=== PATIENT | female | born 1940 | race Caucasian/White ===

== ENCOUNTER 2019-08-12 10:24 | Inpatient (IN) ==
[2019-08-12] MEDS ORDERED: SODIUM CHLORIDE 0.9% 500 ML IV SCH (10:45)
[2019-08-12] MEDS ORDERED: NALOXONE HCL 0.4 MG/1 ML VIAL/CARP IV STA (10:45)
--- NOTE | 2019-08-12 11:00 | XRay Report ---
XR chest 1V portable HISTORY: weakness COMPARISON: Chest 05/27/2019. FINDINGS: The heart remains mildly enlarged. No new focal lung consolidations to suggest pneumonia. N o evidence for pulmonary edema. No pleural effusions. No pneumothorax. IMPRESSION: Stable mild cardiomegaly. ACT 112: Negative or not required by law. Electronically signed by: Mark Edwards M.D. 08/12/2019 10:59 AM
[2019-08-12 11:03] LABS: Basophils # (auto) 0.02 K/uL (0-0.2); Basophils % (auto) 0.2 %; Eosinophils # (auto) 0.19 K/uL (0-0.5); Eosinophils % (auto) 1.5 %; Hematocrit (blood only) 39.8 % (37-47); Hemoglobin 12.5 g/dL (12.0-16.0); Immature Granulocytes # (auto) 0.02 K/uL (0.00-0.02); Immature Granulocytes % (auto) 0.2 %; Lymphocytes # (auto) 2.08 K/uL (1.2-3.4); Lymphocytes % (auto) 16.5 %; Mean Corpuscular Hemoglobin 26.6 pg (25-34); Mean Corpuscular Hgb Conc 31.4 g/dL (32-36); Mean Corpuscular Volume 84.7 fL (80-100); Mean Platelet Volume 11.6 fL (7.4-10.4); Monocytes # (auto) 0.86 K/uL (0.11-0.59); Monocytes % (auto) 6.8 %; Neutrophils # (auto) 9.46 K/uL (1.4-6.5); Neutrophils % (auto) 74.8 %; Platelet Count 201 K/uL (130-400); RDW Coefficient of Variation 18.4 % (11.5-14.5); RDW Standard Deviation 57.1 fL (36.4-46.3); White Blood Count 12.63 K/uL (4.8-10.8)
[2019-08-12 11:23] LABS: Alanine Aminotransferase 29 U/L (12-78); Albumin Level 2.9 gm/dl (3.4-5.0); BUN Creatinine Ratio 33.2 (10-20); Blood Urea Nitrogen 56 mg/dl (7-18); Calcium 9.4 mg/dl (8.5-10.1); Carbon Dioxide 27 mmol/L (21-32); Chloride 111 mmol/L (98-107); Creatinine Clr Calc Pharmacy 31.9 ml/min; Est GFR (African American) 33.6; Glucose 102 mg/dl (70-99); Sodium 143 mmol/L (136-145)
[2019-08-12] MEDS ORDERED: SODIUM CHLORIDE 0.9% 1000ML 500 ML IV ONE ×2 (11:25→13:28)
[2019-08-12] MEDS ORDERED: ONDANSETRON INJ 2 MG/ML 2 ML VIAL IV STA (11:31)
[2019-08-12 11:32] LABS: Albumin Globulin Ratio 0.6 (0.9-2); Alkaline Phosphatase 72 U/L (45-117); Bilirubin,Total 0.5 mg/dl (0.2-1); Globulin 4.6 gm/dl (2.5-4.0); Total Protein 7.5 gm/dl (6.4-8.2); Troponin I < 0.015 ng/ml (0-0.045)
[2019-08-12] MEDS ORDERED: ONDANSETRON INJ 2 MG/ML 2 ML VIAL ONE (11:32)
[2019-08-12 12:11] LABS: INR 1.1 (0.9-1.1)
[2019-08-12 12:13] LABS: Potassium 3.8 mmol/L (3.5-5.1)
[2019-08-12 12:18] LABS: Magnesium 2.4 mg/dl (1.8-2.4)
[2019-08-12 13:01] LABS: Appearance Urine Clear (Clear); Bacteria Urine Automated 4+ (Negative); Bilirubin Urine Negative (Negative); Blood Urine Negative (Negative); Cast Urine Automated 0 /lpf (0-5); Color Urine Yellow; Epithelial Cell Urine Auto 20-30 /lpf (0-5); Glucose Urine UA Negative (Negative); Ketones Urine Negative (Negative); Leukocyte Esterase Urine Trace (Negative); Nitrite Urine Positive (Negative); Protein Urine 1+ (Negative); RBC Urine Automated 0-4 /hpf (0-4); Specific Gravity Urine 1.014 (1.000-1.030); Sulfosalicylic Acid Urine Positive (Negative); Urobilinogen Urine Negative (Negative); pH Urine 7.5 (4.5-7.5)
--- NOTE | 2019-08-12 13:12 | CT Scan Report ---
CT SCAN OF THE BRAIN WITHOUT IV CONTRAST CLINICAL HISTORY: Tremor. Change in mental status. COMPARISON STUDY: No priors. TECHNIQUE: Unenhanced axial CT scan of the brain is performed from the vertex to the skull base. A do se lowering technique was utilized adhering to the principles of ALARA. CT DOSE: 537.48 mGy.cm FINDINGS: Brain parenchyma: There are age-related involutional changes noting kwyk-ev-uwplwjct patchy subcorti kurt and periventricular microangiopathic change. There is no hemorrhage, mass effect, or evidence of acute territorial ischemia by CT criteria. Fonseca-white matter differentiation is preserved. No extra-a xial fluid collection is seen. Ventricles, sulci, cisterns: Prominent secondary to involutional change. Intracranial vasculature: There is atherosclerotic calcification of the cavernous carotid and vertebr al arteries. Calvarium: Unremarkable. Sinuses and mastoids: The visualized paranasal sinuses are clear. The mastoid air cells are well pneu matized. Orbits: The bony orbits are grossly intact. There are bilateral ocular lens implants. IMPRESSION: There is no hemorrhage, mass effect, or evidence of acute territorial ischemia by CT isaias dixon. ACT 112: Negative or not required by law. Electronically signed by: Kenneth Davis M.D. 08/12/2019 1:11 PM
[2019-08-12] MEDS ORDERED: cefTRIAXone SODIUM 2,000 MG/70 ML BAG IV STA (14:18)
[2019-08-12 15:02] LABS: Influenza A virus by PCR Neg for Influ A (Neg); Influenza B virus by PCR Neg for Influ B (Neg)
--- NOTE | 2019-08-12 17:08 | Emergency Department Note ---
Entered by Denisha Ceron acting as a scribe for History of Present Illness General Chief complaint: Lethargic Time Seen by Provider: 08/12/19 10:29 Source: patient and family History of Present Illness Provider complaint: weakness Onset (ago): day(s) 3 Location: head Pain Consistency: + other (worsening) Relieved By: + none Exacerbated By: + none Associated symptoms: + other (+fatigue, +vision blurriness); no loss of appetite, no nausea/vomiting and no shortness of breath The patient is a 79 year old female w/ PMHx cholecystectomy and appendicitis who presents to the ED w/ CC of weakness beginning Monday. Per the patient's , the patient was here last week for back pain where she was prescribed Hydrocodone and Baclofen. He reports that the patient has been lethargic and fatigued since then. He reports that the patient has had a normal appetite. The patient denies any nausea, vomiting, or shortness of breath. She reports that she is diabetic and took insulin this morning. She mentions that she has blurred vision. She mentions that she has chronic leg leg swelling. The patient's notes that she did not take her medication this morning. Home Medications Home Medications Medication Instructions Recorded Confirmed Type allopurinol 200 mg PO DAILY 05/27/19 08/12/19 History amlodipine 5 mg PO HS 05/27/19 08/12/19 History aspirin 81 mg PO DAILY 05/27/19 08/12/19 History atorvastatin 80 mg PO DAILY 05/27/19 08/12/19 History bumetanide 1 mg PO DAILY 05/27/19 08/12/19 History cetirizine [Zyrtec] 10 mg PO DAILY 05/27/19 08/12/19 History clopidogrel 75 mg PO BID 05/27/19 08/12/19 History insulin aspart U-100 [Novolog 1 unit SUBCUT UD 05/27/19 08/12/19 History Flexpen U-100 Insulin] insulin glargine [Lantus Solostar 36 unit SUBCUT HS 05/27/19 08/12/19 History U-100 Insulin] isosorbide mononitrate 60 mg PO DAILY 05/27/19 08/12/19 History losartan 100 mg PO DAILY 05/27/19 08/12/19 History metoprolol tartrate 100 mg PO BID 05/27/19 08/12/19 History multivitamin 1 tab PO DAILY 05/27/19 08/12/19 History lidocaine [Lidoderm] 1 patch TOP DAILY #10 ea 07/31/19 08/12/19 Rx baclofen 10 mg PO BID PRN 08/12/19 08/12/19 History hydrocodone-acetaminophen 1 tab PO HS PRN 08/12/19 08/12/19 History tramadol 50 mg PO Q6H PRN 08/12/19 08/12/19 History Allergies Allergy/AdvReac Type Severity Reaction Status Date / Time ibuprofen Allergy Unknown RUNNY NOSE Verified 08/12/19 11:07 niacin AdvReac Unknown RED RASH Verified 08/12/19 11:07 Past Med/Surg History Medical History Appendicitis, acute (Acute) CAD (coronary artery disease) 07/2010: Cardiac cath revealed a 20% left main lesion in both the proximal and distal segments, 50% mid LAD lesion which was not hemodynamically significant by FFR, and an 80% lesion in the second diagonal branch which was significant by FFR. Medical management. Surgical History H/O carotid endarterectomy (Resolved) H/O total knee replacement (Resolved) History of cholecystectomy (Resolved) History of heart artery stent (Resolved) History of hysterectomy (Resolved) Family History Other Family history non-contributory Social History Preferred Language: Czech Feels Safe at Home: Yes Smoking Status: Never smoker Review of Systems See HPI for pertinent positives & negatives. and A total of 10 systems reviewed and were otherwise negative Physical Exam Vital Signs Vital Signs - 24 hr 08/12/19 10:39 08/12/19 10:45 08/12/19 11:00 Temperature 36.5 C Temperature Source Oral Pulse Rate 69 65 Pulse Rate from SpO2 Sensor 65 Pulse Rhythm Regular Respiratory Rate 23 16 Respiratory Effort / Characteristics Non-Labored Spontaneous Respiratory Depth Normal Blood Pressure 176/59 H 162/65 H Blood Pressure Mean 98 74 Blood Pressure Position Lying Pulse Oximetry 94 93 94 Oxygen Delivery Method Room Air Room Air Sepsis Recent Fever Within 48 Hours No Sepsis New/Unexplained Change in Mental Status No Sepsis Action Taken by Nursing No Action Required 08/12/19 11:31 08/12/19 12:00 08/12/19 12:32 Temperature Temperature Source Pulse Rate 75 71 70 Pulse Rate from SpO2 Sensor 77 71 70 Pulse Rhythm Respiratory Rate 20 20 22 Respiratory Effort / Characteristics Respiratory Depth Blood Pressure 193/75 H 167/69 H 191/77 H Blood Pressure Mean 99 112 134 Blood Pressure Position Pulse Oximetry 96 96 91 Oxygen Delivery Method Sepsis Recent Fever Within 48 Hours Sepsis New/Unexplained Change in Mental Status Sepsis Action Taken by Nursing 08/12/19 15:10 Temperature Temperature Source Pulse Rate 71 Pulse Rate from SpO2 Sensor 73 Pulse Rhythm Respiratory Rate 15 Respiratory Effort / Characteristics Respiratory Depth Blood Pressure 186/65 H Blood Pressure Mean 114 Blood Pressure Position Pulse Oximetry 94 Oxygen Delivery Method Sepsis Recent Fever Within 48 Hours Sepsis New/Unexplained Change in Mental Status Sepsis Action Taken by Nursing GENERAL: Well nourished, opens eyes to voice, non-toxic. EYE EXAM: Normal conjunctiva. PERRL, no anisocoria and EOM's grossly intact w/o pain. OROPHARYNX: Moist mucous membranes. Grossly normal dentition. NECK: Supple, no nuchal rigidity, no adenopathy, non-tender. No signs of meningismus. LUNGS: Clear to auscultation. Normal chest wall mechanics. HEART: NSR, no MRG. ABDOMEN: Abdomen soft, non-tender, normo-active bowel sounds, no masses, no rebound or guarding. BACK: No CVA TTP. SKIN: No rashes and no bruising. UPPER EXTREMITIES: Upper extremities are grossly normal. LOWER EXTREMITIES: No pitting edema. No calf pain. NEURO EXAM: A&O x3, opens eyes to voice, follows commands, no focal weakness, no sensory deficits, good finger to nose. Course Course 1035: The patient was evaluated in room C12B, and a complete history and p hysical examination were performed. 1040: The patient was placed on a school bus monitor which showed sinus rhythm and rate of 69. 1210: I reevaluated the patient and she is more awake and alert. 1517: I reviewed the patient's case with Heydi Rodriguez. Dr. Alanna Rodriguez Hospitalist will evaluate the patient for further management. I updated family and patient about the plan. Administered Medications Discontinued Medications Sodium Chloride (Nss) 500 mls @ 999 mls/hr IV .Q31M DENISSE Stop: 08/12/19 11:15 Last Infusion: 08/12/19 12:34 Dose: 0 mls/hr Documented by: [id number] Admin: 08/12/19 11:35 Dose: 999 mls/hr Documented by: [id number] Sodium Chloride (Nss 1000ml) 500 mls @ 999 mls/hr IV .Q31M ONE Stop: 08/12/19 11:55 Last Infusion: 08/12/19 12:34 Dose: 0 mls/hr Documented by: [id number] Admin: 08/12/19 11:34 Dose: 999 mls/hr Documented by: [id number] Sodium Chloride (Nss 1000ml) 500 mls @ 999 mls/hr IV .Q31M ONE Stop: 08/12/19 13:58 Last Infusion: 08/12/19 13:05 Dose: 0 mls/hr Documented by: [id number] Admin: 08/12/19 12:34 Dose: 999 mls/hr Documented by: [id number] Ceftriaxone Sodium (Rocephin) 2,000 mg in 70 mls @ 140 mls/hr IV NOW STA Stop: 08/12/19 14:47 Last Infusion: 08/12/19 15:38 Dose: 0 mls/hr Documented by: [id number] Admin: 08/12/19 15:04 Dose: 140 mls/hr Documented by: [id number] Naloxone HCl (Narcan) 0.4 mg IV NOW STA Stop: 08/12/19 10:46 Last Admin: 08/12/19 11:35 Dose: 0.4 mg Documented by: [id number] Ondansetron HCl (Zofran) Confirm Administered Dose 4 mg .ROUTE .STK-MED ONE Stop: 08/12/19 11:33 Last Admin: 08/12/19 11:35 Dose: 4 mg Documented by: [id number] Ondansetron HCl (Zofran) 4 mg IV NOW STA Stop: 08/12/19 11:32 Last Admin: 08/12/19 11:35 Dose: Not Given Documented by: [id number] Medical Decision Making Medical Records Attestation: I reviewed the patient's medical records. Home Medications Current Medication List: was personally reviewed by me Laboratory Data Attestation: I reviewed the patient's lab results. Result diagrams: 08/12/19 10:52 08/12/19 11:47 Lab Results 08/12/19 08/12/19 08/12/19 Range/Units 10:47 10:52 10:52 WBC 12.63 H (4.8-10.8) K/uL RBC 4.70 (4.2-5.4) M/uL Hgb 12.5 (12.0-16.0) g/dL Hct 39.8 (37-47) % MCV 84.7 (80-100) fL MCH 26.6 (25-34) pg MCHC 31.4 L (32-36) g/dL RDW Std Deviation 57.1 H (36.4-46.3) fL RDW Coeff of Yoel 18.4 H (11.5-14.5) % Plt Count 201 (130-400) K/uL MPV 11.6 H (7.4-10.4) fL Immature Gran % (Auto) 0.2 % Neut % (Auto) 74.8 % Lymph % (Auto) 16.5 % [place] % (Auto) 6.8 % Eos % (Auto) 1.5 % Baso % (Auto) 0.2 % Immature Gran # (Auto) 0.02 (0.00-0.02) K/uL Neut # (Auto) 9.46 H (1.4-6.5) K/uL Lymph # (Auto) 2.08 (1.2-3.4) K/uL [place] # (Auto) 0.86 H (0.11-0.59) K/uL Eos # (Auto) 0.19 (0-0.5) K/uL Baso # (Auto) 0.02 (0-0.2) K/uL PT 11.0 (9.0-12.0) Seconds INR 1.1 (0.9-1.1) Sodium (136-145) mmol/L Potassium (3.5-5.1) mmol/L Chloride (98-107) mmol/L Carbon Dioxide (21-32) mmol/L Anion Gap (3-11) BUN (7-18) mg/dl Creatinine (0.6-1.2) mg/dl Est Cr Clr Drug Dosing ml/min Est GFR ( Amer) Est GFR (Non-Af Amer) BUN/Creatinine Ratio (10-20) Glucose (70-99) mg/dl POC Glucose 101 H (70-99) mg/dl Calcium (8.5-10.1) mg/dl Magnesium (1.8-2.4) mg/dl Total Bilirubin (0.2-1) mg/dl AST (15-37) U/L ALT (12-78) U/L Alkaline Phosphatase (45-117) U/L Troponin I (0-0.045) ng/ml Total Protein (6.4-8.2) gm/dl Albumin (3.4-5.0) gm/dl Globulin (2.5-4.0) gm/dl Albumin/Globulin Ratio (0.9-2) TSH (0.300-4.500) uIu/ml Urine Color Urine Appearance (Clear) Urine pH (4.5-7.5) Ur Specific [place] (1.000-1.030) Urine Protein (Negative) Urine Glucose (UA) (Negative) Urine Ketones (Negative) Urine Blood (Negative) Urine Nitrite (Negative) Urine Bilirubin (Negative) Urine Urobilinogen (Negative) Ur Leukocyte Esterase (Negative) Urine WBC (Auto) (0-5) /hpf Urine RBC (Auto) (0-4) /hpf U Hyaline Cast (Auto) (0-5) /lpf U Epithel Cells (Auto) (0-5) /lpf Urine Bacteria (Auto) (Negative) Influenza Type A (PCR) (Neg) Influenza Type B (PCR) (Neg) 08/12/19 08/12/19 08/12/19 Range/Units 10:52 11:47 12:30 WBC (4.8-10.8) K/uL RBC (4.2-5.4) M/uL Hgb (12.0-16.0) g/dL Hct (37-47) % MCV (80-100) fL MCH (25-34) pg MCHC (32-36) g/dL RDW Std Deviation (36.4-46.3) fL RDW Coeff of Yoel (11.5-14.5) % Plt Count (130-400) K/uL MPV (7.4-10.4) fL Immature Gran % (Auto) % Neut % (Auto) % Lymph % (Auto) % [place] % (Auto) % Eos % (Auto) % Baso % (Auto) % Immature Gran # (Auto) (0.00-0.02) K/uL Neut # (Auto) (1.4-6.5) K/uL Lymph # (Auto) (1.2-3.4) K/uL [place] # (Auto) (0.11-0.59) K/uL Eos # (Auto) (0-0.5) K/uL Baso # (Auto) (0-0.2) K/uL PT (9.0-12.0) Seconds INR (0.9-1.1) Sodium 143 (136-145) mmol/L Potassium 3.8 (3.5-5.1) mmol/L Chloride 111 H (98-107) mmol/L Carbon Dioxide 27 (21-32) mmol/L Anion Gap 5.0 (3-11) BUN 56 H (7-18) mg/dl Creatinine 1.68 H (0.6-1.2) mg/dl Est Cr Clr Drug Dosing 31.9 ml/min Est GFR ( Amer) 33.6 Est GFR (Non-Af Amer) 29.0 BUN/Creatinine Ratio 33.2 H (10-20) Glucose 102 H (70-99) mg/dl POC Glucose (70-99) mg/dl Calcium 9.4 (8.5-10.1) mg/dl Magnesium 2.4 (1.8-2.4) mg/dl Total Bilirubin 0.5 (0.2-1) mg/dl AST 19 (15-37) U/L ALT 29 (12-78) U/L Alkaline Phosphatase 72 (45-117) U/L Troponin I < 0.015 (0-0.045) ng/ml Total Protein 7.5 (6.4-8.2) gm/dl Albumin 2.9 L (3.4-5.0) gm/dl Globulin 4.6 H (2.5-4.0) gm/dl Albumin/Globulin Ratio 0.6 L (0.9-2) TSH 1.140 (0.300-4.500) uIu/ml Urine Color Yellow Urine Appearance Clear (Clear) Urine pH 7.5 (4.5-7.5) Ur Specific [place] 1.014 (1.000-1.030) Urine Protein 1+ H (Negative) Urine Glucose (UA) Negative (Negative) Urine Ketones Negative (Negative) Urine Blood Negative (Negative) Urine Nitrite Positive A (Negative) Urine Bilirubin Negative (Negative) Urine Urobilinogen Negative (Negative) Ur Leukocyte Esterase Trace H (Negative) Urine WBC (Auto) 10-30 H (0-5) /hpf Urine RBC (Auto) 0-4 (0-4) /hpf U Hyaline Cast (Auto) 0 (0-5) /lpf U Epithel Cells (Auto) 20-30 H (0-5) /lpf Urine Bacteria (Auto) 4+ H (Negative) Influenza Type A (PCR) (Neg) Influenza Type B (PCR) (Neg) 08/12/19 Range/Units 14:00 WBC (4.8-10.8) K/uL RBC (4.2-5.4) M/uL Hgb (12.0-16.0) g/dL Hct (37-47) % MCV (80-100) fL MCH (25-34) pg MCHC (32-36) g/dL RDW Std Deviation (36.4-46.3) fL RDW Coeff of Yoel (11.5-14.5) % Plt Count (130-400) K/uL MPV (7.4-10.4) fL Immature Gran % (Auto) % Neut % (Auto) % Lymph % (Auto) % [place] % (Auto) % Eos % (Auto) % Baso % (Auto) % Immature Gran # (Auto) (0.00-0.02) K/uL Neut # (Auto) (1.4-6.5) K/uL Lymph # (Auto) (1.2-3.4) K/uL [place] # (Auto) (0.11-0.59) K/uL Eos # (Auto) (0-0.5) K/uL Baso # (Auto) (0-0.2) K/uL PT (9.0-12.0) Seconds INR (0.9-1.1) Sodium (136-145) mmol/L Potassium (3.5-5.1) mmol/L Chloride (98-107) mmol/L Carbon Dioxide (21-32) mmol/L Anion Gap (3-11) BUN (7-18) mg/dl Creatinine (0.6-1.2) mg/dl Est Cr Clr Drug Dosing ml/min Est GFR ( Amer) Est GFR (Non-Af Amer) BUN/Creatinine Ratio (10-20) Glucose (70-99) mg/dl POC Glucose (70-99) mg/dl Calcium (8.5-10.1) mg/dl Magnesium (1.8-2.4) mg/dl Total Bilirubin (0.2-1) mg/dl AST (15-37) U/L ALT (12-78) U/L Alkaline Phosphatase (45-117) U/L Troponin I (0-0.045) ng/ml Total Protein (6.4-8.2) gm/dl Albumin (3.4-5.0) gm/dl Globulin (2.5-4.0) gm/dl Albumin/Globulin Ratio (0.9-2) TSH (0.300-4.500) uIu/ml Urine Color Urine Appearance (Clear) Urine pH (4.5-7.5) Ur Specific [place] (1.000-1.030) Urine Protein (Negative) Urine Glucose (UA) (Negative) Urine Ketones (Negative) Urine Blood (Negative) Urine Nitrite (Negative) Urine Bilirubin (Negative) Urine Urobilinogen (Negative) Ur Leukocyte Esterase (Negative) Urine WBC (Auto) (0-5) /hpf Urine RBC (Auto) (0-4) /hpf U Hyaline Cast (Auto) (0-5) /lpf U Epithel Cells (Auto) (0-5) /lpf Urine Bacteria (Auto) (Negative) Influenza Type A (PCR) Neg for Influ A (Neg) Influenza Type B (PCR) Neg for Influ B (Neg) Imaging Data Radiologist's Impression: Radiology results as stated below per my review and the radiologist's interpretation: XR chest 1V portable HISTORY: weakness COMPARISON: Chest 05/27/2019. FINDINGS: The heart remains mildly enlarged. No new focal lung consolidations to suggest pneumonia. No evidence for pulmonary edema. No pleural effusions. No pneumothorax. IMPRESSION: Stable mild cardiomegaly. ACT 112: Negative or not required by law. Electronically signed by: Mark Edwards M.D. 08/12/2019 10:[address] SCAN OF THE BRAIN WITHOUT IV CONTRAST CLINICAL HISTORY: Tremor. Change in mental status. COMPARISON STUDY: No priors. TECHNIQUE: Unenhanced axial CT scan of the brain is performed from the vertex to the skull base. A dose lowering technique was utilized adhering to the principles of ALARA. CT DOSE: 537.48 mGy.cm FINDINGS: Brain parenchyma: There are age-related involutional changes noting [id number] patchy subcortical and periventricular microangiopathic change. There is no hemorrhage, mass effect, or evidence of acute territorial ischemia by CT criteria. Fonseca-white matter differentiation is preserved. No extra-axial fluid collection is seen. Ventricles, sulci, cisterns: Prominent secondary to involutional change. Intracranial vasculature: There is atherosclerotic calcification of the cavernous carotid and vertebral arteries. Calvarium: Unremarkable. Sinuses and mastoids: The visualized paranasal sinuses are clear. The mastoid air cells are well pneumatized. Orbits: The bony orbits are grossly intact. There are bilateral ocular lens implants. IMPRESSION: There is no hemorrhage, mass effect, or evidence of acute territorial ischemia by CT criteria. ACT 112: Negative or not required by law. Electronically signed by: Kenneth Davis M.D. 08/12/2019 1:11 PM ECG Data Attestation: I personally reviewed and interpreted this ECG as follows: Indication: + weakness Rate (beats per minute): 69 Rhythm: + sinus rhythm ECG Intervals/blocks: + First degree AV block and + Normal QRS ECG [place]: + Normal ECG Findings: + Other (motion artifact in v4 and v5) Comparison ECG Date: from (09/03/14) Change: no significant change Blood Pressure Blood Pressure Findings: Elevated blood pressure Blood Pressure Disposition: further management by hospitalist FERNANDA Narrative Differential diagnosis: Etiologies such as metabolic, infection, hypo/hyperglycemia, electrolyte abnormalities, cardiac sources, intracerebral event, toxicologic, neurologic, as well as others were entertained. The patient is a 79 year old female w/ PMHx cholecystectomy and appendicitis who presents to the ED w/ CC of weakness beginning Monday. Patient was seen and evaluated the bedside. The patient was presenting with some decreased mentation as well as some occasional shaking. The patient does have some extremity shaking which does appear to be more tremulous. Patient does not use alcohol. Patient was recently started on baclofen as well as narcotic pain medication. This is due to concern of sciatica. Patient did a blood work completed. Blood work showed a mild white count of 12. The patient has chronic and stable kidney disease which is fairly unchanged from before. The patient was given additional IV fluids. The patient's urinalysis does show questionable for infection. CT of the head no acute change. Flu negative. Given the patient's diffuse weakness and inability to obtain PT and OT consult and possible rehab but the patient would be better suited for observation and tr eatment. The patient was given Rocephin for the UTI and I did speak the on-call medicine service who agreed to further evaluate treat the patient. Patient was admitted to the medicine service. Impression & Plan Dehydration, UTI (urinary tract infection), Weakness, Decreased alertness Discharge Plan Visit Data Chief Complaint: Lethargic ED Provider: Marlon Chen Discharge Problem: Dehydration, UTI (urinary tract infection), Weakness, Decreased alertness Patient Disposition: Being Evaluated by Hospitalist Forms Stand Alone Forms: My [facility] Prescriptions Prescriptions: No Action multivitamin Tablet 1 tab PO DAILY RF: 0 atorvastatin 80 mg Tablet 80 mg PO DAILY RF: 0 cetirizine [Zyrtec] 10 mg Tablet 10 mg PO DAILY RF: 0 metoprolol tartrate 100 mg Tablet 100 mg PO BID RF: 0 clopidogrel 75 mg Tablet 75 mg PO BID RF: 0 amlodipine 5 mg Tablet 5 mg PO HS RF: 0 allopurinol 100 mg Tablet 200 mg PO DAILY RF: 0 aspirin 81 mg Tablet,Delayed Release (Dr/Ec) 81 mg PO DAILY RF: 0 isosorbide mononitrate 60 mg Tablet Extended Release 24 Hr 60 mg PO DAILY RF: 0 bumetanide 1 mg Tablet 1 mg PO DAILY RF: 0 losartan 100 mg Tablet 100 mg PO DAILY RF: 0 insulin aspart U-100 [Novolog Flexpen U-100 Insulin] 100 unit/mL (3 mL) Insulin Pen 1 unit SUBCUT UD RF: 0 Lantus Solostar U-100 Insulin 100 unit/mL (3 mL) Insulin Pen 36 unit SUBCUT HS RF: 0 lidocaine [Lidoderm] 5 % adhesive patch,medicated 1 patch TOP DAILY Qty: 10 RF: 0 hydrocodone-acetaminophen 5-325 mg tablet 1 tab PO HS PRN (Reason: Pain) RF: 0 baclofen 10 mg tablet 10 mg PO BID PRN (Reason: Muscle Pain) RF: 0 tramadol 50 mg tablet 50 mg PO Q6H PRN (Reason: Pain) RF: 0 Referrals Referrals: Anamaria Michel MD [Primary Care Provider] - Discharge Problem: UTI (urinary tract infection) Qualifiers: Urinary tract infection type: site unspecified Hematuria presence: without he maturia Qualified Code(s): N39.0 - Urinary tract infection, site not specified The scribe's documentation has been prepared under my direction and personally reviewed by me in its entirety. I confirm that the note above accurately reflects all work, treatment, procedures, and medical decision making performed by me.
[2019-08-12] MEDS ORDERED: DEXTROSE 50% 50 ML SYRINGE IV PRN (18:13)
[2019-08-12] MEDS ORDERED: INSULIN ASPART 100 UNITS/ML 3 ML PEN SC SCH (18:13)
[2019-08-12] MEDS ORDERED: ACETAMINOPHEN 325 MG TAB PO PRN (18:13)
[2019-08-12] MEDS ORDERED: cefTRIAXone SODIUM 1,000 MG/50 ML BAG IV SCH (18:13)
[2019-08-12] MEDS ORDERED: GLUCAGON FOR INJ 1 MG VIAL SQ PRN (18:13)
[2019-08-12] MEDS ORDERED: GLUCOSE 10 TABS/TUBE PO PRN (18:13)
[2019-08-12] MEDS ORDERED: GLUCOSE 40% GEL 15 GM TUBE PO PRN (18:13)
[2019-08-12] MEDS ORDERED: CARBOHYDRATES FOR HYPOGLYCEMIA PO PRN (18:13)
[2019-08-12] MEDS: SODIUM CHLORIDE 0.9% 1000ML 1,000 ML IV SCH (18:54)
[2019-08-12] MEDS: LOSARTAN POTASSIUM 50 MG TAB PO SCH (19:28)
[2019-08-12] MEDS: AMLODIPINE BESYLATE 5 MG TAB PO SCH (19:29)
[2019-08-12] MEDS: INSULIN ASPART 100 UNITS/ML 3 ML PEN SC SCH ×2 (19:30→21:19)
--- NOTE | 2019-08-12 20:04 | History & Physical Report ---
Date of Service August 12, 2019 Assessment & Plan (1) Metabolic encephalopathy: -Admit to [facility] -Patient presenting from home with increased confusion and generalized weakness -Possibly multifactorial secondary to polypharmacy (baclofen and Vicodin) and/or UTI -Hold baclofen and Vicodin -In the ED, patient received Narcan, IV ceftriaxone, IVF and has returned to her baseline per the -Management of other issues as below (2) UTI (urinary tract infection): -UA suggest UTI -WBC 12.6K; afebrile, hemodynamically stable, does not appear septic -Had positive urine culture on 05/27/2019 for Enterobacter cloacae (intermediate resistance to Macrobid); was not treated secondary to patient's lack of symptoms -S/p ceftriaxone in ED, will continue with -Follow urine culture (3) Ambulatory dysfunction: -Patient seen in ED on 07/31 for left hip and leg pain, diagnosed with sciatica; treated with IM Decadron and lidocaine patch -Left femur x-ray and hip/pelvis x-ray on 07/31 negative for acute findings -Patient has some left SI joint tenderness on exam however appears to be overall comfortable -will hold on any repeat imaging at this time, await PT/OT evaluations (4) Hypertension: -BP elevated, patient missed morning doses of medications -Continue home doses of isosorbide, losartan, metoprolol, amlodipine; make adjustments as needed (5) DM type 2 (diabetes mellitus, type 2): -Hgb A1c 7.2 05/2019 -Lantus and NovoLog per protocol while hospitalized (6) CAD (coronary artery disease): -Appears stable, no reports of chest pain -Continue aspirin, Plavix, statin, beta-bakari, nitrate, ARB (7) CKD (chronic kidney disease), stage IV: - baseline creat runs in the mid to high ones - creat noted to be 1.6 today - continue to monitor, avoid nephrotoxic agents when able (8) Gouty arthritis: -Continue allopurinol (9) DVT prophylaxis: -SQ heparin History of Present Illness Chief Complaint: Generalized weakness, confusion Primary Care Provider: Anamaria Michel MD 79-year-old female who presents the ED for evaluation of generalized weakness and confusion. Patient was seen in the ED on 07/31 for left hip and leg pain. Patient was treated with IM Decadron and lidocaine patch with improvement in her symptoms. Patient then presented to PCP on 08/09 with increased complaints. She was given prescriptions for baclofen and Vicodin. Patient's reports that the following day, patient was having generalized jerking movements and she was also confused. This morning, patient was very weak and unable to get out of bed. It took her over an hour to ambulate to the bathroom. Patient had nausea and one episode of vomiting. No hematemesis or coffee-ground emesis. Patient denies abdominal pain. Reports no bowel movement for the past few days. Denies fevers and chills. No chest pain or shortness of breath. Denies lightheadedness, dizziness, diaphoresis, syncopal event. No urinary symptoms. In the ED, WBC 12.6K, UA suggest UTI. Patient's reports last dose of Vicodin was 2 days ago, last dose of baclofen was last evening. In the ED, she received IV ceftriaxone, Narcan, IV Zofran, IVF. Allergies Allergy/AdvReac Type Severity Reaction Status Date / Time ibuprofen Allergy Unknown RUNNY NOSE Verified 08/12/19 11:07 niacin AdvReac Unknown RED RASH Verified 08/12/19 11:07 Home Medications Home Medications Medication Instructions Recorded Confirmed Type allopurinol 200 mg PO DAILY 05/27/19 08/12/19 History amlodipine 5 mg PO HS 05/27/19 08/12/19 History aspirin 81 mg PO DAILY 05/27/19 08/12/19 History atorvastatin 80 mg PO DAILY 05/27/19 08/12/19 History bumetanide 1 mg PO DAILY 05/27/19 08/12/19 History cetirizine [Zyrtec] 10 mg PO DAILY 05/27/19 08/12/19 History clopidogrel 75 mg PO BID 05/27/19 08/12/19 History insulin aspart U-100 [Novolog 1 unit SUBCUT UD 05/27/19 08/12/19 History Flexpen U-100 Insulin] insulin glargine [Lantus Solostar 36 unit SUBCUT HS 05/27/19 08/12/19 History U-100 Insulin] isosorbide mononitrate 60 mg PO DAILY 05/27/19 08/12/19 History losartan 100 mg PO DAILY 05/27/19 08/12/19 History metoprolol tartrate 100 mg PO BID 05/27/19 08/12/19 History multivitamin 1 tab PO DAILY 05/27/19 08/12/19 History lidocaine [Lidoderm] 1 patch TOP DAILY #10 ea 07/31/19 08/12/19 Rx baclofen 10 mg PO BID PRN 08/12/19 08/12/19 History hydrocodone-acetaminophen 1 tab PO HS PRN 08/12/19 08/12/19 History tramadol 50 mg PO Q6H PRN 08/12/19 08/12/19 History Past Med/Surg History Medical History CAD (coronary artery disease) 11/2006: CELSO to left circumflex 07/2010: Cardiac cath revealed a 20% left main lesion in both the proximal and distal segments, 50% mid LAD lesion which was not hemodynamically significant by FFR, and an 80% lesion in the second diagonal branch which was significant by FFR. Medical management. CKD (chronic kidney disease), stage IV DM type 2 (diabetes mellitus, type 2) Dyslipidemia Gouty arthritis History of right common carotid artery stent placement Hypertension Surgical History (Updated 08/12/19 @ 19:54 by RAPHAEL Wilson) H/O carotid endarterectomy (Resolved) H/O total knee replacement (Resolved) History of cholecystectomy (Resolved) History of hysterectomy (Resolved) Family History Brother Lung cancer Bone cancer Social History Preferred Language: Grenadian Communication Ability: Effective Electrophysiology Scientist Required: No Beliefs That Will Affect Care: None Current Living Situation: Spouse Other Information That Helps Us Care for You: No Feels Safe at Home: Yes Safety Concerns: Feels Safe At This Time Smoking Status: Never smoker Do You Dip or Chew Tobacco: No ; Second Hand Exposure: No ; Tobacco Cessation Education Requested by Patient: No Hx Alcohol Use: No Review of Systems Review of Systems: ROS per HPI, all other systems reviewed and negative Physical Exam Constitutional: WD/WN, vitals as above + obese Eyes: PERRL, conjunctivae normal, anicteric sclerae ENMT: external ear and nose normal, oropharynx normal Respiratory: normal respiratory effort, lungs clear to auscultation Cardiovascular: Rate/Rhythm: regular rate and regular rhythm Vessels: normal peripheral pulses Extremities: + edema (Trace edema BLE) Gastrointestinal (Abdomen): normal bowel sounds, soft, nontender, no hepatosplenomegaly Musculoskeletal: no cyanosis or clubbing, extremities motor strength 5/5 Some tenderness over left SI joint Skin: no rashes, warm and dry Neurologic: PERRL, EOMI, accommodation nl, no face palsy, no dysarthria Psychiatric: A+Ox3, euthymic affect Results & Data Vital Signs (Past 12 Hours) Vital Signs Temp Pulse Pulse Resp BP BP Pulse Ox 08/12/19 18:13 36.7 C 69 18 172/69 H 93 08/12/19 17:30 66 16 172/59 H 91 08/12/19 17:00 64 14 177/64 H 93 08/12/19 16:30 72 14 171/70 H 94 08/12/19 16:00 74 17 185/62 H 95 08/12/19 15:30 75 23 188/78 H 96 08/12/19 15:10 71 15 186/65 H 94 08/12/19 12:32 70 22 191/77 H 91 08/12/19 12:00 71 20 167/69 H 96 08/12/19 11:31 75 20 193/75 H 96 08/12/19 11:00 65 16 162/65 H 94 08/12/19 10:45 93 08/12/19 10:39 36.5 C 69 23 176/59 H 94 Laboratory Results Short CBC 08/12/19 Range/Units 10:52 WBC 12.63 H (4.8-10.8) K/uL Hgb 12.5 (12.0-16.0) g/dL Hct 39.8 (37-47) % Plt Count 201 (130-400) K/uL BMP 08/12/19 08/12/19 10:52 11:47 Sodium 143 Potassium 3.8 Chloride 111 H Carbon Dioxide 27 BUN 56 H Creatinine 1.68 H Glucose 102 H Calcium 9.4 Cardiac Enzymes 08/12/19 Range/Units 10:52 Troponin I < 0.015 (0-0.045) ng/ml Liver Function 08/12/19 08/12/19 Range/Units 10:52 11:47 Total Bilirubin 0.5 (0.2-1) mg/dl AST 19 (15-37) U/L ALT 29 (12-78) U/L Alkaline Phosphatase 72 (45-117) U/L Albumin 2.9 L (3.4-5.0) gm/dl Urine 08/12/19 Range/Units 12:30 Urine Color Yellow Urine Appearance Clear (Clear) Urine pH 7.5 (4.5-7.5) Ur Specific Newcomb 1.014 (1.000-1.030) Urine Protein 1+ H (Negative) Urine Glucose (UA) Negative (Negative) Diagnostic Findings HEAD CT IMPRESSION: There is no hemorrhage, mass effect, or evidence of acute territorial ischemia by CT criteria. CXR IMPRESSION: Stable mild cardiomegaly. Code Status & VTE Plan Code Status Patient is a DNR as per my discussion with her. VTE Prophylaxis Plan VTE Prophylaxis will be ordered: Yes Supervising Physician Co-Signing Physician Notes Attending addendum; The patient was seen and examined in medical floor She was admitted with increased confusion and generalized weakness likely secondary to polypharmacy and is complicated by UTI Has been feeling a lot better since admission Denies any significant symptoms On examination Lying in bed without any symptoms She is obese Hemodynamically stable with systolic blood pressure on the higher side Chest-clear to auscultate bilaterally Heart-S1-S2, regular Abdomen-benign, distended, bowel sounds present Extremities-trace to 1+ edema bilaterally, more on the left INDUSTRIAL HYGIENIST-alert, awake and oriented x3 Admission labs and imaging studies reviewed Metabolic encephalopathy-likely to polypharmacy and is complicated by UTI Hold baclofen and narcotics. IV ceftriaxone for UTI Agree with assessment plan as outlined above by Heydi Martínez
[2019-08-12] MEDS: CLOPIDOGREL BISULFATE 75 MG TAB PO SCH (21:15)
[2019-08-12] MEDS: METOPROLOL TARTRATE 100 MG TAB PO SCH (21:15)
[2019-08-12] MEDS: INSULIN GLARGINE SOLOSTAR 100 UNITS/ML 3 ML PEN SC SCH (21:20)
[2019-08-12] MEDS: HEPARIN SOD 5,000 UNIT/0.5 ML VIAL SQ SCH (21:21)
[2019-08-13] MEDS ORDERED: ACETAMINOPHEN 325 MG TAB PO PRN (06:06)
--- NOTE | 2019-08-13 06:07 | Electrocardiogram Report ---
Test Reason : Blood Pressure : / mmHG Vent. Rate : 069 BPM Atrial Rate : 069 BPM P-R Int : 272 ms QRS Dur : 102 ms QT Int : 406 ms P-R-T Axes : 051 021 098 degrees QTc Int : 435 ms Poor data quality, interpretation may be adversely affected Sinus rhythm with 1st degree A-V block Nonspecific ST and T wave abnormality Abnormal ECG When compared with ECG of 03-SEP-2014 22:58, QT has shortened Confirmed by Kevin Mora ([id number]) on 08/13/2019 6:07:06 AM Referred By: REFERRED SELF Confirmed By:Kevin Mora
[2019-08-13] MEDS ORDERED: TRAMADOL HCL 50 MG TABLET PO PRN (06:08)
[2019-08-13 06:18] LABS: Hematocrit (blood only) 35.6 % (37-47); Hemoglobin 10.9 g/dL (12.0-16.0); Mean Corpuscular Hgb Conc 30.6 g/dL (32-36); Mean Corpuscular Volume 84.8 fL (80-100); Platelet Count 182 K/uL (130-400); RDW Coefficient of Variation 18.3 % (11.5-14.5); RDW Standard Deviation 56.4 fL (36.4-46.3); White Blood Count 9.95 K/uL (4.8-10.8)
[2019-08-13] MEDS: HEPARIN SOD 5,000 UNIT/0.5 ML VIAL SQ SCH ×2 (06:20→13:20)
[2019-08-13] MEDS: SODIUM CHLORIDE 0.9% 1000ML 1,000 ML IV SCH ×2 (06:21→20:28)
[2019-08-13] MEDS ORDERED: POTASSIUM CHLORIDE 20 MEQ TABCR PO STA (06:33)
[2019-08-13 06:59] LABS: Calcium 8.5 mg/dl (8.5-10.1); Creatinine Clr Calc Pharmacy 37.2 ml/min; Est GFR (African American) 40.5; Est GFR (Non-African American) 34.9
--- NOTE | 2019-08-13 07:57 | CT Scan Report ---
ABDOMEN AND PELVIS CT WITHOUT CONTRAST CT DOSE: 1452.04 mGy.cm HISTORY: back pain TECHNIQUE: Multiaxial CT images of the abdomen and pelvis were performed without contrast. A dose lo wering technique was utilized adhering to the principles of ALARA. COMPARISON STUDY: Abdomen and pelvis CT 09/03/2014. FINDINGS: Stable 4 mm nodule within the right middle lobe on image 1 and a stable 8 mm nodule within the right middle lobe on image 19. Stable 4 mm nodule within the base of the left lower lobe on image 48. These are likely benign given the long-term stability. No pneumoperitoneum. No pneumatosis. No f ractures within the visualized osseous structures. Moderate facet degenerative changes within the low er lumbar spine. Stable lumbar subcutaneous edema. Cholecystectomy. The unenhanced liver, spleen, adr enal glands, and pancreas are unremarkable. No renal or ureteral stones. No hydronephrosis. Mild pelv ic floor collapse. The bladder is unremarkable. The uterus and bilateral adnexa are within normal whitt its. Prior appendectomy. Mild bilateral perinephric edema. This likely chronic. There is mild bilater al cortical renal scarring. There are few small hypo and hyperdense renal lesions with the largest on the right measuring 12 mm. These are incompletely characterized on this noncontrast study but favor simple and hyperdense cysts. Suboptimal evaluation for bowel pathology due to the lack of intravenous and oral contrast. No evidence for bowel obstruction. Extensive colonic diverticulosis. Focal area o f fat stranding adjacent to a diverticulum on image 382 within the mid to colon. There is also questi onable minimal pericolonic fat stranding within the proximal sigmoid colon on image 358. IMPRESSION: 1. There are 2 separate areas of mild fat stranding adjacent to a few diverticula within the proximal and mid sigmoid colon. This favors developing acute diverticulitis. No perforation or abscess. 2. No evidence for bowel obstruction. 3. Additional findings as described above. ACT 112: Negative or not required by law. Electronically signed by: Mark Edwards M.D. 08/13/2019 7:55 AM
--- NOTE | 2019-08-13 10:59 | Ultrasound Report ---
ULTRASOUND BILATERAL LOWER EXTREMITY VENOUS CLINICAL HISTORY: Leg pain. COMPARISON STUDY: Left lower extremity venous ultrasound dated 04/12/2019. TECHNIQUE: Real-time, grayscale, and color Doppler sonography of the deep veins of the right and left lower extremity was performed from the inguinal crease to the calf. Compression and augmentation wer e utilized. FINDINGS: Right lower extremity: There is occlusive deep venous thrombosis identified in the right calf within one of the posterior tibial veins. The remaining calf vessels appear clear. No above knee deep venous thrombosis is identified. The common femoral, superficial femoral, and popliteal veins are patent an d normally compressible. The greater saphenous vein and the profunda femoris vein at the junction wit h the common femoral vein are clear. Left lower extremity: There is no sonographic evidence of deep venous thrombosis in the left lower ex tremity. The common femoral, superficial femoral, and popliteal veins are patent and normally deandre sible. The greater saphenous vein and the profunda femoris vein at the junction with the common femor al vein are clear. The visualized calf veins are patent. IMPRESSION: 1. There is occlusive deep venous thrombosis identified in the right calf as above. 2. There is no sonographic evidence of deep venous thrombosis in the left lower extremity. ACT 112: Negative or not required by law. Electronically signed by: Kenneth Davis M.D. 08/13/2019 10:57 AM
[2019-08-13] MEDS: INSULIN ASPART 100 UNITS/ML 3 ML PEN SC SCH ×4 (11:04→22:26)
[2019-08-13] MEDS: ASPIRIN 81 MG ECTAB PO SCH (11:05)
[2019-08-13] MEDS: LOSARTAN POTASSIUM 50 MG TAB PO SCH (11:05)
[2019-08-13] MEDS: ATORVASTATIN 40 MG TAB PO SCH (11:05)
[2019-08-13] MEDS: ISOSORBIDE MONO EXTENDED REL 60 MG TABCR PO SCH (11:06)
[2019-08-13] MEDS: CETIRIZINE HCL 10 MG TABLET PO SCH (11:06)
[2019-08-13] MEDS: CLOPIDOGREL BISULFATE 75 MG TAB PO SCH ×2 (11:06→20:30)
[2019-08-13] MEDS: MULTIVITAMIN TAB PO SCH (11:06)
[2019-08-13] MEDS: allopurinoL 100 MG TAB PO SCH (11:06)
[2019-08-13] MEDS: METOPROLOL TARTRATE 100 MG TAB PO SCH ×2 (11:06→20:29)
[2019-08-13] MEDS: LIDOCAINE 5% 1 PATCH TD SCH (11:11)
[2019-08-13] MEDS ORDERED: cefTRIAXone SODIUM 2,000 MG in DEXTROSE 5% 50 ML IV SCH (16:00)
[2019-08-13] MEDS: AMLODIPINE BESYLATE 5 MG TAB PO SCH (20:29)
--- NOTE | 2019-08-13 20:52 | Hospitalist Progress Note ---
Date of Service August 13, 2019 Assessment & Plan (1) Metabolic encephalopathy: Presented with confusion. Head CT showed age-related involutional changes, small vessel ischemic changes, no acute findings. Probable metabolic encephalopathy secondary to medications and/or urinary tract infection. Improved. (2) UTI (urinary tract infection): UA demonstrated nitrites, leukocyte Estrace, WBCs, bacteria. Urine culture growing gram-negative bacilli. Afebrile. Continue ceftriaxone. (3) Back pain: Recently experiencing low back pain rating to left lower extremity. Ongoing symptoms. Check MRI of lumbar spine. (4) DVT (deep venous thrombosis): Patient complained of right lower extremity pain. Venous duplex demonstrated occlusive DVT in right posterior tibial vein. Acute DVT, present on admission. No clinical suspicion for pulmonary embolism. Patient is not a good candidate for DOAC because of her weight/BMI. Start anticoagulation with enoxaparin overlapping with warfarin per guidelines with at least 5 days of enoxaparin and 2 days of overlapping warfarin with therapeutic INR. Relatively short duration of therapy should be adequate given limited extent of thrombus, perhaps 3 months. (5) CAD (coronary artery disease): No anginal symptoms. Continue aspirin, clopidogrel, metoprolol, amlodipine, nitrates, statin. (6) Hypertension: Continue metoprolol, amlodipine, nitrates. (7) CKD (chronic kidney disease), stage IV: Serum creatinine 1.44. Avoid NSAIDs if possible. Follow-up. (8) DM type 2 (diabetes mellitus, type 2): Diabetes mellitus type 2 managed with insulin at home. Hgb A1c 7.2 06/18/19. Fasting blood sugar today 117. Continue Lantus/NovoLog per protocol. (9) Ambulatory dysfunction: PT / OT. (10) DVT prophylaxis: Initially received SQ heparin. Now receiving therapeutic SQ enoxaparin for acute DVT as discussed above. (11) Discharge planning issues: To be determined. May need skilled care or rehab. Family Medicine follow-up with Dr. Michel. Admission and Anticipated Discharge Date Admission Date: August 12, 2019 Subjective Recheck for multiple problems. Patient seen in their room around 1540. Son visiting. Admitted yesterday with confusion, back pain, and other problems. Confusion has improved and mental status is now back to baseline. Ongoing low back pain rating to left lower extremity. She had some pain in her right leg yesterday, but that has improved. Review of Systems: Constitutional- no fever. Cardiac- no chest pain. Pulmonary- no cough or SOB. GI- no nausea, vomiting, diarrhea, melena, hematochezia. - no urinary symptoms. Otherwise, as noted above. Physical Exam Constitutional: no acute distress Respiratory: no respiratory distress Auscultation: lungs clear to auscultation bilaterally Cardiovascular: Rate/Rhythm: regular rate and regular rhythm Vessels: no JVD Extremities: no calf tenderness and no edema Gastrointestinal (Abdomen): normal bowel sounds, soft, nontender, no hepatosplenomegaly Skin: no rashes, warm and dry Psychiatric: Orientation: alert and oriented x 3 Results & Data ([facility]) Vital Signs (Past 12 Hours) Vital Signs Temp Pulse Resp BP BP Pulse Ox 08/13/19 15:17 36.5 C 60 18 124/72 95 08/13/19 11:12 36.4 C L 54 L 14 156/74 H 96 Laboratory Results 08/13/19 05:59 08/13/19 05:59 Microbiology 08/12/19 12:30 Urine,Clean Catch Urine Culture - Preliminary Gram negative bacilli Diagnostic Findings VENOUS DUPLEX LOWER EXTREMITIES FINDINGS: Right lower extremity: There is occlusive deep venous thrombosis identified in the right calf within one of the posterior tibial veins. The remaining calf vessels appear clear. No above knee deep venous thrombosis is identified. The common femoral, superficial femoral, and popliteal veins are patent and normally compressible. The greater saphenous vein and the profunda femoris vein at the junction with the common femoral vein are clear. Left lower extremity: There is no sonographic evidence of deep venous thrombosis in the left lower extremity. The common femoral, superficial femoral, and popliteal veins are patent and normally compressible. The greater saphenous vein and the profunda femoris vein at the junction with the common femoral vein are clear. The visualized calf veins are patent. IMPRESSION: 1. There is occlusive deep venous thrombosis identified in the right calf as above. 2. There is no sonographic evidence of deep venous thrombosis in the left lower extremity. ACT 112: Negative or not required by law. Electronically signed by: Kenneth Davis M.D. 08/13/2019 10:57 AM
[2019-08-13] MEDS: INSULIN GLARGINE SOLOSTAR 100 UNITS/ML 3 ML PEN SC SCH (22:25)
[2019-08-13] MEDS: ENOXAPARIN INJ 120 MG/0.8 ML SYR SC SCH (22:25)
--- NOTE | 2019-08-14 07:06 | Magnetic Resonance Report ---
MR lumbar spine wo con CLINICAL HISTORY: 79 years-old Female presenting with low back pain with left sciatica, pain began on the left side one week ago worsening to the point of inability to walk, radiating to the left leg an d foot, left toe numbness, known IVC filter. TECHNIQUE: Multisequence, multiplanar MR imaging of the lumbar spine was performed without the use of intravenous contrast. IV contrast: None. COMPARISON: Correlation made to CT of abdomen and pelvis from 08/13/2019. FINDINGS: Localizer images: Unremarkable. Normal lumbar lordosis. Several benign hemangiomas noted in the lumbar vertebral bodies. Vertebral romero dies otherwise maintain normal height, alignment, and bone marrow signal intensity. Intervertebral di scs largely preserved with only minimal desiccation from L2-3 through L4-5. A level by level analysis is given below: L1-2: No significant spinal canal or neural foraminal narrowing. L2-3: Trace eccentric disc bulge effacing the left neural foramen resulting in minimal left neural fo raminal narrowing. No significant spinal canal narrowing. L3-4: Trace disc bulge with minimal effacement of the left lateral recess and mild left neural forami nal narrowing. L4-5: Eccentric disc bulge worse on the left with resultant mild left lateral recess effacement and m ild left neural foraminal narrowing. There may be abutment of the exiting left L4 nerve root. Facet a rthropathy with fluid noted in the facet joints. Mild ligamentum flavum thickening. L5-S1: No significant spinal canal or neural foraminal narrowing. Mild left facet arthropathy. Spinal cord terminates in good position at the inferior endplate of T12. Cauda equina normal in morph ology. No gross epidural collection or mass. No paraspinal muscle edema. Extensive nonspecific subcut aneous edema in the lumbar region. Visualized portion of the sacrum intact with a redemonstrated this noted at S1 to. Flow voids within the vasculature preserved. Remainder of the visualized soft tissue s within normal limits. IMPRESSION: Mild degenerative changes with mild multilevel neural foraminal narrowing on the left. Findings are d etailed above. ACT 112: Negative or not required by law. Electronically signed by: Mamadou Kidd M.D. 08/14/2019 7:04 AM
[2019-08-14 07:21] LABS: Hematocrit (blood only) 35.7 % (37-47); Hemoglobin 10.9 g/dL (12.0-16.0); Mean Corpuscular Hemoglobin 26.1 pg (25-34); Mean Corpuscular Hgb Conc 30.5 g/dL (32-36); Mean Corpuscular Volume 85.4 fL (80-100); Mean Platelet Volume 10.7 fL (7.4-10.4); Platelet Count 165 K/uL (130-400); RDW Coefficient of Variation 18.2 % (11.5-14.5); RDW Standard Deviation 56.5 fL (36.4-46.3); Red Blood Count 4.18 M/uL (4.2-5.4); White Blood Count 9.27 K/uL (4.8-10.8)
[2019-08-14 07:30] LABS: INR 1.1 (0.9-1.1); Prothrombin Time 11.4 Seconds (9.0-12.0)
[2019-08-14 07:49] LABS: BUN Creatinine Ratio 25.7 (10-20); Calcium 8.5 mg/dl (8.5-10.1); Est GFR (African American) 37.6; Est GFR (Non-African American) 32.5; Potassium 4.3 mmol/L (3.5-5.1)
[2019-08-14] MEDS: METOPROLOL TARTRATE 100 MG TAB PO SCH ×2 (08:49→20:46)
[2019-08-14] MEDS: CETIRIZINE HCL 10 MG TABLET PO SCH (08:49)
[2019-08-14] MEDS: ISOSORBIDE MONO EXTENDED REL 60 MG TABCR PO SCH (08:50)
[2019-08-14] MEDS: MULTIVITAMIN TAB PO SCH (08:50)
[2019-08-14] MEDS: ENOXAPARIN INJ 120 MG/0.8 ML SYR SC SCH ×2 (08:50→20:47)
[2019-08-14] MEDS: CLOPIDOGREL BISULFATE 75 MG TAB PO SCH ×2 (08:50→20:47)
[2019-08-14] MEDS: allopurinoL 100 MG TAB PO SCH (08:50)
[2019-08-14] MEDS: LOSARTAN POTASSIUM 50 MG TAB PO SCH (08:50)
[2019-08-14] MEDS: ASPIRIN 81 MG ECTAB PO SCH (08:50)
[2019-08-14] MEDS: LIDOCAINE 5% 1 PATCH TD SCH (08:51)
[2019-08-14] MEDS: ATORVASTATIN 40 MG TAB PO SCH (08:51)
[2019-08-14] MEDS: INSULIN ASPART 100 UNITS/ML 3 ML PEN SC SCH ×4 (08:54→20:50)
[2019-08-14] MEDS: CIPROFLOXACIN 250 MG TAB PO SCH ×2 (11:01→20:46)
[2019-08-14] MEDS: SODIUM CHLORIDE 0.9% 1000ML 1,000 ML IV SCH (11:02)
--- NOTE | 2019-08-14 11:21 | Hospitalist Progress Note ---
Date of Service August 14, 2019 Assessment & Plan (1) Metabolic encephalopathy: Symptom has resolved completely, awake and alert, conversing appropriately Presented with confusion. Head CT showed age-related involutional changes, small vessel ischemic changes, no acute findings. Probable metabolic encephalopathy secondary to medications (baclofen/hydrocodone ) -symptom worsen with urinary tract infection. Possible adverse reaction to muscle relaxants/pain meds Patient was prescribed baclofen, and hydrocodone by her family physician for intractable left hip pain, reports after she took her first dose of baclofen followed by hydrocodone,, patient became very disoriented, having jerking movement of both arms left more than right In the ER patient was given Narcan, with minimal improvement of the symptoms, Patient recovered spontaneously in 24 hours after supportive care, and discontinuation of meds: Baclofen/hydrocodone Baclofen added to allergy list/adverse reaction Counseling provided, narcotics and muscle relaxant combination can produce u ntoward side effect of confusion, increased sedation (2) UTI (urinary tract infection): UA demonstrated nitrites, leukocyte Estrace, WBCs, bacteria. Urine culture growing gram-negative bacilli/E. coli, pansensitive Afebrile. Was treated with IV Rocephin, will change to p.o. ciprofloxacin (3) Back pain: Recently experiencing low back pain rating to left lower extremity. Ongoing symptoms./Point tenderness on the left lateral hip area, possible trochanteric bursitis?, Pain management consulted pt tried Lidoderm patch in past with no relief of symptom Lumbar radiculopathy MRI of lumbar spine: Mild degenerative changes with mild multilevel neural foraminal narrowing on the left. L4/L5: Eccentric disc bulge worse on the left with resultant mild left lateral recess effacement and mid left neural foraminal narrowing. At there may be abutment of the exiting left L4 nerve root Spinal orthopedics Dr. Apple consulted Continue PT OT, (4) DVT (deep venous thrombosis): Patient complained of right lower extremity pain. Venous duplex demonstrated occlusive DVT in right posterior tibial vein./Possible provoked event, this patient has been minimally mobile for last 2 weeks secondary to left. Acute DVT, present on admission. No clinical suspicion for pulmonary embolism. Patient is not a good candidate for DOAC because of her weight/BMI. on anticoagulation with enoxaparin overlapping with warfarin per guidelines with at least 5 days of enoxaparin and 2 days of overlapping warfarin with therapeutic INR. Relatively short duration of therapy should be adequate given limited extent of thrombus, perhaps 3 months. (5) CAD (coronary artery disease): No anginal symptoms. Continue aspirin, clopidogrel, metoprolol, amlodipine, nitrates, statin. (6) Hypertension: Continue metoprolol, amlodipine, nitrates. (7) CKD (chronic kidney disease), stage IV: Serum creatinine 1.44. Avoid NSAIDs if possible. Follow-up. (8) DM type 2 (diabetes mellitus, type 2): Diabetes mellitus type 2 managed with insulin at home. Hgb A1c 7.2 06/18/19. Fasting blood sugar today 117. Continue Lantus/NovoLog per protocol. (9) Ambulatory dysfunction: PT / OT eval appreciated recommends skilled rehab (10) DVT prophylaxis: . Now receiving therapeutic SQ enoxaparin/coumadin for acute DVT as discussed above. (11) Discharge planning issues: referral made to [facility] possible D/c to SNF tomorrow after pain management and spinal ortho eval Family Medicine follow-up with Dr. Michel. Admission and Anticipated Discharge Date Admission Date: August 12, 2019 Anticipated date of discharge: 08/15/19 Subjective Patient is sitting up in chair, alert, oriented, no evidence of confusion, answering questions appropriately very pleasant, present at bedside, reports patient's mental status is back to her baseline No fever or chills, normal appetite, Has persistent left hip pain, limiting her activity, unable to bear weight on left lower extremity Review of Systems Review of Systems: All systems reviewed & are unremarkable except as noted in HPI & below Constitutional: no fever, no chills and no fatigue Respiratory: no cough and no dyspnea Cardiovascular: no chest pain Gastrointestinal: no nausea Genitourinary: no difficulty urinating, no urinary hesitancy and no urinary urgency Musculoskeletal: + joint pain (Left hip pain, point tenderness on left lateral hip area); no muscle weakness Physical Exam Constitutional: WD/WN, vitals as above + obese; no acute distress Eyes: PERRL, conjunctivae normal, anicteric sclerae ENMT: external ear and nose normal, oropharynx normal Neck: trachea midline, no thyromegaly Respiratory: normal respiratory effort, lungs clear to auscultation Cardiovascular: Rate/Rhythm: regular rate and regular rhythm Extremities: + pedal edema Gastrointestinal (Abdomen): normal bowel sounds, soft, nontender, no hepatosplenomegaly Musculoskeletal: Extremities: + limited ROM of extremities (On left lower extremity secondary to left hip pain) Point tenderness on left lateral hip area, no overlying skin changes, ecchymosis Neurologic: PERRL, EOMI, accommodation nl, no face palsy, no dysarthria Psychiatric: A+Ox3, euthymic affect Results & Data ([facility]) Vital Signs (Past 12 Hours) Vital Signs Temp Pulse Resp BP Pulse Ox 08/14/19 07:32 37.3 C 60 16 128/71 94
[2019-08-14] MEDS ORDERED: WARFARIN SOD 5 MG TAB PO SCH (16:00)
[2019-08-14] MEDS: AMLODIPINE BESYLATE 5 MG TAB PO SCH (20:47)
[2019-08-14] MEDS: INSULIN GLARGINE SOLOSTAR 100 UNITS/ML 3 ML PEN SC SCH (20:49)
[2019-08-15 06:15] LABS: INR 1.2 (0.9-1.1); Prothrombin Time 11.7 Seconds (9.0-12.0)
[2019-08-15] MEDS: allopurinoL 100 MG TAB PO SCH (09:40)
[2019-08-15] MEDS: ISOSORBIDE MONO EXTENDED REL 60 MG TABCR PO SCH (09:40)
[2019-08-15] MEDS: MULTIVITAMIN TAB PO SCH (09:40)
[2019-08-15] MEDS: CLOPIDOGREL BISULFATE 75 MG TAB PO SCH (09:40)
--- NOTE | 2019-08-15 09:40 | XRay Report ---
XR lumbar spine 2-3V CLINICAL HISTORY: standing films, back pain pain COMPARISON STUDY: No previous studies for comparison. FINDINGS: Minimal scoliosis. No significant subluxation. Minimal grade 1 anterolisthesis of L4 on L5. Degenerative changes posterior otherwise. No evidence fo r compression deformity. IMPRESSION: 1. Moderate degenerative disc changes throughout the entire lumbar region. 2. Minimal scoliosis. 3. Minimal grade 1 anterolisthesis of L4 on L5 secondary to degenerative change of the posterior afognak ents. ACT 112: Negative or not required by law. The above report was generated using voice recognition software. It may contain grammatical, syntax or spelling errors. Electronically signed by: Faustino Chi M.D. 08/15/2019 9:39 AM
[2019-08-15] MEDS: LOSARTAN POTASSIUM 50 MG TAB PO SCH (09:41)
[2019-08-15] MEDS: CIPROFLOXACIN 250 MG TAB PO SCH (09:41)
[2019-08-15] MEDS: METOPROLOL TARTRATE 100 MG TAB PO SCH (09:41)
[2019-08-15] MEDS: ATORVASTATIN 40 MG TAB PO SCH (09:42)
[2019-08-15] MEDS: ENOXAPARIN INJ 120 MG/0.8 ML SYR SC SCH (09:42)
[2019-08-15] MEDS: LIDOCAINE 5% 1 PATCH TD SCH (09:42)
[2019-08-15] MEDS: INSULIN ASPART 100 UNITS/ML 3 ML PEN SC SCH (09:43)
--- NOTE | 2019-08-15 09:45 | Pain Management Consultation ---
Date of Consultation August 15, 2019 Assessment & Plan (1) Trochanteric bursitis of left hip: Could consider a left greater trochanteric bursa injection once she is finished being treated for urinary tract infection. (2) Left lumbar radiculopathy: 1. We have discussed the initiation of Gabapentin 100mg should her pain be bothersome. She states that with the couple days rest, her pain is better and does not wish to start any new medications. 2. She is not a candidate for a lumbar epidural injection at this time given that is being treated for a new DVT. 3. Patient feels well and does not want any further treatment. If pain returns, consider starting out on a low dose Gabapentin rather than opioid to decrease chance of confusion. (3) Confusion: Resolved History of Present Illness Attending Physician: Camille Mcintosh MD History of Present Illness Mrs. Chen is a 79 year old white female that has been brought into the [facility] for confusion. She was given Narcan in the Emergency Department with little improvement. After 24 hours her confusion resolved spontaneously and she is back to baseline. She has been prescribed Hydrocodone and Baclofen recently for low back/hip pain radiating down the lateral leg. Pain is aggravated with standing and walking. She has been using a cane for the past 2 weeks which has been worsening the hip pain. Patient has been receiving Tylenol 650mg for pain relief which is minimally efficacious. Patient states that since admission her pain has improved and she does not want to start any more medications in fear of the confusion returning. Patient rates her pain 2/10 currently. No bowel/bladder incontinence, saddle anesthesia, foot drop, falls. Case discussed with Dr. Taylor Hamilton Allergies Allergy/AdvReac Type Severity Reaction Status Date / Time ibuprofen Allergy Unknown RUNNY NOSE Verified 08/12/19 11:07 hydrocodone AdvReac Severe confusion Verified 08/14/19 14:09 niacin AdvReac Unknown RED RASH Verified 08/12/19 11:07 baclofen AdvReac confusion Verified 08/14/19 14:08 Home Medications Home Medications Medication Instructions Recorded Confirmed Type allopurinol 200 mg PO DAILY 05/27/19 08/12/19 History amlodipine 5 mg PO HS 05/27/19 08/12/19 History aspirin 81 mg PO DAILY 05/27/19 08/12/19 History atorvastatin 80 mg PO DAILY 05/27/19 08/12/19 History bumetanide 1 mg PO DAILY 05/27/19 08/12/19 History cetirizine [Zyrtec] 10 mg PO DAILY 05/27/19 08/12/19 History clopidogrel 75 mg PO BID 05/27/19 08/12/19 History insulin aspart U-100 [Novolog 1 unit SUBCUT UD 05/27/19 08/12/19 History Flexpen U-100 Insulin] insulin glargine [Lantus Solostar 36 unit SUBCUT HS 05/27/19 08/12/19 History U-100 Insulin] isosorbide mononitrate 60 mg PO DAILY 05/27/19 08/12/19 History losartan 100 mg PO DAILY 05/27/19 08/12/19 History metoprolol tartrate 100 mg PO BID 05/27/19 08/12/19 History multivitamin 1 tab PO DAILY 05/27/19 08/12/19 History lidocaine [Lidoderm] 1 patch TOP DAILY #10 ea 07/31/19 08/12/19 Rx baclofen 10 mg PO BID PRN 08/12/19 08/12/19 History hydrocodone-acetaminophen 1 tab PO HS PRN 08/12/19 08/12/19 History ciprofloxacin HCl 250 mg PO Q12 2 Days #4 tab 08/15/19 Rx enoxaparin [Lovenox] 111 mg SC Q12H 5 Days #10 ea 08/15/19 Rx tramadol 50 mg PO Q6H PRN #10 tab 08/15/19 Rx warfarin [Coumadin] 5 mg PO DAILY 30 Days #30 tab 08/15/19 Rx Patient History Medical History CAD (coronary artery disease) 11/2006: CELSO to left circumflex 07/2010: Cardiac cath revealed a 20% left main lesion in both the proximal and distal segments, 50% mid LAD lesion which was not hemodynamically significant by FFR, and an 80% lesion in the second diagonal branch which was significant by FFR. Medical management. 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 Speech and cognition is intact. Does not appear in any acute distress. Head/face: Normocephalic and atraumatic. Eyes: No drainage or conjunctival injection. ENT: Nose without bleeding or discharge. Oral mucosa moist. Neck: Full ROM without apparent pain. No swelling or masses noted. Respiratory: Patient with unlabored breathing. No signs of respiratory distress. Chest/Axilla: Chest movement symmetrical. No deformities noted. Back: Moves without difficulty. Mild loss of lumbar lordosis. There is mild left L4-5 tenderness. No muscle spasm or trigger points noted. Skin: [place], warm and dry. No rash noted. MS/Extremity: Moving extremities appropriately. 5/5 strength of the bilateral lower extremities. Equivocal straight leg raise on the left, negative on the right. There is moderate tenderness of the left greater trochanteric bursa. Neuro: Alert and appears oriented. Speech is fluent. Cranial Nerves are grossly intact. Psych: Alert, pleasant, affect is calm Results Diagnostic Review MRI Findings: MR lumbar spine wo con CLINICAL HISTORY: 79 years-old Female presenting with low back pain with left sciatica, pain began on the left side one week ago worsening to the point of inability to walk, radiating to the left leg and foot, left toe numbness, known IVC filter. TECHNIQUE: Multisequence, multiplanar MR imaging of the lumbar spine was performed without the use of intravenous contrast. IV contrast: None. COMPARISON: Correlation made to CT of abdomen and pelvis from 08/13/2019. FINDINGS: Localizer images: Unremarkable. Normal lumbar lordosis. Several benign hemangiomas noted in the lumbar vertebral bodies. Vertebral bodies otherwise maintain normal height, alignment, and bone marrow signal intensity. Intervertebral discs largely preserved with only minimal desiccation from L2-3 through L4-5. A level by level analysis is given below: L1-2: No significant spinal canal or neural foraminal narrowing. L2-3: Trace eccentric disc bulge effacing the left neural foramen resulting in minimal left neural foraminal narrowing. No significant spinal canal narrowing. L3-4: Trace disc bulge with minimal effacement of the left lateral recess and mild left neural foraminal narrowing. L4-5: Eccentric disc bulge worse on the left with resultant mild left lateral recess effacement and mild left neural foraminal narrowing. There may be abutment of the exiting left L4 nerve root. Facet arthropathy with fluid noted in the facet joints. Mild ligamentum flavum thickening. L5-S1: No significant spinal canal or neural foraminal narrowing. Mild left facet arthropathy. Spinal cord terminates in good position at the inferior endplate of T12. Cauda equina normal in morphology. No gross epidural collection or mass. No paraspinal muscle edema. Extensive nonspecific subcutaneous edema in the lumbar region. Visualized portion of the sacrum intact with a redemonstrated this noted at S1 to. Flow voids within the vasculature preserved. Remainder of the visualized soft tissues within normal limits. IMPRESSION: Mild degenerative changes with mild multilevel neural foraminal narrowing on the left. Findings are detailed above. ACT 112: Negative or not required by law. Electronically signed by: Mamadou Kidd M.D. 08/14/2019 7:[address] Findings: CT SCAN OF THE BRAIN WITHOUT IV CONTRAST CLINICAL HISTORY: Tremor. Change in mental status. COMPARISON STUDY: No priors. TECHNIQUE: Unenhanced axial CT scan of the brain is performed from the vertex to the skull base. A dose lowering technique was utilized adhering to the principles of ALARA. CT DOSE: 537.48 mGy.cm FINDINGS: Brain parenchyma: There are age-related involutional changes noting gaiz-mo-yasheywx patchy subcortical and periventricular microangiopathic change. There is no hemorrhage, mass effect, or evidence of acute territorial ischemia by CT criteria. Fonseca-white matter differentiation is preserved. No extra-axial fluid collection is seen. Ventricles, sulci, cisterns: Prominent secondary to involutional change. Intracranial vasculature: There is atherosclerotic calcification of the cavernous carotid and vertebral arteries. Calvarium: Unremarkable. Sinuses and mastoids: The visualized paranasal sinuses are clear. The mastoid air cells are well pneumatized. Orbits: The bony orbits are grossly intact. There are bilateral ocular lens implants. IMPRESSION: There is no hemorrhage, mass effect, or evidence of acute territorial ischemia by CT criteria. ACT 112: Negative or not required by law. Electronically signed by: Kenneth Davis M.D. 08/12/2019 1:11 PM Radiology Findings: XR lumbar spine 2-3V CLINICAL HISTORY: standing films, back pain pain COMPARISON STUDY: No previous studies for comparison. FINDINGS: Minimal scoliosis. No significant subluxation. Minimal grade 1 anterolisthesis of L4 on L5. Degenerative changes posterior otherwise. No evidence for compression deformity. IMPRESSION: 1. Moderate degenerative disc changes throughout the entire lumbar region. 2. Minimal scoliosis. 3. Minimal grade 1 anterolisthesis of L4 on L5 secondary to degenerative change of the posterior elements. ACT 112: Negative or not required by law. The above report was generated using voice recognition software. It may contain grammatical, syntax or spelling errors. Electronically signed by: Faustino Chi M.D. 08/15/2019 9:39 AM XR femur LT 2V routine, XR hip LT 2V w pelvis HISTORY: 79 years-old Female pain acute left femur and left hip pain COMPARISON: Acute abdominal series radiographs 05/27/2019 TECHNIQUE: 2 views of the left femur with AP view of the pelvis and 2 views of the left hip FINDINGS: PELVIS/LEFT HIP: Demineralized appearance of the bones. 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 No acute fracture, dislocation or avascular necrosis. Soft tissues are within normal limits. Arterial calcifications are noted. FEMUR: No acute fracture, dislocation or opaque foreign body. Varices of the left lower extremity. Osteoarthritis of the knee. IMPRESSION: No acute fracture or dislocation. ACT 112: Negative or not required by law. The above report was generated using voice recognition software. It may contain grammatical, syntax or spelling errors. Electronically signed by: Arash Briggs M.D. 07/31/2019 9:17 AM XR femur LT 2V routine, XR hip LT 2V w pelvis HISTORY: 79 years-old Female pain acute left femur and left hip pain COMPARISON: Acute abdominal series radiographs 05/27/2019 TECHNIQUE: 2 views of the left femur with AP view of the pelvis and 2 views of the left hip FINDINGS: PELVIS/LEFT HIP: Demineralized appearance of the bones. 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 No acute fracture, dislocation or avascular necrosis. Soft tissues are within normal limits. Arterial calcifications are noted. FEMUR: No acute fracture, dislocation or opaque foreign body. Varices of the left lower extremity. Osteoarthritis of the knee.
[2019-08-15] MEDS: CETIRIZINE HCL 10 MG TABLET PO SCH (09:48)
--- NOTE | 2019-08-15 12:05 | Discharge Summary ---
Date of Service August 15, 2019 Admission HPI Per Admitting Provider 79-year-old female who presents the ED for evaluation of generalized weakness and confusion. Patient was seen in the ED on 07/31 for left hip and leg pain. Patient was treated with IM Decadron and lidocaine patch with improvement in her symptoms. Patient then presented to PCP on 08/09 with increased complaints. She was given prescriptions for baclofen and Vicodin. Patient's reports that the following day, patient was having generalized jerking movements and she was also confused. This morning, patient was very weak and unable to get out of bed. It took her over an hour to ambulate to the bathroom. Patient had nausea and one episode of vomiting. No hematemesis or coffee-ground emesis. Patient denies abdominal pain. Reports no bowel movement for the past few days. Denies fevers and chills. No chest pain or shortness of breath. Denies lightheadedness, dizziness, diaphoresis, syncopal event. No urinary symptoms. In the ED, WBC 12.6K, UA suggest UTI. Patient's reports last dose of Vicodin was 2 days ago, last dose of baclofen was last evening. In the ED, she received IV ceftriaxone, Narcan, IV Zofran, IVF. Principal Diagnosis UTI/left hip pain/ambulatory dysfunction/right lower extremity deep vein thrombosis Discharge Exam Constitutional WD/WN, vitals as above + obese; no acute distress Eyes PERRL, conjunctivae normal, anicteric sclerae ENMT external ear and nose normal, oropharynx normal Neck trachea midline, no thyromegaly Respiratory normal respiratory effort, lungs clear to auscultation Cardiovascular Rate/Rhythm: regular rate and regular rhythm Extremities: + pedal edema Gastrointestinal (Abdomen) normal bowel sounds, soft, nontender, no hepatosplenomegaly Musculoskeletal Extremities: + limited ROM of extremities (On left lower extremity secondary to left hip pain) Neurologic PERRL, EOMI, accommodation nl, no face palsy, no dysarthria Psychiatric A+Ox3, euthymic affect Discharge Data Allergies Allergy/AdvReac Type Severity Reaction Status Date / Time ibuprofen Allergy Unknown RUNNY NOSE Verified 08/12/19 11:07 hydrocodone AdvReac Severe confusion Verified 08/14/19 14:09 niacin AdvReac Unknown RED RASH Verified 08/12/19 11:07 baclofen AdvReac confusion Verified 08/14/19 14:08 Consultations 08/12/19 15:08 ED Decision to Admit Stat 08/12/19 18:13 Consult Case Management - Discharge Planning Routine 08/14/19 12:19 Consult Pain Management Routine Ordered Studies 08/12/19 12:31 CT head/brain wo con Stat 08/13/19 06:08 CT abd pelvis wo con Urgent 08/13/19 06:31 US venous doppler LE BI Urgent 08/14/19 07:00 MR lumbar spine wo con Routine Hospital Course (1) Metabolic encephalopathy: Left hip pain: Possible secondary to left trochanteric bursitis, appreciate input from pain management, recommends left hip steroid injection for persistent symptoms which can be considered after patient is adequately treated for urine tract infection Neurontin is offered for possible radiculopathy, Patient declines any new addition of medication as her symptoms has improved markedly, Outpatient follow-up with pain management as needed Confusion/ metabolic encephalopathy Symptom has resolved completely, awake and alert, conversing appropriately Presented with confusion. Head CT showed age-related involutional changes, small vessel ischemic changes, no acute findings. Probable metabolic encephalopathy secondary to medications (baclofen/hydrocodone ) -symptom worsen with urinary tract infection. Possible adverse reaction to muscle relaxants/pain meds Patient was prescribed baclofen, and hydrocodone by her family physician for intractable left hip pain, reports after she took her first dose of baclofen followed by hydrocodone,, patient became very disoriented, having jerking movement of both arms left more than right In the ER patient was given Narcan, with minimal improvement of the symptoms, Patient recovered spontaneously in 24 hours after supportive care, and discontinuation of meds: Baclofen/hydrocodone Baclofen added to allergy list/adverse reaction Counseling provided, narcotics and muscle relaxant combination can produce untoward side effect of confusion, increased sedation (2) UTI (urinary tract infection): UA demonstrated nitrites, leukocyte Estrace, WBCs, bacteria. Urine culture growing gram-negative bacilli/Enterobacteriaceae Afebrile. Was treated with IV Rocephin, will change to p.o. ciprofloxacin-Total 3 days of treatment (3) Back pain: Recently experiencing low back pain rating to left lower extremity. Ongoing symptoms./Point tenderness on the left lateral hip area, possible trochanteric bursitis?, Pain management consulted Appreciate input, outpatient follow-up for Steroid injection once a UTI is treated adequately Lumbar radiculopathy MRI of lumbar spine: Mild degenerative changes with mild multilevel neural foraminal narrowing on the left. L4/L5: Eccentric disc bulge worse on the left with resultant mild left lateral recess effacement and mid left neural foraminal narrowing. At there may be abutment of the exiting left L4 nerve root appreciate input from pain management, Recommends Neurontin, for radicular pain, Patient reports improvement of low back pain left hip pain after physical therapy, does not want To try on Neurontin Outpatient follow-up with pain management as needed Patient is stable to be transferred to skilled rehab for continued PT OT (4) DVT (deep venous thrombosis): Patient complained of right lower extremity pain. Venous duplex demonstrated occlusive DVT in right posterior tibial vein./Possible provoked event, this patient has been minimally mobile for last 2 weeks secondary to left. Acute DVT, present on admission. No clinical suspicion for pulmonary embolism. Patient is not a good candidate for DOAC because of her weight/BMI. on anticoagulation with enoxaparin overlapping with warfarin per guidelines with at least 5 days of enoxaparin and 2 days of overlapping warfarin with therapeutic INR. Relatively short duration of therapy should be adequate given limited extent of thrombus, perhaps 3 months. Patient is discharged to [facility] with Lovenox bridge, Coumadin, repeat PT/INR in 2 days On dual antiplatelet therapy secondary to his history of coronary artery disease, Patient is asked to not to take aspirin while on Coumadin (5) CAD (coronary artery disease): No anginal symptoms. Continue , clopidogrel, metoprolol, amlodipine, nitrates, statin. Hold aspirin while taking Coumadin (6) Hypertension: Continue metoprolol, amlodipine, nitrates. (7) CKD (chronic kidney disease), stage IV: Serum creatinine 1.44. Avoid NSAIDs if possible. Follow-up. (8) DM type 2 (diabetes mellitus, type 2): Diabetes mellitus type 2 managed with insulin at home. Hgb A1c 7.2 06/18/19. Fasting blood sugar today 117. Continue Lantus/NovoLog per protocol. (9) Ambulatory dysfunction: PT / OT iliana stephens recommends skilled rehab /Will to go to [facility] for continued rehab today (10) DVT prophylaxis: . Now receiving therapeutic SQ enoxaparin/coumadin for acute DVT as discussed above. (11) Discharge planning issues: Transfer to [facility] today Family Medicine follow-up with Dr. Michel. Total Time Total Time Spent Total Time Spent (In Minutes): approximate 40 minutes Total Time Includes: Examination of the Patient, Discharge Planning and Medicat ion Reconciliation Discharge Plan Discharge Items Patient Disposition: Transfer [facility] Fac Reason For Visit: UTI,WEAKNESS Discharge Diagnosis: UTI/left hip pain/ambulatory dysfunction/right lower extremity deep vein thrombosis Activity: As commented below Activity Comment: Continue physical therapy/occupational therapy at rehab Non-emergency contact: Primary Care Provider Call non-emergency contact if: you have any medication questions Follow-up/Referrals: Matias De Luna MD, FIPP [Anesthesiologist] - (For persistent left hip pain, please follow-up at the pain management clinic for left hip steroid injection) Anamaria Michel MD [Primary Care Provider] - Diet: Heart Healthy Addtl Attending Provider Instructions: Patient discharged with Lovenox therapeutic dose ( for 5 days) and Coumadin bridge therapy for right lower extremity deep vein thrombosis Goal INR 23 Needs 3 months of anticoagulation- do not take aspirin for 3 months while taking Coumadin ( cont on plavix only ) Can resume both aspirin and Plavix after being off from Coumadin Pending Studies at Discharge: Yes Studies:: Need lab check: PT/INR in 2 days Then continue to monitor PT/INR as per protocol while on Coumadin Goal INR 23 Stand-Alone Forms: My [facility] Skilled Items Patient informed of condition?: Yes DNR: Yes Discharge Level of Care: Skilled Communicable Disease: No Discharge Prognosis: Stable Lines: None Urinary Catheter: No Medications and DC Order Prescriptions: New ciprofloxacin HCl 250 mg Tablet 250 mg PO Q12 2 Days Qty: 4 RF: 0 warfarin [Coumadin] 5 mg Tablet 5 mg PO DAILY 30 Days Qty: 30 RF: 0 enoxaparin [Lovenox] 120 mg/0.8 mL Syringe 111 mg SC Q12H 5 Days Qty: 10 RF: 0 tramadol 50 mg tablet 50 mg PO Q6H PRN (Reason: Pain) Qty: 10 RF: 0 Continued multivitamin Tablet 1 tab PO DAILY RF: 0 atorvastatin 80 mg Tablet 80 mg PO DAILY RF: 0 cetirizine [Zyrtec] 10 mg Tablet 10 mg PO DAILY RF: 0 metoprolol tartrate 100 mg Tablet 100 mg PO BID RF: 0 clopidogrel 75 mg Tablet 75 mg PO BID RF: 0 amlodipine 5 mg Tablet 5 mg PO HS RF: 0 allopurinol 100 mg Tablet 200 mg PO DAILY RF: 0 isosorbide mononitrate 60 mg Tablet Extended Release 24 Hr 60 mg PO DAILY RF: 0 bumetanide 1 mg Tablet 1 mg PO DAILY RF: 0 losartan 100 mg Tablet 100 mg PO DAILY RF: 0 insulin aspart U-100 [Novolog Flexpen U-100 Insulin] 100 unit/mL (3 mL) Insulin Pen 1 unit SUBCUT UD RF: 0 Lantus Solostar U-100 Insulin 100 unit/mL (3 mL) Insulin Pen 36 unit SUBCUT HS RF: 0 lidocaine [Lidoderm] 5 % adhesive patch,medicated 1 patch TOP DAILY Qty: 10 RF: 0 baclofen 10 mg tablet 10 mg PO BID PRN (Reason: Muscle Pain) RF: 0 Discontinued aspirin 81 mg Tablet,Delayed Release (Dr/Ec) 81 mg PO DAILY RF: 0 hydrocodone-acetaminophen 5-325 mg tablet 1 tab PO HS PRN (Reason: Pain) RF: 0 Discharge Orders: Discharge Order (Routine); Ordered 08/15/19 Ordered By: Camille Guzman/Other Patient Handouts: What to Know When TakingWarfarin, Enoxaparin injection Admission Data Admit Date/Time: 08/14/19 09:26 Attending Provider: Camille Mcintosh Admit Provider: Noy Martínez Primary Care Provider: Anamaria Michel Other Providers[facility]oy Martínez ; [facility] ; Matias De Luna Other Interventions: Discharge Summary Assessment (RN) Last Done: 08/15/19 11:05 DC Date/Time DO NOT enter until pt leaves facility: 08/15/19 12:02
== END 2019-08-15 12:02 | DRG 689 ==
LOC: ED 10:24 → 3N 10:24 → SUATTDRO 16:18 → 3N 17:37

== ENCOUNTER 2021-05-31 07:23 | Inpatient (IN) ==
[2021-05-31] MEDS ORDERED: SODIUM CHLORIDE 0.9% 1000ML 1,000 ML IV SCH (08:45)
[2021-05-31 09:08] LABS: Basophils # (auto) 0.02 K/uL (0-0.2); Basophils % (auto) 0.2 %; Eosinophils # (auto) 0.01 K/uL (0-0.5); Eosinophils % (auto) 0.1 %; Hematocrit (blood only) 40.8 % (37-47); Hemoglobin 12.9 g/dL (12.0-16.0); Immature Granulocytes # (auto) 0.04 K/uL (0.00-0.02); Immature Granulocytes % (auto) 0.4 %; Lymphocytes # (auto) 0.76 K/uL (1.2-3.4); Mean Corpuscular Hemoglobin 27.6 pg (25-34); Mean Corpuscular Hgb Conc 31.6 g/dL (32-36); Mean Corpuscular Volume 87.4 fL (80-100); Monocytes # (auto) 0.94 K/uL (0.11-0.59); Monocytes % (auto) 9.9 %; Neutrophils # (auto) 7.69 K/uL (1.4-6.5); Neutrophils % (auto) 81.4 %; Platelet Count 177 K/uL (130-400); RDW Coefficient of Variation 17.5 % (11.5-14.5); RDW Standard Deviation 55.7 fL (36.4-46.3); Red Blood Count 4.67 M/uL (4.2-5.4); White Blood Count 9.46 K/uL (4.8-10.8)
--- NOTE | 2021-05-31 09:18 | CT Scan Report ---
CT head/brain wo con CLINICAL HISTORY: Weakness Technique: Contiguous axial CT images of the head were acquired from the base of the skull to the kofi alexa without intravenous contrast administration. Images were viewed in brain, subdural and [facility] . Automated dose lowering techniques and/or adjustment according to patient size were utilized for this exam. Comparison: Comparison is made to CT head 08/12/2019 Findings: The ventricles, basal cisterns, and cerebral sulci are normal. There is no acute intracranial hemorrh age or evidence of acute territorial infarction. Neither mass effect, shift of the midline structures , nor abnormal extra-axial fluid collections are shown. Minimal thickening of the paranasal sinuses is noted. The orbits appear normal. There are no acute f ractures of the calvaria or scalp swelling. Impression: No acute intracranial hemorrhage, no evidence of acute territorial infarction or other acute intracra nial disease process. ACT 112: Negative or not required by law. Electronically signed by: Paco Arvizu M.D. 05/31/2021 9:17 AM
--- NOTE | 2021-05-31 09:18 | XRay Report ---
XR chest 1V portable CLINICAL HISTORY: weakness. Evaluate cardiopulmonary status COMPARISON STUDY: 08/12/2019 TECHNIQUE: 1 view of the chest FINDINGS: Single frontal view of the chest demonstrates the heart to again be enlarged. The aorta is atheroscle rotic and ectatic. There is a decreased inspiratory effort with elevation of the hemidiaphragms and c rowding of the bronchovascular markings at the lung bases and centrally. The lungs are clear of alveo lar opacities. There is no evidence for pleural effusion. There is no evidence for vascular congestio n. There is no acute osseous pathology. IMPRESSION: There is a decreased inspiratory effort with otherwise no acute chest disease. ACT 112: Negative or not required by law. Electronically signed by: Guille Voss M.D. 05/31/2021 9:16 AM
[2021-05-31 09:48] LABS: Alanine Aminotransferase 137 (12-78); Albumin Globulin Ratio 0.7 (0.9-2); Albumin Level 3.3 gm/dl (3.4-5.0); Alkaline Phosphatase 70 U/L (45-117); BUN Creatinine Ratio 25.6 (10-20); Bilirubin,Total 0.6 mg/dl (0.2-1); Blood Urea Nitrogen 45 mg/dl (7-18); Calcium 9.3 mg/dl (8.5-10.1); Carbon Dioxide 24 mmol/L (21-32); Chloride 104 mmol/L (98-107); Est GFR (Non-African American) 27.6 ml/min; Globulin 4.7 gm/dl (2.5-4.0); Glucose 175 mg/dl (70-99); Sodium 138 mmol/L (136-145); Troponin I < 0.015 ng/ml (0-0.045)
[2021-05-31 10:26] LABS: Influenza A virus by PCR Negative (Neg); Influenza B virus by PCR Negative (Neg); RSV by PCR Negative (Neg)
--- NOTE | 2021-05-31 10:59 | History & Physical Report ---
Date of Service May 31, 2021 Assessment & Plan (1) COVID-19: (2) Acute respiratory failure with hypoxia: Plan: - Admit to med surg with tele - COVID-19 positive - Procalcitonin and CRP pending - CXR reviewed: essentially negative, consider CT chest pending if symptoms were to worsen. - O2 sats 95% on 2 L via [place] - WBC 9.46, - Lymphocytes 0.76, neutrophils 7.69 - Day 2 of symptoms, give Decadron 6 mg IV daily. Meets criteria for remdesivir so will administer today. Monitor BUN/Cr as she is borderline able to get it with a GFR of 32 today. -Cough suppressants, nebulized bronchodilator as needed, use of flutter valve and spirometer -Proning if tolerated Frequent falls Secondary to ambulate dysfunction CT of the head has been negative We will get PT and OT evaluation on improvement of her condition (3) Hypertension: Plan: - Continue antihypertensives as scheduled (4) CAD (coronary artery disease): Plan: -History of one cardiac stent placed 8 to 9 years ago, continue baby aspirin daily, metoprolol, losartan, Bumex, Imdur -Stop IV fluids that were being given in the ER now -Monitor I's and O's, daily weights (5) DM type 2 (diabetes mellitus, type 2): Plan: - Cont ISS with accucheck achs - Lantus 36 U HS to continue as pt reports good oral intake and diet, will monitor glucose -Allow heart healthy diabetic diet -Check A1c with a.m. labs (6) Morbid obesity: Plan: -Encourage diet and exercise throughout hospital stay (7) CKD (chronic kidney disease), stage IV: Plan: -Creatinine 1.74, baseline appears to be 1.5-1.8, follow with a.m. labs -Remdesivir as above -Patient received 1L NSS in the ER DVT PPx: - teds, scds CODE: Conditional code, patient is agreeable to intubation however does not want chest compressions Dispo: From home, likely to remain in the hospital x 1-2 days History of Present Illness Chief Complaint: Fall Primary Care Provider: Anamaria Michel MD This is a 80 yo F with PMhx of morbid obesity, HTN, HLd DM II, CAD, CKD stage IV, who presents to the hospital after sustaining a fall this morning in her bathroom when she was attempting to get up. Pt reports falling this morning, but noticed felt weaker starting yesterday afternoon. Pt admits to falling Monday morning and then again this morning when she was getting off the toilet. Cough started Monday. Denies fever, chills or sweats. Admits to sputum with cough, clear, no hemoptysis. Admits to decreased po intake. Admits to Monday morning having diarrhea but none since then. CT of the head is negative, patient denies any other specific complaints of pain in any extremity. She has a grand-daughter who lives with her at home who has had cold-like symptoms, and been tested recently for Covid and is negative per her report, however here on admission the patient is found to be COVID-19 positive. She is hypoxic on room air and has improved sats to 93% on 2L via [place]. Pt is vaccinated x 2 dose series earlier this year. Allergies Allergy/AdvReac Type Severity Reaction Status Date / Time ibuprofen Allergy Unknown RUNNY NOSE Verified 05/31/21 08:19 hydrocodone AdvReac Severe confusion Verified 05/31/21 08:19 niacin AdvReac Unknown RED RASH Verified 05/31/21 08:19 baclofen AdvReac confusion Verified 05/31/21 08:19 Home Medications Medication Instructions Recorded Confirmed Type allopurinol 100 mg tablet 200 mg PO DAILY 05/27/19 05/31/21 History amlodipine 5 mg tablet 5 mg PO HS 05/27/19 05/31/21 History atorvastatin 80 mg tablet 80 mg PO DAILY 05/27/19 05/31/21 History bumetanide 1 mg tablet 1 mg PO DAILY 05/27/19 05/31/21 History cetirizine 10 mg tablet (Zyrtec) 10 mg PO DAILY 05/27/19 05/31/21 History insulin aspart U-100 100 unit/mL 1 unit SUBCUT UD 05/27/19 05/31/21 History (3 mL) subcutaneous pen (Novolog Flexpen U-100 Insulin aspart) insulin glargine 100 unit/mL (3 36 unit SUBCUT HS 05/27/19 05/31/21 History mL) subcutaneous pen (Lantus Solostar U-100 Insulin) isosorbide mononitrate 60 mg 60 mg PO DAILY 05/27/19 05/31/21 History tablet,extended release 24 hr losartan 100 mg tablet 100 mg PO DAILY 05/27/19 05/31/21 History metoprolol tartrate 100 mg tablet 100 mg PO BID 05/27/19 05/31/21 History multivitamin 1 tab PO DAILY 05/27/19 05/31/21 History aspirin 81 mg capsule 81 mg PO DAILY 05/31/21 05/31/21 History Past Med/Surg History Medical History (Updated 05/31/21 @ 10:54 by Shira Caballero PA-C) CAD (coronary artery disease) 11/2006: CELSO to left circumflex 07/2010: Cardiac cath revealed a 20% left main lesion in both the proximal and distal segments, 50% mid LAD lesion which was not hemodynamically significant by FFR, and an 80% lesion in the second diagonal branch which was significant by FFR. Medical management. Chronic anticoagulation CKD (chronic kidney disease), stage IV DM type 2 (diabetes mellitus, type 2) Dyslipidemia Gouty arthritis History of right common carotid artery stent placement Hypertension Morbid obesity Surgical History H/O carotid endarterectomy H/O total knee replacement History of cholecystectomy History of hysterectomy Family History Brother Lung cancer Bone cancer Social History Smoking Status: Never smoker Second Hand Exposure: No; Hx Alcohol Use: No Preferred Language: Kazakh Communication Ability: Effective Envelope Fold Operator Required: No Beliefs That Will Affect Care: None marital status: Current Living Situation: Spouse Feels Safe at Home: Yes Assistive Devices: Glasses and Walker Review of Systems Constitutional: Constitutional: No fever, sweats or chills Eyes: No diplopia, no worsening or blurred vision ENT: normal hearing, no trouble swallowing Respiratory: As per HPI, + cough, + sputum, +dyspnea at rest or on exertion Cardiovascular: No chest pain, tightness or palpitations Abdomen: As per HPI, No pain, nausea, vomiting, + diarrhea x 1, poor po intake x 2 days, no constipation Musculoskeletal: No joint pain, calf pain, swelling Neurologic: + generalized weakness, no numbness/tingling, + balance problems Psychiatric: No anxiety or depression Skin: No rash or itch Physical Exam Physical Exam: Please refer to attending addendum as I did not see the patient in person due to being COVID-[address]. [address] by [address] Martínez Lying in bed with minimal shortness of breath at rest Constitutional: well developed, well nourished, + acute distress (Minimal shortness of breath at rest), + ill appearing and + obese Eyes: PERRL, conjunctivae normal, anicteric sclerae ENMT: external ear and nose normal, oropharynx normal Neck: trachea midline, no thyromegaly Respiratory: + respiratory distress (Minimum at rest) Auscultation: + diminished lung sounds and + crackles (At the bases) Cardiovascular: Rate/Rhythm: regular rate and regular rhythm; not tachycardic Heart Sounds: normal S1 and normal S2; no murmur Extremities: + edema (Has bilateral lymphedema left more than the right) Gastrointestinal (Abdomen): Inspection/Auscultation: normal bowel sounds; abdomen not distended Percussion/Palpation: abdomen soft; abdomen nontender Musculoskeletal: No acute arthritis in any joint Skin: Chronic skin changes involving the legs mostly on the left side Neurologic: Alert, awake and oriented x3. Generally weak but no focal sensory and motor neuro deficit Psychiatric: A+Ox3, euthymic affect Lymphatic: no cervical or axillary lymphadenopathy Results & Data Results & Data ([facility]) Vital Signs (Past 12 Hours) Vital Signs Temp Pulse Resp BP Pulse Ox 05/31/21 08:58 93 05/31/21 07:34 36.7 C 88 18 133/73 97 Laboratory Results 05/31/21 05/31/21 05/31/21 Unknown Unknown 10:48 WBC 9.46 RBC 4.67 Hgb 12.9 Hct 40.8 MCV 87.4 MCH 27.6 MCHC 31.6 L RDW Std Deviation 55.7 H RDW Coeff of Yoel 17.5 H Plt Count 177 MPV 11.0 H Immature Gran % (Auto) 0.4 Neut % (Auto) 81.4 Lymph % (Auto) 8.0 [place] % (Auto) 9.9 Eos % (Auto) 0.1 Baso % (Auto) 0.2 Neut # (Auto) 7.69 H Lymph # (Auto) 0.76 L [place] # (Auto) 0.94 H Eos # (Auto) 0.01 Baso # (Auto) 0.02 Immature Gran # (Auto) 0.04 H Sodium 138 Potassium 3.9 Chloride 104 Carbon Dioxide 24 Anion Gap 10.0 BUN 45 H Creatinine 1.74 H Est Cr Clr Drug Dosing Not Reportable Est GFR ( Amer) 32.0 Est GFR (Non-Af Amer) 27.6 BUN/Creatinine Ratio 25.6 H Glucose 175 H Lactate Calcium 9.3 Magnesium 2.0 Total Bilirubin 0.6 AST 151 H ALT 137 H Alkaline Phosphatase 70 Troponin I < 0.015 Total Protein 8.0 Albumin 3.3 L Globulin 4.7 H Albumin/Globulin Ratio 0.7 L TSH 1.970 SARS-CoV-2 (PCR) Influenza Type A (PCR) Influenza Type B (PCR) RSV (RT-PCR) 05/31/21 05/31/21 09:42 09:26 WBC RBC Hgb Hct MCV MCH MCHC RDW Std Deviation RDW Coeff of Yoel Plt Count MPV Immature Gran % (Auto) Neut % (Auto) Lymph % (Auto) [place] % (Auto) Eos % (Auto) Baso % (Auto) Neut # (Auto) Lymph # (Auto) [place] # (Auto) Eos # (Auto) Baso # (Auto) Immature Gran # (Auto) Sodium Potassium Chloride Carbon Dioxide Anion Gap BUN Creatinine Est Cr Clr Drug Dosing Est GFR ( Amer) Est GFR (Non-Af Amer) BUN/Creatinine Ratio Glucose Lactate 1.4 Calcium Magnesium Total Bilirubin AST ALT Alkaline Phosphatase Troponin I Total Protein Albumin Globulin Albumin/Globulin Ratio TSH SARS-CoV-2 (PCR) POSITIVE A* Influenza Type A (PCR) Negative Influenza Type B (PCR) Negative RSV (RT-PCR) Negative Diagnostic Findings Chest X-Ray 05/31/21 08:35 XR chest 1V portable CLINICAL HISTORY: weakness. Evaluate cardiopulmonary status COMPARISON STUDY: 08/12/2019 TECHNIQUE: 1 view of the chest FINDINGS: Single frontal view of the chest demonstrates the heart to again be enlarged. The aorta is atherosclerotic and ectatic. There is a decreased inspiratory effort with elevation of the hemidiaphragms and crowding of the bronchovascular markings at the lung bases and centrally. The lungs are clear of alveolar opacities. There is no evidence for pleural effusion. There is no evidence for vascular congestion. There is no acute osseous pathology. IMPRESSION: There is a decreased inspiratory effort with otherwise no acute chest disease. ACT 112: Negative or not required by law. Electronically signed by: Guille Voss M.D. 05/31/2021 9:[address] 05/31/21 08:45 CT head/brain wo con CLINICAL HISTORY: Weakness Technique: Contiguous axial CT images of the head were acquired from the base of the skull to the vertex without intravenous contrast administration. Images were viewed in brain, subdural and bone windows. Automated dose lowering techniques and/or adjustment according to patient size were utilized for this exam. Comparison: Comparison is made to CT head 08/12/2019 Findings: The ventricles, basal cisterns, and cerebral sulci are normal. There is no acute intracranial hemorrhage or evidence of acute territorial infarction. Neither mass effect, shift of the midline structures, nor abnormal extra-axial fluid collections are shown. Minimal thickening of the paranasal sinuses is noted. The orbits appear normal. There are no acute fractures of the calvaria or scalp swelling. Impression: No acute intracranial hemorrhage, no evidence of acute territorial infarction or other acute intracranial disease process. ACT 112: Negative or not required by law. Electronically signed by: Paco Arvizu M.D. 05/31/2021 9:17 AM ECG Additional Comments: 31-MAY-2021 08:50:59 [facility]-EDSTAT ROUTINE RETRIEVAL Poor data quality, interpretation may be adversely affected Sinus rhythm with 1st degree A-V block Nonspecific ST and T wave abnormality Abnormal ECG When compared with ECG of 12-AUG-2019 10:36, No significant change was found 25mm/s 10mm/mV 150Hz 9.0.9 12SL 241 GIOVANNI: 13 Referred by: REFERRED SELF Unconfirmed Vent. rate 85 BPM CO interval 280 ms QRS duration 108 ms QT/QTc 400/476 ms Code Status & VTE Plan Code Status Conditional - agreeable to intubation but does not want cardiac compression Supervising Physician Co-Signing Physician Notes Attending addendum The patient was seen and examined in emergency room She is fully vaccinated for COVID-19 virus and has been having symptoms of shortness of breath and cough with one episode of diarrhea since Monday No known exposure Complaining of shortness of breath and cough and has been requiring 2 L of oxygen to maintain saturation On examination Minimal distress at rest with blood pressure on the higher side at 174/101 Physical examination documented as above Her admission labs, EKG and imaging studies reviewed Has COVID-19 virus infection with symptoms without chest x-ray evidence of pneumonia Has been falling frequently secondary to ambulatory dysfunction Significant other comorbid conditions remained stable We will start appropriate treatment for COVID-19 virus infection with remdesivir and dexamethasone Agree with assessment and plan as outlined above by JONATHON Medellin Dr
[2021-05-31 11:10] LABS: Potassium 3.9 mmol/L (3.5-5.1)
[2021-05-31] MEDS ORDERED: ACETAMINOPHEN 325 MG TAB PO PRN (11:11)
[2021-05-31] MEDS ORDERED: NON-FORMULARY MEDICATION (Multivitamin Tablet) PO SCH (11:15)
[2021-05-31 11:19] LABS: Appearance Urine Clear (Clear); Bilirubin Urine Negative (Negative); Blood Urine 2+ (Negative); Color Urine Yellow; Epithelial Cell Urine Auto >30 /lpf (0-5); Glucose Urine UA Negative (Negative); Ketones Urine Negative (Negative); Leukocyte Esterase Urine Negative (Negative); Nitrite Urine Negative (Negative); Protein Urine 2+ (Negative); RBC Urine Automated 0-4 /hpf (0-4); Specific Gravity Urine 1.019 (1.000-1.030); Urobilinogen Urine Negative (Negative)
[2021-05-31 11:28] LABS: Bacteria Urine Automated 1+ (Negative)
[2021-05-31] MEDS ORDERED: REMDESIVIR 200 MG in SODIUM CHLORIDE 0.9% 210 ML IV STA (11:46)
[2021-05-31] MEDS: LOSARTAN POTASSIUM 50 MG TAB PO SCH (14:44)
[2021-05-31] MEDS: allopurinoL 100 MG TAB PO SCH (14:44)
[2021-05-31] MEDS: ISOSORBIDE MONO EXTENDED REL 60 MG TABCR PO SCH (14:44)
[2021-05-31] MEDS: METOPROLOL TARTRATE 100 MG TAB PO SCH ×2 (14:45→20:25)
[2021-05-31] MEDS: ATORVASTATIN 40 MG TAB PO SCH (14:45)
[2021-05-31] MEDS ORDERED: GLUCOSE 40% GEL 15 GM TUBE PO PRN (15:46)
[2021-05-31] MEDS ORDERED: PHARMACY GLYCEMIC MGMT CONSULT PRN (15:46)
[2021-05-31] MEDS ORDERED: DEXTROSE 50% 50 ML SYRINGE IV PRN (15:46)
[2021-05-31] MEDS ORDERED: CARBOHYDRATES FOR HYPOGLYCEMIA PO PRN (15:46)
[2021-05-31] MEDS ORDERED: GLUCAGON FOR INJ 1 MG VIAL SQ PRN (15:46)
[2021-05-31] MEDS ORDERED: GLUCOSE 10 TABS/TUBE PO PRN (15:46)
[2021-05-31] MEDS ORDERED: ONDANSETRON INJ 2 MG/ML 2 ML VIAL IV PRN (15:46)
--- NOTE | 2021-05-31 15:59 | Electrocardiogram Report ---
Test Reason : Blood Pressure : / mmHG Vent. Rate : 085 BPM Atrial Rate : 085 BPM P-R Int : 280 ms QRS Dur : 108 ms QT Int : 400 ms P-R-T Axes : 072 023 091 degrees QTc Int : 476 ms Poor data quality, interpretation may be adversely affected Sinus rhythm with 1st degree A-V block Nonspecific ST and T wave abnormality Abnormal ECG When compared with ECG of 12-AUG-2019 10:36, No significant change was found Confirmed by Pankaj Gonzalez ([id number]) on 05/31/2021 3:58:50 PM Referred By: REFERRED SELF Confirmed By:Pankaj Gonzalez
[2021-05-31] MEDS ORDERED: PATIENT'S HEIGHT AND/OR WEIGHT NEEDED SCH (16:00)
[2021-05-31] MEDS ORDERED: INSULIN ASPART 100 UNITS/ML 3 ML PEN SC SCH (17:15)
[2021-05-31] MEDS: SODIUM CHLORIDE 0.9% 10ML FLUSH IV SCH (17:41)
[2021-05-31] MEDS: CETIRIZINE HCL 10 MG TABLET PO SCH (17:41)
[2021-05-31] MEDS: BUMETANIDE 1 MG TAB PO SCH (18:11)
[2021-05-31] MEDS: INSULIN ASPART 100 UNITS/ML VIAL SC SCH ×2 (18:17→20:26)
[2021-05-31] MEDS ORDERED: dexAMETHasone 6 MG in SYRINGE 0 ML IV ONE (18:30)
[2021-05-31 18:31] LABS: SARS CoV2 RNA(COVID-19) InHosp POSITIVE (Negative)
[2021-05-31] MEDS ORDERED: ALBUTEROL HFA 8 GM INHALER INH SCH (19:00)
[2021-05-31] MEDS: ASPIRIN 81 MG ECTAB PO SCH (19:15)
[2021-05-31] MEDS: MULTIVITAMIN TAB PO SCH (19:15)
[2021-05-31] MEDS: ALBUTEROL HFA 8 GM INHALER INH SCH (19:17)
[2021-05-31] MEDS: amLODIPine BESYLATE 5 MG TAB PO SCH (20:25)
[2021-05-31] MEDS: guaiFENesin 600 MG TABCR PO SCH (20:25)
[2021-05-31] MEDS ORDERED: INSULIN GLARGINE SOLOSTAR 100 UNITS/ML 3 ML PEN SQ SCH (21:00)
[2021-05-31] MEDS: HEPARIN SOD 5,000 UNIT/0.5 ML VIAL SQ SCH (21:49)
[2021-06-01] MEDS: INSULIN ASPART 100 UNITS/ML VIAL SC SCH ×6 (03:48→20:19)
[2021-06-01] MEDS: HEPARIN SOD 5,000 UNIT/0.5 ML VIAL SQ SCH ×3 (05:42→22:00)
[2021-06-01 06:13] LABS: Hematocrit (blood only) 37.9 % (37-47); Hemoglobin 11.8 g/dL (12.0-16.0); Mean Corpuscular Hemoglobin 27.1 pg (25-34); Mean Corpuscular Hgb Conc 31.1 g/dL (32-36); Mean Corpuscular Volume 87.1 fL (80-100); Mean Platelet Volume 11.1 fL (7.4-10.4); Platelet Count 144 K/uL (130-400); RDW Coefficient of Variation 17.4 % (11.5-14.5); RDW Standard Deviation 55.5 fL (36.4-46.3); Red Blood Count 4.35 M/uL (4.2-5.4); White Blood Count 5.43 K/uL (4.8-10.8)
[2021-06-01] MEDS: METOPROLOL TARTRATE 100 MG TAB PO SCH ×2 (07:37→20:26)
[2021-06-01] MEDS: BUMETANIDE 1 MG TAB PO SCH (07:37)
[2021-06-01] MEDS: dexAMETHasone 6 MG in SYRINGE 0 ML IV SCH (07:37)
[2021-06-01] MEDS: guaiFENesin 600 MG TABCR PO SCH ×2 (07:37→20:18)
[2021-06-01] MEDS: LOSARTAN POTASSIUM 50 MG TAB PO SCH (07:38)
[2021-06-01] MEDS: MULTIVITAMIN TAB PO SCH (07:38)
[2021-06-01] MEDS: ASPIRIN 81 MG ECTAB PO SCH (07:38)
[2021-06-01] MEDS: allopurinoL 100 MG TAB PO SCH (07:39)
[2021-06-01] MEDS: CETIRIZINE HCL 10 MG TABLET PO SCH (07:39)
[2021-06-01] MEDS: ISOSORBIDE MONO EXTENDED REL 60 MG TABCR PO SCH (07:39)
[2021-06-01] MEDS: ATORVASTATIN 40 MG TAB PO SCH (07:40)
[2021-06-01] MEDS: ALBUTEROL HFA 8 GM INHALER INH SCH (08:01)
[2021-06-01 08:06] LABS: Albumin Globulin Ratio 0.7 (0.9-2); Albumin Level 2.6 gm/dl (3.4-5.0); BUN Creatinine Ratio 30.2 (10-20); Bilirubin,Total 0.4 mg/dl (0.2-1); Calcium 8.8 mg/dl (8.5-10.1); Creatinine Clr Calc Pharmacy 35.4 ml/min; Est GFR (African American) 38.6 ml/min; Est GFR (Non-African American) 33.3 ml/min; Potassium 3.7 mmol/L (3.5-5.1); Total Protein 6.6 gm/dl (6.4-8.2)
[2021-06-01] MEDS ORDERED: INSULIN HUMAN NPH SC SCH (09:00)
[2021-06-01] MEDS ORDERED: INFLUENZA VACCINE HIGH DOSE PF 65+ 0.7 ML SYR IM ONE (09:00)
--- NOTE | 2021-06-01 09:04 | Emergency Department Note ---
History of Present Illness General Chief complaint: Fall Stated complaint: FALL, HYPOXIA Source: patient and RN notes reviewed Mode of arrival: ambulatory Limitations: no limitations History of Present Illness Provider complaint: Weakness, falls x2 Maximum Pain Intensity: 8 This patient is a 80-year-old female who presents emergency department after 2 falls over the course of 48 hours. The patient states she tried to ambulate to the bathroom today to urinate and fell on the floor. She lives at home with her and granddaughter who are able to call the ambulance after she was porsche ble to get herself up. Patient denies any blood thinners but states she does take baby aspirin. She did not lose consciousness. Home Medications Medication Instructions Recorded Confirmed Type allopurinol 100 mg tablet 200 mg PO DAILY 05/27/19 05/31/21 History amlodipine 5 mg tablet 5 mg PO HS 05/27/19 05/31/21 History atorvastatin 80 mg tablet 80 mg PO DAILY 05/27/19 05/31/21 History bumetanide 1 mg tablet 1 mg PO DAILY 05/27/19 05/31/21 History cetirizine 10 mg tablet (Zyrtec) 10 mg PO DAILY 05/27/19 05/31/21 History insulin aspart U-100 100 unit/mL 1 unit SUBCUT UD 05/27/19 05/31/21 History (3 mL) subcutaneous pen (Novolog Flexpen U-100 Insulin aspart) insulin glargine 100 unit/mL (3 36 unit SUBCUT HS 05/27/19 05/31/21 History mL) subcutaneous pen (Lantus Solostar U-100 Insulin) isosorbide mononitrate 60 mg 60 mg PO DAILY 05/27/19 05/31/21 History tablet,extended release 24 hr losartan 100 mg tablet 100 mg PO DAILY 05/27/19 05/31/21 History metoprolol tartrate 100 mg tablet 100 mg PO BID 05/27/19 05/31/21 History multivitamin 1 tab PO DAILY 05/27/19 05/31/21 History aspirin 81 mg capsule 81 mg PO DAILY 05/31/21 05/31/21 History Oxygen Home #1 ea 06/02/21 Rx guaifenesin 600 mg tablet, 1,200 mg PO Q12 #40 tab 06/02/21 Rx extended release 12 hr (Mucinex) Allergies Allergy/AdvReac Type Severity Reaction Status Date / Time ibuprofen Allergy Unknown RUNNY NOSE Verified 05/31/21 08:19 hydrocodone AdvReac Severe confusion Verified 05/31/21 08:19 niacin AdvReac Unknown RED RASH Verified 05/31/21 08:19 baclofen AdvReac confusion Verified 05/31/21 08:19 Past Med/Surg History Medical History CAD (coronary artery disease) 11/2006: CELSO to left circumflex 07/2010: Cardiac cath revealed a 20% left main lesion in both the proximal and distal segments, 50% mid LAD lesion which was not hemodynamically significant by FFR, and an 80% lesion in the second diagonal branch which was significant by FFR. Medical management. 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 and A total of 10 systems reviewed and were otherwise negative Physical Exam Vital Signs Vital Signs - 24 hr 05/31/21 11:00 Pulse Rate [Apical] 89 Respiratory Rate 22 Blood Pressure [Left Arm] 174/101 H Blood Pressure Mean [Left Arm] 125 Pulse Oximetry 95 Oxygen Delivery Method Nasal Cannula Oxygen Flow Rate 2 Vital signs reviewed. General: Chronically ill-appearing 80-year-old female, in no significant distress. HEENT: No scleral icterus, PERRLA, neck supple. Atraumatic. Cardiovascular: Regular rate and rhythm, no extra sounds. Pulmonary: Clear to auscultation bilaterally, normal work of breathing. Abdomen: Soft, obese, nontender, nondistended, positive bowel sounds. Musculoskeletal: Atraumatic, no peripheral edema. Neurologic: Patient awake alert and oriented x 3, full strength in all 4 extremities. Cranial nerves 2 through 12 grossly intact. Skin: Warm, dry, no rash Course Administered Medications Discontinued Medications Acetaminophen (Acetaminophen 325 Mg Tab) 650 mg PO Q4H PRN PRN Reason: Moderate Pain Stop: 06/30/21 11:10 Last Admin: 06/01/21 00:45 Dose: 650 mg Documented by: [id number] Albuterol (Albuterol Hfa 8 Gm Inhaler) 2 puffs INH QIDR DENISSE Stop: 06/30/21 16:29 Last Admin: 06/01/21 08:01 Dose: 2 puffs Documented by: [id number] Admin: 05/31/21 19:17 Dose: Not Given Documented by: [id number] Allopurinol (Allopurinol 100 Mg Tab) 200 mg PO DAILY DENISSE Stop: 06/30/21 11:14 Last Admin: 06/02/21 07:56 Dose: 200 mg Documented by: [id number] Admin: 06/01/21 07:39 Dose: 200 mg Documented by: [id number] Admin: 05/31/21 14:44 Dose: 200 mg Documented by: [id number] Amlodipine Besylate (Amlodipine Besylate 5 Mg Tab) 5 mg PO HS [facility] Stop: 06/30/21 20:59 Last Admin: 06/01/21 20:18 Dose: 5 mg Documented by: [id number] Admin: 05/31/21 20:25 Dose: 5 mg Documented by: [id number] Aspirin (Aspirin 81 Mg Ectab) 81 mg PO DAILY DENISSE Stop: 06/30/21 15:59 Last Admin: 06/02/21 07:59 Dose: 81 mg Documented by: [id number] Admin: 06/01/21 07:38 Dose: 81 mg Documented by: [id number] Admin: 05/31/21 19:15 Dose: 81 mg Documented by: [id number] Atorvastatin Calcium (Atorvastatin 40 Mg Tab) 80 mg PO DAILY DENISSE Stop: 06/30/21 11:14 Last Admin: 06/02/21 07:55 Dose: 80 mg Documented by: [id number] Admin: 06/01/21 07:40 Dose: 80 mg Documented by: [id number] Admin: 05/31/21 14:45 Dose: 80 mg Documented by: [id number] Bumetanide (Bumetanide 1 Mg Tab) 1 mg PO DAILY [facility] Stop: 06/30/21 15:45 Last Admin: 06/02/21 07:57 Dose: 1 mg Documented by: [id number] Admin: 06/01/21 07:37 Dose: 1 mg Documented by: [id number] Admin: 05/31/21 18:11 Dose: 1 mg Documented by: [id number] Cetirizine HCl (Cetirizine Hcl 10 Mg Tablet) 10 mg PO DAILY [facility] Stop: 06/30/21 11:14 Last Admin: 06/02/21 07:55 Dose: 10 mg Documented by: [id number] Admin: 06/01/21 07:39 Dose: 10 mg Documented by: [id number] Admin: 05/31/21 17:41 Dose: Not Given Documented by: [id number] Guaifenesin (Guaifenesin 600 Mg Tabcr) 1,200 mg PO Q12 DENISSE Stop: 06/30/21 20:59 Last Admin: 06/02/21 07:54 Dose: 1,200 mg Documented by: [id number] Admin: 06/01/21 20:18 Dose: 1,200 mg Documented by: [id number] Admin: 06/01/21 07:37 Dose: 1,200 mg Documented by: [id number] Admin: 05/31/21 20:25 Dose: 1,200 mg Documented by: [id number] Heparin Sodium (Porcine) (Heparin Sod 5,000 Unit/0.5 Ml Vial) 5,000 units SQ Q8 [facility]ISSE Stop: 06/30/21 21:59 Last Admin: 06/02/21 05:39 Dose: 5,000 units Documented by: [id number] Admin: 06/01/21 22:00 Dose: 5,000 units Documented by: [id number] Admin: 06/01/21 15:14 Dose: 5,000 units Documented by: [id number] Admin: 06/01/21 05:42 Dose: 5,000 units Documented by: [id number] Admin: 05/31/21 21:49 Dose: 5,000 units Documented by: [id number] Sodium Chloride (Nss 1000ml) 1,000 mls @ 100 mls/hr IV .Q10H DENISSE Stop: 05/31/21 18:44 Last Infusion: 05/31/21 18:16 Dose: 0 mls/hr Documented by: [id number] Admin: 05/31/21 09:03 Dose: 100 mls/hr Documented by: [id number] Dexamethasone 6 mg/ Syringe 1.5 mls @ 1 mls/min IV DAILY [facility]IS[facility] Stop: 06/11/21 08:59 Last Admin: 06/02/21 07:54 Dose: 1 mls/min Documented by: [id number] Admin: 06/01/21 07:37 Dose: 1 mls/min Documented by: [id number] Remdesivir 200 mg/ Sodium (Chloride) 250 mls @ 125 mls/hr IV ONE STA; Protocol Stop: 05/31/21 13:45 Last Infusion: 05/31/21 17:42 Dose: 0 mls/hr Documented by: [id number] Admin: 05/31/21 12:45 Dose: 125 mls/hr Documented by: [id number] Remdesivir 100 mg/ Sodium (Chloride) 250 mls @ 250 mls/hr IV DAILY@1200 DENISSE; Protocol Stop: 06/04/21 12:59 Last Infusion: 06/02/21 13:30 Dose: 0 mls/hr Documented by: [id number] Admin: 06/02/21 12:28 Dose: 250 mls/hr Documented by: [id number] Infusion: 06/01/21 13:44 Dose: 0 mls/hr Documented by: [id number] Admin: 06/01/21 11:52 Dose: 250 mls/hr Documented by: [id number] Dexamethasone 6 mg/ Syringe 1.5 mls @ 1 mls/min IV ONE ONE Stop: 05/31/21 18:31 Last Admin: 05/31/21 19:16 Dose: 1 mls/min Documented by: [id number] Insulin Aspart (Insulin Aspart 100 Units/Ml Vial) 0 units SC ACHS DENISES; Protocol Stop: 06/30/21 17:29 Last Admin: 06/02/21 13:13 Dose: 15 units Documented by: [id number] Cosigned by: [id number] Admin: 06/02/21 08:18 Dose: 4 units Documented by: [id number] Cosigned by: [id number] Admin: 06/01/21 20:19 Dose: 8 units Documented by: [id number] Cosigned by: [id number] Admin: 06/01/21 17:39 Dose: 3 units Documented by: [id number] Cosigned by: [id number] Admin: 06/01/21 12:47 Dose: 9 units Documented by: [id number] Cosigned by: [id number] Admin: 06/01/21 09:29 Dose: 4 units Documented by: [id number] Cosigned by: [id number] Admin: 05/31/21 20:26 Dose: 1 units Documented by: [id number] Cosigned by: [id number] Admin: 05/31/21 18:17 Dose: Not Given Documented by: [id number] Insulin Aspart (Insulin Aspart 100 Units/Ml Vial) 0 units SC 0000,0400 [facility] Stop: 06/01/21 04:01 Last Admin: 06/01/21 03:48 Dose: 1 units Documented by: [id number] Cosigned by: [id number] Admin: 06/01/21 00:00 Dose: 2 units Documented by: [id number] Cosigned by: [id number] Insulin Glargine (Insulin Glargine Solostar 100 Units/Ml 3 Ml Pen) 36 units SQ [facility] Stop: 06/30/21 20:59 Last Admin: 05/31/21 20:25 Dose: 36 units Documented by: [id number] Cosigned by: [id number] Insulin Glargine (Insulin Glargine Solostar 100 Units/Ml 3 Ml Pen) 24 units SQ [facility] Stop: 06/30/21 20:59 Last Admin: 06/01/21 20:19 Dose: 24 units Documented by: [id number] Cosigned by: [id number] Insulin Human NPH (Insulin Human Nph) 30 units SC DAILY [facility]; Protocol Stop: 07/01/21 08:59 Last Admin: 06/01/21 10:06 Dose: 30 units Documented by: [id number] Cosigned by: [id number] Insulin Human NPH (Insulin Human Nph) 45 units SC DAILY [facility]; Protocol Stop: 07/01/21 08:59 Last Admin: 06/02/21 08:18 Dose: 45 units Documented by: [id number] Cosigned by: [id number] Isosorbide Mononitrate (Isosorbide [place] Extended Rel 60 Mg Tabcr) 60 mg PO D AILY [facility] Stop: 06/30/21 11:14 Last Admin: 06/02/21 07:58 Dose: 60 mg Documented by: [id number] Admin: 06/01/21 07:39 Dose: 60 mg Documented by: [id number] Admin: 05/31/21 14:44 Dose: 60 mg Documented by: [id number] Losartan Potassium (Losartan Potassium 50 Mg Tab) 100 mg PO DAILY [facility] Stop: 06/30/21 11:14 Last Admin: 06/02/21 07:58 Dose: 100 mg Documented by: [id number] Admin: 06/01/21 07:38 Dose: 100 mg Documented by: [id number] Admin: 05/31/21 14:44 Dose: 100 mg Documented by: [id number] Metoprolol Tartrate (Metoprolol Tartrate 100 Mg Tab) 100 mg PO BID [facility] Stop: 06/30/21 11:14 Last Admin: 06/02/21 07:59 Dose: 100 mg Documented by: [id number] Admin: 06/01/21 20:26 Dose: 100 mg Documented by: [id number] Admin: 06/01/21 07:37 Dose: 100 mg Documented by: [id number] Admin: 05/31/21 20:25 Dose: 100 mg Documented by: [id number] Admin: 05/31/21 14:45 Dose: 100 mg Documented by: [id number] Multivitamins (Multivitamin Tab) 1 tab PO DAILY [facility] Stop: 06/30/21 15:59 Last Admin: 06/02/21 07:56 Dose: 1 tab Documented by: [id number] Admin: 06/01/21 07:38 Dose: 1 tab Documented by: [id number] Admin: 05/31/21 19:15 Dose: 1 tab Documented by: [id number] Non-Formulary Medication (Multivitamin) 1 tab PO DAILY [facility] Stop: 06/30/21 11:14 Last Admin: 05/31/21 17:41 Dose: Not Given Documented by: [id number] Sodium Chloride (Sodium Chloride 0.9% 10ml Flush) 30 ml IV DAILY@1200 [facility] Stop: 06/04/21 12:01 Last Admin: 06/02/21 15:18 Dose: 30 ml Documented by: [id number] Admin: 06/01/21 12:50 Dose: 30 ml Documented by: [id number] Admin: 05/31/21 17:41 Dose: Not Given Documented by: [id number] Medical Decision Making Differential Diagnosis Infection, dehydration, metabolic abnormality, hypo/hyperglycemia, electrolyte disturbance, anemia, hypoxia, cardiac sources, intracerebral event, toxicologic, neurologic, as well as other pathologies. Medical Records Attestation: I reviewed the patient's medical records. Home Medications Current Medication List: was personally reviewed by me Laboratory Data Attestation: I reviewed the patient's lab results. Result diagrams: 06/02/21 06:11 06/02/21 06:11 Lab Results 05/31/21 05/31/21 05/31/21 Range/Units 09:26 09:42 10:48 Potassium 3.9 (3.5-5.1) mmol/L Lactate 1.4 (0.4-2.0) mmol/L Magnesium 2.0 (1.8-2.4) mg/dl AST 151 H (15-37) U/L SARS-CoV-2 (PCR) POSITIVE A* (Negative) Influenza Type A (PCR) Negative (Neg) Influenza Type B (PCR) Negative (Neg) RSV (RT-PCR) Negative (Neg) Imaging Data Radiologist's Impression: Chest X-Ray 05/31/21 08:35 XR chest 1V portable CLINICAL HISTORY: weakness. Evaluate cardiopulmonary status COMPARISON STUDY: 08/12/2019 TECHNIQUE: 1 view of the chest FINDINGS: Single frontal view of the chest demonstrates the heart to again be enlarged. The aorta is atherosclerotic and ectatic. There is a decreased inspiratory effort with elevation of the hemidiaphragms and crowding of the bronchovascular markings at the lung bases and centrally. The lungs are clear of alveolar opacities. There is no evidence for pleural effusion. There is no evidence for vascular congestion. There is no acute osseous pathology. IMPRESSION: There is a decreased inspiratory effort with otherwise no acute chest disease. ACT 112: Negative or not required by law. Electronically signed by: Guille Voss M.D. 05/31/2021 9:[address] 05/31/21 08:45 CT head/brain wo con CLINICAL HISTORY: Weakness Technique: Contiguous axial CT images of the head were acquired from the base of the skull to the vertex without intravenous contrast administration. Images were viewed in brain, subdural and bone windows. Automated dose lowering techniques and/or adjustment according to patient size were utilized for this exam. Comparison: Comparison is made to CT head 08/12/2019 Findings: The ventricles, basal cisterns, and cerebral sulci are normal. There is no acute intracranial hemorrhage or evidence of acute territorial infarction. Neither mass effect, shift of the midline structures, nor abnormal extra-axial fluid collections are shown. Minimal thickening of the paranasal sinuses is noted. The orbits appear normal. There are no acute fractures of the calvaria or scalp swelling. Impression: No acute intracranial hemorrhage, no evidence of acute territorial infarction or other acute intracranial disease process. ACT 112: Negative or not required by law. Electronically signed by: Paco Arvizu M.D. 05/31/2021 9:17 AM ECG Data Additional Comments: Sinus rhythm with a first-degree AV block at [address] and T wave abnormalities. QTc is 476. No PVC, no PAC. Normal axis. No significant change from August 12, 2019. Blood Pressure Blood Pressure Findings: Elevated blood pressure Blood Pressure Disposition: further management by hospitalist MDM Narrative This patient was evaluated and appeared to be in no significant distress. IV access was obtained and laboratory work was drawn. Patient was placed on a panel monitor and noted to be in a sinus rhythm with a first-degree AV block. Patient was hydrated with normal saline solution. Head CT was performed and reveals no evidence of acute intracranial pathology. Laboratory work is fairly reassuring however patient has tested positive for Covid. As she is unable to safely ambulate without recurrent falls and does seem to become hypoxic with ambulation, she will be evaluated by the hospitalist service for further management. Impression & Plan COVID-19, Weakness, Fall, Exercise intolerance Discharge Plan Visit Data Chief Complaint: Fall Stated Complaint: FALL, HYPOXIA ED Provider: Skylar David Discharge Problem: COVID-19, Weakness, Fall, Exercise intolerance Patient Disposition: Admitted As Inpatient Condition: Good Discharge Instructions Interventions: ED Discharge Assessment Last Done: 05/31/21 15:03
[2021-06-01] MEDS ORDERED: ALBUTEROL HFA 8 GM INHALER INH PRN (10:07)
--- NOTE | 2021-06-01 11:16 | Pharmacy Report ---
Pharmacy Glycemic Short Note 2 - Date of Service June 01, 2021 - Glycemic Short BSG Results (Last 24 hours): 05/31/21 05/31/21 05/31/21 16:33 20:17 23:57 Glucose POC Glucose 133 H 168 H 183 H 06/01/21 06/01/21 06/01/21 03:44 05:49 07:38 Glucose 169 H POC Glucose 167 H 154 H OUTPATIENT ANTIDIABETIC REGIMEN: * Lantus 36 units SC HS * Novolog SSI * HbA1c = 8.5% (06/01/21) ASSESSMENT: * 80 yo F admitted secondary to COVID-19 pneumonia. Pharmacy has been consulted to assist with inpatient glycemic management. * Patient's BSG was 133 mg/dL upon presentation to ED. Received her home dose of Lantus 36 units last evening as well as 3 units of correctional insulin for BSGs of 168 and 183 mg/dL. Patient was started on 6 mg of IV dexamethasone last evening and continues this morning. Ordered a type 2 diet. * Fasting BSG was 154 mg/dL this AM. * Starting NPH to be given w/ dexamethasone * Continue Novolog based on weight/stress of 3 * Will reduce home Lantus dose by 1/3 this evening * Goal BSG while inpatient will be 110-140 mg/dL with BSGs less than 180 mg/dL being acceptable. PLAN FOR INPATIENT GLYCEMIC CONTROL: * Basal insulin * Lantus 24 units SC HS * NPH 30 units SC AM w/ Dexamethasone * Bolus insulin * NovoLog per scale ACHS or Q6hrs while NPO * Goal Range: Low 110 mg/dL - High 140 mg/dL * Correction Factor: 15 mg/dL/unit * Nutritional / Prandial insulin per carb ratio of 1 unit per 6 grams CHO consumed PLAN FOR DISCHARGE: * To be determined
[2021-06-01] MEDS: REMDESIVIR 100 MG in SODIUM CHLORIDE 0.9% 230 ML IV SCH (11:52)
[2021-06-01] MEDS ORDERED: SODIUM CHLORIDE 0.9% 10ML FLUSH IV SCH (12:00)
[2021-06-01 12:29] LABS: Estimated Average Glucose 197 mg/dl; Hemoglobin A1C 8.5 % (4.5-5.6)
[2021-06-01] MEDS: SODIUM CHLORIDE 0.9% 10ML FLUSH IV SCH (12:50)
--- NOTE | 2021-06-01 19:48 | Hospitalist Progress Note ---
Date of Service June 01, 2021 Assessment & Plan (1) COVID-19: Plan: No evidence of pneumonia, continues on steroids and remdesivir. Monitor LFTs closely which are likely elevated related to the covid infection. If cont to rise, stop remdesivir. Declines cough syrup. On room air at rest at this time. (2) Hypoxia: (3) Fall: Plan: frequent falls per notes. PT evaluated and recommended to return home with 24 hour care. (4) Weakness: Plan: same as above. (5) Elevated LFTs: Plan: Likely related to covid infection. OK to continue remdesivir at current levels. Repeat as outpatient to ensure normalization in a couple of weeks. (6) Hypertension: Plan: Slightly elevated which may be related to the steroid use. Continue antihypertensives as scheduled. (7) CAD (coronary artery disease): Plan: -History of one cardiac stent placed 8 to 9 years ago, continue baby aspirin daily, metoprolol, losartan, Bumex, Imdur -Stop IV fluids that were being given in the ER now -Monitor I's and O's, daily weights (8) DM type 2 (diabetes mellitus, type 2): Plan: - Cont ISS with accucheck achs - Lantus 36 U HS to continue as pt reports good oral intake and diet, will monitor glucose -Allow heart healthy diabetic diet -Check A1c with a.m. labs (9) Morbid obesity: Plan: -Encourage diet and exercise throughout hospital stay (10) CKD (chronic kidney disease), stage IV: Plan: -Creatinine 1.49, baseline appears to be 1.5-1.8, follow with a.m. labs -Remdesivir as above -Patient received 1L NSS in the ER (11) DVT prophylaxis: Plan: Heparin Conditional code Dispo-to home, patient is declining home health. Nanda Olvera DO [facility] Hospitalist Admission and Anticipated Discharge Date Admission Date: May 31, 2021 Subjective 80 yo vaccinated patient (2 doses) presents with weakness after a fall at home, no LOC, positive for covid with symptoms for the past week. feeling better cough improved with flutter valve use some intermittent diarrhea tolerating PO off oxygen at rest denies SOB/CP denies any skin changes to lower extremities that aren't chronic. Review of Systems Review of Systems: All systems were reviewed and negative except as indicated in subjective above. Physical Exam Physical Exam: CONSTITUTIONAL: obese, vitals as above, generally well- appearing, NAD EYES: normal conjunctivae, no scleral icterus ENT: external ear and nose normal, MMM NECK: trachea midline RESPIRATORY: clear to auscultation bilaterally, no crackles, rales or wheezes, normal respiratory effort CARDIOVASCULAR: regular rate and rhythm, S1 and 2 heard without murmurs, gallops or rubs, no JVD, no peripheral edema GASTROINTESTINAL: soft, nontender, ND, no guarding MUSCULOSKELETAL: strength 5/5 throughout, head is normocephalic and atraumatic, neck supple, normal palpation of chest wall without tenderness SKIN: warm and dry NEUROLOGIC: CN 2-12 grossly intact, no sensory deficit, normal cognition, normal speech, no tremor, no gross focal deficits. PSYCHIATRIC: alert cooperative and oriented to person, place and time. Euthymic mood, makes good eye contact, language grossly intact, recent and remote memory grossly intact. Results & Data Results & Data ([facility]) Vital Signs (Past 12 Hours) Vital Signs Temp Pulse Pulse Resp BP Pulse Ox 06/01/21 15:59 67 06/01/21 15:18 36.5 C 63 20 155/72 H 89 L 06/01/21 12:01 36.5 C 59 L 18 162/66 H 90 06/01/21 08:02 61 16 93 06/01/21 08:01 36.5 C 62 18 154/66 H 93 Laboratory Results Short CBC 06/01/21 Range/Units 05:49 WBC 5.43 (4.8-10.8) K/uL Hgb 11.8 L (12.0-16.0) g/dL Hct 37.9 (37-47) % Plt Count 144 (130-400) K/uL BMP 06/01/21 05:49 Sodium 139 Potassium 3.7 Chloride 107 Carbon Dioxide 24 BUN 45 H Creatinine 1.49 H Glucose 169 H Calcium 8.8 Liver Function 06/01/21 Range/Units 05:49 Total Bilirubin 0.4 (0.2-1) mg/dl AST 218 H (15-37) U/L ALT 220 H (12-78) Alkaline Phosphatase 59 (45-117) U/L Albumin 2.6 L (3.4-5.0) gm/dl Medications Administered Current Inpatient Medications Acetaminophen (Acetaminophen 325 Mg Tab) 650 mg PO Q4H PRN PRN Reason: Moderate Pain Stop: 06/30/21 11:10 Last Admin: 06/01/21 00:45 Dose: 650 mg Documented by: Albuterol (Albuterol Hfa 8 Gm Inhaler) 2 puffs INH Q4R PRN PRN Reason: Shortness Of Breath Or Wheezin Stop: 07/01/21 10:04 Allopurinol (Allopurinol 100 Mg Tab) 200 mg PO DAILY [facility] Stop: 06/30/21 11:14 Last Admin: 06/01/21 07:39 Dose: 200 mg Documented by: Amlodipine Besylate (Amlodipine Besylate 5 Mg Tab) 5 mg PO HS [facility] Stop: 06/30/21 20:59 Last Admin: 05/31/21 20:25 Dose: 5 mg Documented by: Aspirin (Aspirin 81 Mg Ectab) 81 mg PO DAILY [facility] Stop: 06/30/21 15:59 Last Admin: 06/01/21 07:38 Dose: 81 mg Documented by: Atorvastatin Calcium (Atorvastatin 40 Mg Tab) 80 mg PO DAILY [facility] Stop: 06/30/21 11:14 Last Admin: 06/01/21 07:40 Dose: 80 mg Documented by: Bumetanide (Bumetanide 1 Mg Tab) 1 mg PO DAILY [facility] Stop: 06/30/21 15:45 Last Admin: 06/01/21 07:37 Dose: 1 mg Documented by: Cetirizine HCl (Cetirizine Hcl 10 Mg Tablet) 10 mg PO DAILY [facility] Stop: 06/30/21 11:14 Last Admin: 06/01/21 07:39 Dose: 10 mg Documented by: Dextrose (Dextrose 50% 50 Ml Syringe) 25 - 50 ml IV UD PRN; Protocol PRN Reason: Hypoglycemia Protocol Stop: 06/30/21 15:45 Glucagon (Glucagon For Inj 1 Mg Vial) 1 mg SQ UD PRN; Protocol PRN Reason: Hypoglycemia Protocol Stop: 06/30/21 15:45 Glucose (Glucose 10 Tabs/Tube) 4 - 8 tabs PO UD PRN; Protocol PRN Reason: Hypoglycemia Protocol Stop: 06/30/21 15:45 Glucose (Glucose 40% Gel 15 Gm Tube) 15 - 30 gm PO UD PRN; Protocol PRN Reason: Hypoglycemia Protocol Stop: 06/30/21 15:45 Guaifenesin (Guaifenesin 600 Mg Tabcr) 1,200 mg PO Q12 [facility] Stop: 06/30/21 20:59 Last Admin: 06/01/21 07:37 Dose: 1,200 mg Documented by: Heparin Sodium (Porcine) (Heparin Sod 5,000 Unit/0.5 Ml Vial) 5,000 units SQ Q8 [facility] Stop: 06/30/21 21:59 Last Admin: 06/01/21 15:14 Dose: 5,000 units Documented by: Dexamethasone 6 mg/ Syringe 1.5 mls @ 1 mls/min IV DAILY [facility] Stop: 06/11/21 08:59 Last Admin: 06/01/21 07:37 Dose: 1 mls/min Documented by: Remdesivir 100 mg/ Sodium (Chloride) 250 mls @ 250 mls/hr IV DAILY@1200 [facility]; Protocol Stop: 06/04/21 12:59 Last Infusion: 06/01/21 13:44 Dose: Infused Documented by: Insulin Aspart (Insulin Aspart 100 Units/Ml Vial) 0 units SC ACHS [facility]; Protocol Stop: 06/30/21 17:29 Last Admin: 06/01/21 17:39 Dose: 3 units Documented by: Insulin Glargine (Insulin Glargine Solostar 100 Units/Ml 3 Ml Pen) 24 units SQ HS [facility] Stop: 06/30/21 20:59 Insulin Human NPH (Insulin Human Nph) 30 units SC DAILY [facility]; Protocol Stop: 07/01/21 08:59 Last Admin: 06/01/21 10:06 Dose: 30 units Documented by: Isosorbide Mononitrate (Isosorbide [place] Extended Rel 60 Mg Tabcr) 60 mg PO DAILY [facility] Stop: 06/30/21 11:14 Last Admin: 06/01/21 07:39 Dose: 60 mg Documented by: Losartan Potassium (Losartan Potassium 50 Mg Tab) 100 mg PO DAILY [facility] Stop: 06/30/21 11:14 Last Admin: 06/01/21 07:38 Dose: 100 mg Documented by: Metoprolol Tartrate (Metoprolol Tartrate 100 Mg Tab) 100 mg PO BID [facility] Stop: 06/30/21 11:14 Last Admin: 06/01/21 07:37 Dose: 100 mg Documented by: Miscellaneous (Carbohydrates For Hypoglycemia ) 15 - 30 gm PO UD PRN PRN Reason: Hypoglycemia Protocol Stop: 06/30/21 15:45 Miscellaneous Information (Pharmacy Glycemic Mgmt Consult) 1 ea N/A UD PRN; Protocol PRN Reason: Consult Stop: 06/30/21 15:45 Multivitamins (Multivitamin Tab) 1 tab PO DAILY [facility] Stop: 06/30/21 15:59 Last Admin: 06/01/21 07:38 Dose: 1 tab Documented by: Ondansetron HCl (Ondansetron Inj 2 Mg/Ml 2 Ml Vial) 4 mg IV Q4H PRN PRN Reason: Nausea And Vomiting Stop: 06/30/21 15:45 Sodium Chloride (Sodium Chloride 0.9% 10ml Flush) 30 ml IV DAILY@1200 [facility] Stop: 06/04/21 12:01 Last Admin: 06/01/21 12:50 Dose: 30 ml Documented by:
[2021-06-01] MEDS: amLODIPine BESYLATE 5 MG TAB PO SCH (20:18)
[2021-06-01] MEDS ORDERED: INSULIN GLARGINE SOLOSTAR 100 UNITS/ML 3 ML PEN SQ SCH (21:00)
[2021-06-02] MEDS: HEPARIN SOD 5,000 UNIT/0.5 ML VIAL SQ SCH (05:39)
[2021-06-02 06:57] LABS: Hematocrit (blood only) 38.5 % (37-47); Hemoglobin 12.2 g/dL (12.0-16.0); Mean Corpuscular Hemoglobin 27.7 pg (25-34); Mean Corpuscular Hgb Conc 31.7 g/dL (32-36); Mean Corpuscular Volume 87.3 fL (80-100); Mean Platelet Volume 11.3 fL (7.4-10.4); Platelet Count 181 K/uL (130-400); RDW Coefficient of Variation 17.2 % (11.5-14.5); RDW Standard Deviation 55.7 fL (36.4-46.3); Red Blood Count 4.41 M/uL (4.2-5.4); White Blood Count 15.37 K/uL (4.8-10.8)
[2021-06-02 07:36] LABS: Albumin Level 2.7 gm/dl (3.4-5.0); BUN Creatinine Ratio 32.3 (10-20); Calcium 8.8 mg/dl (8.5-10.1); Creatinine Clr Calc Pharmacy 28.3 ml/min; Est GFR (African American) 29.5 ml/min; Est GFR (Non-African American) 25.5 ml/min; Potassium 3.5 mmol/L (3.5-5.1)
[2021-06-02 07:39] LABS: Albumin Globulin Ratio 0.7 (0.9-2); Bilirubin,Total 0.4 mg/dl (0.2-1); C Reactive Protein 7.99 mg/dl (0-0.29); Globulin 4.1 gm/dl (2.5-4.0); Phosphorus 3.1 mg/dl (2.5-4.9); Total Protein 6.8 gm/dl (6.4-8.2)
[2021-06-02] MEDS: guaiFENesin 600 MG TABCR PO SCH (07:54)
[2021-06-02] MEDS: dexAMETHasone 6 MG in SYRINGE 0 ML IV SCH (07:54)
[2021-06-02] MEDS: CETIRIZINE HCL 10 MG TABLET PO SCH (07:55)
[2021-06-02] MEDS: ATORVASTATIN 40 MG TAB PO SCH (07:55)
[2021-06-02] MEDS: MULTIVITAMIN TAB PO SCH (07:56)
[2021-06-02] MEDS: allopurinoL 100 MG TAB PO SCH (07:56)
[2021-06-02] MEDS: BUMETANIDE 1 MG TAB PO SCH (07:57)
[2021-06-02] MEDS: ISOSORBIDE MONO EXTENDED REL 60 MG TABCR PO SCH (07:58)
[2021-06-02] MEDS: LOSARTAN POTASSIUM 50 MG TAB PO SCH (07:58)
[2021-06-02] MEDS: METOPROLOL TARTRATE 100 MG TAB PO SCH (07:59)
[2021-06-02] MEDS: ASPIRIN 81 MG ECTAB PO SCH (07:59)
[2021-06-02] MEDS: INSULIN ASPART 100 UNITS/ML VIAL SC SCH ×2 (08:18→13:13)
[2021-06-02] MEDS ORDERED: INSULIN HUMAN NPH SC SCH (09:00)
[2021-06-02] MEDS: REMDESIVIR 100 MG in SODIUM CHLORIDE 0.9% 230 ML IV SCH (12:28)
--- NOTE | 2021-06-02 13:40 | Pharmacy Report ---
Pharmacy Glycemic Short Note 2 - Date of Service June 02, 2021 - Glycemic Short BSG Results (Last 24 hours): 06/01/21 06/01/21 06/02/21 16:33 20:04 06:11 Glucose 135 H POC Glucose 232 H 256 H 06/02/21 06/02/21 08:04 11:47 Glucose POC Glucose 131 H 234 H OUTPATIENT ANTIDIABETIC REGIMEN: * Lantus 36 units SC HS * Novolog SSI * HbA1c = 8.5% (06/01/21) ASSESSMENT: 06/02: * Sadia received a total of 78 units of insulin yesterday (30 units NPH + 24 units Lantus + 24 units Novolog) * BSGs were uncontrolled yesterday: [phone] mg/dL * Fasting BSG was 131 mg/dL this AM - at goal * Continue with current Lantus dose * Postprandial BSGs continually elevated throughout the day yesterday, due to steroids * Tightened carb ratio and increased NPH dose today 06/01: * 80 yo F admitted secondary to COVID-19 pneumonia. Pharmacy has been consulted to assist with inpatient glycemic management. * Patient's BSG was 133 mg/dL upon presentation to ED. Received her home dose of Lantus 36 units last evening as well as 3 units of correctional insulin for BSGs of 168 and 183 mg/dL. Patient was started on 6 mg of IV dexamethasone last evening and continues this morning. Ordered a type 2 diet. * Fasting BSG was 154 mg/dL this AM. * Starting NPH to be given w/ dexamethasone * Continue Novolog based on weight/stress of 3 * Will reduce home Lantus dose by 1/3 this evening * Goal BSG while inpatient will be 110-140 mg/dL with BSGs less than 180 mg/dL being acceptable. PLAN FOR INPATIENT GLYCEMIC CONTROL: * Basal insulin - increased NPH * Lantus 24 units SC HS * NPH 45 units (0.4 units/kg) SC AM w/ Dexamethasone * Bolus insulin - tightened * NovoLog per scale ACHS or Q6hrs while NPO * Goal Range: Low 110 mg/dL - High 140 mg/dL * Correction Factor: 15 mg/dL/unit * Nutritional / Prandial insulin per carb ratio of 1 unit per 4 grams CHO consumed PLAN FOR DISCHARGE: * HbA1c was 8.5% from this admission which is above the goal of less than 8% for this patient based on her age and comorbidities. * HbA1c has increased from 7.7% in November 2020. * Recommend follow up with outpatient provider for insulin dose adjustments.
--- NOTE | 2021-06-02 14:55 | Discharge Summary ---
Date of Service June 02, 2021 Admission HPI Per Admitting Provider This is a 80 yo F with PMhx of morbid obesity, HTN, HLd DM II, CAD, CKD stage IV, who presents to the hospital after sustaining a fall this morning in her bathroom when she was attempting to get up. Pt reports falling this morning, but noticed felt weaker starting yesterday afternoon. Pt admits to falling Monday morning and then again this morning when she was getting off the toilet. Cough started Monday. Denies fever, chills or sweats. Admits to sputum with cough, clear, no hemoptysis. Admits to decreased po intake. Admits to Monday morning having diarrhea but none since then. CT of the head is negative, patient denies any other specific complaints of pain in any extremity. She has a grand-daughter who lives with her at home who has had cold-like symptoms, and been tested recently for Covid and is negative per her report, however here on admission the patient is found to be COVID-19 positive. She is hypoxic on room air and has improved sats to 93% on 2L via NC. Pt is vaccinated x 2 dose series earlier this year. Admission Exam Per Admitting Provider Physical Exam: Please refer to attending addendum as I did not see the patient in person due to being COVID-[address] Documentation by Dr[address] Martínez Lying in bed with minimal shortness of breath at rest Constitutional: well developed, well nourished, + acute distress (Minimal shortness of breath at rest), + ill appearing and + obese Eyes: PERRL, conjunctivae normal, anicteric sclerae ENMT: external ear and nose normal, oropharynx normal Neck: trachea midline, no thyromegaly Respiratory: + respiratory distress (Minimum at rest) Auscultation: + diminished lung sounds and + crackles (At the bases) Cardiovascular: Rate/Rhythm: regular rate and regular rhythm; not tachycardic Heart Sounds: normal S1 and normal S2; no murmur Extremities: + edema (Has bilateral lymphedema left more than the right) Gastrointestinal (Abdomen): Inspection/Auscultation: normal bowel sounds; abdomen not distended Percussion/Palpation: abdomen soft; abdomen nontender Musculoskeletal: No acute arthritis in any joint Skin: Chronic skin changes involving the legs mostly on the left side Neurologic: Alert, awake and oriented x3. Generally weak but no focal sensory and motor neuro deficit Psychiatric: A+Ox3, euthymic affect Lymphatic: no cervical or axillary lymphadenopathy Principal Diagnosis Covid-19 Hypoxia Hypertension DMII Elevated transaminases weakness s/p fall Discharge Exam CONSTITUTIONAL: obese, vitals as above, generally well-appearing, NAD EYES: normal conjunctivae, no scleral icterus ENT: external ear and nose normal, MMM NECK: trachea midline RESPIRATORY: clear to auscultation bilaterally, no crackles, rales or wheezes, normal respiratory effort CARDIOVASCULAR: regular rate and rhythm, S1 and 2 heard without murmurs, gallops or rubs, no JVD, no peripheral edema GASTROINTESTINAL: soft, nontender, ND, no guarding MUSCULOSKELETAL: strength 5/5 throughout, head is normocephalic and atraumatic, neck supple, normal palpation of chest wall without tenderness SKIN: warm and dry NEUROLOGIC: CN 2-12 grossly intact, no sensory deficit, normal cognition, normal speech, no tremor, no gross focal deficits. PSYCHIATRIC: alert cooperative and oriented to person, place and time. Euthymic mood, makes good eye contact, language grossly intact, recent and remote memory grossly intact. Discharge Data Allergies Allergy/AdvReac Type Severity Reaction Status Date / Time ibuprofen Allergy Unknown RUNNY NOSE Verified 05/31/21 08:19 hydrocodone AdvReac Severe confusion Verified 05/31/21 08:19 niacin AdvReac Unknown RED RASH Verified 05/31/21 08:19 baclofen AdvReac confusion Verified 05/31/21 08:19 Ordered Studies Laboratory Results WBC 15.37 K/uL (4.8-10.8) H 06/02/21 06:11 RBC 4.41 M/uL (4.2-5.4) 06/02/21 06:11 Hgb 12.2 g/dL (12.0-16.0) 06/02/21 06:11 Hct 38.5 % (37-47) 06/02/21 06:11 MCV 87.3 fL (80-100) 06/02/21 06:11 MCH 27.7 pg (25-34) 06/02/21 06:11 MCHC 31.7 g/dL (32-36) L 06/02/21 06:11 RDW Std Deviation 55.7 fL (36.4-46.3) H 06/02/21 06:11 RDW Coeff of Yoel 17.2 % (11.5-14.5) H 06/02/21 06:11 Plt Count 181 K/uL (130-400) 06/02/21 06:11 MPV 11.3 fL (7.4-10.4) H 06/02/21 06:11 Immature Gran % (Auto) 0.4 % 05/31/21 Unknown Neut % (Auto) 81.4 % 05/31/21 Unknown Lymph % (Auto) 8.0 % 05/31/21 Unknown [place] % (Auto) 9.9 % 05/31/21 Unknown Eos % (Auto) 0.1 % 05/31/21 Unknown Baso % (Auto) 0.2 % 05/31/21 Unknown Neut # (Auto) 7.69 K/uL (1.4-6.5) H 05/31/21 Unknown Lymph # (Auto) 0.76 K/uL (1.2-3.4) L 05/31/21 Unknown Polk # (Auto) 0.94 K/uL (0.11-0.59) H 05/31/21 Unknown Eos # (Auto) 0.01 K/uL (0-0.5) 05/31/21 Unknown Baso # (Auto) 0.02 K/uL (0-0.2) 05/31/21 Unknown Immature Gran # (Auto) 0.04 K/uL (0.00-0.02) H 05/31/21 Unknown Sodium 138 mmol/L (136-145) 06/02/21 06:11 Potassium 3.5 mmol/L (3.5-5.1) 06/02/21 06:11 Chloride 107 mmol/L (98-107) 06/02/21 06:11 Carbon Dioxide 25 mmol/L (21-32) 06/02/21 06:11 Anion Gap 6.0 (3-11) 06/02/21 06:11 BUN 60 mg/dl (7-18) H 06/02/21 06:11 Creatinine 1.86 mg/dl (0.6-1.2) H D 06/02/21 06:11 Est Cr Clr Drug Dosing 28.3 ml/min 06/02/21 06:11 Est GFR ( Amer) 29.5 ml/min 06/02/21 06:11 Est GFR (Non-Af Amer) 25.5 ml/min 06/02/21 06:11 BUN/Creatinine Ratio 32.3 (10-20) H 06/02/21 06:11 Glucose 135 mg/dl (70-99) H 06/02/21 06:11 POC Glucose 234 mg/dl (70-99) H 06/02/21 11:47 Estimat Average Glucose 197 mg/dl 06/01/21 05:49 Hemoglobin A1c 8.5 % (4.5-5.6) H 06/01/21 05:49 Lactate 1.4 mmol/L (0.4-2.0) 05/31/21 09:26 Calcium 8.8 mg/dl (8.5-10.1) 06/02/21 06:11 Phosphorus 3.1 mg/dl (2.5-4.9) 06/02/21 06:11 Magnesium 2.0 mg/dl (1.8-2.4) 06/02/21 06:11 Total Bilirubin 0.4 mg/dl (0.2-1) 06/02/21 06:11 AST 125 U/L (15-37) H 06/02/21 06:11 ALT 188 (12-78) H 06/02/21 06:11 Alkaline Phosphatase 65 U/L (45-117) 06/02/21 06:11 Total Creatine Kinase 274 U/L (26-192) H 06/02/21 06:11 Troponin I < 0.015 ng/ml (0-0.045) 05/31/21 Unknown C-Reactive Protein 7.99 mg/dl (0-0.29) H 06/02/21 06:11 Total Protein 6.8 gm/dl (6.4-8.2) 06/02/21 06:11 Albumin 2.7 gm/dl (3.4-5.0) L 06/02/21 06:11 Globulin 4.1 gm/dl (2.5-4.0) H 06/02/21 06:11 Albumin/Globulin Ratio 0.7 (0.9-2) L 06/02/21 06:11 Procalcitonin 0.38 ng/ml (0-0.5) 06/02/21 06:11 TSH 1.970 uIu/ml (0.300-4.500) 05/31/21 Unknown Urine Color Yellow 05/31/21 Unknown Urine Appearance Clear (Clear) 05/31/21 Unknown Urine pH 5.0 (4.5-7.5) 05/31/21 Unknown Ur Specific [place] 1.019 (1.000-1.030) 05/31/21 Unknown Urine Protein 2+ (Negative) H 05/31/21 Unknown Urine Glucose (UA) Negative (Negative) 05/31/21 Unknown Urine Ketones Negative (Negative) 05/31/21 Unknown Urine Blood 2+ (Negative) H 05/31/21 Unknown Urine Nitrite Negative (Negative) 05/31/21 Unknown Urine Bilirubin Negative (Negative) 05/31/21 Unknown Urine Urobilinogen Negative (Negative) 05/31/21 Unknown Ur Leukocyte Esterase Negative (Negative) 05/31/21 Unknown Urine WBC (Auto) 1-5 /hpf (0-5) 05/31/21 Unknown Urine RBC (Auto) 0-4 /hpf (0-4) 05/31/21 Unknown U Hyaline Cast (Auto) 1-5 /lpf (0-5) 05/31/21 Unknown U Epithel Cells (Auto) >30 /lpf (0-5) H 05/31/21 Unknown Urine Bacteria (Auto) 1+ (Negative) H 05/31/21 Unknown Granular Casts 1-5 /lpf (0) H 05/31/21 Unknown Urine Yeast Not Reportable 05/31/21 Unknown SARS-CoV-2 (PCR) POSITIVE (Negative) A* 05/31/21 09:42 Influenza Type A (PCR) Negative (Neg) 05/31/21 09:42 Influenza Type B (PCR) Negative (Neg) 05/31/21 09:42 RSV (RT-PCR) Negative (Neg) 05/31/21 09:42 Impressions Chest X-Ray 05/31/21 08:35 XR chest 1V portable CLINICAL HISTORY: weakness. Evaluate cardiopulmonary status COMPARISON STUDY: 08/12/2019 TECHNIQUE: 1 view of the chest FINDINGS: Single frontal view of the chest demonstrates the heart to again be enlarged. The aorta is atherosclerotic and ectatic. There is a decreased inspiratory effort with elevation of the hemidiaphragms and crowding of the bronchovascular markings at the lung bases and centrally. The lungs are clear of alveolar opacities. There is no evidence for pleural effusion. There is no evidence for vascular congestion. There is no acute osseous pathology. IMPRESSION: There is a decreased inspiratory effort with otherwise no acute chest disease. ACT 112: Negative or not required by law. Electronically signed by: Guille Voss M.D. 05/31/2021 9:[address] 05/31/21 08:45 CT head/brain wo con CLINICAL HISTORY: Weakness Technique: Contiguous axial CT images of the head were acquired from the base of the skull to the vertex without intravenous contrast administration. Images were viewed in brain, subdural and bone windows. Automated dose lowering techniques and/or adjustment according to patient size were utilized for this exam. Comparison: Comparison is made to CT head 08/12/2019 Findings: The ventricles, basal cisterns, and cerebral sulci are normal. There is no acute intracranial hemorrhage or evidence of acute territorial infarction. Neither mass effect, shift of the midline structures, nor abnormal extra-axial fluid col lections are shown. Minimal thickening of the paranasal sinuses is noted. The orbits appear normal. There are no acute fractures of the calvaria or scalp swelling. Impression: No acute intracranial hemorrhage, no evidence of acute territorial infarction or other acute intracranial disease process. ACT 112: Negative or not required by law. Electronically signed by: Paco Arvizu M.D. 05/31/2021 9:17 AM Hospital Course (1) COVID-19: No evidence of pneumonia, continues on steroids and remdesivir. Monitor LFTs closely which are likely elevated related to the covid infection. If cont to rise, stop remdesivir. Declines cough syrup. On room air at rest at this time. (2) Hypoxia: improved, needs 2LPM with ambulation. SEt up for portable oxygen at discharge. (3) Fall: frequent falls per notes. PT evaluated and recommended to return home with 24 hour care. She declines home health for PT/OT. (4) Weakness: same as above. (5) Elevated LFTs: Likely related to covid infection. OK to continue remdesivir at current levels. Repeat as outpatient to ensure normalization in a couple of weeks. (6) Hypertension: Slightly elevated which may be related to the steroid use. Continue antihypertensives as scheduled. (7) CAD (coronary artery disease): -History of one cardiac stent placed 8 to 9 years ago, continue baby aspirin daily, metoprolol, losartan, Bumex, Imdur -Stop IV fluids that were being given in the ER now -Monitor I's and O's, daily weights (8) DM type 2 (diabetes mellitus, type 2): - Cont ISS with accucheck achs - Lantus 36 U HS to continue as pt reports good oral intake and diet, will monitor glucose -Allow heart healthy diabetic diet -Check A1c with a.m. labs (9) Morbid obesity: -Encourage diet and exercise throughout hospital stay (10) CKD (chronic kidney disease), stage IV: -Creatinine 1.49, baseline appears to be 1.5-1.8, follow with a.m. labs -Remdesivir as above -Patient received 1L NSS in the ER (11) DVT prophylaxis: Heparin Conditional code Dispo-to home, patient is declining home health. Followup with PCP in 1-2 weeks. Sent home in stable condition. Feeling much better than at admission. Nanda Olvera DO [facility] Hospitalist Total Time Total Time Spent Total Time Spent (In Minutes): 60 Discharge Plan Discharge Items Patient Disposition: Home - Self-Care Reason For Visit: COVID 19 HYPOXIA, FALL Discharge Diagnosis: Covid-19 Hypoxia Hypertension DMII Elevated transaminases weakness s/p fall Condition on Discharge: Good Activity: Resume your previous activity Non-emergency contact: Primary Care Provider Call non-emergency contact if: you have any medication questions and your symptoms worsen Follow-up/Referrals: Anamaria Michel MD [Primary Care Provider] - 06/14/21 5:40 pm (Date & Time 06/14/2021 5:40 PM Provider Anamaria Michel MD Department Family Medicine [facility] ) Diet: Carb Consistent or DM2 Addtl Attending Provider Instructions: Please take all medications as instructed on discharge list below. You are being discharged on supplemental oxygen. Please use 2 LPM with any activity. This need should improve as you improve clinically. Your oxygen sa turation should be >88% at all times. It is recommended that you follow-up with your primary care physician within 1-2 weeks of hospital discharge to ensure you are still doing well after returning home. Your liver function tests were elevated in the hospital and should be repeated in a couple of weeks to ensure they have normalized. Please remain on home isolation for 10 days since the first day of symptoms per public health guidance. After that time please observe all masking guidance and social distancing as appropriate. It was a pleasure taking care of you! Please call if you have any questions or problems. You can reach a [facility] hospitalist on duty at [facility] 24 hours a day by calling [phone]. Take care of yourself. Nanda [facility] P[facility] Studies at Discharge: No Stand-Alone Forms: My [facility] Medications and DC Order Prescriptions: New guaifenesin [Mucinex] 600 mg Tablet Extended Release 12hr 1,200 mg PO Q12 Qty: 40 RF: 0 (DME) Oxygen Home Liters Per Minute See Rx Instructions .Route Qty: 1 RF: 0 Continued multivitamin Tablet 1 tab PO DAILY RF: 0 atorvastatin 80 mg Tablet 80 mg PO DAILY RF: 0 cetirizine [Zyrtec] 10 mg Tablet 10 mg PO DAILY RF: 0 metoprolol tartrate 100 mg Tablet 100 mg PO BID RF: 0 amlodipine 5 mg Tablet 5 mg PO HS RF: 0 allopurinol 100 mg Tablet 200 mg PO DAILY RF: 0 isosorbide mononitrate 60 mg Tablet Extended Release 24 Hr 60 mg PO DAILY RF: 0 bumetanide 1 mg Tablet 1 mg PO DAILY RF: 0 losartan 100 mg Tablet 100 mg PO DAILY RF: 0 insulin aspart U-100 [Novolog Flexpen U-100 Insulin] 100 unit/mL (3 mL) Insulin Pen 1 unit SUBCUT UD RF: 0 Lantus Solostar U-100 Insulin 100 unit/mL (3 mL) Insulin Pen 36 unit SUBCUT HS RF: 0 aspirin 81 mg Capsule 81 mg PO DAILY RF: 0 Discharge Orders: Discharge Order (Routine); Ordered 06/02/21 Ordered By: Nanda Guzman/Other Patient Handouts: Managing Type 2 Diabetes, Diabetes: Sick-Day Plan Admission Data Admit Date/Time: 05/31/21 11:02 Attending Provider: Nanda Olvera Admit Provider: Noy Martínez Primary Care Provider: Anamaria Michel
[2021-06-02] MEDS: SODIUM CHLORIDE 0.9% 10ML FLUSH IV SCH (15:18)
--- NOTE | 2021-06-11 14:06 | Coding Query ---
To promote full compliance with coding requirements relating to patient care, provider participation is requested in all cases of drying supervisor uncertainty. Please assist us with the question(s) below: Coding Question(s): The diagnosis below was documented in the H&P, then subsequently fell off all further documentation. Please indicate if it is still a possible diagnosis or ruled out. Physician's Response(s): ACUTE RESPIRATORY FAILURE ( ) Diagnosed and POA ( ) Diagnosed and not POA ( x ) Ruled out ( ) Other (please specify) MTDD
== END 2021-06-02 16:21 | disposition home health service (06) | DRG 178 ==
LOC: ED 07:23 → SUATTDRO 11:02 → 2W 11:02

== ENCOUNTER 2025-01-18 18:07 | Inpatient (IN) ==
[2025-01-18 18:38] LABS: Hematocrit (blood only) 32.7 % (37.0-47.0); Hemoglobin 10.7 g/dl (12.0-16.0); Mean Corpuscular Hemoglobin 29.6 pg (25.0-34.0); Mean Corpuscular Volume 90.6 fL (80.0-100.0); Platelet Count 174 K/uL (130-400); RDW Standard Deviation 56.5 fL (36.4-46.3); Red Blood Count 3.61 M/uL (4.20-5.40); White Blood Count 26.81 K/ul (4.8-10.8)
[2025-01-18 18:46] LABS: Alanine Aminotransferase 50.0 U/L (7-52); Alkaline Phosphatase 316.0 U/L (34-104); Anion Gap 9.0 (3-11); Bilirubin,Total 0.9 mg/dl (0.2-1.0); Blood Urea Nitrogen 83.0 mg/dl (6-23); Calcium 9.0 mg/dl (8.6-10.3); Carbon Dioxide 24.0 mmol/L (21-32); Chloride 107.0 mmol/L (98-107); Creatinine Clr Calc Pharmacy 21.0 ml/min; Glucose 212.0 mg/dl (70-99(Fasting)); Lipase 50.0 U/L (11-82); Magnesium 2.0 mg/dl (1.7-2.4); Potassium 4.6 mmol/L (3.5-5.1); Sodium 140.0 mmol/L (136-145); Total Protein 6.4 gm/dl (6.0-8.3)
[2025-01-18 19:01] LABS: Immature Granulocytes # (auto) 0.18 K/uL (0.01-0.20); Immature Granulocytes % (auto) 0.7 %; Ovalocytes 1+; Thyroid Stimulating Hormone 1.227 uIu/ml (0.300-4.500)
--- NOTE | 2025-01-18 19:27 | Emergency Department Note ---
Impression & Plan Acute febrile illness, Generalized weakness, Renal insufficiency, Intractable nausea and vomiting, Leukocytosis ED Provider Note NAME: CINTHIA LAZO AGE: 84 SEX: F : 1940 ARRIVES VIA: Ambulance INFORMANT: Patient ED PROVIDER(S): Evgeny Elkins MD CHIEF COMPLAINT: Fever, nausea, vomiting, generalized weakness PLAN: Disposition: Admit MEDICAL DECISION MAKING: the patient is a pleasant 84-year-old woman with a past medical history of CKD, diabetes, CAD, history of DVT, hypertension, hyperlipidemia who presents to the emergency department via EMS and then accompanied by family for evaluation of nausea and vomiting and generalized weakness that began at noon today. Patient reports minimal cough. She denies chest pain or shortness of breath. They report patient was unable to walk due to her generalized weakness. On evaluation the patient is fatigued appearing but no acute distress, febrile to 38.9, heart rate in the 90s and blood pressure 130/50s and vital signs otherwise stable. She appears clinically dry. EKG without overt acute ischemia. CXR with blunting of bilateral costophrenic angles without focal consolidation per my personal preliminary review/interpretation. WBC 26.8K with neutrophilia but no left shift in the setting of the patient's nausea and vomiting prior to arrival H/H 10.7/32.7 decreased from prior. Platelets within normal limits. Chemistry metabolic acidosis. Creatinine 2.2, without recent values for comparison in the setting of the patient's CKD. LFTs without significant abnormalities. Initial high sensitivity troponin 38 with repeat 42, nonspecific. Procalcitonin is mildly elevated. TSH within normal limits. UA without evidence of infection. Respiratory BioFire was negative. CT of the head and abdomen pelvis were performed and were negative for acute abnormalities. Patient was treated with empiric ceftriaxone on arrival due to fever, leukocytosis. Case was discussed with Dr. Zepeda, [facility] hospitalist, who will evaluate the patient for admission. Further management per admitting team. Triage Nursing notes reviewed and agree them. Prior/external medical records reviewed Vital Signs: reviewed Differential diagnosis: Viral syndrome, otitis, pharyngitis, pneumonia, influenza, meningitis, urinary tract infection, sepsis, bacteremia, as well as other pathologies. ER treatment provided: See below. Diagnostics interpreted by me: ECG: Sinus rhythm with first-degree AV block, 97 bpm, no ectopy, no overt ST elevation or depression, ST and T wave abnormality laterally, QTc 457, QRS 94. Cardiac Monitoring: An order for continuous cardiac monitoring was placed and demonstrated sinus rhythm, 97 bpm, no ectopy. Laboratory studies: See below Imaging studies: See below Consultation(s): Case was discussed with Dr. Zepeda, [facility] hospitalist, who will evaluate the patient for admission. HPI: Per MDM. ROS: See above HPI for pertinent positives & negatives. A total of 10 systems reviewed and were otherwise negative. VITALS:See Below PHYSICAL EXAMINATION: GENERAL: Awake, alert, fatigued-appearing, in no distress, BMI 43.4. HENT: Normocephalic, atraumatic. Oropharynx with dry mucous membranes and otherwise unremarkable. EYES: Normal conjunctiva. Sclera non-icteric. EOMI. No nystamgus. PEARRL. NECK: Supple. No nuchal rigidity. FROM. No JVD. RESPIRATORY: Clear to auscultation. CARDIAC: Regular rate, normal rhythm. Extremities warm and well perfused. Pulses equal. ABDOMEN: Soft, non-distended. No tenderness to palpation. No rebound or guarding. No masses. MUSCULOSKELETAL: Chest examination reveals no tenderness. The back is symmetrical on inspection without obvious abnormality. There is no CVA tenderness to palpation. No joint edema. LOWER EXTREMITIES: Calves are equal size bilaterally and non-tender. No edema. No discoloration. NEURO: Cranial nerves II-XII grossly intact. 5/5 strength and SILT x 4 extremities. Intact finger-nose. SKIN: No rash or jaundice noted. Evgeny Elkins MD Past Med/Surg History Problem List (Updated 01/19/25 @ 06:16 by Evgeny Elkins MD) Leukocytosis (Acute) Intractable nausea and vomiting (Acute) Renal insufficiency (Acute) Generalized weakness (Acute) Acute febrile illness (Acute) Venous stasis ulcer (Acute) Acquired lymphedema (Acute) Abnormal ankle brachial index (Acute) Exercise intolerance (Acute) Hypoxia DVT prophylaxis Fall (Acute) Weakness (Acute) Elevated LFTs Acute respiratory failure with hypoxia COVID-19 (Acute) Chronic anticoagulation Morbid obesity Left lumbar radiculopathy Trochanteric bursitis of left hip Back pain Discharge planning issues DVT (deep venous thrombosis) DVT prophylaxis Ambulatory dysfunction UTI (urinary tract infection) Metabolic encephalopathy Hypertension CKD (chronic kidney disease), stage IV Gouty arthritis DM type 2 (diabetes mellitus, type 2) (Chronic) CAD (coronary artery disease) 11/2006: CELSO to left circumflex 07/2010: Cardiac cath revealed a 20% left main lesion in both the proximal and distal segments, 50% mid LAD lesion which was not hemodynamically significant by FFR, and an 80% lesion in the second diagonal branch which was significant by FFR. Medical management. Medical History CAD (coronary artery disease) 11/2006: CELSO to left circumflex 07/2010: Cardiac cath revealed a 20% left main lesion in both the proximal and distal segments, 50% mid LAD lesion which was not hemodynamically significant by FFR, and an 80% lesion in the second diagonal branch which was significant by FFR. Medical management. Chronic anticoagulation CKD (chronic kidney disease), stage IV DM type 2 (diabetes mellitus, type 2) Dyslipidemia Gouty arthritis History of right common carotid artery stent placement Hypertension Morbid obesity Surgical History H/O carotid endarterectomy H/O total knee replacement History of cholecystectomy History of hysterectomy Family History Brother Lung cancer Bone cancer Social History (Updated 05/09/22 @ 13:17 by Courtney Murray RN) Smoking Status: Never smoker Second Hand Exposure: No; Do You Dip or Chew Tobacco: No; Hx Alcohol Use: No Hx Substance Use: No Preferred Language: Kyrgyz Communication Ability: Effective Visual Impairment: Limited Hearing Ability: Hard of Hearing Recycling Specialist Required: No Beliefs That Will Affect Care: None marital status: Current Living Situation: Family Current Living Situation Comment: home with and granddaughter Other Information That Helps Us Care for You: No Feels Safe at Home: Yes Safety Concerns: Feels Safe At This Time Diet: regular caffeine: Yes during the past year weight has: decreased > 10 lbs Assistive Devices: CPAP, Glasses and Walker Allergies Allergies Allergy/AdvReac Type Severity Reaction Status Date / Time ibuprofen Allergy Unknown RUNNY NOSE Verified 06/21/22 09:01 hydrocodone AdvReac Severe confusion Verified 06/21/22 09:01 niacin AdvReac Unknown RED RASH Verified 06/21/22 09:01 baclofen AdvReac confusion Verified 06/21/22 09:01 Home Meds Home Medications Medication Instructions Recorded Confirmed allopurinol 100 mg tablet 200 mg PO DAILY 05/27/19 01/18/25 atorvastatin 80 mg tablet 80 mg PO DAILY 05/27/19 01/18/25 cetirizine 10 mg tablet (Zyrtec) 10 mg PO DAILY 05/27/19 01/18/25 insulin aspart U-100 100 unit/mL 1 unit subcut UD 05/27/19 01/18/25 (3 mL) subcutaneous pen (Novolog FlexPen U-100 Insulin aspart) losartan 100 mg tablet 100 mg PO DAILY 05/27/19 01/18/25 metoprolol tartrate 100 mg tablet 100 mg PO BID 05/27/19 01/18/25 multivitamin 1 tab PO DAILY 05/27/19 01/18/25 aspirin 81 mg capsule 81 mg PO DAILY 05/31/21 01/18/25 acetaminophen 500 mg capsule 500 mg PO Q6H PRN Pain 05/09/22 01/18/25 amlodipine 5 mg tablet See Rx Instructions PO HS 05/09/22 01/18/25 clopidogrel 75 mg tablet (Plavix) 75 mg PO BID 05/09/22 01/18/25 ezetimibe 10 mg tablet (Zetia) 10 mg PO DAILY 05/09/22 01/18/25 nitroglycerin 0.4 mg sublingual 0.4 mg sublingual Q5M PRN Chest 05/09/22 01/18/25 tablet Pain nystatin 100,000 unit/gram topical 1 applic topical DAILY 05/09/22 01/18/25 powder torsemide 20 mg tablet 30 mg PO DAILY 05/09/22 01/18/25 insulin glargine 100 unit/mL (3 44 unit subcut HS 06/21/22 01/18/25 mL) subcutaneous pen (Lantus Solostar U-100 Insulin) isosorbide mononitrate 60 mg 90 mg PO DAILY 06/21/22 01/18/25 tablet,extended release 24 hr gabapentin 100 mg capsule 100 mg PO HS 01/18/25 01/18/25 potassium chloride 10 mEq 10 meq PO DAILY 01/18/25 01/18/25 tablet,extended release(part/cryst) Previous Rx's Medication Instructions Recorded Oxygen Home #1 ea 06/02/21 Results & Data (ED) Vital Signs Vital Signs - 24 hr 01/18/25 18:14 01/18/25 18:25 01/18/25 18:27 Temperature 38.9 C H Temperature Source Oral Pulse Rate 96 H 95 H 98 H Pulse Rate [Finger] Pulse Rate from SpO2 Sensor Pulse Rhythm Regular Respiratory Rate 25 H 17 Respiratory Effort / Characteristics Non-Labored Spontaneous Respiratory Depth Normal Respiratory Pattern Regular Blood Pressure 139/50 L Blood Pressure [Right Arm] Blood Pressure Mean 79 Blood Pressure Mean [Right Arm] Pulse Oximetry 91 91 Oxygen Delivery Method Room Air Room Air Sepsis Recent Fever Within 48 Hours Yes Sepsis New/Unexplained Change in Mental Status N/A Sepsis Action Taken by Nursing Physician Notified 01/18/25 18:30 01/18/25 18:45 01/18/25 19:00 Temperature Temperature Source Pulse Rate 93 H 93 H 95 H Pulse Rate [Finger] Pulse Rate from SpO2 Sensor 93 H 93 H Pulse Rhythm Respiratory Rate 16 20 16 Respiratory Effort / Characteristics Respiratory Depth Respiratory Pattern Blood Pressure 109/54 L 106/54 L 100/42 L Blood Pressure [Right Arm] Blood Pressure Mean 75 71 57 Blood Pressure Mean [Right Arm] Pulse Oximetry 92 90 91 Oxygen Delivery Method Room Air Room Air Room Air Sepsis Recent Fever Within 48 Hours Sepsis New/Unexplained Change in Mental Status Sepsis Action Taken by Nursing 01/18/25 19:40 01/18/25 20:00 01/18/25 22:00 Temperature 36.9 C Temperature Source Oral Pulse Rate Pulse Rate [Finger] 83 78 Pulse Rate from SpO2 Sensor Pulse Rhythm Respiratory Rate 20 18 Respiratory Effort / Characteristics Respiratory Depth Respiratory Pattern Blood Pressure Blood Pressure [Right Arm] 133/53 L 110/66 Blood Pressure Mean Blood Pressure Mean [Right Arm] 79 80 Pulse Oximetry 94 93 Oxygen Delivery Method Room Air Room Air Sepsis Recent Fever Within 48 Hours Sepsis New/Unexplained Change in Mental Status Sepsis Action Taken by Nursing 01/18/25 22:06 01/18/25 23:00 01/19/25 00:00 Temperature Temperature Source Pulse Rate 80 76 77 Pulse Rate [Finger] Pulse Rate from SpO2 Sensor Pulse Rhythm Respiratory Rate 16 17 Respiratory Effort / Characteristics Respiratory Depth Respiratory Pattern Blood Pressure 132/57 L 127/63 Blood Pressure [Right Arm] Blood Pressure Mean 86 81 Blood Pressure Mean [Right Arm] Pulse Oximetry 93 92 Oxygen Delivery Method Sepsis Recent Fever Within 48 Hours Sepsis New/Unexplained Change in Mental Status Sepsis Action Taken by Nursing 01/19/25 00:30 01/19/25 01:15 01/19/25 01:39 Temperature Temperature Source Pulse Rate 76 77 72 Pulse Rate [Finger] Pulse Rate from SpO2 Sensor Pulse Rhythm Respiratory Rate 12 14 18 Respiratory Effort / Characteristics Respiratory Depth Respiratory Pattern Blood Pressure 133/65 130/59 L 132/59 L Blood Pressure [Right Arm] Blood Pressure Mean 93 82 83 Blood Pressure Mean [Right Arm] Pulse Oximetry 92 91 90 Oxygen Delivery Method Sepsis Recent Fever Within 48 Hours Sepsis New/Unexplained Change in Mental Status Sepsis Action Taken by Nursing 01/19/25 02:06 01/19/25 02:30 01/19/25 03:00 Temperature Temperature Source Pulse Rate 69 67 71 Pulse Rate [Finger] Pulse Rate from SpO2 Sensor 67 Pulse Rhythm Respiratory Rate 16 16 14 Respiratory Effort / Characteristics Respiratory Depth Respiratory Pattern Blood Pressure 128/59 L 124/52 L 128/57 L Blood Pressure [Right Arm] Blood Pressure Mean 82 76 80 Blood Pressure Mean [Right Arm] Pulse Oximetry 90 90 92 Oxygen Delivery Method Sepsis Recent Fever Within 48 Hours Sepsis New/Unexplained Change in Mental Status Sepsis Action Taken by Nursing Laboratory Data Attestation: I reviewed the patient's lab results. 01/18/25 18:17 01/18/25 18:17 Lab Results 01/18/25 01/18/25 01/18/25 Range/Units 18:17 18:40 19:40 WBC 26.81 H (4.8-10.8) K/ul RBC 3.61 L (4.20-5.40) M/uL Hgb 10.7 L (12.0-16.0) g/dl Hct 32.7 L (37.0-47.0) % MCV 90.6 (80.0-100.0) fL MCH 29.6 (25.0-34.0) pg MCHC 32.7 (32.0-36.0) g/dL RDW Std Deviation 56.5 H (36.4-46.3) fL RDW Coeff of Yoel 17.2 H (11.5-14.5) % Plt Count 174 (130-400) K/uL MPV 13.0 H (9.4-12.4) fL Immature Gran % (Auto) 0.7 % Neut % (Auto) 88.1 % Lymph % (Auto) 6.3 % [place] % (Auto) 4.6 % Eos % (Auto) 0.1 % Baso % (Auto) 0.2 % Neut # (Auto) 23.64 H (1.40-6.50) K/uL Lymph # (Auto) 1.68 (1.20-3.40) K/uL [place] # (Auto) 1.22 H (0.11-0.59) K/uL Eos # (Auto) 0.04 (0.00-0.50) K/uL Baso # (Auto) 0.05 (0.00-0.20) K/uL Immature Gran # (Auto) 0.18 (0.01-0.20) K/uL Ovalocytes 1+ Sodium 140 (136-145) mmol/L Potassium 4.6 (3.5-5.1) mmol/L Chloride 107 (98-107) mmol/L Carbon Dioxide 24 (21-32) mmol/L Anion Gap 9 (3-11) BUN 83 H (6-23) mg/dl Creatinine 2.26 H (0.6-1.2) mg/dl Est Cr Clr Drug Dosing 21.0 ml/min eGFR 21.14 BUN/Creatinine Ratio 36.7 H (10-20) Glucose 212 H (70-99(Fasting)) mg/dl Lactate 1.5 (0.4-2.0) mmol/L Calcium 9.0 (8.6-10.3) mg/dl Phosphorus 3.2 (2.5-4.9) mg/dl Magnesium 2.0 (1.7-2.4) mg/dl Total Bilirubin 0.9 (0.2-1.0) mg/dl Direct Bilirubin 0.4 H (0-0.2) mg/dl AST 49 H (13-39) U/L ALT 50 (7-52) U/L Alkaline Phosphatase 316 H (34-104) U/L Troponin I High Sens 38.8 H (0-14) pg/ml Total Protein 6.4 (6.0-8.3) gm/dl Albumin 3.1 L (3.4-5.0) gm/dl Lipase 50 (11-82) U/L Procalcitonin 0.59 H (0-0.5) ng/ml TSH 1.227 (0.300-4.500) uIu/ml Urine Color Yellow Urine Appearance Clear (Clear) Urine pH 6.5 (4.5-7.5) Ur Specific [place] 1.013 (1.000-1.030) Urine Protein Trace H (Negative) Urine Glucose (UA) Negative (Negative) Urine Ketones Negative (Negative) Urine Blood Negative (Negative) Urine Nitrite Negative (Negative) Urine Bilirubin Negative (Negative) Urine Urobilinogen Negative (Negative) Ur Leukocyte Esterase Negative (Negative) Urine WBC (Auto) 0-5 (0-5) /hpf Urine RBC (Auto) 0-2 (0-2) /hpf U Hyaline Cast (Auto) 0-2 (0-2) /lpf U Epithel Cells (Auto) 0-2 (0-2) /hpf Urine Bacteria (Auto) None Seen (None Seen) Urine Comment Adenovirus (PCR) Not Detected (NotDetected) B. pertussis DNA (PCR) Not Detected (NotDetected) B.parapertussis DNA PCR Not Detected (NotDetected) C. pneumoniae DNA (PCR) Not Detected (NotDetected) Coronavirus OC43 (PCR) Not Detected (NotDetected) Coronavirus HKU1 (PCR) Not Detected (NotDetected) Coronavirus 229E (PCR) Not Detected (NotDetected) SARS-CoV-2 (PCR) Not Detected (NotDetected) Coronavirus NL63 (PCR) Not Detected (NotDetected) Human Metapneumovir PCR Not Detected (NotDetected) Influenza Type A (PCR) Not Detected (NotDetected) Influenza Type B (PCR) Not Detected (NotDetected) M. pneumoniae (PCR) Not Detected (NotDetected) Parainfluenza 1 (PCR) Not Detected (NotDetected) Parainfluenza 2 (PCR) Not Detected (NotDetected) Parainfluenza 3 (PCR) Not Detected (NotDetected) Parainfluenza 4 (PCR) Not Detected (NotDetected) RSV (PCR) Not Detected (NotDetected) Entero/Rhino (PCR) Not Detected (NotDetected) 01/18/25 Range/Units 21:15 WBC (4.8-10.8) K/ul RBC (4.20-5.40) M/uL Hgb (12.0-16.0) g/dl Hct (37.0-47.0) % MCV (80.0-100.0) fL MCH (25.0-34.0) pg MCHC (32.0-36.0) g/dL RDW Std Deviation (36.4-46.3) fL RDW Coeff of Yoel (11.5-14.5) % Plt Count (130-400) K/uL MPV (9.4-12.4) fL Immature Gran % (Auto) % Neut % (Auto) % Lymph % (Auto) % [place] % (Auto) % Eos % (Auto) % Baso % (Auto) % Neut # (Auto) (1.40-6.50) K/uL Lymph # (Auto) (1.20-3.40) K/uL [place] # (Auto) (0.11-0.59) K/uL Eos # (Auto) (0.00-0.50) K/uL Baso # (Auto) (0.00-0.20) K/uL Immature Gran # (Auto) (0.01-0.20) K/uL Ovalocytes Sodium (136-145) mmol/L Potassium (3.5-5.1) mmol/L Chloride (98-107) mmol/L Carbon Dioxide (21-32) mmol/L Anion Gap (3-11) BUN (6-23) mg/dl Creatinine (0.6-1.2) mg/dl Est Cr Clr Drug Dosing ml/min eGFR BUN/Creatinine Ratio (10-20) Glucose (70-99(Fasting)) mg/dl Lactate (0.4-2.0) mmol/L Calcium (8.6-10.3) mg/dl Phosphorus (2.5-4.9) mg/dl Magnesium (1.7-2.4) mg/dl Total Bilirubin (0.2-1.0) mg/dl Direct Bilirubin (0-0.2) mg/dl AST (13-39) U/L ALT (7-52) U/L Alkaline Phosphatase (34-104) U/L Troponin I High Sens 42.1 H (0-14) pg/ml Total Protein (6.0-8.3) gm/dl Albumin (3.4-5.0) gm/dl Lipase (11-82) U/L Procalcitonin (0-0.5) ng/ml TSH (0.300-4.500) uIu/ml Urine Color Urine Appearance (Clear) Urine pH (4.5-7.5) Ur Specific [place] (1.000-1.030) Urine Protein (Negative) Urine Glucose (UA) (Negative) Urine Ketones (Negative) Urine Blood (Negative) Urine Nitrite (Negative) Urine Bilirubin (Negative) Urine Urobilinogen (Negative) Ur Leukocyte Esterase (Negative) Urine WBC (Auto) (0-5) /hpf Urine RBC (Auto) (0-2) /hpf U Hyaline Cast (Auto) (0-2) /lpf U Epithel Cells (Auto) (0-2) /hpf Urine Bacteria (Auto) (None Seen) Urine Comment Adenovirus (PCR) (NotDetected) B. pertussis DNA (PCR) (NotDetected) B.parapertussis DNA PCR (NotDetected) C. pneumoniae DNA (PCR) (NotDetected) Coronavirus OC43 (PCR) (NotDetected) Coronavirus HKU1 (PCR) (NotDetected) Coronavirus 229E (PCR) (NotDetected) SARS-CoV-2 (PCR) (NotDetected) Coronavirus NL63 (PCR) (NotDetected) Human Metapneumovir PCR (NotDetected) Influenza Type A (PCR) (NotDetected) Influenza Type B (PCR) (NotDetected) M. pneumoniae (PCR) (NotDetected) Parainfluenza 1 (PCR) (NotDetected) Parainfluenza 2 (PCR) (NotDetected) Parainfluenza 3 (PCR) (NotDetected) Parainfluenza 4 (PCR) (NotDetected) RSV (PCR) (NotDetected) Entero/Rhino (PCR) (NotDetected) Administered Medications Sodium Chloride (Nss) 1,000 mls @ 75 mls/hr IV .[id number] DENISSE Stop: 01/19/25 18:49 Last Admin: 01/19/25 05:39 Dose: 75 mls/hr Documented By: GARY Insulin Aspart (Insulin Aspart Per Unit Charge) 0 units SC Q6 DENISSE Stop: 02/18/25 05:59 Last Admin: 01/19/25 05:50 Dose: 1 units Documented By: GARY Co-signed By: SHELLY Discontinued Medications Acetaminophen (Ofirmev) 1,000 mg in 100 mls @ 400 mls/hr IV NOW STA Stop: 01/18/25 19:33 Last Admin: 01/18/25 19:39 Dose: Not Given Documented By: TOSHIA Sodium Chloride (Nss) 500 mls @ 999 mls/hr IV .Q31M ONE Stop: 01/18/25 19:49 Last Infusion: 01/18/25 20:19 Dose: Infused Documented By: Admin: 01/18/25 19:47 Dose: 999 mls/hr Documented By: TOSHIA Famotidine (Pepcid 20mg Iv Push) 20 mg in 5 mls @ 2.5 mls/min IV NOW STA Stop: 01/18/25 19:20 Last Admin: 01/18/25 19:46 Dose: 2.5 mls/min Documented By: TOSHIA Ceftriaxone Sodium (Rocephin) 2,000 mg in 50 mls @ 100 mls/hr IV NOW STA Stop: 01/18/25 19:49 Last Infusion: 01/18/25 20:19 Dose: Infused Documented By: Admin: 01/18/25 19:46 Dose: 100 mls/hr Documented By: TOSHIA Ondansetron HCl (Ondansetron Inj 2 Mg/Ml 2 Ml Vial) 4 mg IV NOW STA Stop: 01/18/25 19:20 Last Admin: 01/18/25 19:46 Dose: 4 mg Documented By: TOSHIA Imaging Data Radiologist's Impression: Chest X-Ray 01/18/25 18:21 EXAM: XR chest 1V portable CLINICAL HISTORY: Sepsis. TECHNIQUE: Chest X-ray was obtained in AP view. COMPARISON: 05/31/2021. FINDINGS: Pulmonary Parenchyma: Lungs are clear bilaterally. No evidence of consolidation, collapse, or focal opacities. No pulmonary nodules identified. Obliterated both costophrenic angles. Possible pleural effusion or pleural thickening. Mildly elevated left diaphragmatic copula (new) Heart and Mediastinum: Unchanged cardiomegaly. No mediastinal widening or masses. No hilar or mediastinal lymphadenopathy. Aortic arch calcified atheromatous plaque is noted (unchanged) Bony Thorax: Bony thorax appears intact without fractures or deformities. Soft Tissues: Soft tissues overlying the chest wall are unremarkable. IMPRESSION: 1. Obliterated both costophrenic angles. Possible pleural effusion or pleural thickening. New finding. 2. Newly seen mildly elevated left diaphragmatic copula. Electronically signed by Andry Stone 01-18-2025 7:44 PM Abdomen/Pelvis CT 01/18/25 19:16 Exam(s): CT ABDOMEN + PELVIS Without Contrast EXAM: CT Abdomen and Pelvis Without Intravenous Contrast CLINICAL HISTORY: Reason for exam: n/v, fever. TECHNIQUE: Axial computed tomography images of the abdomen and pelvis without intravenous contrast. CTDI is 63 mGy and DLP is 1098 mGy-cm. Automated exposure control was utilized for the study. A dose lowering technique was utilized adhering to the principles of ALARA. COMPARISON: 08/13/2019 FINDINGS: Lung bases: Unremarkable. No mass. No consolidation. Heart: Mild cardiomegaly with moderate coronary calcification and mild valvular calcification. Lung bases are clear. ABDOMEN: Liver: Unremarkable. Gallbladder and bile ducts: Previous cholecystectomy. No biliary duct dilation or choledocholithiasis is seen. Pancreas: Unremarkable. No ductal dilation. Spleen: Unremarkable. No splenomegaly. Adrenals: Unremarkable. No mass. Kidneys and ureters: Moderate bilateral renal atrophy. There are small hyperdense renal cysts bilaterally, unchanged. No follow-up is required. No obstructing stones. No hydronephrosis. Stomach and bowel: See below. PELVIS: Appendix: Bowel loops are nondilated. The appendix is absent. There is mild diverticulosis of the lower left and sigmoid colon without evidence of acute diverticulitis. Bladder: Unremarkable. No stones. Reproductive: Unremarkable as visualized. ABDOMEN and PELVIS: Intraperitoneal space: Unremarkable. No free air. No significant fluid collection. Bones/joints: Mild multilevel degenerative changes throughout the spine. No acute fracture or subluxation is seen. Soft tissues: 1.5 x 6.6 cm area of subcutaneous edema in the anterior abdominal wall. Mild edema of the anterior pelvic pannus. Large amount of visceral fat with lax anterior abdominal musculature. No discrete hernia. Vasculature: The abdominal aorta is severely calcified but nondilated. This is a noncontrast study. Lymph nodes: Unremarkable. No enlarged lymph nodes. IMPRESSION: 1. Bowel loops are nondilated. The appendix is absent. There is mild diverticulosis of the lower left and sigmoid colon without evidence of acute diverticulitis. 2. 1.5 x 6.6 cm area of subcutaneous edema in the anterior abdominal wall. Possible contusion versus chronic medication injection site. Electronically signed by: Sarthak Cruz MD 01/18/25 23:[address] 01/18/25 19:16 Exam(s): CT HEAD Without Contrast EXAM: CT Head Without Intravenous Contrast CLINICAL HISTORY: Reason for exam: weakness. TECHNIQUE: Axial computed tomography images of the head/brain without intravenous contrast. CTDI is 63 mGy and DLP is 1098 mGy-cm. Automated exposure control was utilized for the study. A dose lowering technique was utilized adhering to the principles of ALARA. COMPARISON: Prior head CT from May 31, 2021. FINDINGS: Brain: Remote ischemic injury of the right capsule. No hemorrhage. Mild nonspecific white matter changes. No edema. Ventricles: Unremarkable. No ventriculomegaly. Bones/joints: Unremarkable. No acute fracture. Soft tissues: Unremarkable. Sinuses: Unremarkable as visualized. No acute sinusitis. Mastoid air cells: Unremarkable as visualized. No mastoid effusion. IMPRESSION: No evidence of acute intracranial pathology. Electronically signed by: Kassie Salguero MD 01/18/25 22:54 PM Discharge Plan Visit Data Chief Complaint: Weakness ED Provider: Evgeny Elkins Discharge Problem: Acute febrile illness, Generalized weakness, Renal insufficiency, Intractable nausea and vomiting, Leukocytosis Patient Disposition: Admitted As Inpatient Condition: Fair Discharge Instructions Interventions: ED Discharge Assessment Last Done: 01/19/25 04:56 Discharge Problem: Leukocytosis Qualifiers: Leukocytosis type: unspecified Qualified Code(s): D72.829 - Elevated white blood cell count, unspecified
[2025-01-18] MEDS: ACETAMINOPHEN 1,000 MG/100 ML VIAL IV STA (19:39)
--- NOTE | 2025-01-18 19:44 | XRay Report ---
EXAM: XR chest 1V portable CLINICAL HISTORY: Sepsis. TECHNIQUE: Chest X-ray was obtained in AP view. COMPARISON: 05/31/2021. FINDINGS: Pulmonary Parenchyma: Lungs are clear bilaterally. No evidence of consolidation, collapse, or focal opacities. No pulmonary nodules identified. Obliterated both costophrenic angles. Possible pleural effusion or pleural thickening. Mildly elevated left diaphragmatic copula (new) Heart and Mediastinum: Unchanged cardiomegaly. No mediastinal widening or masses. No hilar or mediastinal lymphadenopathy. Aortic arch calcified atheromatous plaque is noted (unchanged) Bony Thorax: Bony thorax appears intact without fractures or deformities. Soft Tissues: Soft tissues overlying the chest wall are unremarkable. IMPRESSION: 1. Obliterated both costophrenic angles. Possible pleural effusion or pleural thickening. New finding. 2. Newly seen mildly elevated left diaphragmatic copula. Electronically signed by Andry Stone 01-18-2025 7:44 PM
[2025-01-18] MEDS: FAMOTIDINE 20MG IV PUSH 20 MG/5 ML SYR IV STA (19:46)
[2025-01-18] MEDS: cefTRIAXone SODIUM 2,000 MG/50 ML BAG IV STA (19:46)
[2025-01-18] MEDS: ONDANSETRON INJ 2 MG/ML 2 ML VIAL IV STA (19:46)
[2025-01-18] MEDS: SODIUM CHLORIDE 0.9% 500 ML IV ONE (19:47)
[2025-01-18 20:04] LABS: Appearance Urine Clear (Clear); Bacteria Urine Automated None Seen (None Seen); Cast Urine Automated 0-2 /lpf (0-2); Epithelial Cell Urine Auto 0-2 /hpf (0-2); Glucose Urine UA Negative (Negative); RBC Urine Automated 0-2 /hpf (0-2); WBC Urine Automated 0-5 /hpf (0-5)
[2025-01-18 20:51] LABS: Chlamydia pneumoniae PCR Not Detected (NotDetected); Coronavirus 229E PCR Not Detected (NotDetected); Coronavirus CoV-2 (COVID19)PCR Not Detected (NotDetected); Coronavirus HKU1 PCR Not Detected (NotDetected); Coronavirus NL63 PCR Not Detected (NotDetected); Coronavirus OC43PCR Not Detected (NotDetected); Human Metapneumovirus PCR Not Detected (NotDetected); Parainfluenza Virus 1 PCR Not Detected (NotDetected); Parainfluenza Virus 2 PCR Not Detected (NotDetected); Parainfluenza Virus 3 PCR Not Detected (NotDetected); Parainfluenza Virus 4 PCR Not Detected (NotDetected); Respiratory Syncytial VirusPCR Not Detected (NotDetected); Rhinovirus/Enterovirus PCR Not Detected (NotDetected)
--- NOTE | 2025-01-18 22:55 | CT Scan Report ---
Exam(s): CT HEAD Without Contrast EXAM: CT Head Without Intravenous Contrast CLINICAL HISTORY: Reason for exam: weakness. TECHNIQUE: Axial computed tomography images of the head/brain without intravenous contrast. CTDI is 63 mGy and DLP is 1098 mGy-cm. Automated exposure control was utilized for the study. A dose lowering technique was utilized adhering to the principles of ALARA. COMPARISON: Prior head CT from May 31, 2021. FINDINGS: Brain: Remote ischemic injury of the right capsule. No hemorrhage. Mild nonspecific white matter changes. No edema. Ventricles: Unremarkable. No ventriculomegaly. Bones/joints: Unremarkable. No acute fracture. Soft tissues: Unremarkable. Sinuses: Unremarkable as visualized. No acute sinusitis. Mastoid air cells: Unremarkable as visualized. No mastoid effusion. IMPRESSION: No evidence of acute intracranial pathology. Electronically signed by: Kassie Salguero MD 01/18/25 22:54 PM
--- NOTE | 2025-01-18 23:03 | CT Scan Report ---
Exam(s): CT ABDOMEN + PELVIS Without Contrast EXAM: CT Abdomen and Pelvis Without Intravenous Contrast CLINICAL HISTORY: Reason for exam: n/v, fever. TECHNIQUE: Axial computed tomography images of the abdomen and pelvis without intravenous contrast. CTDI is 63 mGy and DLP is 1098 mGy-cm. Automated exposure control was utilized for the study. A dose lowering technique was utilized adhering to the principles of ALARA. COMPARISON: 08/13/2019 FINDINGS: Lung bases: Unremarkable. No mass. No consolidation. Heart: Mild cardiomegaly with moderate coronary calcification and mild valvular calcification. Lung bases are clear. ABDOMEN: Liver: Unremarkable. Gallbladder and bile ducts: Previous cholecystectomy. No biliary duct dilation or choledocholithiasis is seen. Pancreas: Unremarkable. No ductal dilation. Spleen: Unremarkable. No splenomegaly. Adrenals: Unremarkable. No mass. Kidneys and ureters: Moderate bilateral renal atrophy. There are small hyperdense renal cysts bilaterally, unchanged. No follow-up is required. No obstructing stones. No hydronephrosis. Stomach and bowel: See below. PELVIS: Appendix: Bowel loops are nondilated. The appendix is absent. There is mild diverticulosis of the lower left and sigmoid colon without evidence of acute diverticulitis. Bladder: Unremarkable. No stones. Reproductive: Unremarkable as visualized. ABDOMEN and PELVIS: Intraperitoneal space: Unremarkable. No free air. No significant fluid collection. Bones/joints: Mild multilevel degenerative changes throughout the spine. No acute fracture or subluxation is seen. Soft tissues: 1.5 x 6.6 cm area of subcutaneous edema in the anterior abdominal wall. Mild edema of the anterior pelvic pannus. Large amount of visceral fat with lax anterior abdominal musculature. No discrete hernia. Vasculature: The abdominal aorta is severely calcified but nondilated. This is a noncontrast study. Lymph nodes: Unremarkable. No enlarged lymph nodes. IMPRESSION: 1. Bowel loops are nondilated. The appendix is absent. There is mild diverticulosis of the lower left and sigmoid colon without evidence of acute diverticulitis. 2. 1.5 x 6.6 cm area of subcutaneous edema in the anterior abdominal wall. Possible contusion versus chronic medication injection site. Electronically signed by: Sarthak Cruz MD 01/18/25 23:02 PM
--- NOTE | 2025-01-19 03:59 | History & Physical Report ---
Date of Service January 19, 2025 Assessment & Plan (1) Acute febrile illness: Plan: 84-year-old female with past medical history significant for type 2 diabetes, CKD stage IV, hyperlipidemia, gouty arthritis, hyperphosphatemia, diabetic peripheral angiopathy, sleep apnea, chronic diastolic CHF, venous insufficiency, CAD, hypertension, bilateral carotid artery stenosis, s/p carotid artery stent placement, status post carotid endarterectomy, peripheral vascular disease, morbid obesity, cirrhosis of liver, diverticulosis of colon, anemia of chronic renal failure, history of DVT, who lives at home with her comes because of nausea vomiting and weakness. Patient states today she was very weak and could not ambulate. Complains of having nausea and vomiting. In the ER she was spiking temperatures. Received Zofran and Tylenol in the ER and also Rocephin. Currently resting comfortably. Currently nausea is improved. She has chronic bilateral leg swelling left greater than right. She has some erythematous changes in the legs and mild warmth which patient states no change. Denies any chest pain. Denies shortness of breath. Denies cough. Denies headache. No runny nose or sore throat. No abdominal pain. Normal bowel and bladder movements. Currently hemodynamics are okay. Acute febrile illness Presented with nausea vomiting and weakness Temp spike in the ER WBC 26 Lactate 1.5 Procalcitonin 0.5 Urinalysis and respiratory [employer] unremarkable CT head unremarkable CT abdomen pelvis no acute findings. 1.5X 6.6 cm area of subcutaneous edema anterior abdominal wall possibly contusion versus chronic medication injection use Chest x-ray possible pleural effusion. Mild elevated left diaphragm Possible bilateral leg cellulitis On empiric Rocephin Gentle fluids Will follow the cultures Follow repeat labs Close monitor ART on CKD stage IV Baseline creatinine 2 Presented with creatinine 2.2 Holding losartan and torsemide Will follow repeat labs Type 2 diabetes Continue back on Lantus to 22 units as patient currently n.p.o. for n/v Sliding scale Close monitor History of gout On allopurinol Hypertension Amlodipine, Imdur, metoprolol tartrate Holding losartan and torsemide Will monitor Hyperlipidemia On statin and Zetia Anemia of chronic kidney disease Hemoglobin 10.7 We will follow labs Obstructive sleep apnea CPAP nightly Chronic diastolic CHF Holding diuretics Getting gentle fluids Monitor for volume overload Bilateral lower extremity edema We will check for Dopplers History of CAD status post stents On aspirin, Plavix statin and beta-bakari History of carotid artery disease Status post right carotid endarterectomy Status post right carotid stenting for restenosis On aspirin Plavix and statin History of DVT provoked in 2019 was on Coumadin for 3 months History of peripheral artery vascular disease Venous insufficiency On aspirin, Plavix and statin DVT prophylaxis Heparin subcu Disposition Telemetry Full code. History of Present Illness Chief Complaint: Nausea and vomiting and weakness Primary Care Provider: Anamaria Michel MD 84-year-old female with past medical history significant for type 2 diabetes, CKD stage IV, hyperlipidemia, gouty arthritis, hyperphosphatemia, diabetic peripheral angiopathy, sleep apnea, chronic diastolic CHF, venous insufficiency, CAD, hypertension, bilateral carotid artery stenosis, s/p carotid artery stent placement, status post carotid endarterectomy, peripheral vascular disease, morbid obesity, cirrhosis of liver, diverticulosis of colon, anemia of chronic renal failure, history of DVT, who lives at home with her comes because of nausea vomiting and weakness. Patient states today she was very weak and could not ambulate. Complains of having nausea and vomiting. In the ER she was spiking temperatures. Received Zofran and Tylenol in the ER and also Rocephin. Currently resting comfortably. Currently nausea is improved. She has chronic bilateral leg swelling left greater than right. She has some erythematous changes in the legs and mild warmth which patient states no change. Denies any chest pain. Denies shortness of breath. Denies cough. Denies headache. No runny nose or sore throat. No abdominal pain. Normal bowel and bladder movements. Currently hemodynamics are okay. Past medical history. As mentioned above Past surgical history. Left total knee arthroplasty. Colonoscopy. Combined right and left heart catheterization. Appendectomy. Cholecystectomy. Sacroiliac joint injection. Carotid artery endarterectomy. Right carotid stent placement. Total abdominal hysterectomy with removal of tubes. Vaginal hysterectomy. Social history. . No smoking. No alcohol use. No drug use. Family history. Maternal aunt had breast cancer. Son of massive [place] at age of 30. Allergies Allergy/AdvReac Type Severity Reaction Status Date / Time ibuprofen Allergy Unknown RUNNY NOSE Verified 06/21/22 09:01 hydrocodone AdvReac Severe confusion Verified 06/21/22 09:01 niacin AdvReac Unknown RED RASH Verified 06/21/22 09:01 baclofen AdvReac confusion Verified 06/21/22 09:01 Home Medications Medication Instructions Recorded Confirmed Type allopurinol 100 mg tablet 200 mg PO DAILY 05/27/19 01/18/25 History atorvastatin 80 mg tablet 80 mg PO DAILY 05/27/19 01/18/25 History cetirizine 10 mg tablet (Zyrtec) 10 mg PO DAILY 05/27/19 01/18/25 History insulin aspart U-100 100 unit/mL 1 unit subcut UD 05/27/19 01/18/25 History (3 mL) subcutaneous pen (Novolog FlexPen U-100 Insulin aspart) losartan 100 mg tablet 100 mg PO DAILY 05/27/19 01/18/25 History metoprolol tartrate 100 mg tablet 100 mg PO BID 05/27/19 01/18/25 History multivitamin 1 tab PO DAILY 05/27/19 01/18/25 History aspirin 81 mg capsule 81 mg PO DAILY 05/31/21 01/18/25 History Oxygen Home #1 ea 06/02/21 06/21/22 Rx acetaminophen 500 mg capsule 500 mg PO Q6H PRN Pain 05/09/22 01/18/25 History amlodipine 5 mg tablet See Rx Instructions PO HS 05/09/22 01/18/25 History clopidogrel 75 mg tablet (Plavix) 75 mg PO BID 05/09/22 01/18/25 History ezetimibe 10 mg tablet (Zetia) 10 mg PO DAILY 05/09/22 01/18/25 History nitroglycerin 0.4 mg sublingual 0.4 mg sublingual Q5M PRN Chest 05/09/22 01/18/25 History tablet Pain nystatin 100,000 unit/gram topical 1 applic topical DAILY 05/09/22 01/18/25 History powder torsemide 20 mg tablet 30 mg PO DAILY 05/09/22 01/18/25 History insulin glargine 100 unit/mL (3 44 unit subcut HS 06/21/22 01/18/25 History mL) subcutaneous pen (Lantus Solostar U-100 Insulin) isosorbide mononitrate 60 mg 90 mg PO DAILY 06/21/22 01/18/25 History tablet,extended release 24 hr gabapentin 100 mg capsule 100 mg PO HS 01/18/25 01/18/25 History potassium chloride 10 mEq 10 meq PO DAILY 01/18/25 01/18/25 History tablet,extended release(part/cryst) Past Med/Surg History Problem List (Updated 01/19/25 @ 06:16 by Egveny Elkins MD) Leukocytosis (Acute) Intractable nausea and vomiting (Acute) Renal insufficiency (Acute) Generalized weakness (Acute) Acute febrile illness (Acute) Venous stasis ulcer (Acute) Acquired lymphedema (Acute) Abnormal ankle brachial index (Acute) Exercise intolerance (Acute) Hypoxia DVT prophylaxis Fall (Acute) Weakness (Acute) Elevated LFTs Acute respiratory failure with hypoxia COVID-19 (Acute) Chronic anticoagulation Morbid obesity Left lumbar radiculopathy Trochanteric bursitis of left hip Back pain Discharge planning issues DVT (deep venous thrombosis) DVT prophylaxis Ambulatory dysfunction UTI (urinary tract infection) Metabolic encephalopathy Hypertension CKD (chronic kidney disease), stage IV Gouty arthritis DM type 2 (diabetes mellitus, type 2) (Chronic) CAD (coronary artery disease) 11/2006: CELSO to left circumflex 07/2010: Cardiac cath revealed a 20% left main lesion in both the proximal and distal segments, 50% mid LAD lesion which was not hemodynamically significant by FFR, and an 80% lesion in the second diagonal branch which was significant by FFR. Medical management. Medical History CAD (coronary artery disease) 11/2006: CELSO to left circumflex 07/2010: Cardiac cath revealed a 20% left main lesion in both the proximal and distal segments, 50% mid LAD lesion which was not hemodynamically significant by FFR, and an 80% lesion in the second diagonal branch which was significant by FFR. Medical management. Chronic anticoagulation CKD (chronic kidney disease), stage IV DM type 2 (diabetes mellitus, type 2) Dyslipidemia Gouty arthritis History of right common carotid artery stent placement Hypertension Morbid obesity Surgical History H/O carotid endarterectomy H/O total knee replacement History of cholecystectomy History of hysterectomy Family History Brother Lung cancer Bone cancer Social History (Updated 05/09/22 @ 13:17 by Courtney Murray RN) Smoking Status: Never smoker Second Hand Exposure: No; Do You Dip or Chew Tobacco: No; Hx Alcohol Use: No Hx Substance Use: No Preferred Language: Czech Communication Ability: Effective Visual Impairment: Limited Hearing Ability: Hard of Hearing 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 ENT- oropharynx clear Neck- supple, no JVD. Lungs- clear to auscultation no wheezing or crackles Heart- regular rhythm; no murmur, no gallop. Abdomen- normal bowel sounds, soft, nontender, no distension Extremities- b/l lower extremity edema L>>Rt. Distal part of legs erythematous and warm to palpation Neuro- alert, oriented PERRL, no facial palsy; no dysarthria; moves extremities Results & Data Results & Data Vital Signs (Past 12 Hours) Vital Signs Temp Pulse Pulse Resp BP BP Pulse Ox 01/19/25 03:00 71 14 128/57 L 92 01/19/25 02:30 67 16 124/52 L 90 01/19/25 02:06 69 16 128/59 L 90 01/19/25 01:39 72 18 132/59 L 90 01/19/25 01:15 77 14 130/59 L 91 01/19/25 00:30 76 12 133/65 92 01/19/25 00:00 77 17 127/63 92 01/18/25 23:00 76 16 132/57 L 93 01/18/25 22:06 80 01/18/25 22:00 78 18 110/66 93 01/18/25 20:00 83 20 133/53 L 94 01/18/25 19:40 36.9 C 01/18/25 19:00 95 H 16 100/42 L 91 01/18/25 18:45 93 H 20 106/54 L 90 01/18/25 18:30 93 H 16 109/54 L 92 01/18/25 18:27 98 H 01/18/25 18:25 95 H 17 91 01/18/25 18:14 38.9 C H 96 H 25 H 139/50 L 91 O2 Del Method 01/19/25 03:00 01/19/25 02:30 01/19/25 02:06 01/19/25 01:39 01/19/25 01:15 01/19/25 00:30 01/19/25 00:00 01/18/25 23:00 01/18/25 22:06 01/18/25 22:00 Room Air 01/18/25 20:00 Room Air 01/18/25 19:40 01/18/25 19:00 Room Air 01/18/25 18:45 Room Air 01/18/25 18:30 Room Air 01/18/25 18:27 01/18/25 18:25 Room Air 01/18/25 18:14 Room Air Diagnostic Findings Laboratory Results WBC 26.81 K/ul (4.8-10.8) H 01/18/25 18:17 RBC 3.61 M/uL (4.20-5.40) L 01/18/25 18:17 Hgb 10.7 g/dl (12.0-16.0) L 01/18/25 18:17 Hct 32.7 % (37.0-47.0) L 01/18/25 18:17 MCV 90.6 fL (80.0-100.0) 01/18/25 18:17 MCH 29.6 pg (25.0-34.0) 01/18/25 18:17 MCHC 32.7 g/dL (32.0-36.0) 01/18/25 18:17 RDW Std Deviation 56.5 fL (36.4-46.3) H 01/18/25 18:17 RDW Coeff of Yoel 17.2 % (11.5-14.5) H 01/18/25 18:17 Plt Count 174 K/uL (130-400) 01/18/25 18:17 MPV 13.0 fL (9.4-12.4) H 01/18/25 18:17 Immature Gran % (Auto) 0.7 % 01/18/25 18:17 Neut % (Auto) 88.1 % 01/18/25 18:17 Lymph % (Auto) 6.3 % 01/18/25 18:17 [place] % (Auto) 4.6 % 01/18/25 18:17 Eos % (Auto) 0.1 % 01/18/25 18:17 Baso % (Auto) 0.2 % 01/18/25 18:17 Neut # (Auto) 23.64 K/uL (1.40-6.50) H 01/18/25 18:17 Lymph # (Auto) 1.68 K/uL (1.20-3.40) 01/18/25 18:17 [place] # (Auto) 1.22 K/uL (0.11-0.59) H 01/18/25 18:17 Eos # (Auto) 0.04 K/uL (0.00-0.50) 01/18/25 18:17 Baso # (Auto) 0.05 K/uL (0.00-0.20) 01/18/25 18:17 Immature Gran # (Auto) 0.18 K/uL (0.01-0.20) 01/18/25 18:17 Ovalocytes 1+ 01/18/25 18:17 Sodium 140 mmol/L (136-145) 01/18/25 18:17 Potassium 4.6 mmol/L (3.5-5.1) 01/18/25 18:17 Chloride 107 mmol/L (98-107) 01/18/25 18:17 Carbon Dioxide 24 mmol/L (21-32) 01/18/25 18:17 Anion Gap 9 (3-11) 01/18/25 18:17 BUN 83 mg/dl (6-23) H 01/18/25 18:17 Creatinine 2.26 mg/dl (0.6-1.2) H 01/18/25 18:17 Est Cr Clr Drug Dosing 21.0 ml/min 01/18/25 18:17 eGFR 21.14 01/18/25 18:17 BUN/Creatinine Ratio 36.7 (10-20) H 01/18/25 18:17 Glucose 212 mg/dl (70-99(Fasting)) H 01/18/25 18:17 Lactate 1.5 mmol/L (0.4-2.0) 01/18/25 18:40 Calcium 9.0 mg/dl (8.6-10.3) 01/18/25 18:17 Phosphorus 3.2 mg/dl (2.5-4.9) 01/18/25 18:17 Magnesium 2.0 mg/dl (1.7-2.4) 01/18/25 18:17 Total Bilirubin 0.9 mg/dl (0.2-1.0) 01/18/25 18:17 Direct Bilirubin 0.4 mg/dl (0-0.2) H 01/18/25 18:17 AST 49 U/L (13-39) H 01/18/25 18:17 ALT 50 U/L (7-52) 01/18/25 18:17 Alkaline Phosphatase 316 U/L (34-104) H 01/18/25 18:17 Troponin I High Sens 42.1 pg/ml (0-14) H 01/18/25 21:15 Total Protein 6.4 gm/dl (6.0-8.3) 01/18/25 18:17 Albumin 3.1 gm/dl (3.4-5.0) L 01/18/25 18:17 Lipase 50 U/L (11-82) 01/18/25 18:17 Procalcitonin 0.59 ng/ml (0-0.5) H 01/18/25 18:17 TSH 1.227 uIu/ml (0.300-4.500) 01/18/25 18:17 Urine Color Yellow 01/18/25 19:40 Urine Appearance Clear (Clear) 01/18/25 19:40 Urine pH 6.5 (4.5-7.5) 01/18/25 19:40 Ur Specific [place] 1.013 (1.000-1.030) 01/18/25 19:40 Urine Protein Trace (Negative) H 01/18/25 19:40 Urine Glucose (UA) Negative (Negative) 01/18/25 19:40 Urine Ketones Negative (Negative) 01/18/25 19:40 Urine Blood Negative (Negative) 01/18/25 19:40 Urine Nitrite Negative (Negative) 01/18/25 19:40 Urine Bilirubin Negative (Negative) 01/18/25 19:40 Urine Urobilinogen Negative (Negative) 01/18/25 19:40 Ur Leukocyte Esterase Negative (Negative) 01/18/25 19:40 Urine WBC (Auto) 0-5 /hpf (0-5) 01/18/25 19:40 Urine RBC (Auto) 0-2 /hpf (0-2) 01/18/25 19:40 U Hyaline Cast (Auto) 0-2 /lpf (0-2) 01/18/25 19:40 U Epithel Cells (Auto) 0-2 /hpf (0-2) 01/18/25 19:40 Urine Bacteria (Auto) None Seen (None Seen) 01/18/25 19:40 Urine Comment 01/18/25 19:40 Adenovirus (PCR) Not Detected (NotDetected) 01/18/25 19:40 B. pertussis DNA (PCR) Not Detected (NotDetected) 01/18/25 19:40 B.parapertussis DNA PCR Not Detected (NotDetected) 01/18/25 19:40 C. pneumoniae DNA (PCR) Not Detected (NotDetected) 01/18/25 19:40 Coronavirus OC43 (PCR) Not Detected (NotDetected) 01/18/25 19:40 Coronavirus HKU1 (PCR) Not Detected (NotDetected) 01/18/25 19:40 Coronavirus 229E (PCR) Not Detected (NotDetected) 01/18/25 19:40 SARS-CoV-2 (PCR) Not Detected (NotDetected) 01/18/25 19:40 Coronavirus NL63 (PCR) Not Detected (NotDetected) 01/18/25 19:40 Human Metapneumovir PCR Not Detected (NotDetected) 01/18/25 19:40 Influenza Type A (PCR) Not Detected (NotDetected) 01/18/25 19:40 Influenza Type B (PCR) Not Detected (NotDetected) 01/18/25 19:40 M. pneumoniae (PCR) Not Detected (NotDetected) 01/18/25 19:40 Parainfluenza 1 (PCR) Not Detected (NotDetected) 01/18/25 19:40 Parainfluenza 2 (PCR) Not Detected (NotDetected) 01/18/25 19:40 Parainfluenza 3 (PCR) Not Detected (NotDetected) 01/18/25 19:40 Parainfluenza 4 (PCR) Not Detected (NotDetected) 01/18/25 19:40 RSV (PCR) Not Detected (NotDetected) 01/18/25 19:40 Entero/Rhino (PCR) Not Detected (NotDetected) 01/18/25 19:40 Impressions Chest X-Ray 01/18/25 18:21 EXAM: XR chest 1V portable CLINICAL HISTORY: Sepsis. TECHNIQUE: Chest X-ray was obtained in AP view. COMPARISON: 05/31/2021. FINDINGS: Pulmonary Parenchyma: Lungs are clear bilaterally. No evidence of consolidation, collapse, or focal opacities. No pulmonary nodules identified. Obliterated both costophrenic angles. Possible pleural effusion or pleural thickening. Mildly elevated left diaphragmatic copula (new) Heart and Mediastinum: Unchanged cardiomegaly. No mediastinal widening or masses. No hilar or mediastinal lymphadenopathy. Aortic arch calcified atheromatous plaque is noted (unchanged) Bony Thorax: Bony thorax appears intact without fractures or deformities. Soft Tissues: Soft tissues overlying the chest wall are unremarkable. IMPRESSION: 1. Obliterated both costophrenic angles. Possible pleural effusion or pleural thickening. New finding. 2. Newly seen mildly elevated left diaphragmatic copula. Electronically signed by Andry Stone 01-18-2025 7:44 PM Abdomen/Pelvis CT 01/18/25 19:16 Exam(s): CT ABDOMEN + PELVIS Without Contrast EXAM: CT Abdomen and Pelvis Without Intravenous Contrast CLINICAL HISTORY: Reason for exam: n/v, fever. TECHNIQUE: Axial computed tomography images of the abdomen and pelvis without intravenous contrast. CTDI is 63 mGy and DLP is 1098 mGy-cm. Automated exposure control was utilized for the study. A dose lowering technique was utilized adhering to the principles of ALARA. COMPARISON: 08/13/2019 FINDINGS: Lung bases: Unremarkable. No mass. No consolidation. Heart: Mild cardiomegaly with moderate coronary calcification and mild valvular calcification. Lung bases are clear. ABDOMEN: Liver: Unremarkable. Gallbladder and bile ducts: Previous cholecystectomy. No biliary duct dilation or choledocholithiasis is seen. Pancreas: Unremarkable. No ductal dilation. Spleen: Unremarkable. No splenomegaly. Adrenals: Unremarkable. No mass. Kidneys and ureters: Moderate bilateral renal atrophy. There are small hyperdense renal cysts bilaterally, unchanged. No follow-up is required. No obstructing stones. No hydronephrosis. Stomach and bowel: See below. PELVIS: Appendix: Bowel loops are nondilated. The appendix is absent. There is mild diverticulosis of the lower left and sigmoid colon without evidence of acute diverticulitis. Bladder: Unremarkable. No stones. Reproductive: Unremarkable as visualized. ABDOMEN and PELVIS: Intraperitoneal space: Unremarkable. No free air. No significant fluid collection. Bones/joints: Mild multilevel degenerative changes throughout the spine. No acute fracture or subluxation is seen. Soft tissues: 1.5 x 6.6 cm area of subcutaneous edema in the anterior abdominal wall. Mild edema of the anterior pelvic pannus. Large amount of visceral fat with lax anterior abdominal musculature. No discrete hernia. Vasculature: The abdominal aorta is severely calcified but nondilated. This is a noncontrast study. Lymph nodes: Unremarkable. No enlarged lymph nodes. IMPRESSION: 1. Bowel loops are nondilated. The appendix is absent. There is mild diverticulosis of the lower left and sigmoid colon without evidence of acute diverticulitis. 2. 1.5 x 6.6 cm area of subcutaneous edema in the anterior abdominal wall. Possible contusion versus chronic medication injection site. Electronically signed by: Sarthak Cruz MD 01/18/25 23:[address] 01/18/25 19:16 Exam(s): CT HEAD Without Contrast EXAM: CT Head Without Intravenous Contrast CLINICAL HISTORY: Reason for exam: weakness. TECHNIQUE: Axial computed tomography images of the head/brain without intravenous contrast. CTDI is 63 mGy and DLP is 1098 mGy-cm. Automated exposure control was utilized for the study. A dose lowering technique was utilized adhering to the principles of ALARA. COMPARISON: Prior head CT from May 31, 2021. FINDINGS: Brain: Remote ischemic injury of the right capsule. No hemorrhage. Mild nonspecific white matter changes. No edema. Ventricles: Unremarkable. No ventriculomegaly. Bones/joints: Unremarkable. No acute fracture. Soft tissues: Unremarkable. Sinuses: Unremarkable as visualized. No acute sinusitis. Mastoid air cells: Unremarkable as visualized. No mastoid effusion. IMPRESSION: No evidence of acute intracranial pathology. Electronically signed by: Kassie Salguero MD 01/18/25 22:54 PM ECG Additional Comments: ECG sinus rhythm first-degree AV block rate of 97. ST and T abnormality lateral leads. QTc 457. No significant changes found. Code Status & VTE Plan VTE Prophylaxis Plan VTE Prophylaxis will be ordered: Yes
[2025-01-19] MEDS ORDERED: GLUCOSE 10 TAB/TUBE PO PRN (05:24)
[2025-01-19] MEDS ORDERED: CARBOHYDRATES FOR HYPOGLYCEMIA PO PRN (05:24)
[2025-01-19] MEDS ORDERED: ONDANSETRON INJ 2 MG/ML 2 ML VIAL IV PRN (05:24)
[2025-01-19] MEDS ORDERED: GLUCOSE 40% GEL 15 GM TUBE PO PRN (05:24)
[2025-01-19] MEDS ORDERED: GLUCAGON FOR INJ 1 MG VIAL SQ PRN (05:24)
[2025-01-19] MEDS ORDERED: ACETAMINOPHEN 325 MG TAB PO PRN (05:24)
[2025-01-19] MEDS ORDERED: DEXTROSE 50% 50 ML SYRINGE IV PRN (05:24)
[2025-01-19] MEDS ORDERED: NITROGLYCERIN SL 0.4 MG/TAB TAB SL PRN (05:24)
[2025-01-19] MEDS: SODIUM CHLORIDE 0.9% 1,000 ML IV SCH (05:39)
[2025-01-19] MEDS: INSULIN ASPART PER UNIT CHARGE SC SCH ×2 (05:47→12:23)
[2025-01-19 07:23] LABS: Hematocrit (blood only) 31.6 % (37.0-47.0); Hemoglobin 10.3 g/dl (12.0-16.0); Immature Granulocytes # (auto) 0.13 K/uL (0.01-0.20); Immature Granulocytes % (auto) 0.7 %; Mean Corpuscular Hemoglobin 29.4 pg (25.0-34.0); Mean Corpuscular Volume 90.3 fL (80.0-100.0); Platelet Count 160 K/uL (130-400); RDW Standard Deviation 56.6 fL (36.4-46.3); Red Blood Count 3.50 M/uL (4.20-5.40); White Blood Count 19.08 K/ul (4.8-10.8)
[2025-01-19 07:45] LABS: Anion Gap 7.0 (3-11); Blood Urea Nitrogen 79.0 mg/dl (6-23); Calcium 8.9 mg/dl (8.6-10.3); Carbon Dioxide 27.0 mmol/L (21-32); Chloride 109.0 mmol/L (98-107); Creatinine Clr Calc Pharmacy 22.0 ml/min; Glucose 165.0 mg/dl (70-99(Fasting)); Magnesium 2.1 mg/dl (1.7-2.4); Potassium 4.1 mmol/L (3.5-5.1); Sodium 143.0 mmol/L (136-145)
[2025-01-19 08:10] LABS: Hemoglobin A1C 7.7 % (4.5-5.6)
[2025-01-19] MEDS: CETIRIZINE HCL 10 MG TABLET PO SCH (08:33)
[2025-01-19] MEDS: ATORVASTATIN 40 MG TAB PO SCH (08:34)
[2025-01-19] MEDS: ISOSORBIDE MONO EXTENDED REL 30 MG TABCR PO SCH (08:34)
[2025-01-19] MEDS: MULTIVITAMIN TAB PO SCH (08:34)
[2025-01-19] MEDS: HEPARIN SOD 5,000 UNIT/0.5 ML VIAL SQ SCH (08:35)
[2025-01-19] MEDS: POTASSIUM CHLORIDE 10 MEQ TABCR PO SCH (08:35)
[2025-01-19] MEDS: EZETIMIBE 10 MG TAB PO SCH (08:35)
[2025-01-19] MEDS: METOPROLOL TARTRATE 100 MG TAB PO SCH (08:35)
[2025-01-19] MEDS: CLOPIDOGREL BISULFATE 75 MG TAB PO SCH (08:35)
[2025-01-19] MEDS: ASPIRIN 81 MG ECTAB PO SCH (08:35)
[2025-01-19] MEDS: NYSTATIN POWDER 15GM BTL EXT SCH (08:36)
[2025-01-19] MEDS: FAMOTIDINE 20MG IV PUSH 20 MG/5 ML SYR IV SCH (08:38)
--- NOTE | 2025-01-19 09:25 | Ultrasound Report ---
BILATERAL LOWER EXTREMITY VENOUS DOPPLER HISTORY: b/l lower ext edema and erythema. dvt? COMPARISON STUDY: 08/13/2019 FINDINGS: No evidence of DVT seen in bilateral lower extremities. IMPRESSION: No DVT seen. ACT 112: Negative or not required by law. Electronically signed by: Jude Dsouza M.D. 01/19/2025 9:23 AM
[2025-01-19] MEDS: ADVANCED PROBIOTIC 625 MG CAPSULE PO SCH (09:27)
[2025-01-19] MEDS: DOXYCYCLINE HYCLATE 100 MG CAP PO SCH (09:27)
--- NOTE | 2025-01-19 14:04 | Hospitalist Progress Note ---
Date of Service January 19, 2025 Assessment & Plan (1) Acute febrile illness: Plan: 84-year-old female with past medical history significant for type 2 diabetes, CKD stage IV, hyperlipidemia, gouty arthritis, hyperphosphatemia, diabetic peripheral angiopathy, sleep apnea, chronic diastolic CHF, venous insufficiency, CAD, hypertension, bilateral carotid artery stenosis, s/p carotid artery stent placement, status post carotid endarterectomy, peripheral vascular disease, morbid obesity, cirrhosis of liver, diverticulosis of colon, anemia of chronic renal failure, history of DVT, who lives at home with her comes because of nausea vomiting and weakness. Patient states today she was very weak and could not ambulate. Complains of having nausea and vomiting. In the ER she was spiking temperatures. Received Zofran and Tylenol in the ER and also Rocephin. Currently resting comfortably. Currently nausea is improved. She has chronic bilateral leg swelling left greater than right. She has some erythematous changes in the legs and mild warmth which patient states no change. Denies any chest pain. Denies shortness of breath. Denies cough. Denies headache. No runny nose or sore throat. No abdominal pain. Normal bowel and bladder movements. Currently hemodynamics are okay. Left leg cellulitis--POA Sepsis--POA H/O lymphedema --Venous Doppler:No evidence of DVT seen in bilateral lower extremities. -- Blood cultures pending --Lactic acid 1.5, procalcitonin 0.5 --UA within normal limits, bio fire negative --Continue IV Rocephin, doxycycline PT OT evaluation as able Nausea, vomiting Generalized weakness --CT ABD:Bowel loops are nondilated. The appendix is absent. There is mild diverticulosis of the lower left and sigmoid colon without evidence of acute diverticulitis. 1.5 x 6.6 cm area of subcutaneous edema in the anterior abdominal wall. Possible contusion versus chronic medication injection site. -- Tolerating regular diet --Resolved ART on CKD stage IV Baseline creatinine ~ 2 Hold losartan and torsemide for now Avoid nephrotoxic agents as able Monitor renal function Mild troponin elevation Likely demand ischemia in setting of renal insufficiency Patient denies any chest pain, dyspnea ECHO showed no wall motion abnormality Troponin trending down DM II HbA1c 7.7 Continue insulin per protocol Monitor blood glucose levels Gout Continue allopurinol Hypertension Amlodipine, Imdur, metoprolol tartrate Holding losartan and torsemide Monitor BP and adjust medications as needed Hyperlipidemia Continue statin and Zetia Anemia of chronic kidney disease Monitor CBC Obstructive sleep apnea CPAP nightly Chronic diastolic CHF Monitor for volume overload Resume home diuretics as able CAD S/P stents Continue aspirin, Plavix, statin and beta-bakari Peripheral artery disease H/O Carotid artery disease Chronic venous insufficiency S/P Right carotid endarterectomy S/P Right carotid stenting for restenosis Continue aspirin, Plavix and statin History of DVT provoked in 2019 was on Coumadin for 3 months Morbid obesity BMI 43 Lifestyle changes recommended Chronic ambulatory dysfunction Uses walker at baseline Fall precautions DVT Px Heparin SQ CODE STATUS Full code Disposition PT OT prior to discharge Admission and Anticipated Discharge Date Admission Date: January 19, 2025 Subjective Patient is seen and examined at bedside Reports left leg swelling, erythema No nausea, vomiting, chest pain, dyspnea, leg pain today No other complaints today Leukocytosis trending down Review of Systems Review of Systems: All systems reviewed & are unremarkable except as noted in Subjective Physical Exam Physical Exam: Physical Exam: Vitals signs as noted above General Appearance:Morbidly Obese, no apparent distress Head: normocephalic, Atraumatic Eyes: normal inspection, EOMI Neck: supple, Trachea midline Respiratory/Chest: Normal breath sounds, CTA, No accessory muscle use Cardiovascular: S1, S2, No murmur Abdomen/GI:Soft, Non tender, Bowel sounds present Extremities/Musculoskeletal:normal inspection, LE edema, L LE lymphedema, erythema, +blisters Neurologic/Psych:AAOX3, grossly no focal neurological deficits Skin: normal color, warm Results & Data Results & Data Vital Signs (Past 12 Hours) Vital Signs Temp Pulse Pulse Resp BP BP Pulse Ox 01/19/25 11:25 36.3 C L 54 L 18 135/73 96 01/19/25 07:01 67 01/19/25 05:25 01/19/25 05:25 36.4 C L 66 18 147/66 H 98 01/19/25 05:21 70 01/19/25 04:56 68 18 150/60 H 93 01/19/25 03:00 71 14 128/57 L 92 01/19/25 02:30 67 16 124/52 L 90 01/19/25 02:06 69 16 128/59 L 90 O2 Del Method 01/19/25 11:25 Room Air 01/19/25 07:01 01/19/25 05:25 Room Air 01/19/25 05:25 Room Air 01/19/25 05:21 01/19/25 04:56 Room Air 01/19/25 03:00 01/19/25 02:30 01/19/25 02:06 Laboratory Results Short CBC 01/18/25 01/19/25 Range/Units 18:17 07:04 WBC 26.81 H 19.08 H (4.8-10.8) K/ul Hgb 10.7 L 10.3 L (12.0-16.0) g/dl Hct 32.7 L 31.6 L (37.0-47.0) % Plt Count 174 160 (130-400) K/uL BMP 01/18/25 01/19/25 18:17 07:04 Sodium 140 143 Potassium 4.6 4.1 Chloride 107 109 H Carbon Dioxide 24 27 BUN 83 H 79 H Creatinine 2.26 H 2.10 H Glucose 212 H 165 H Calcium 9.0 8.9 Liver Function 01/18/25 Range/Units 18:17 Total Bilirubin 0.9 (0.2-1.0) mg/dl Direct Bilirubin 0.4 H (0-0.2) mg/dl AST 49 H (13-39) U/L ALT 50 (7-52) U/L Alkaline Phosphatase 316 H (34-104) U/L Albumin 3.1 L (3.4-5.0) gm/dl Urine 01/18/25 Range/Units 19:40 Urine Color Yellow Urine Appearance Clear (Clear) Urine pH 6.5 (4.5-7.5) Ur Specific Bern 1.013 (1.000-1.030) Urine Protein Trace H (Negative) Urine Glucose (UA) Negative (Negative)
[2025-01-19 17:34] LABS: A calco-baum cmplx NotReported Not Detected (NotDetected); Bact fragilis Not Reported Not Detected (NotDetected); Blood Culture Id Panel See PCR Comment (NotDetected); C auris Not Reported Not Detected (NotDetected); Calbicans Not Reported Not Detected (NotDetected); Candida glabrata Not Reported Not Detected (NotDetected); Candida krusei Not Reported Not Detected (NotDetected); Cneoformans/gatti Not Reported Not Detected (NotDetected); Cparapsilosis Not Reported Not Detected (NotDetected); Ctropicalis Not Reported Not Detected (NotDetected); E cloacae compx Not Reported Not Detected (NotDetected); Efaecalis Not Reported Not Detected (NotDetected); Efaecium Not Reported Not Detected (NotDetected); Enterobacterales Not Reported Not Detected (NotDetected); Escherichia coli Not Reported Not Detected (NotDetected); H influenzae Not Reported Not Detected (NotDetected); K aerogenes Not Reported Not Detected (NotDetected); Koxytoca Not Reported Not Detected (NotDetected); Kpneumoniae grp Not Reported Not Detected (NotDetected); Lmonocyt Not Reported Not Detected (NotDetected); N meningitidis Not Reported Not Detected (NotDetected); P aeruginosa Not Reported Not Detected (NotDetected); Proteus spp Not Reported Not Detected (NotDetected); Salmonella spp Not Reported Not Detected (NotDetected); Staph lugdunensis Not Reported DETECTED (NotDetected); Staph spp. Not Reported DETECTED (NotDetected); Staphaureus Not Reported Not Detected (NotDetected); Staphepi Not Reported Not Detected (NotDetected); Stenmaltophilia Not Reported Not Detected (NotDetected); Strep agal(GrpB) Not Reported Not Detected (NotDetected); Strep pneum Not Reported Not Detected (NotDetected); Strep pyog (GrpA) Not Reported Not Detected (NotDetected); Strep spp Not Reported Not Detected (NotDetected); mecAC Resistant Gene Not Detected (NotDetected)
[2025-01-19 17:51] LABS: Staphylococcus lugdunensis DETECTED (NotDetected); Staphylococcus spp. DETECTED (NotDetected)
[2025-01-19] MEDS: cefTRIAXone SODIUM 2,000 MG/50 ML BAG IV SCH (20:59)
[2025-01-19] MEDS ORDERED: LANTUS PER UNIT CHARGE SQ SCH (21:00)
[2025-01-19] MEDS: GABAPENTIN 100 MG CAP PO SCH (21:11)
[2025-01-19] MEDS: LANTUS PER UNIT CHARGE SQ SCH (21:15)
[2025-01-20 04:11] LABS: Hematocrit (blood only) 28.9 % (37.0-47.0); Hemoglobin 9.3 g/dl (12.0-16.0); Mean Corpuscular Hemoglobin 29.5 pg (25.0-34.0); Mean Corpuscular Volume 91.7 fL (80.0-100.0); Platelet Count 150 K/uL (130-400); RDW Standard Deviation 58.7 fL (36.4-46.3); Red Blood Count 3.15 M/uL (4.20-5.40); White Blood Count 12.72 K/ul (4.8-10.8)
[2025-01-20 04:27] LABS: Anion Gap 6.0 (3-11); Blood Urea Nitrogen 71.0 mg/dl (6-23); Calcium 8.5 mg/dl (8.6-10.3); Carbon Dioxide 26.0 mmol/L (21-32); Chloride 110.0 mmol/L (98-107); Creatinine Clr Calc Pharmacy 19.5 ml/min; Glucose 131.0 mg/dl (70-99(Fasting)); Potassium 4.3 mmol/L (3.5-5.1); Sodium 142.0 mmol/L (136-145)
[2025-01-20] MEDS ORDERED: SODIUM CHLORIDE 0.9% 100 ML IV PRN (07:26)
--- NOTE | 2025-01-20 09:28 | Nephrology Consultation ---
Date of Consultation January 20, 2025 Assessment & Plan (1) ART (acute kidney injury): Baseline creat around 2 and On Adx was 2.2 and now 2.38. Acute part is minimal and is mostly CKD 4. Given elevated WBC , Drop in hgb, fever/nausea/vomiting---She most likely had hemodynamic ART in this setting. NO hydronephrosis. UA was bland. NO need for further workup. There might be some worsening but I dont expect major decline in renal function and dont expect her to the point of needing SUPERVISOR WOOL SHEARING She does have severe problem with edema so will restart torsemide 30 daily like at home. hold losartan for now. Dont give IVF. Dont think she is volume depleted. She will not get to her regular baseline quickly with her age, Underlying CKD 4 and various Co-morbidities which all slows down renal recovery. She had BRBPR earlier and this Can make ART worse. (2) CKD (chronic kidney disease), stage IV: baseline CKD 4 with b/l renal atrophy sec to DM and various Comorbid Dz. Baseline creat about 2. (3) Leukocytosis: On IV ancef and Doxycycline. Blood C/s x 1 +ve for GPC clusters. Plan time spent 63 mins History of Present Illness Attending Physician: Christian Swift MD History of Present Illness 84/F with type 2 diabetes, CKD stage I ( baseline creat around 2) , cirrhosis, diabetic peripheral angiopathy, sleep apnea, chronic diastolic CHF, venous insufficiency, CAD, hypertension, bilateral carotid artery stenosis, s/p carotid artery stent placement, status post carotid endarterectomy, peripheral vascular disease, morbid obesity, diverticulosis of colon, anemia of chronic renal failure, history of DVT, who lives at home with her came in because of nausea vomiting and weakness. In the ER she was febrile. Received Zofran and Tylenol in the ER and also Rocephin. She has chronic bilateral leg swelling left greater than right. She has Chronic LE edema > in left with Chronic redness/BListers. patient states no change. Denies any chest pain. Denies shortness of breath. Denies cough. Denies headache. No runny nose or sore throat. No abdominal pain. Normal bow el and bladder movements. Currently hemodynamics are okay. Since admission Losartan and torsemide has been held. Creat baseline 2 . Adx 2.26 and today slightly higher at 2.38. earlier had BRBPR--hgb dropped a bit. Blood C/s X 1 came +ve GPC clusters and getting ABx. Did have very high WBC of 26K on Admission. UA was bland and urine C/s was not done Currently on IV ceftriaxone and doxycycline. WBC trending down and no fever now. ROS--See HPI. 12 Systems otherwise negative Physical Exam Physical Exam: General- Not in acute distress. AAO x 3. Normal accurate speech. MM moist. Neck Supple. NO JVD Lungs- clear to auscultation no wheezing or crackles Heart- regular rhythm; no murmur, no gallop. Abdomen- soft, nontender, no distension Extremities- b/l lower extremity edema L>>Rt. erythematous with tiny blisters more in left. Neuro- alert, oriented Allergies Allergy/AdvReac Type Severity Reaction Status Date / Time ibuprofen Allergy Unknown RUNNY NOSE Verified 06/21/22 09:01 hydrocodone AdvReac Severe confusion Verified 06/21/22 09:01 niacin AdvReac Unknown RED RASH Verified 06/21/22 09:01 baclofen AdvReac confusion Verified 06/21/22 09:01 Home Medications Medication Instructions Recorded Confirmed Type allopurinol 100 mg tablet 200 mg PO DAILY 05/27/19 01/18/25 History atorvastatin 80 mg tablet 80 mg PO DAILY 05/27/19 01/18/25 History cetirizine 10 mg tablet (Zyrtec) 10 mg PO DAILY 05/27/19 01/18/25 History insulin aspart U-100 100 unit/mL 1 unit subcut UD 05/27/19 01/18/25 History (3 mL) subcutaneous pen (Novolog FlexPen U-100 Insulin aspart) losartan 100 mg tablet 100 mg PO DAILY 05/27/19 01/18/25 History metoprolol tartrate 100 mg tablet 100 mg PO BID 05/27/19 01/18/25 History multivitamin 1 tab PO DAILY 05/27/19 01/18/25 History aspirin 81 mg capsule 81 mg PO DAILY 05/31/21 01/18/25 History Oxygen Home #1 ea 06/02/21 06/21/22 Rx acetaminophen 500 mg capsule 500 mg PO Q6H PRN Pain 05/09/22 01/18/25 History amlodipine 5 mg tablet See Rx Instructions PO HS 05/09/22 01/18/25 History clopidogrel 75 mg tablet (Plavix) 75 mg PO BID 05/09/22 01/18/25 History ezetimibe 10 mg tablet (Zetia) 10 mg PO DAILY 05/09/22 01/18/25 History nitroglycerin 0.4 mg sublingual 0.4 mg sublingual Q5M PRN Chest 05/09/22 01/18/25 History tablet Pain nystatin 100,000 unit/gram topical 1 applic topical DAILY 05/09/22 01/18/25 History powder torsemide 20 mg tablet 30 mg PO DAILY 05/09/22 01/18/25 History insulin glargine 100 unit/mL (3 44 unit subcut HS 06/21/22 01/18/25 History mL) subcutaneous pen (Lantus Solostar U-100 Insulin) isosorbide mononitrate 60 mg 90 mg PO DAILY 06/21/22 01/18/25 History tablet,extended release 24 hr gabapentin 100 mg capsule 100 mg PO HS 01/18/25 01/18/25 History potassium chloride 10 mEq 10 meq PO DAILY 01/18/25 01/18/25 History tablet,extended release(part/cryst) Patient History Medical History Dyslipidemia History of right common carotid artery stent placement Family History Brother Lung cancer Bone cancer Social History Smoking Status: Never smoker Second Hand Exposure: No; Do You Dip or Chew Tobacco: No; Hx Alcohol Use: No Hx Substance Use: No Preferred Language: [place] Communication Ability: Effective Visual Impairment: Limited Hearing Ability: Hard of Hearing Embalmer Assistant Required: No Beliefs That Will Affect Care: None marital status: Current Living Situation: Family Current Living Situation Comment: home with and granddaughter Other Information That Helps Us Care for You: No Feels Safe at Home: Yes Safety Concerns: Feels Safe At This Time Diet: regular caffeine: Yes during the past year weight has: decreased > 10 lbs Assistive Devices: Walker Results & Data Vital Signs (Past 12 Hours) Vital Signs Temp Pulse Pulse Resp BP Pulse Ox O2 Del Method 01/20/25 09:05 Room Air 07/28/25 08:21 36.7 C 61 18 153/76 H 93 Room Air 01/20/25 06:59 60 01/20/25 05:02 61 18 145/68 H 93 Room Air 01/20/25 03:02 36.6 C 63 18 153/66 H 94 Room Air 01/20/25 00:23 Room Air 01/19/25 22:34 36.4 C L 59 L 18 177/63 H 96 Room Air 01/19/25 21:46 60 (3) Leukocytosis Leukocytosis type: unspecified Qualified Code(s): D72.829 - Elevated white blood cell count, unspecified
[2025-01-20] MEDS: TORSEMIDE 10 MG TAB PO SCH (11:08)
--- NOTE | 2025-01-20 11:47 | Gastrointestinal Consultation ---
Date of Consultation January 20, 2025 Assessment & Plan (1) Rectal bleedin84 year old female with history of T2DM, CKDIV, HTN, hyperlipidemia, gouty arthritis, hyperphosphatemia, diabetic peripheral angiopathy, sleep apnea, chronic diastolic, CHF, venous insufficiency, CAD, bilateral carotid artery stenosis, s/p carotid artery stent placement, status post carotid endarterectomy, peripheral vascular disease, morbid obesity, cirrhosis, anemia of chronic renal failure presenting w/ fevers, nausea, vomiting and weakness - admitted w/ left leg cellulitis. GI asked to evaluate for an isolated episode of painless hematochezia 1. Rectal bleeding, suspected lower GI bleeding - DDX discussed, diverticular vs hemorrhoids vs AVM vs other - VSS stable - Trend H&H - Monitor and document GI output - Transfuse PRN per primary team - Check stool PCR and c.diff if bleeding persists - Hold ASA/Plavix - She notes she is not agreeable to endoscopic evaluation at present but would re-consider if bleeding persists - Will re-evaluate on afternoon rounds I spent a total of 60 minutes on the date of service in review of patient's record, and previously obtained information in person and appropriate medical visit, discussion and education of plan, with patient and/or caregiver, placing orders for tests/referral/procedures as medically necessary and documentation of pertinent clinical information in patient's medical records for their visit today. Supervising Physician Co-Signing Physician Notes I saw and examined this patient with our nurse practitioner and agree with her assessment and plan. 1 episode of bright red blood per rectum resolved. No further episodes denies any significant GI symptoms at the present time. Likely anorectal bleeding related to recent constipation. Patient locked into have an endoscopic procedure at this time. We will reassess her interest and indication if she has recurrent bleeding. When she gets discharged she should follow-up with our office to reassess her symptoms and need for any additional surveillance colonoscopies in light of her past colonoscopy results. History of Present Illness Reason for Consultation: rectal bleed Requesting Physician: Christian Swift MD Attending Physician: Christian Swift MD History of Present Illness 84 year old female with history of T2DM, CKDIV, HTN, hyperlipidemia, gouty arthritis, hyperphosphatemia, diabetic peripheral angiopathy, sleep apnea, chronic diastolic, CHF, venous insufficiency, CAD, bilateral carotid artery stenosis, s/p carotid artery stent placement, status post carotid endarterectomy, peripheral vascular disease, morbid obesity, cirrhosis of liver, anemia of chronic renal failure presenting w/ fevers, nausea, vomiting and weakness - admitted w/ left leg cellulitis. GI was asked to evaluate for rectal bleeding. Pt was seen and evaluated,chart reviewed. Suggests she moved her bowel this AM and had a large, formed stool follow by some BRB. She suggests she is pain free. Denies abd pain. No nausea/vomiting. No black stools. No fever, chills, CP, SOB. There is report of history of cirrhosis, last evaluated, 07/2024 w/ upcoming follow up appt scheduled 02/18/25 CTAP 2024: Liver: Unremarkable. Bowel loops are nondilated. The appendix is absent. There is mild diverticulosis of the lower left and sigmoid colon without evidence of acute diverticulitis. Colonoscopy 2012: - The examined portion of the ileum appeared normal. Bilious fluid/stool. - Blood clots/old blood in the left colon. - Diverticulosis in the sigmoid colon and in the descending colon. - A single (solitary) ulcer with a large visible vessel at the hepatic flexure (prior polypectomy site).Two hemostatic clips were successfully placed. - The distal rectum and anal verge are normal on retroflexion view. Colonoscopy 2012: Diverticulosis in the sigmoid colon and in the descending colon. - One 3 mm polyp in the ascending colon. Resected and retrieved. - One 5 mm polyp at the hepatic flexure. Resected and retrieved. - One 6 mm polyp in the transverse colon. Resected and retrieved. - One 4 mm polyp at 30 cm proximal to the anus. Resected and retrieved. Colonoscopy 2008: Diverticulosis sigmoid colon. - One 3 mm polyp in the cecum. Resected and retrieved. - Medium-sized lipoma ascending colon. Allergies Allergy/AdvReac Type Severity Reaction Status Date / Time ibuprofen Allergy Unknown RUNNY NOSE Verified 06/21/22 09:01 hydrocodone AdvReac Severe confusion Verified 06/21/22 09:01 niacin AdvReac Unknown RED RASH Verified 06/21/22 09:01 baclofen AdvReac confusion Verified 06/21/22 09:01 Home Medications Medication Instructions Recorded Confirmed Type allopurinol 100 mg tablet 200 mg PO DAILY 05/27/19 01/18/25 History atorvastatin 80 mg tablet 80 mg PO DAILY 05/27/19 01/18/25 History cetirizine 10 mg tablet (Zyrtec) 10 mg PO DAILY 05/27/19 01/18/25 History insulin aspart U-100 100 unit/mL 1 unit subcut UD 05/27/19 01/18/25 History (3 mL) subcutaneous pen (Novolog FlexPen U-100 Insulin aspart) losartan 100 mg tablet 100 mg PO DAILY 05/27/19 01/18/25 History metoprolol tartrate 100 mg tablet 100 mg PO BID 05/27/19 01/18/25 History multivitamin 1 tab PO DAILY 05/27/19 01/18/25 History aspirin 81 mg capsule 81 mg PO DAILY 05/31/21 01/18/25 History Oxygen Home #1 ea 06/02/21 06/21/22 Rx acetaminophen 500 mg capsule 500 mg PO Q6H PRN Pain 05/09/22 01/18/25 History amlodipine 5 mg tablet See Rx Instructions PO HS 05/09/22 01/18/25 History clopidogrel 75 mg tablet (Plavix) 75 mg PO BID 05/09/22 01/18/25 History ezetimibe 10 mg tablet (Zetia) 10 mg PO DAILY 05/09/22 01/18/25 History nitroglycerin 0.4 mg sublingual 0.4 mg sublingual Q5M PRN Chest 05/09/22 01/18/25 History tablet Pain nystatin 100,000 unit/gram topical 1 applic topical DAILY 05/09/22 01/18/25 History powder torsemide 20 mg tablet 30 mg PO DAILY 05/09/22 01/18/25 History insulin glargine 100 unit/mL (3 44 unit subcut HS 06/21/22 01/18/25 History mL) subcutaneous pen (Lantus Solostar U-100 Insulin) isosorbide mononitrate 60 mg 90 mg PO DAILY 06/21/22 01/18/25 History tablet,extended release 24 hr gabapentin 100 mg capsule 100 mg PO HS 01/18/25 01/18/25 History potassium chloride 10 mEq 10 meq PO DAILY 01/18/25 01/18/25 History tablet,extended release(part/cryst) Patient History Medical History Dyslipidemia History of right common carotid artery stent placement Family History Brother Lung cancer Bone cancer Social History Smoking Status: Never smoker Second Hand Exposure: No; Do You Dip or Chew Tobacco: No; Hx Alcohol Use: No Hx Substance Use: No Preferred Language: [place] Communication Ability: Effective Visual Impairment: Limited Hearing Ability: Hard of Hearing 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 Physical Exam Constitutional: WD/WN, vitals as above sitting OOB in chair Respiratory: normal respiratory effort, lungs clear to auscultation Cardiovascular: Rate/Rhythm: regular rate Gastrointestinal (Abdomen): normal bowel sounds, soft, nontender, no hepatosplenomegaly Skin: + bilateral lower extremity edmea Results & Data Vital Signs (Past 12 Hours) Vital Signs Temp Pulse Pulse Resp BP Pulse Ox O2 Del Method 01/20/25 09:05 Room Air 01/20/25 08:21 98.1 F 61 18 153/76 H 93 Room Air 01/20/25 06:59 60 01/20/25 05:02 61 18 145/68 H 93 Room Air 01/20/25 03:02 97.9 F 63 18 153/66 H 94 Room Air 01/20/25 00:23 Room Air Laboratory Results 01/20/25 01/20/25 01/20/25 Range/Units 07:52 03:53 03:48 WBC 12.72 H (4.8-10.8) K/ul RBC 3.15 L (4.20-5.40) M/uL Hgb 9.3 L (12.0-16.0) g/dl Hct 28.9 L (37.0-47.0) % MCV 91.7 (80.0-100.0) fL MCH 29.5 (25.0-34.0) pg MCHC 32.2 (32.0-36.0) g/dL RDW Std Deviation 58.7 H (36.4-46.3) fL RDW Coeff of Yoel 17.6 H (11.5-14.5) % Plt Count 150 (130-400) K/uL MPV 12.7 H (9.4-12.4) fL Sodium 142 (136-145) mmol/L Potassium 4.3 (3.5-5.1) mmol/L Chloride 110 H (98-107) mmol/L Carbon Dioxide 26 (21-32) mmol/L Anion Gap 6 (3-11) BUN 71 H (6-23) mg/dl Creatinine 2.38 H (0.6-1.2) mg/dl Est Cr Clr Drug Dosing 19.5 ml/min eGFR 19.87 BUN/Creatinine Ratio 29.8 H (10-20) Glucose 131 H (70-99(Fasting)) mg/dl POC Glucose 152 H (70-99) mg/dl Calcium 8.5 L (8.6-10.3) mg/dl Troponin I High Sens (0-14) pg/ml Staphylococcus sp PCR (NotDetected) mecA/C-Methicil Resis Gene (NotDetected) Staph lugdunensis PCR (NotDetected) Bld Cult ID Panel PCR (NotDetected) Blood Type O Positive Blood Type Recheck Antibody Screen NEGATIVE Crossmatch See Detail 01/19/25 01/19/25 01/19/25 Range/Units 20:16 19:20 16:55 WBC (4.8-10.8) K/ul RBC (4.20-5.40) M/uL Hgb (12.0-16.0) g/dl Hct (37.0-47.0) % MCV (80.0-100.0) fL MCH (25.0-34.0) pg MCHC (32.0-36.0) g/dL RDW Std Deviation (36.4-46.3) fL RDW Coeff of Yoel (11.5-14.5) % Plt Count (130-400) K/uL MPV (9.4-12.4) fL Sodium (136-145) mmol/L Potassium (3.5-5.1) mmol/L Chloride (98-107) mmol/L Carbon Dioxide (21-32) mmol/L Anion Gap (3-11) BUN (6-23) mg/dl Creatinine (0.6-1.2) mg/dl Est Cr Clr Drug Dosing ml/min eGFR BUN/Creatinine Ratio (10-20) Glucose (70-99(Fasting)) mg/dl POC Glucose 180 H 168 H (70-99) mg/dl Calcium (8.6-10.3) mg/dl Troponin I High Sens 52.2 H* (0-14) pg/ml Staphylococcus sp PCR (NotDetected) mecA/C-Methicil Resis Gene (NotDetected) Staph lugdunensis PCR (NotDetected) Bld Cult ID Panel PCR (NotDetected) Blood Type Blood Type Recheck Antibody Screen Crossmatch 01/19/25 01/19/25 01/19/25 Range/Units 13:10 12:01 07:04 WBC (4.8-10.8) K/ul RBC (4.20-5.40) M/uL Hgb (12.0-16.0) g/dl Hct (37.0-47.0) % MCV (80.0-100.0) fL MCH (25.0-34.0) pg MCHC (32.0-36.0) g/dL RDW Std Deviation (36.4-46.3) fL RDW Coeff of Yoel (11.5-14.5) % Plt Count (130-400) K/uL MPV (9.4-12.4) fL Sodium (136-145) mmol/L Potassium (3.5-5.1) mmol/L Chloride (98-107) mmol/L Carbon Dioxide (21-32) mmol/L Anion Gap (3-11) BUN (6-23) mg/dl Creatinine (0.6-1.2) mg/dl Est Cr Clr Drug Dosing ml/min eGFR BUN/Creatinine Ratio (10-20) Glucose (70-99(Fasting)) mg/dl POC Glucose 141 H (70-99) mg/dl Calcium (8.6-10.3) mg/dl Troponin I High Sens 55.0 H* D (0-14) pg/ml Staphylococcus sp PCR (NotDetected) mecA/C-Methicil Resis Gene (NotDetected) Staph lugdunensis PCR (NotDetected) Bld Cult ID Panel PCR (NotDetected) Blood Type Blood Type Recheck O Positive Antibody Screen Crossmatch 01/18/25 Range/Units 18:40 WBC (4.8-10.8) K/ul RBC (4.20-5.40) M/uL Hgb (12.0-16.0) g/dl Hct (37.0-47.0) % MCV (80.0-100.0) fL MCH (25.0-34.0) pg MCHC (32.0-36.0) g/dL RDW Std Deviation (36.4-46.3) fL RDW Coeff of Yoel (11.5-14.5) % Plt Count (130-400) K/uL MPV (9.4-12.4) fL Sodium (136-145) mmol/L Potassium (3.5-5.1) mmol/L Chloride (98-107) mmol/L Carbon Dioxide (21-32) mmol/L Anion Gap (3-11) BUN (6-23) mg/dl Creatinine (0.6-1.2) mg/dl Est Cr Clr Drug Dosing ml/min eGFR BUN/Creatinine Ratio (10-20) Glucose (70-99(Fasting)) mg/dl POC Glucose (70-99) mg/dl Calcium (8.6-10.3) mg/dl Troponin I High Sens (0-14) pg/ml Staphylococcus sp PCR DETECTED A (NotDetected) mecA/C-Methicil Resis Gene Not Detected (NotDetected) Staph lugdunensis PCR DETECTED A (NotDetected) Bld Cult ID Panel PCR See PCR Comment (NotDetected) Blood Type Blood Type Recheck Antibody Screen Crossmatch PG Care Time/CCT Total # of Minutes Spent Total Time Spent with Patient: Total time spent is greater than 50% in coordination of care (as documented) at patient's floor/unit and/or counseling patient: Coding Level of Care Code 19027 INT INP/OBS CARE 2/55MIN Diagnoses Rectal bleeding K62.5
--- NOTE | 2025-01-20 14:19 | Hospitalist Progress Note ---
Date of Service January 20, 2025 Assessment & Plan (1) Acute febrile illness: Plan: 84-year-old female with past medical history significant for type 2 diabetes, CKD stage IV, hyperlipidemia, gouty arthritis, hyperphosphatemia, diabetic peripheral angiopathy, sleep apnea, chronic diastolic CHF, venous insufficiency, CAD, hypertension, bilateral carotid artery stenosis, s/p carotid artery stent placement, status post carotid endarterectomy, peripheral vascular disease, morbid obesity, cirrhosis of liver, diverticulosis of colon, anemia of chronic renal failure, history of DVT, who lives at home with her comes because of nausea vomiting and weakness. Patient states today she was very weak and could not ambulate. Complains of having nausea and vomiting. In the ER she was spiking temperatures. Received Zofran and Tylenol in the ER and also Rocephin. Currently resting comfortably. Currently nausea is improved. She has chronic bilateral leg swelling left greater than right. She has some erythematous changes in the legs and mild warmth which patient states no change. Denies any chest pain. Denies shortness of breath. Denies cough. Denies headache. No runny nose or sore throat. No abdominal pain. Normal bowel and bladder movements. Currently hemodynamics are okay. Left leg cellulitis--POA Sepsis--POA H/O lymphedema --Venous Doppler:No evidence of DVT seen in bilateral lower extremities. -- Blood cultures: As below --Lactic acid 1.5, procalcitonin 0.5 --UA within normal limits, bio fire negative --Continue IV Rocephin, doxycycline>> cefazolin, doxycycline PT OT evaluation as able Leukocytosis trending down Rectal bleeding Suspected lower GI bleed Hold aspirin, Plavix Avoid anticoagulation Monitor H&H and transfuse as needed Appreciate GI input Check stool studies if develops any diarrhea Abnormal blood cultures / Blood Cx: Staph lugdunesis ? Contamination Repeat blood cultures Empirically on cefazolin, doxycycline Await ID input Nausea, vomiting Generalized weakness --CT ABD:Bowel loops are nondilated. The appendix is absent. There is mild diverticulosis of the lower left and sigmoid colon without evidence of acute diverticulitis. 1.5 x 6.6 cm area of subcutaneous edema in the anterior abdominal wall. Possible contusion versus chronic medication injection site. -- Tolerating regular diet --Resolved ART on CKD stage IV Baseline creatinine ~ 2 Setting of volume overload Cr 2.38 today Continue to hold losartan Resume torsemide at 30 mg daily per nephrology Appreciate nephrology input Avoid nephrotoxic agents as able Monitor renal function Mild troponin elevation Likely demand ischemia in setting of renal insufficiency Patient denies any chest pain, dyspnea ECHO showed no wall motion abnormality Troponin trending down DM II HbA1c 7.7 Continue insulin per protocol Monitor blood glucose levels Gout Continue allopurinol Hypertension Amlodipine, Imdur, metoprolol tartrate Hold losartan due to ART Monitor BP and adjust medications as needed Hyperlipidemia Continue statin and Zetia Anemia of chronic kidney disease Monitor CBC Obstructive sleep apnea CPAP nightly Chronic diastolic CHF Monitor for volume overload Continue isosorbide, metoprolol Continue torsemide as above CAD S/P stents Continue aspirin, Plavix, statin and beta-bakari Peripheral artery disease H/O Carotid artery disease Chronic venous insufficiency S/P Right carotid endarterectomy S/P Right carotid stenting for restenosis Continue aspirin, Plavix and statin History of DVT provoked in 2019 was on Coumadin for 3 months Morbid obesity BMI 43 Lifestyle changes recommended Chronic ambulatory dysfunction Uses walker at baseline Fall precautions DVT Px Heparin SQ CODE STATUS Full code Disposition PT OT prior to discharge Admission and Anticipated Discharge Date Admission Date: January 19, 2025 Subjective Patient is seen and examined at bedside States having a large bright red rectal bleed overnight Leg erythema much improved Noted rising creatinine levels Patient offers no other complaints Denies any chest pain, dyspnea, nausea, vomiting, abdominal pain Review of Systems Review of Systems: All systems reviewed & are unremarkable except as noted in Subjective Physical Exam Physical Exam: Physical Exam: Vitals signs as noted above General Appearance:Morbidly Obese, no apparent distress Head: normocephalic, Atraumatic Eyes: normal inspection, EOMI Neck: supple, Trachea midline Respiratory/Chest: Normal breath sounds, CTA, No accessory muscle use Cardiovascular: S1, S2, No murmur Abdomen/GI:Soft, Non tender, Bowel sounds present Extremities/Musculoskeletal:normal inspection, LE edema, L LE lymphedema, erythema, +blisters Neurologic/Psych:AAOX3, grossly no focal neurological deficits Skin: normal color, warm Results & Data Results & Data Vital Signs (Past 12 Hours) Vital Signs Temp Pulse Pulse Resp BP Pulse Ox O2 Del Method 01/20/25 13:59 62 01/20/25 12:12 36.7 C 62 17 125/70 94 Room Air 01/20/25 09:05 Room Air 01/20/25 08:21 36.7 C 61 18 153/76 H 93 Room Air 01/20/25 06:59 60 01/20/25 05:02 61 18 145/68 H 93 Room Air 01/20/25 03:02 36.6 C 63 18 153/66 H 94 Room Air Laboratory Results Short CBC 01/20/25 Range/Units 03:48 WBC 12.72 H (4.8-10.8) K/ul Hgb 9.3 L (12.0-16.0) g/dl Hct 28.9 L (37.0-47.0) % Plt Count 150 (130-400) K/uL BMP 01/20/25 03:48 Sodium 142 Potassium 4.3 Chloride 110 H Carbon Dioxide 26 BUN 71 H Creatinine 2.38 H Glucose 131 H Calcium 8.5 L
[2025-01-20 15:30] LABS: Hematocrit (blood only) 31.3 % (37.0-47.0); Hemoglobin 9.8 g/dl (12.0-16.0)
[2025-01-20 21:25] LABS: Hematocrit (blood only) 28.5 % (37.0-47.0); Hemoglobin 9.0 g/dl (12.0-16.0)
--- NOTE | 2025-01-21 06:03 | Electrocardiogram Report ---
Test Reason : Blood Pressure : */* mmHG Vent. Rate : 97 BPM Atrial Rate : 97 BPM P-R Int : 240 ms QRS Dur : 94 ms QT Int : 360 ms P-R-T Axes : * -3 114 degrees QTcB Int : 457 ms Sinus rhythm with 1st degree A-V block Low voltage QRS Abnormal ECG When compared with ECG of 31-May-2021 08:50, No significant change was found Confirmed by Kevin Mora ([id number]) on 01/21/2025 6:03:10 AM Referred By: REFERRED SELF Confirmed By: Kevin Mora
[2025-01-21 06:57] LABS: Hematocrit (blood only) 25.0 % (37.0-47.0); Hemoglobin 7.9 g/dl (12.0-16.0); Mean Corpuscular Hemoglobin 28.9 pg (25.0-34.0); Mean Corpuscular Volume 91.6 fL (80.0-100.0); Platelet Count 131 K/uL (130-400); RDW Standard Deviation 58.3 fL (36.4-46.3); Red Blood Count 2.73 M/uL (4.20-5.40); White Blood Count 7.57 K/ul (4.8-10.8)
[2025-01-21 07:35] LABS: Anion Gap 6.0 (3-11); Blood Urea Nitrogen 72.0 mg/dl (6-23); Calcium 8.2 mg/dl (8.6-10.3); Carbon Dioxide 25.0 mmol/L (21-32); Chloride 112.0 mmol/L (98-107); Creatinine Clr Calc Pharmacy 20.0 ml/min; Glucose 101.0 mg/dl (70-99(Fasting)); Potassium 4.5 mmol/L (3.5-5.1); Sodium 143.0 mmol/L (136-145)
--- NOTE | 2025-01-21 10:26 | Nephrology Progress Note ---
Date of Service January 21, 2025 Assessment & Plan Admission and Anticipated Discharge Date Admission Date: January 19, 2025 Subjective Assessment & Plan (1) ART (acute kidney injury): Baseline creat around 2 and On Adx was 2.2 and now 2.38. Acute part is minimal and is mostly CKD 4. Given elevated WBC , Drop in hgb, fever/nausea/vomiting---She most likely had hemodynamic ART in this setting. NO hydronephrosis. UA was bland. NO need for further workup. 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 Creat today same as yesterday at 2.38 so likely ART has peaked. She does have severe problem with edema so conitnue torsemide 30 daily like at home. hold losartan for now. Dont give IVF. Dont think she is volume depleted. She will not get to her regular baseline quickly with her age, Underlying CKD 4 and various Co-morbidities which all slows down renal recovery. She had BRBPR yesterday morning but apparently none since. GI evaluation done and I reviewed. last hgb was 7.9. Will give one dose of procrit 38773 units and venofer 300 mg x 1 for quicker Anemia recovery--with her CKD 4 Anemia likely to recover slowly. (2) CKD (chronic kidney disease), stage IV: baseline CKD 4 with b/l renal atrophy sec to DM and various Comorbid Dz. Baseline creat about 2. (3) Leukocytosis: On IV ancef and Doxycycline. Blood C/s x 1 +ve for GPC clusters. WBC now normal and no fever so did respond. S--no new issues. amking urine. NO further GI bleed. Did see GI and refused Scopes. ROS--See HPI. 12 Systems otherwise negative Physical Exam Physical Exam: General- Not in acute distress. AAO x 3. Normal accurate speech. MM moist. Neck Supple. NO JVD Lungs- clear to auscultation no wheezing or crackles Heart- regular rhythm; no murmur, no gallop. Abdomen- soft, nontender, no distension Extremities- b/l lower extremity edema L>>Rt. erythematous with tiny blisters more in left. Neuro- alert, oriented Results & Data Vital Signs (Past 12 Hours) Vital Signs Temp Pulse Pulse Resp BP BP Pulse Ox 01/21/25 08:28 36.7 C 60 18 131/66 96 01/21/25 07:44 66 01/21/25 03:00 36.7 C 66 18 101/61 94 01/20/25 22:40 65 01/20/25 22:36 36.9 C 66 18 155/68 H 96 O2 Del Method 01/21/25 08:28 Room Air 01/21/25 07:44 01/21/25 03:00 Room Air 01/20/25 22:40 01/20/25 22:36 Room Air
--- NOTE | 2025-01-21 11:20 | Gastroenterology Progress Note ---
Date of Service January 21, 2025 Assessment & Plan (1) Rectal bleeding: Plan: 84 year old female with history of T2DM, CKDIV, HTN, hyperlipidemia, gouty arthritis, hyperphosphatemia, diabetic peripheral angiopathy, sleep apnea, chronic diastolic, CHF, venous insufficiency, CAD, bilateral carotid artery stenosis, s/p carotid artery stent placement, status post carotid endarterectomy, peripheral vascular disease, morbid obesity, cirrhosis, anemia of chronic renal failure presenting w/ fevers, nausea, vomiting and weakness - admitted w/ left leg cellulitis. GI asked to evaluate for an isolated episode of painless hematochezia which occurred 01/20. No further episodes of rectal bleeding, however, HGB did downtrend. Pt currently not agreeable to endoscopic evaluation unless evidence of active, recurrent GI bleeding 1. Rectal bleeding, suspected lower GI bleeding - DDX discussed, diverticular vs hemorrhoids vs AVM vs other - VSS stable - Trend H&H - Monitor and document GI output - Transfuse PRN per primary team - Check stool PCR and c.diff if bleeding persists - Hold ASA/Plavix - She notes she is not agreeable to endoscopic evaluation at present but would re-consider if bleeding persists - Will re-evaluate on afternoon rounds I spent a total of 40 minutes on the date of service in review of patient's record, and previously obtained information in person and appropriate medical visit, discussion and education of plan, with patient and/or caregiver, placing orders for tests/referral/procedures as medically necessary and documentation of pertinent clinical information in patient's medical records for their visit today. Admission and Anticipated Discharge Date Admission Date: January 19, 2025 Supervising Physician Co-Signing Physician Notes I saw and examined this patient with our nurse practitioner and agree with her assessment and plan. No further rectal bleeding no signs of GI blood loss. Call if any recurrence of symptoms. Otherwise she can follow-up with us as an outpatient. Subjective Case discussed w/ nursing who report she had one isolated episode of rectal bleeding early AM of 01/20. No further BMs yesterday or this AM. Tolerating PO intake. No abd pain. No nausea/vomiting. No fever, chills, CP, SOB. Review of Systems Review of Systems: All other findings negative except as noted in HPI. Physical Exam Gastrointestinal (Abdomen): normal bowel sounds, soft, nontender, no hepatosplenomegaly Results & Data Results & Data Vital Signs (Past 12 Hours) Vital Signs Temp Pulse Pulse Resp BP BP Pulse Ox 01/21/25 08:28 98.1 F 60 18 131/66 96 01/21/25 07:44 66 01/21/25 03:00 98.1 F 66 18 101/61 94 O2 Del Method 01/21/25 08:28 Room Air 01/21/25 07:44 01/21/25 03:00 Room Air Laboratory Results 01/21/25 01/21/25 01/21/25 Range/Units 11:15 08:03 05:53 WBC 7.57 (4.8-10.8) K/ul RBC 2.73 L (4.20-5.40) M/uL Hgb 7.9 L (12.0-16.0) g/dl Hct 25.0 L (37.0-47.0) % MCV 91.6 (80.0-100.0) fL MCH 28.9 (25.0-34.0) pg MCHC 31.6 L (32.0-36.0) g/dL RDW Std Deviation 58.3 H (36.4-46.3) fL RDW Coeff of Yoel 17.6 H (11.5-14.5) % Plt Count 131 (130-400) K/uL MPV 12.9 H (9.4-12.4) fL Sodium 143 (136-145) mmol/L Potassium 4.5 (3.5-5.1) mmol/L Chloride 112 H (98-107) mmol/L Carbon Dioxide 25 (21-32) mmol/L Anion Gap 6 (3-11) BUN 72 H (6-23) mg/dl Creatinine 2.38 H (0.6-1.2) mg/dl Est Cr Clr Drug Dosing 20.0 ml/min eGFR 19.87 BUN/Creatinine Ratio 30.3 H (10-20) Glucose 101 H (70-99(Fasting)) mg/dl POC Glucose 198 H 126 H (70-99) mg/dl Calcium 8.2 L (8.6-10.3) mg/dl 01/20/25 01/20/25 01/20/25 Range/Units 21:08 20:08 17:16 WBC (4.8-10.8) K/ul RBC (4.20-5.40) M/uL Hgb 9.0 L (12.0-16.0) g/dl Hct 28.5 L (37.0-47.0) % MCV (80.0-100.0) fL MCH (25.0-34.0) pg MCHC (32.0-36.0) g/dL RDW Std Deviation (36.4-46.3) fL RDW Coeff of Yoel (11.5-14.5) % Plt Count (130-400) K/uL MPV (9.4-12.4) fL Sodium (136-145) mmol/L Potassium (3.5-5.1) mmol/L Chloride (98-107) mmol/L Carbon Dioxide (21-32) mmol/L Anion Gap (3-11) BUN (6-23) mg/dl Creatinine (0.6-1.2) mg/dl Est Cr Clr Drug Dosing ml/min eGFR BUN/Creatinine Ratio (10-20) Glucose (70-99(Fasting)) mg/dl POC Glucose 245 H 158 H (70-99) mg/dl Calcium (8.6-10.3) mg/dl 01/20/25 01/20/25 Range/Units 14:32 11:51 WBC (4.8-10.8) K/ul RBC (4.20-5.40) M/uL Hgb 9.8 L (12.0-16.0) g/dl Hct 31.3 L (37.0-47.0) % MCV (80.0-100.0) fL MCH (25.0-34.0) pg MCHC (32.0-36.0) g/dL RDW Std Deviation (36.4-46.3) fL RDW Coeff of Yoel (11.5-14.5) % Plt Count (130-400) K/uL MPV (9.4-12.4) fL Sodium (136-145) mmol/L Potassium (3.5-5.1) mmol/L Chloride (98-107) mmol/L Carbon Dioxide (21-32) mmol/L Anion Gap (3-11) BUN (6-23) mg/dl Creatinine (0.6-1.2) mg/dl Est Cr Clr Drug Dosing ml/min eGFR BUN/Creatinine Ratio (10-20) Glucose (70-99(Fasting)) mg/dl POC Glucose 186 H (70-99) mg/dl Calcium (8.6-10.3) mg/dl PG Care Time/CCT Total # of Minutes Spent Total Time Spent with Patient: Total time spent is greater than 50% in coordination of care (as documented) at patient's floor/unit and/or counseling patient: Coding Level of Care Code 37268 SUB INP/OBS CARE 2/35MIN Diagnoses Rectal bleeding K62.5
[2025-01-21] MEDS: IRON SUCROSE 300 MG in SODIUM CHLORIDE 0.9% 250 ML IV ONE (11:52)
--- NOTE | 2025-01-21 14:09 | Hospitalist Progress Note ---
Date of Service January 21, 2025 Assessment & Plan (1) Acute febrile illness: Plan: 84-year-old female with past medical history significant for type 2 diabetes, CKD stage IV, hyperlipidemia, gouty arthritis, hyperphosphatemia, diabetic peripheral angiopathy, sleep apnea, chronic diastolic CHF, venous insufficiency, CAD, hypertension, bilateral carotid artery stenosis, s/p carotid artery stent placement, status post carotid endarterectomy, peripheral vascular disease, morbid obesity, cirrhosis of liver, diverticulosis of colon, anemia of chronic renal failure, history of DVT, who lives at home with her comes because of nausea vomiting and weakness. Patient states today she was very weak and could not ambulate. Complains of having nausea and vomiting. In the ER she was spiking temperatures. Received Zofran and Tylenol in the ER and also Rocephin. Currently resting comfortably. Currently nausea is improved. She has chronic bilateral leg swelling left greater than right. She has some erythematous changes in the legs and mild warmth which patient states no change. Denies any chest pain. Denies shortness of breath. Denies cough. Denies headache. No runny nose or sore throat. No abdominal pain. Normal bowel and bladder movements. Currently hemodynamics are okay. Left leg cellulitis--POA Sepsis--POA H/O lymphedema --Venous Doppler:No evidence of DVT seen in bilateral lower extremities. -- Blood cultures: 1 out of 4 blood cultures positive for staph lugdunensis and repeat blood cultures are pending --Lactic acid 1.5, procalcitonin 0.5 --UA within normal limits, bio fire negative --Continue IV Rocephin, doxycycline changed to IV cefazolin, doxycycline PT OT evaluation as able Leukocytosis trending down Clinically much better with improvement of the leg swelling and redness- will continue current antibiotic Rectal bleeding Suspected lower GI bleed Hold aspirin, Plavix Avoid anticoagulation Monitor H&H and transfuse as needed Appreciate GI input and recommendation Check stool studies if develops any diarrhea Aspirin and Plavix remain on hold Abnormal blood cultures /4 Blood Cx: Staph lugdunesis ? Contamination Repeat blood cultures Empirically on cefazolin, doxycycline Await ID input Nausea, vomiting Generalized weakness --CT ABD:Bowel loops are nondilated. The appendix is absent. There is mild diverticulosis of the lower left and sigmoid colon without evidence of acute diverticulitis. 1.5 x 6.6 cm area of subcutaneous edema in the anterior abdominal wall. Possible contusion versus chronic medication injection site. -- Tolerating regular diet --Resolved ART on CKD stage IV Baseline creatinine ~ 2 Setting of volume overload Cr 2.38 today Continue to hold losartan Resume torsemide at 30 mg daily per nephrology Appreciate nephrology input Avoid nephrotoxic agents as able Monitor renal function Kidney function remains stable the patient was advised to drink more fluid She has been making out enough urine Mild troponin elevation Likely demand ischemia in setting of renal insufficiency Patient denies any chest pain, dyspnea ECHO showed no wall motion abnormality Troponin trending down DM II HbA1c 7.7 Continue insulin per protocol Monitor blood glucose levels Gout Continue allopurinol Hypertension Amlodipine, Imdur, metoprolol tartrate Hold losartan due to ART Monitor BP and adjust medications as needed Hyperlipidemia Continue statin and Zetia Anemia of chronic kidney disease Monitor CBC Obstructive sleep apnea CPAP nightly Chronic diastolic CHF Monitor for volume overload Continue isosorbide, metoprolol Continue torsemide as above CAD S/P stents Continue aspirin, Plavix, statin and beta-bakari Peripheral artery disease H/O Carotid artery disease Chronic venous insufficiency S/P Right carotid endarterectomy S/P Right carotid stenting for restenosis Continue aspirin, Plavix and statin-On hold now History of DVT provoked in 2019 was on Coumadin for 3 months Morbid obesity BMI 43 Lifestyle changes recommended Chronic ambulatory dysfunction Uses walker at baseline Fall precautions DVT Px Heparin SQ CODE STATUS Full code Disposition PT OT prior to discharge Admission and Anticipated Discharge Date Admission Date: January 19, 2025 Subjective 01/21/2025 The patient was seen and examined in medical telemetry unit She has been much better and denies any more bleeding per rectum Her left leg cellulitis has improved as well Denies any other significant symptoms Review of Systems Review of Systems: All systems reviewed and are unremarkable except as noted below Physical Exam Physical Exam: Lying in bed without any acute distress Constitutional: well developed, well nourished and + obese; not ill appearing Eyes: PERRL, conjunctivae normal, anicteric sclerae ENMT: external ear and nose normal, oropharynx normal Neck: trachea midline, no thyromegaly Respiratory: no respiratory distress Auscultation: + crackles; + lungs not clear to auscultation Cardiovascular: Rate/Rhythm: regular rate and regular rhythm; not tachycardic Heart Sounds: normal S1 and normal S2; no abnormal opening sounds Gastrointestinal (Abdomen): Inspection/Auscultation: normal bowel sounds; abdomen not distended Percussion/Palpation: abdomen soft; abdomen nontender Musculoskeletal: no acute arthritis involving any of the joint Skin: trace to 1+ edema on the left side with chronic skin changes and some redness Neurologic: normal touch/pain/proprioception and moves all extremities; no focal motor deficits Results & Data Results & Data Vital Signs (Past 12 Hours) Vital Signs Temp Pulse Pulse Resp BP BP Pulse Ox 01/21/25 11:35 36.8 C 74 18 120/71 96 01/21/25 08:28 36.7 C 60 18 131/66 96 01/21/25 08:00 01/21/25 07:44 66 01/21/25 03:00 36.7 C 66 18 101/61 94 O2 Del Method 01/21/25 11:35 Room Air 01/21/25 08:28 Room Air 01/21/25 08:00 Room Air 01/21/25 07:44 01/21/25 03:00 Room Air Laboratory Results Short CBC 01/20/25 01/20/25 01/21/25 Range/Units 14:32 21:08 05:53 WBC 7.57 (4.8-10.8) K/ul Hgb 9.8 L 9.0 L 7.9 L (12.0-16.0) g/dl Hct 31.3 L 28.5 L 25.0 L (37.0-47.0) % Plt Count 131 (130-400) K/uL BMP 01/21/25 05:53 Sodium 143 Potassium 4.5 Chloride 112 H Carbon Dioxide 25 BUN 72 H Creatinine 2.38 H Glucose 101 H Calcium 8.2 L Medications Administered Current Inpatient Medications Acetaminophen (Acetaminophen 325 Mg Tab) 650 mg PO Q4H PRN PRN Reason: Pain or Fever Stop: 02/18/25 05:23 Allopurinol (Allopurinol 100 Mg Tab) 200 mg PO DAILY DENISSE Stop: 02/18/25 08:59 Last Admin: 01/21/25 09:26 Dose: 200 mg Amlodipine Besylate (Amlodipine Besylate 5 Mg Tab) 2.5 mg PO HS DENISSE Stop: 02/18/25 20:59 Last Admin: 07/28/25 21:22 Dose: 2.5 mg Aspirin (Aspirin 81 Mg Ectab) 81 mg PO DAILY DENISSE Stop: 02/18/25 08:59 Last Admin: 01/19/25 08:35 Dose: 81 mg Atorvastatin Calcium (Atorvastatin 40 Mg Tab) 80 mg PO DAILY DENISSE Stop: 02/18/25 08:59 Last Admin: 01/21/25 09:25 Dose: 80 mg Cetirizine HCl (Cetirizine Hcl 10 Mg Tablet) 10 mg PO DAILY DENISSE Stop: 02/18/25 08:59 Last Admin: 01/21/25 09:27 Dose: 10 mg Clopidogrel Bisulfate (Clopidogrel Bisulfate 75 Mg Tab) 75 mg PO BID DENISSE Stop: 02/18/25 08:59 Last Admin: 01/20/25 08:13 Dose: 75 mg Dextrose (Dextrose 50% 50 Ml Syringe) 25 - 50 ml IV UD PRN; Protocol PRN Reason: Hypoglycemia Protocol Stop: 02/18/25 05:23 Doxycycline Hyclate (Doxycycline Hyclate 100 Mg Cap) 100 mg PO BID DENISSE Stop: 01/26/25 08:59 Last Admin: 01/21/25 09:25 Dose: 100 mg Ezetimibe (Ezetimibe 10 Mg Tab) 10 mg PO DAILY DENISSE Stop: 02/18/25 08:59 Last Admin: 01/21/25 09:26 Dose: 10 mg Gabapentin (Gabapentin 100 Mg Cap) 100 mg PO HS DENISSE Stop: 02/18/25 20:59 Last Admin: 01/20/25 21:21 Dose: 100 mg Glucagon (Glucagon For Inj 1 Mg Vial) 1 mg SQ UD PRN; Protocol PRN Reason: Hypoglycemia Protocol Stop: 02/18/25 05:23 Glucose (Glucose 40% Gel 15 Gm Tube) 15 - 30 gm PO UD PRN; Protocol PRN Reason: Hypoglycemia Protocol Stop: 02/18/25 05:23 Glucose (Glucose 10 Tab/Tube) 4 - 8 tab PO UD PRN; Protocol PRN Reason: Hypoglycemia Protocol Stop: 02/18/25 05:23 Heparin Sodium (Porcine) (Heparin Sod 5,000 Unit/0.5 Ml Vial) 7,500 units SQ Q12 DENISSE Stop: 02/18/25 08:59 Last Admin: 01/19/25 21:15 Dose: 7,500 units Cefazolin Sodium (Ancef 2000mg) 2,000 mg in 15 mls @ 3.75 mls/min IV Q12H DENISSE Stop: 02/03/25 13:59 Last Admin: 01/21/25 01:10 Dose: 3.75 mls/min Insulin Aspart (Insulin Aspart Per Unit Charge) 0 units SC ACHS DENISSE Stop: 02/18/25 11:29 Last Admin: 01/21/25 13:16 Dose: 7 units Insulin Glargine (Lantus Per Unit Charge) 22 units SQ HS DENISSE Stop: 02/18/25 20:59 Last Admin: 01/20/25 21:23 Dose: 22 units Isosorbide Mononitrate (Isosorbide [place] Extended Rel 30 Mg Tabcr) 90 mg PO DAILY DENISSE Stop: 02/18/25 08:59 Last Admin: 01/21/25 09:25 Dose: 90 mg Lactobacillus Acidophilus (Advanced Probiotic 625 Mg Capsule) 1,250 mg PO DAILY DENISSE Stop: 02/18/25 08:59 Last Admin: 01/21/25 09:24 Dose: 1,250 mg Metoprolol Tartrate (Metoprolol Tartrate 100 Mg Tab) 100 mg PO BID DENISSE Stop: 02/18/25 08:59 Last Admin: 01/21/25 09:27 Dose: 100 mg Miscellaneous (Carbohydrates For Hypoglycemia ) 15 - 30 gm PO UD PRN PRN Reason: Hypoglycemia Protocol Stop: 02/18/25 05:23 Multivitamins (Multivitamin Tab) 1 tab PO DAILY DENISSE Stop: 02/18/25 08:59 Last Admin: 01/21/25 09:28 Dose: 1 tab Nitroglycerin (Nitroglycerin Sl 0.4 Mg/Tab Tab) 0.4 mg SL Q5M PRN PRN Reason: Chest Pain Stop: 02/18/25 05:23 Nystatin (Nystatin Powder 15gm Btl) 1 appln EXT DAILY DENISSE Stop: 02/18/25 08:59 Last Admin: 01/21/25 09:27 Dose: 1 appln Ondansetron HCl (Ondansetron Inj 2 Mg/Ml 2 Ml Vial) 4 mg IV Q6H PRN PRN Reason: Nausea Stop: 02/18/25 05:23 Potassium Chloride (Potassium Chloride 10 Meq Tabcr) 10 meq PO DAILY DENISSE Stop: 02/18/25 08:59 Last Admin: 01/21/25 09:37 Dose: 10 meq Torsemide (Torsemide 10 Mg Tab) 30 mg PO [facility] Stop: 02/19/25 09:59 Last Admin: 01/21/25 09:29 Dose: 30 mg
--- NOTE | 2025-01-21 15:07 | Infectious Disease Consult ---
Date of Service January 21, 2025 Telehealth Information I performed this visit using a real-time telehealth connection between my location and the patients location ([facility]). After connecting through interactive tele-video, patient was identified by name and date of and/or wristband check.Patient (or authorized healthcare guest service representative) was informed that this was a telemedicine visit and it was being conducted confidentially over secure lines. My office door was closed and no one else was present in the room with me.Patient (or authorized healthcare guest service representative) provided consent to proceed with the visit, expressed an understanding of privacy and security of the telemedicine visit, and gave permission to have a hospital guest service representative in the room in order to assist with the visit and to conduct portions of the visit, as needed. I informed the patient (or authorized healthcare guest service representative) that I reviewed their record and presented the opportunity for them to ask any questions regarding the visit today. The patient agreed to participate. Assessment & Plan (1) Rectal bleeding: (2) Coagulase negative Staphylococcus bacteremia: Plan: Assessment: MS Romelia juan bacteremia (low burden) R/o LLE cellulitis Rectal bleeding ART on CKD IV Recommendations: - Continue cefazolin 2 gm iv q12 hours while inpatient - Anticipate total 2 weeks of abx therapy from 01/20/25 to 02/02/25 - When ready for hospital discharge, may switch cefazolin to cephalexin 1000 mg po q 12 hours for CrCl ~20 (cefadroxil 500 mg po bid is another option). - Probiotic while on abx I wonder if this bacteremia which appears to be transient in nature is from cellulitis (but she does not have usual symptoms/signs but swelling and some erythema in LLE w/ hx of chronic lymphedema) or translocation for rectal bleeding. Either way, the patient does not appear to need a long-term abx therapy. During this patient encounter, one or more of the following was provided in addition to my in person visit: disease transmission risk assessment and mitigation; public health investigation, analysis, and testing; and/or complex antimicrobial therapy counseling and treatment. I spent a total of 68 minutes coordinating, documenting, and providing care for this patient excluding time spent in the performance of separately billed services or time spent by another provider/QHP. (3) Cellulitis of left leg: History of Present Illness History of Present Illness This is an 84 y/o morbidly obese female ([place]) w/ hx of DM2, CKD IV, HLD, gouty arhritis, CHF, venous insufficiency w/ chronic LE lymphedema, CAD, HTN, b/l carotid artery stenosis s/p stent placement and endarterectomy, liver cirrhosis, DVT and chronic anemia, who presented w/ n/v and generalized weakness w/ fever on 01/18/25 w/ presumed diagnosis of L leg cellulitis: but no pain or tenderness on LLE per patient. Her legs have been swollen chronically w/ redness when she have her legs done when sitting but redness resolves when lying down again.Fever was noted on admission w/ significant leukocytosis. Currently on doxycycline and cefazolin She is resting comfortably in chair. She has no specific complaint except for bright red blood in BM yesterday. She is constipated. No diarrhea, coughing, cp and sob. No abd pain or n/v. No recent procedure or surgery. No port or CVC. The patient states that she has had blisters in her leg off and on for past 2 years. Allergies Allergy/AdvReac Type Severity Reaction Status Date / Time ibuprofen Allergy Unknown RUNNY NOSE Verified 06/21/22 09:01 hydrocodone AdvReac Severe confusion Verified 06/21/22 09:01 niacin AdvReac Unknown RED RASH Verified 06/21/22 09:01 baclofen AdvReac confusion Verified 06/21/22 09:01 Home Medications Medication Instructions Recorded Confirmed Type allopurinol 100 mg tablet 200 mg PO DAILY 05/27/19 01/18/25 History atorvastatin 80 mg tablet 80 mg PO DAILY 05/27/19 01/18/25 History cetirizine 10 mg tablet (Zyrtec) 10 mg PO DAILY 05/27/19 01/18/25 History insulin aspart U-100 100 unit/mL 1 unit subcut UD 05/27/19 01/18/25 History (3 mL) subcutaneous pen (Novolog FlexPen U-100 Insulin aspart) losartan 100 mg tablet 100 mg PO DAILY 05/27/19 01/18/25 History metoprolol tartrate 100 mg tablet 100 mg PO BID 05/27/19 01/18/25 History multivitamin 1 tab PO DAILY 05/27/19 01/18/25 History aspirin 81 mg capsule 81 mg PO DAILY 05/31/21 01/18/25 History Oxygen Home #1 ea 06/02/21 06/21/22 Rx acetaminophen 500 mg capsule 500 mg PO Q6H PRN Pain 05/09/22 01/18/25 History amlodipine 5 mg tablet See Rx Instructions PO HS 05/09/22 01/18/25 History clopidogrel 75 mg tablet (Plavix) 75 mg PO BID 05/09/22 01/18/25 History ezetimibe 10 mg tablet (Zetia) 10 mg PO DAILY 05/09/22 01/18/25 History nitroglycerin 0.4 mg sublingual 0.4 mg sublingual Q5M PRN Chest 05/09/22 01/18/25 History tablet Pain nystatin 100,000 unit/gram topical 1 applic topical DAILY 05/09/22 01/18/25 History powder torsemide 20 mg tablet 30 mg PO DAILY 05/09/22 01/18/25 History insulin glargine 100 unit/mL (3 44 unit subcut HS 06/21/22 01/18/25 History mL) subcutaneous pen (Lantus Solostar U-100 Insulin) isosorbide mononitrate 60 mg 90 mg PO DAILY 06/21/22 01/18/25 History tablet,extended release 24 hr gabapentin 100 mg capsule 100 mg PO HS 01/18/25 01/18/25 History potassium chloride 10 mEq 10 meq PO DAILY 01/18/25 01/18/25 History tablet,extended release(part/cryst) Patient History Medical History Dyslipidemia History of right common carotid artery stent placement Family History Brother Lung cancer Bone cancer Social History Smoking Status: Never smoker Second Hand Exposure: No; Do You Dip or Chew Tobacco: No; Hx Alcohol Use: No Hx Substance Use: No Preferred Language: Bengali Communication Ability: Effective Visual Impairment: Limited Hearing Ability: Hard of Hearing Cherry Sorter Required: No Beliefs That Will Affect Care: None marital status: Current Living Situation: Family Current Living Situation Comment: home with and granddaughter Other Information That Helps Us Care for You: No Feels Safe at Home: Yes Safety Concerns: Feels Safe At This Time Diet: regular caffeine: Yes during the past year weight has: decreased > 10 lbs Assistive Devices: Walker Review of Systems as HPI and all others negative Physical Exam Gen: no acute distress Lungs: breathing comfortably on room air Blister on L calf w/ clear fluid, L leg significantly more swollen compared to R leg, brownish/red discoloration in distal leg b/l w/ non-blanching, no warmth or tenderness per the nursing staff at bedside Results & Data Vital Signs (Past 12 Hours) Vital Signs Temp Pulse Pulse Resp BP BP Pulse Ox 01/21/25 11:35 36.8 C 74 18 120/71 96 01/21/25 08:28 36.7 C 60 18 131/66 96 01/21/25 08:00 01/21/25 07:44 66 01/21/25 03:00 36.7 C 66 18 101/61 94 O2 Del Method 01/21/25 11:35 Room Air 01/21/25 08:28 Room Air 01/21/25 08:00 Room Air 01/21/25 07:44 01/21/25 03:00 Room Air Laboratory Results WBC 26.81K ->-> 7.57K Cr 2.38 (CrCl ~20) Blood cx (01/18): MS S remygdunensis (S to clinda, dapto, linez, oxa, tetra, bact, vanco) Blood cx (01/20): NGTD
[2025-01-21] MEDS: EPOETIN ALFA 10,000 UNITS/ML VIAL SQ ONE (21:15)
[2025-01-22 07:15] LABS: Hematocrit (blood only) 26.3 % (37.0-47.0); Hemoglobin 8.4 g/dl (12.0-16.0); Immature Granulocytes # (auto) 0.05 K/uL (0.01-0.20); Immature Granulocytes % (auto) 0.6 %; Mean Corpuscular Hemoglobin 29.3 pg (25.0-34.0); Mean Corpuscular Volume 91.6 fL (80.0-100.0); Platelet Count 136 K/uL (130-400); RDW Standard Deviation 58.3 fL (36.4-46.3); Red Blood Count 2.87 M/uL (4.20-5.40); White Blood Count 8.14 K/ul (4.8-10.8)
[2025-01-22 08:03] LABS: Anion Gap 7.0 (3-11); Blood Urea Nitrogen 73.0 mg/dl (6-23); Calcium 8.4 mg/dl (8.6-10.3); Carbon Dioxide 25.0 mmol/L (21-32); Chloride 110.0 mmol/L (98-107); Creatinine Clr Calc Pharmacy 19.1 ml/min; Glucose 109.0 mg/dl (70-99(Fasting)); Potassium 4.4 mmol/L (3.5-5.1); Sodium 142.0 mmol/L (136-145)
--- NOTE | 2025-01-22 10:24 | Nephrology Progress Note ---
Date of Service January 22, 2025 Assessment & Plan Admission and Anticipated Discharge Date Admission Date: January 19, 2025 Subjective Assessment & Plan (1) ART (acute kidney injury): Baseline creat around 2 and On Adx was 2.2 and now 2.38. Acute part is minimal and is mostly CKD 4. Given elevated WBC , Drop in hgb, fever/nausea/vomiting---She most likely had hemodynamic ART in this setting. NO hydronephrosis. UA was bland. NO need for further workup. with lower hgb creat did go up slightly from yesterday 2.38 to now 2.46. ART has peaked. She does have severe problem with edema so continue torsemide 30 daily like at home. hold losartan for now and also hold at discharge She will not get to her regular baseline quickly with her age, Underlying CKD 4 and various Co-morbidities which all slows down renal recovery. Gave her one dose of procrit 76156 units and venofer 300 mg x 1 for quicker Anemia recovery--with her CKD 4 Anemia likely to recover slowly. hgb is slightly higher today. NO new GI bleed. For discharge: CBC, renal panel On Monday to be ordered through [facility]. f/u 1-2 weeks after discharge. torsemide 30 daily to continue Hold Losartan till addressed by Nephrology (2) CKD (chronic kidney disease), stage IV: baseline CKD 4 with b/l renal atrophy sec to DM and various Comorbid Dz. Baseline creat about 2. (3) Leukocytosis: On IV ancef and Doxycycline. Blood C/s x 1 +ve for GPC clusters. WBC now normal and no fever so did respond. S--no new issues. amking urine. NO further GI bleed. Did see GI and refused Scopes. ROS--See HPI. 12 Systems otherwise negative Physical Exam Physical Exam: General- Not in acute distress. AAO x 3. Normal accurate speech. MM moist. Neck Supple. NO JVD Lungs- clear to auscultation no wheezing or crackles Heart- regular rhythm; no murmur, no gallop. Abdomen- soft, nontender, no distension Extremities- b/l lower extremity edema L>>Rt. erythematous with tiny blisters more in left. Neuro- alert, oriented Results & Data Vital Signs (Past 12 Hours) Vital Signs Temp Pulse Pulse Resp BP Pulse Ox O2 Del Method 01/22/25 07:19 69 01/22/25 07:09 36.6 C 66 18 123/68 93 Room Air 01/22/25 04:04 37.1 C 68 20 145/67 H 95 Room Air 01/21/25 23:20 36.5 C 67 20 165/80 H 93 Room Air
[2025-01-22 10:36] VITALS: TEMP 97.3
--- NOTE | 2025-01-22 13:08 | Hospitalist Progress Note ---
Date of Service January 22, 2025 Assessment & Plan (1) Acute febrile illness: Plan: 84-year-old female with past medical history significant for type 2 diabetes, CKD stage IV, hyperlipidemia, gouty arthritis, hyperphosphatemia, diabetic peripheral angiopathy, sleep apnea, chronic diastolic CHF, venous insufficiency, CAD, hypertension, bilateral carotid artery stenosis, s/p carotid artery stent placement, status post carotid endarterectomy, peripheral vascular disease, morbid obesity, cirrhosis of liver, diverticulosis of colon, anemia of chronic renal failure, history of DVT, who lives at home with her comes because of nausea vomiting and weakness. Patient states today she was very weak and could not ambulate. Complains of having nausea and vomiting. In the ER she was spiking temperatures. Received Zofran and Tylenol in the ER and also Rocephin. Currently resting comfortably. Currently nausea is improved. She has chronic bilateral leg swelling left greater than right. She has some erythematous changes in the legs and mild warmth which patient states no change. Denies any chest pain. Denies shortness of breath. Denies cough. Denies headache. No runny nose or sore throat. No abdominal pain. Normal bowel and bladder movements. Currently hemodynamics are okay. Left leg cellulitis--POA Sepsis--POA H/O lymphedema --Venous Doppler:No evidence of DVT seen in bilateral lower extremities. -- Blood cultures: 1 out of 4 blood cultures positive for staph lugdunensis and repeat blood cultures are pending --Lactic acid 1.5, procalcitonin 0.5 --UA within normal limits, bio fire negative --Continue IV Rocephin, doxycycline changed to IV cefazolin, doxycycline PT OT evaluation as able Leukocytosis trending down Clinically much better with improvement of the leg swelling and redness- will continue current antibiotic Appreciate ID input and recommendation Will continue with oral Keflex until milligram twice daily or cefadroxil 500 mg twice daily to finish a course of 2 weeks Will finish the course of doxycycline as well for a total of 10 days Rectal bleeding Suspected lower GI bleed Hold aspirin, Plavix Avoid anticoagulation Monitor H&H and transfuse as needed Appreciate GI input and recommendation Check stool studies if develops any diarrhea Aspirin and Plavix remain on hold Will restart aspirin and Plavix Abnormal blood cultures 1/4 Blood Cx: Staph lugdunesis ? Contamination Repeat blood cultures Empirically on cefazolin, doxycycline Await ID input appreciate ID recommendation as above- Nausea, vomiting Generalized weakness --CT ABD:Bowel loops are nondilated. The appendix is absent. There is mild diverticulosis of the lower left and sigmoid colon without evidence of acute diverticulitis. 1.5 x 6.6 cm area of subcutaneous edema in the anterior abdominal wall. Possible contusion versus chronic medication injection site. -- Tolerating regular diet --Resolved ART on CKD stage IV Baseline creatinine ~ 2 Setting of volume overload Cr 2.38 today Continue to hold losartan Resume torsemide at 30 mg daily per nephrology Appreciate nephrology input Avoid nephrotoxic agents as able Monitor renal function Kidney function remains stable the patient was advised to drink more fluid She has been making out enough urine She will need to be evaluated by the peoplesoft programmer patient Mild troponin elevation Likely demand ischemia in setting of renal insufficiency Patient denies any chest pain, dyspnea ECHO showed no wall motion abnormality Troponin trending down DM II HbA1c 7.7 Continue insulin per protocol Monitor blood glucose levels Gout Continue allopurinol Hypertension Amlodipine, Imdur, metoprolol tartrate Hold losartan due to ART Monitor BP and adjust medications as needed Hyperlipidemia Continue statin and Zetia Anemia of chronic kidney disease Monitor CBC Obstructive sleep apnea CPAP nightly Chronic diastolic CHF Monitor for volume overload Continue isosorbide, metoprolol Continue torsemide as abovewill continue torsemide 30 mg daily CAD S/P stents Continue aspirin, Plavix, statin and beta-bakari Peripheral artery disease H/O Carotid artery disease Chronic venous insufficiency S/P Right carotid endarterectomy S/P Right carotid stenting for restenosis Continue aspirin, Plavix and statin-On hold now History of DVT provoked in 2019 was on Coumadin for 3 months Morbid obesity BMI 43 Lifestyle changes recommended Chronic ambulatory dysfunction Uses walker at baseline Fall precautions DVT Px Heparin SQ CODE STATUS Full code Disposition PT OT prior to discharge Will be discharged home this afternoon Admission and Anticipated Discharge Date Admission Date: January 19, 2025 Subjective 01/21/2025 The patient was seen and examined in medical telemetry unit She has been much better and denies any more bleeding per rectum Her left leg cellulitis has improved as well Denies any other significant symptoms 01/22/2025 The patient was seen and examined in medical telemetry unit She has been feeling much better and wants to go home Her leg swelling and redness are improved Denies any significant symptoms Kidney function slightly worse Review of Systems Review of Systems: All systems reviewed and are unremarkable except as noted below Physical Exam Physical Exam: Lying in bed without any acute distress Constitutional: well developed, well nourished and + obese; not ill appearing Eyes: PERRL, conjunctivae normal, anicteric sclerae ENMT: external ear and nose normal, oropharynx normal Neck: trachea midline, no thyromegaly Respiratory: no respiratory distress Auscultation: + crackles; + lungs not clear to auscultation Cardiovascular: Rate/Rhythm: regular rate and regular rhythm; not tachycardic Heart Sounds: normal S1 and normal S2; no abnormal opening sounds Gastrointestinal (Abdomen): Inspection/Auscultation: normal bowel sounds; abdomen not distended Percussion/Palpation: abdomen soft; abdomen nontender Skin: Redness of the left lower extremity has improved Neurologic: normal touch/pain/proprioception and moves all extremities; no focal motor deficits Lymphatic: no cervical or axillary lymphadenopathy Results & Data Results & Data Vital Signs (Past 12 Hours) Vital Signs Temp Pulse Pulse Resp BP Pulse Ox O2 Del Method 01/22/25 10:35 36.3 C L 66 18 129/58 L 95 Room Air 01/22/25 08:00 Room Air 01/22/25 07:19 69 01/22/25 07:09 36.6 C 66 18 123/68 93 Room Air 01/22/25 04:04 37.1 C 68 20 145/67 H 95 Room Air Laboratory Results Short CBC 01/22/25 Range/Units 05:27 WBC 8.14 (4.8-10.8) K/ul Hgb 8.4 L (12.0-16.0) g/dl Hct 26.3 L (37.0-47.0) % Plt Count 136 (130-400) K/uL BMP 01/22/25 05:27 Sodium 142 Potassium 4.4 Chloride 110 H Carbon Dioxide 25 BUN 73 H Creatinine 2.46 H Glucose 109 H Calcium 8.4 L Medications Administered Current Inpatient Medications Acetaminophen (Acetaminophen 325 Mg Tab) 650 mg PO Q4H PRN PRN Reason: Pain or Fever Stop: 02/18/25 05:23 Allopurinol (Allopurinol 100 Mg Tab) 200 mg PO DAILY DENISSE Stop: 02/18/25 08:59 Last Admin: 01/22/25 08:42 Dose: 200 mg Amlodipine Besylate (Amlodipine Besylate 5 Mg Tab) 2.5 mg PO HS [facility] Stop: 02/18/25 20:59 Last Admin: 01/21/25 20:37 Dose: 2.5 mg Aspirin (Aspirin 81 Mg Ectab) 81 mg PO DAILY [facility] Stop: 02/18/25 08:59 Last Admin: 01/19/25 08:35 Dose: 81 mg Atorvastatin Calcium (Atorvastatin 40 Mg Tab) 80 mg PO DAILY [facility]ISSE Stop: 02/18/25 08:59 Last Admin: 01/22/25 08:42 Dose: 80 mg Cephalexin HCl (Cephalexin 500 Mg Cap) 500 mg PO BID [facility]; Protocol Stop: 01/29/25 20:59 Cetirizine HCl (Cetirizine Hcl 10 Mg Tablet) 10 mg PO DAILY [facility] Stop: 02/18/25 08:59 Last Admin: 01/22/25 08:42 Dose: 10 mg Clopidogrel Bisulfate (Clopidogrel Bisulfate 75 Mg Tab) 75 mg PO BID [facility] Stop: 02/18/25 08:59 Last Admin: 01/20/25 08:13 Dose: 75 mg Dextrose (Dextrose 50% 50 Ml Syringe) 25 - 50 ml IV UD PRN; Protocol PRN Reason: Hypoglycemia Protocol Stop: 02/18/25 05:23 Doxycycline Hyclate (Doxycycline Hyclate 100 Mg Cap) 100 mg PO BID [facility] Stop: 01/26/25 08:59 Last Admin: 01/22/25 08:43 Dose: 100 mg Ezetimibe (Ezetimibe 10 Mg Tab) 10 mg PO DAILY [facility] Stop: 02/18/25 08:59 Last Admin: 01/22/25 08:41 Dose: 10 mg Gabapentin (Gabapentin 100 Mg Cap) 100 mg PO HS [facility] Stop: 02/18/25 20:59 Last Admin: 01/21/25 20:37 Dose: 100 mg Glucagon (Glucagon For Inj 1 Mg Vial) 1 mg SQ UD PRN; Protocol PRN Reason: Hypoglycemia Protocol Stop: 02/18/25 05:23 Glucose (Glucose 40% Gel 15 Gm Tube) 15 - 30 gm PO UD PRN; Protocol PRN Reason: Hypoglycemia Protocol Stop: 02/18/25 05:23 Glucose (Glucose 10 Tab/Tube) 4 - 8 tab PO UD PRN; Protocol PRN Reason: Hypoglycemia Protocol Stop: 02/18/25 05:23 Heparin Sodium (Porcine) (Heparin Sod 5,000 Unit/0.5 Ml Vial) 7,500 units SQ Q12 [facility]ISSE Stop: 02/18/25 08:59 Last Admin: 01/19/25 21:15 Dose: 7,500 units Cefazolin Sodium (Ancef 2000mg) 2,000 mg in 15 mls @ 3.75 mls/min IV Q12H [facility]ISSE Stop: 02/03/25 13:59 Last Admin: 01/22/25 01:35 Dose: 3.75 mls/min Insulin Aspart (Insulin Aspart Per Unit Charge) 0 units SC ACHS [facility]ISSE Stop: 02/18/25 11:29 Last Admin: 01/22/25 08:44 Dose: 5 units Insulin Glargine (Lantus Per Unit Charge) 22 units SQ HS [facility] Stop: 02/18/25 20:59 Last Admin: 01/21/25 20:51 Dose: 22 units Isosorbide Mononitrate (Isosorbide [place] Extended Rel 30 Mg Tabcr) 90 mg PO DAILY [facility] Stop: 02/18/25 08:59 Last Admin: 01/22/25 08:40 Dose: 90 mg Lactobacillus Acidophilus (Advanced Probiotic 625 Mg Capsule) 1,250 mg PO DAILY [facility]ISSE Stop: 02/18/25 08:59 Last Admin: 01/22/25 08:42 Dose: 1,250 mg Metoprolol Tartrate (Metoprolol Tartrate 100 Mg Tab) 100 mg PO BID [facility] Stop: 02/18/25 08:59 Last Admin: 01/22/25 08:42 Dose: 100 mg Miscellaneous (Carbohydrates For Hypoglycemia ) 15 - 30 gm PO UD PRN PRN Reason: Hypoglycemia Protocol Stop: 02/18/25 05:23 Multivitamins (Multivitamin Tab) 1 tab PO DAILY [facility]ISSE Stop: 02/18/25 08:59 Last Admin: 01/22/25 08:41 Dose: 1 tab Nitroglycerin (Nitroglycerin Sl 0.4 Mg/Tab Tab) 0.4 mg SL Q5M PRN PRN Reason: Chest Pain Stop: 02/18/25 05:23 Nystatin (Nystatin Powder 15gm Btl) 1 appln EXT DAILY [facility]ISSE Stop: 02/18/25 08:59 Last Admin: 01/22/25 08:43 Dose: 1 appln Ondansetron HCl (Ondansetron Inj 2 Mg/Ml 2 Ml Vial) 4 mg IV Q6H PRN PRN Reason: Nausea Stop: 02/18/25 05:23 Potassium Chloride (Potassium Chloride 10 Meq Tabcr) 10 meq PO DAILY [facility] Stop: 02/18/25 08:59 Last Admin: 01/22/25 08:48 Dose: 10 meq Torsemide (Torsemide 10 Mg Tab) 30 mg PO QAM [facility] Stop: 02/19/25 09:59 Last Admin: 01/22/25 08:41 Dose: 30 mg
[2025-01-22 14:27] VITALS: BP 100/61; RESP 16; O2SAT 96
[2025-01-22 16:47] VITALS: PULSE 63
--- NOTE | 2025-01-22 16:47 | Discharge Summary ---
Date of Service January 22, 2025 Admission HPI Per Admitting Provider 84-year-old female with past medical history significant for type 2 diabetes, CKD stage IV, hyperlipidemia, gouty arthritis, hyperphosphatemia, diabetic peripheral angiopathy, sleep apnea, chronic diastolic CHF, venous insufficiency, CAD, hypertension, bilateral carotid artery stenosis, s/p carotid artery stent placement, status post carotid endarterectomy, peripheral vascular disease, morbid obesity, cirrhosis of liver, diverticulosis of colon, anemia of chronic renal failure, history of DVT, who lives at home with her comes because of nausea vomiting and weakness. Patient states today she was very weak and could not ambulate. Complains of having nausea and vomiting. In the ER she was spiking temperatures. Received Zofran and Tylenol in the ER and also Rocephin. Currently resting comfortably. Currently nausea is improved. She has chronic bilateral leg swelling left greater than right. She has some erythematous changes in the legs and mild warmth which patient states no change. Denies any chest pain. Denies shortness of breath. Denies cough. Denies headache. No runny nose or sore throat. No abdominal pain. Normal bowel and bladder movements. Currently hemodynamics are okay. Past medical history. As mentioned above Past surgical history. Left total knee arthroplasty. Colonoscopy. Combined right and left heart catheterization. Appendectomy. Cholecystectomy. Sacroiliac joint injection. Carotid artery endarterectomy. Right carotid stent placement. Total abdominal hysterectomy with removal of tubes. Vaginal hysterectomy. Social history. . No smoking. No alcohol use. No drug use. Family history. Maternal aunt had breast cancer. Son of massive KS at age of 30. Admission Exam Per Admitting Provider Physical Exam: General- Not in acute distress Head- atraumatic Eyes- PERRL. ENT- oropharynx clear Neck- supple, no JVD. Lungs- clear to auscultation no wheezing or crackles Heart- regular rhythm; no murmur, no gallop. Abdomen- normal bowel sounds, soft, nontender, no distension Extremities- b/l lower extremity edema L>>Rt. Distal part of legs erythematous and warm to palpation Neuro- alert, oriented PERRL, no facial palsy; no dysarthria; moves extremities Principal Diagnosis Left leg cellulitis, rectal bleeding, ART on CKD Discharge Exam Lying in bed without any acute distress Constitutional well developed, well nourished and + obese; not ill appearing Eyes PERRL, conjunctivae normal, anicteric sclerae ENMT external ear and nose normal, oropharynx normal Neck trachea midline, no thyromegaly Respiratory no respiratory distress Auscultation: + crackles; + lungs not clear to auscultation Cardiovascular Rate/Rhythm: regular rate and regular rhythm; not tachycardic Heart Sounds: normal S1 and normal S2; no abnormal opening sounds Gastrointestinal (Abdomen) Inspection/Auscultation: normal bowel sounds; abdomen not distended Percussion/Palpation: abdomen soft; abdomen nontender Neurologic normal touch/pain/proprioception and moves all extremities; no focal motor deficits Lymphatic no cervical or axillary lymphadenopathy Discharge Data Allergies Allergy/AdvReac Type Severity Reaction Status Date / Time ibuprofen Allergy Unknown RUNNY NOSE Verified 06/21/22 09:01 hydrocodone AdvReac Severe confusion Verified 06/21/22 09:01 niacin AdvReac Unknown RED RASH Verified 06/21/22 09:01 baclofen AdvReac confusion Verified 06/21/22 09:01 Consultations 01/18/25 22:53 ED Decision to Admit Stat 01/20/25 08:27 Consult Nephrology Routine 01/20/25 09:52 Consult Gastroenterology Routine 01/20/25 12:44 Consult Infectious Diseases Routine Ordered Studies 01/18/25 19:16 CT abd pelvis wo con Stat CT head/brain wo con Stat 01/19/25 05:24 US venous doppler [facility] Urgent Hospital Course (1) Acute febrile illness: 84-year-old female with past medical history significant for type 2 diabetes, CKD stage IV, hyperlipidemia, gouty arthritis, hyperphosphatemia, diabetic peripheral angiopathy, sleep apnea, chronic diastolic CHF, venous insufficiency, CAD, hypertension, bilateral carotid artery stenosis, s/p carotid artery stent placement, status post carotid endarterectomy, peripheral vascular disease, morbid obesity, cirrhosis of liver, diverticulosis of colon, anemia of chronic renal failure, history of DVT, who lives at home with her comes because of nausea vomiting and weakness. Patient states today she was very weak and could not ambulate. Complains of having nausea and vomiting. In the ER she was spiking temperatures. Received Zofran and Tylenol in the ER and also Rocephin. Currently resting comfortably. Currently nausea is improved. She has chronic bilateral leg swelling left greater than right. She has some erythematous changes in the legs and mild warmth which patient states no change. Denies any chest pain. Denies shortness of breath. Denies cough. Denies headache. No runny nose or sore throat. No abdominal pain. Normal bowel and bladder mov ements. Currently hemodynamics are okay. Left leg cellulitis--POA Sepsis--POA H/O lymphedema --Venous Doppler:No evidence of DVT seen in bilateral lower extremities. -- Blood cultures: 1 out of 4 blood cultures positive for staph lugdunensis and repeat blood cultures are pending --Lactic acid 1.5, procalcitonin 0.5 --UA within normal limits, bio fire negative --Continue IV Rocephin, doxycycline changed to IV cefazolin, doxycycline PT OT evaluation as able Leukocytosis trending down Clinically much better with improvement of the leg swelling and redness- will continue current antibiotic Appreciate ID input and recommendation Will continue with oral Keflex until milligram twice daily or cefadroxil 500 mg twice daily to finish a course of 2 weeks Will finish the course of doxycycline as well for a total of 10 days Rectal bleeding Suspected lower GI bleed Hold aspirin, Plavix Avoid anticoagulation Monitor H&H and transfuse as needed Appreciate GI input and recommendation Check stool studies if develops any diarrhea Aspirin and Plavix remain on hold Will restart aspirin and Plavix Abnormal blood cultures / Blood Cx: Staph lugdunesis ? Contamination Repeat blood cultures Empirically on cefazolin, doxycycline Await ID input appreciate ID recommendation as above- Nausea, vomiting Generalized weakness --CT ABD:Bowel loops are nondilated. The appendix is absent. There is mild diverticulosis of the lower left and sigmoid colon without evidence of acute diverticulitis. 1.5 x 6.6 cm area of subcutaneous edema in the anterior abdominal wall. Possible contusion versus chronic medication injection site. 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 Mild troponin elevation Likely demand ischemia in setting of renal insufficiency Patient denies any chest pain, dyspnea ECHO showed no wall motion abnormality Troponin trending down DM II HbA1c 7.7 Continue insulin per protocol Monitor blood glucose levels Gout Continue allopurinol Hypertension Amlodipine, Imdur, metoprolol tartrate Hold losartan due to ART Monitor BP and adjust medications as needed Hyperlipidemia Continue statin and Zetia Anemia of chronic kidney disease Monitor CBC Obstructive sleep apnea CPAP nightly Chronic diastolic CHF Monitor for volume overload Continue isosorbide, metoprolol Continue torsemide as abovewill continue torsemide 30 mg daily CAD S/P stents Continue aspirin, Plavix, statin and beta-bakari Peripheral artery disease H/O Carotid artery disease Chronic venous insufficiency S/P Right carotid endarterectomy S/P Right carotid stenting for restenosis Continue aspirin, Plavix and statin-On hold now History of DVT provoked in 2019 was on Coumadin for 3 months Morbid obesity BMI 43 Lifestyle changes recommended Chronic ambulatory dysfunction Uses walker at baseline Fall precautions DVT Px Heparin SQ CODE STATUS Full code Disposition PT OT prior to discharge Will be discharged home this afternoon Total Time Total Time Spent Total Time Spent (In Minutes): 35 Minutes Discharge Plan Discharge Items Patient Disposition: Home - Self-Care Reason For Visit: N/V, WEAKNESS, CELLULITIS? ELEVATED TROPONIN Discharge Diagnosis: Left leg cellulitis, rectal bleeding, ART on CKD Condition on Discharge: Fair Non-emergency contact: Primary Care Provider Call non-emergency contact if: you have any medication questions and your symptoms worsen Follow-up/Referrals: Anamaria Michel MD [Primary Care Provider] - 01/28/25 1:10 pm (Date & Time 01/28/2025 1:10 PM Provider: Irasema Ulloa, Family Medicine [facility]) Diet: Heart Healthy Addtl Attending Provider Instructions: Please take precautions to avoid falls Finish the course of antibiotic and take probiotics with it Please keep appointments with your PCP and have the kidney function checked Try to drink more fluid Please give appointment with your kidney specialist Pending Studies at Discharge: No Stand-Alone Forms: [email or web address], Smoking Cessation Medications and DC Order Prescriptions: New cephalexin 500 mg Capsule 1,000 mg PO BID Qty: 40 0RF Lactobacillus acidoph-L. bifid 1 billion cell wafer 1 tab PO DAILY Qty: 14 0RF Rx Instructions: administer (preferably) with milk Continued clopidogrel [Plavix] 75 mg tablet 75 mg PO BID ezetimibe [Zetia] 10 mg tablet 10 mg PO DAILY nitroglycerin 0.4 mg tablet, sublingual 0.4 mg sublingual Q5M PRN (Reason: Chest Pain) Rx Instructions: do not exceed 3 doses per episode nystatin 100,000 unit/gram powder 1 applic topical DAILY torsemide 20 mg tablet 30 mg PO DAILY acetaminophen 500 mg capsule 500 mg PO Q6H PRN (Reason: Pain) multivitamin Tablet 1 tab PO DAILY atorvastatin 80 mg Tablet 80 mg PO DAILY cetirizine [Zyrtec] 10 mg Tablet 10 mg PO DAILY metoprolol tartrate 100 mg Tablet 100 mg PO BID allopurinol 100 mg Tablet 200 mg PO DAILY insulin aspart U-100 [Novolog FlexPen U-100 Insulin] 100 unit/mL (3 mL) Insulin Pen 1 unit SUBCUT UD Rx Instructions: sliding scale amlodipine 5 mg tablet See Rx Instructions PO HS Rx Instructions: 2.5mg orally at bedtime; isosorbide mononitrate 60 mg tablet extended release 24 hr 90 mg PO DAILY Lantus Solostar U-100 Insulin 100 unit/mL (3 mL) insulin pen 44 unit subcut HS aspirin 81 mg Capsule 81 mg PO DAILY (DME) Oxygen Home Liters Per Minute See Rx Instructions .Route Qty: 1 0RF Rx Instructions: 2 LPM with ambulation potassium chloride 10 mEq tablet,ER particles/crystals 10 meq PO DAILY gabapentin 100 mg capsule 100 mg PO HS Discontinued losartan 100 mg Tablet 100 mg PO DAILY Discharge Orders: Discharge Order (Routine); Ordered 01/22/25 Ordered By: Noy Guzman/Other Patient Handouts: Managing Type 2 Diabetes Admission Data Admit Date/Time: 01/19/25 03:50 Attending Provider: Noy Martínez Admit Provider: Horacio Zepeda Primary Care Provider: Anamaria Michel Other Providers: Horacio Zepeda; Chema Rea; Quinn Cooper; Martinez Rosario; Lakeisha Orr; Andria Reese; Liz Oro; Emerita Serrano; Misael Bowers; Dakota Hedrick; Mp Rojo; Sam Bell; Avis Long; Saundra Mcmahan; Kathleen Brown; Meron Young; Lucas Godoy; Jose Foote; Russell Mike; Jannet Alas; Daniele Medel Jr; Kaleb Sharma; Cory Bustillo; Ephraim Whitney; Casimiro Valverde; Zehra Danielson; Jose Nichole I; Ayesha Walters; Arthur Toledo; Law Walker; Roman Diamond; Mariano Romero; Andrew Lopez; Svetlana Cloud; Tre Cruz I.; Jules Hampton II; Kimmy Quiroz; Faustino Manning; Pako Kenney.; Anoop Powers; Christian Swift; [facility]
== END 2025-01-22 17:22 | disposition home or self-care (01) | DRG 871 ==
LOC: ED 18:07 → 2N 01-19 03:50 → SUATTDRO 01-19 03:50 → 2N 01-19 04:56

== ENCOUNTER 2025-01-25 17:39 | Inpatient (IN) ==
--- NOTE | 2025-01-25 17:56 | Emergency Department Note ---
Impression & Plan Rectal bleeding, Anemia, [id number] kidney injury, Elevated troponin, E. coli infection ED Provider Note CHIEF COMPLAINT: Rectal bleeding HISTORY OF PRESENTING ILLNESS: This 84-year-old female patient presents to the emergency department with her and granddaughter for evaluation of bright red rectal bleeding. The patient had an episode of bright red blood in her stool on 01/21/2025 while she was admitted. The patient declined endoscopic evaluation while she was admitted since this was her only episode of rectal bleeding. However, she is concerned because the bleeding is worse today. The patient states that she had brown vomit on 01/18/25 when she was first admitted. However, no vomiting since that time. The patient states that today was her first BM since her first episode of rectal bleeding on 01/21/25. She had 3 episodes of bright red blood with BMs today. She states that her stools were soft, but formed with blood in the toilet bowl, around the stool, and when she wipes. However, the stools are becoming looser. She also thought that her stools looked more black earlier today. She denies any abdominal pain and denies any rectal pain. She had an iron infusion prior to discharge. She has not started an oral iron supplement yet. Denies hematuria, hemoptysis, or hematemesis. Denies any fevers, chest pain, or SOB. Upon review of the patient's admission, she was admitted to the hospital on 01/18/2025 for a febrile illness, left leg cellulitis, rectal bleeding, and nausea and vomiting. The patient received IV Rocephin in the ER. Lactic acid was 1.5 and procalcitonin 0.4. UA normal and respiratory bio fire negative. Venous Doppler was negative for DVT in her bilateral lower extremities. She does have a history of lymphedema. 1 out of 4 blood cultures were positive for staph lugdunensis. The patient continued on IV Rocephin and doxycycline for lower extremity cellulitis and then changed to cefazolin and doxycycline. The patient was discharged home on oral Keflex for 2 weeks and doxycycline for [address] scan of the abdomen pelvis showed diverticulosis without diverticulitis. There was a 1.5 x 6.6 cm area of subcutaneous edema in the anterior abdominal wall which is a possible contusion versus chronic medication injection site. GI felt her symptoms may be consistent with diverticular bleed versus hemorrhoids versus AVM versus other etiology. Stool studies were recommended if she continued with diarrhea. The patient declined endoscopic evaluation. Her aspirin and Plavix were held due to suspicion for lower GI bleed, but they were restarted on discharge. The patient's troponin was mildly elevated and suspected to be secondary to demand ischemia in the setting of renal insufficiency. Echo showed no wall motion abnormality and the troponin was trending down. The patient's baseline creatinine is around 2, but was elevated to 2.38 at admission. Medications were adjusted and nephrology was consulted. REVIEW OF SYSTEMS: See HPI for pertinent positives and pertinent negatives. ALLERGIES: Ibuprofen, hydrocodone, Niacin, Baclofen MEDICATIONS: See below PAST MEDICAL HISTORY: See below PHYSICAL EXAM: VITALS: Vitals are noted on the nurse's note and reviewed by myself. GENERAL: Non toxic, in no acute distress, non-diaphoretic. SKIN: Capillary refill <2 sec. EYES: PERRLA. EOMI. Conjunctivae without injection, sclerae without icterus. NOSE: Patent without discharge. MOUTH: Mucous membranes moist. Uvula midline. Airway patent. NECK: Supple without nuchal rigidity. HEART: Regular rate and rhythm without murmurs gallops or rubs. LUNGS: Clear to auscultation bilaterally without wheezes, rales or rhonchi. No retractions or accessory muscle use. ABDOMEN: Positive bowel sounds x 4. Soft, nontender to palpation. Gatica sign negative. No CVA tenderness. No guarding, rigidity, or rebound tenderness. No focal RLQ or LLQ tenderness. RECTAL EXAM: Permission to perform the exam. Registered Nurse First Assistant present for exam. No external lesions noted. No concerning external hemorrhoids. Slightly decreased sphincter tone given her age. Internal hemorrhoids are not enlarged. No masses, tears, fistulas, fissures, abscess, or other lesion noted. Stool is brown and soft mixed with bright red blood. Hemoccult is positive. NEURO: Patient was alert and oriented. No focal neurological deficits. DIFFERENTIAL DIAGNOSIS: Differential diagnosis includes C. difficile, bacterial gastroenteritis, viral gastroenteritis, hemorrhoidal bleeding, diverticular bleeding, ischemic colitis, AVM bleeding, colitis, gastritis, hepatitis, pancreatitis, cholecystitis, cholelithiasis, appendicitis, kidney stone, pyelonephritis, UTI, gastritis, gastroenteritis, mesenteric adenitis, obstruction, constipation, hernia, abdominal abscess, perforation, diverticulitis, IBD, ischemic colitis, abdominal aortic aneurysm, , ectopic , ovarian cyst, ovarian torsion, acute salpingitis, or others. ED COURSE AND MEDICAL DECISION MAKING: HISTORY FROM INDEPENDENT HISTORIAN: Additional history obtained from the patient's granddaughter and MEDICATIONS GIVEN: 500 mL normal saline solution bolus. MONITOR: Continuous bus driver/monitor: Order was placed for continuous bus driver/monitor. Patient was placed on the bus driver/monitor and continuous pulse ox. Patient was noted to be in normal sinus rhythm at an initial rate of 74 bpm per my interpretation. EKG: EKG was interpreted by myself as sinus rhythm with first-degree AV block at 67 bpm with no acute ST or T wave changes. INTERPRETATION OF LABS: I interpreted the labs with full lab results as below in the lab section of this note. Laboratory results pertinent to the emergent complaint are discussed in the MDM section below. The patient was advised to follow up with their PCP and/or specialist(s) for further outpatient monitoring and management of any abnormal results. INTERPRETATION OF IMAGING: Imaging studies were interpreted by myself and read by radiology as per the imaging section of this note. The patient was advised to follow up with their PCP and/or specialist(s) for further outpatient management of any non-emergent abnormal findings. CT scan of the abdomen and pelvis without contrast showed no acute abnormality noted, but due to lack of contrast the study was somewhat limited. Diverticulosis without evidence for diverticulitis. Multiple areas of subcutaneous density seen in the anterior abdominal wall which suggest a seroma. Midline subcutaneous edema of the lower back. Multiple bilateral renal cortical cysts with routine ultrasound or MRI recommended for further evaluation. EXTERNAL RECORDS REVIEWED: I reviewed the patient's most recent admission as summarized above CONSULTATIONS: On-call hospitalist MDM SUMMARY: I examined the patient. The patient was admitted to the hospital on 01/18/2025 for a fever presumed to be from a lower extremity cellulitis. The patient was having vomiting and had brown discoloration of her vomit on 01/18/2025. However, no episodes of hematemesis and no additional brown discoloration. The patient then had 1 episode of blood in her stool on 01/21/2025 during admission. GI was consulted, but the patient declined endoscopic evaluation at that time. The patient's aspirin Plavix was held during admission, but restarted after discharge. The patient has also been on antibiotics due to the cellulitis. The patient states that today she had her first bowel movement since 01/21/2025. She states that she had 3 bowel movements with bright red blood mixed within the stool. She also feels like her stools are becoming softer like diarrhea. On rectal exam, the patient had brown soft stool mixed with bright red blood that was Hemoccult positive. No obvious hemorrhoidal enlargement. The patient denies any abdominal pain and has no abdominal tenderness on exam. An IV lock was placed and labs were drawn. The patient was given 500 mL normal saline solution bolus. She declined any medication for pain, nausea, or other symptoms while in the emergency department. White blood cell count elevated at 13.10. Hemoglobin low at 9.4. Platelet count normal at 214. Coags were normal. Creatinine elevated at 2.46 and BUN elevated 84. Glucose 172, AST 48, and alk phos 296. CMP otherwise without concerning abnormalities. Magnesium normal. Lipase normal. Lactate normal. High-sensitivity troponin elevated at 19.8 and improved to 15.7. The patient's troponin had been elevated to 52.2 on 01/19/2025. Urinalysis was normal with no evidence of blood or UTI. The patient's stool sample results were received after she had already been admitted. C. difficile was negative. Stool BioFire was positive for E. coli (EPEC). I messaged the admitting hospitalist to let them know about this positive results. Unfortunately due to the patient's acute on chronic renal injury, a CTA of the abdomen or CT with IV contrast could not be performed. CT scan of the abdomen and pelvis without contrast showed no acute abnormality noted, but due to lack of contrast the study was somewhat limited. Diverticulosis without evidence for diverticulitis. Multiple areas of subcutaneous density seen in the anterior abdominal wall which suggest a seroma. Midline subcutaneous edema of the lower back. Multiple bilateral renal cortical cysts with routine ultrasound or MRI recommended for further evaluation. I had a meaningful discussion about this patient with Dr. Key who agrees with my assessment and the treatment plan. The patient has had 3 episodes of progressively softening stool with gross Hemoccult positive blood. Her white blood cell count is also elevated again. Due to the concern of the patient's rectal bleeding while on Plavix and aspirin, it was felt the patient would benefit from admission for observation of her hemoglobin as well as her clinical condition to determine if further workup/intervention is needed. I spoke with the on-call hospitalist who agreed to admit the patient for further evaluation and treatment. Please refer to their dictation for further details. The patient's care was transferred in stable condition. DIAGNOSIS: Rectal bleeding Anemia Acute on chronic renal injury Elevated troponin E. Coli diarrheal illness Past Med/Surg History Problem List (Updated 01/26/25 @ 15:06 by Miley Jaffe PA-C) E. coli infection (Acute) Elevated troponin (Acute) [id number] kidney injury (Acute) Anemia (Acute) Hematochezia Cellulitis of left leg Coagulase negative Staphylococcus bacteremia Rectal bleeding (Acute) ART (acute kidney injury) Leukocytosis (Acute) Intractable nausea and vomiting (Acute) Renal insufficiency (Acute) Generalized weakness (Acute) Acute febrile illness (Acute) Venous stasis ulcer (Acute) Acquired lymphedema (Acute) Abnormal ankle brachial index (Acute) Exercise intolerance (Acute) Hypoxia DVT prophylaxis Fall (Acute) Weakness (Acute) Elevated LFTs Acute respiratory failure with hypoxia COVID-19 (Acute) Chronic anticoagulation Morbid obesity Left lumbar radiculopathy Trochanteric bursitis of left hip Back pain Discharge planning issues DVT (deep venous thrombosis) DVT prophylaxis Ambulatory dysfunction UTI (urinary tract infection) Metabolic encephalopathy Hypertension CKD (chronic kidney disease), stage IV Gouty arthritis DM type 2 (diabetes mellitus, type 2) (Chronic) CAD (coronary artery disease) 11/2006: CELSO to left circumflex 07/2010: Cardiac cath revealed a 20% left main lesion in both the proximal and distal segments, 50% mid LAD lesion which was not hemodynamically significant by FFR, and an 80% lesion in the second diagonal branch which was significant by FFR. Medical management. 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: No Beliefs That Will Affect Care: None marital status: Current Living Situation: Family Current Living Situation Comment: home with and granddaughter Feels Safe at Home: Yes Safety Concerns: Feels Safe At This Time Diet: regular caffeine: Yes during the past year weight has: decreased > 10 lbs Assistive Devices: CPAP and Walker Allergies Allergies Allergy/AdvReac Type Severity Reaction Status Date / Time niacin Allergy Intermediate ITCHY, RED Verified 01/25/25 18:45 RASH ibuprofen Allergy Mild RUNNY NOSE Verified 01/25/25 18:45 baclofen AdvReac Severe confusion Verified 01/25/25 18:45 hydrocodone AdvReac Severe confusion Verified 01/25/25 18:45 Home Meds Home Medications Medication Instructions Recorded Confirmed allopurinol 100 mg tablet 200 mg PO DAILY 05/27/19 01/25/25 atorvastatin 80 mg tablet 80 mg PO DAILY 05/27/19 01/25/25 cetirizine 10 mg tablet (Zyrtec) 5 mg PO DAILY 05/27/19 01/25/25 insulin aspart U-100 100 unit/mL 1 unit subcut ACHS 05/27/19 01/25/25 (3 mL) subcutaneous pen (Novolog FlexPen U-100 Insulin aspart) metoprolol tartrate 100 mg tablet 100 mg PO BID 05/27/19 01/25/25 multivitamin 1 tab PO DAILY 05/27/19 01/25/25 aspirin 81 mg capsule 81 mg PO DAILY 05/31/21 01/25/25 acetaminophen 500 mg capsule 500 mg PO Q6H PRN Pain 05/09/22 01/25/25 amlodipine 5 mg tablet 2.5 mg PO HS 05/09/22 01/25/25 clopidogrel 75 mg tablet (Plavix) 75 mg PO BID 05/09/22 01/25/25 ezetimibe 10 mg tablet (Zetia) 10 mg PO DAILY 05/09/22 01/25/25 nitroglycerin 0.4 mg sublingual 0.4 mg sublingual Q5M PRN Chest 05/09/22 01/25/25 tablet Pain nystatin 100,000 unit/gram topical 1 applic topical DAILY 05/09/22 01/25/25 powder torsemide 20 mg tablet 30 mg PO DAILY 05/09/22 01/25/25 insulin glargine 100 unit/mL (3 44 unit subcut HS 06/21/22 01/25/25 mL) subcutaneous pen (Lantus Solostar U-100 Insulin) isosorbide mononitrate 60 mg 90 mg PO DAILY 06/21/22 01/25/25 tablet,extended release 24 hr gabapentin 100 mg capsule 100 mg PO HS 01/18/25 01/25/25 Previous Rx's Medication Instructions Recorded Oxygen Home #1 ea 06/02/21 Lactobacillus 1 tab PO DAILY #14 wafers 01/22/25 acidophilus-Lactbacill.bifidus 1 billion cell oral wafer cephalexin 500 mg capsule 1,000 mg (2 x 500 mg) PO BID #40 01/22/25 caps Results & Data (ED) Vital Signs Vital Signs - 24 hr 01/25/25 17:41 01/25/25 18:11 01/25/25 18:16 Temperature 36.6 C Temperature Source Temporal Artery Scan Pulse Rate 65 67 Pulse Rate from SpO2 Sensor Respiratory Rate 18 Blood Pressure 126/55 L Blood Pressure Mean 78 Pulse Oximetry 97 94 Oxygen Delivery Method Room Air Sepsis Recent Fever Within 48 Hours No Sepsis New/Unexplained Change in Mental Status N/A Sepsis Action Taken by Nursing No Action Required 01/25/25 19:00 01/25/25 19:15 01/25/25 20:27 Temperature Temperature Source Pulse Rate 64 67 63 Pulse Rate from SpO2 Sensor 65 67 63 Respiratory Rate 15 19 16 Blood Pressure 166/72 H 174/74 H Blood Pressure Mean 112 107 Pulse Oximetry 97 96 96 Oxygen Delivery Method Sepsis Recent Fever Within 48 Hours Sepsis New/Unexplained Change in Mental Status Sepsis Action Taken by Nursing 01/25/25 21:23 01/25/25 22:00 Temperature Temperature Source Pulse Rate 62 66 Pulse Rate from SpO2 Sensor 64 66 Respiratory Rate 17 14 Blood Pressure 150/61 H 157/70 H Blood Pressure Mean 90 137 Pulse Oximetry 93 97 Oxygen Delivery Method Sepsis Recent Fever Within 48 Hours Sepsis New/Unexplained Change in Mental Status Sepsis Action Taken by Nursing Laboratory Data 01/26/25 05:31 01/26/25 05:31 Lab Results 01/25/25 Range/Units 18:21 WBC 13.10 H (4.8-10.8) K/ul RBC 3.09 L (4.20-5.40) M/uL Hgb 9.4 L (12.0-16.0) g/dl Hct 28.3 L (37.0-47.0) % MCV 91.6 (80.0-100.0) fL MCH 30.4 (25.0-34.0) pg MCHC 33.2 (32.0-36.0) g/dL RDW Std Deviation 58.0 H (36.4-46.3) fL RDW Coeff of Yoel 18.4 H (11.5-14.5) % Plt Count 214 (130-400) K/uL MPV 11.9 (9.4-12.4) fL Immature Gran % (Auto) 0.8 % Neut % (Auto) 70.2 % Lymph % (Auto) 16.2 % [place] % (Auto) 9.5 % Eos % (Auto) 2.8 % Baso % (Auto) 0.5 % Neut # (Auto) 9.20 H (1.40-6.50) K/uL Lymph # (Auto) 2.12 (1.20-3.40) K/uL [place] # (Auto) 1.24 H (0.11-0.59) K/uL Eos # (Auto) 0.37 (0.00-0.50) K/uL Baso # (Auto) 0.07 (0.00-0.20) K/uL Immature Gran # (Auto) 0.10 (0.01-0.20) K/uL Absolute Nucleated RBC 0.05 (0.00-0.12) K/uL Nucleated RBC % (auto) 0.4 % PT 11.7 (9.0-12.0) Seconds INR 1.1 (0.9-1.1) APTT 27 (21-31) Seconds PTT Ratio 1.0 Sodium 141 (136-145) mmol/L Potassium 4.4 (3.5-5.1) mmol/L Chloride 106 (98-107) mmol/L Carbon Dioxide 26 (21-32) mmol/L Anion Gap 9 (3-11) BUN 84 H (6-23) mg/dl Creatinine 2.46 H (0.6-1.2) mg/dl Est Cr Clr Drug Dosing Not Reportable eGFR 19.10 BUN/Creatinine Ratio 34.1 H (10-20) Glucose 172 H (70-99(Fasting)) mg/dl Lactate 1.8 (0.4-2.0) mmol/L Calcium 9.2 (8.6-10.3) mg/dl Magnesium 2.0 (1.7-2.4) mg/dl Total Bilirubin 0.6 (0.2-1.0) mg/dl AST 48 H (13-39) U/L ALT 12 (7-52) U/L Alkaline Phosphatase 296 H (34-104) U/L Troponin I High Sens 19.8 H (0-14) pg/ml Total Protein 6.1 (6.0-8.3) gm/dl Albumin 3.1 L (3.4-5.0) gm/dl Globulin 3.0 (2.5-4.0) gm/dl Albumin/Globulin Ratio 1.0 (0.9-2) Lipase 47 (11-82) U/L Blood Type O Positive Antibody Screen NEGATIVE Administered Medications Allopurinol (Allopurinol 100 Mg Tab) 200 mg PO DAILY [facility] Stop: 02/25/25 08:59 Last Admin: 01/26/25 09:33 Dose: 200 mg Documented By: DLR Atorvastatin Calcium (Atorvastatin 40 Mg Tab) 80 mg PO DAILY [facility] Stop: 02/25/25 08:59 Last Admin: 01/26/25 09:32 Dose: 80 mg Documented By: ZOFIAR Cephalexin HCl (Cephalexin 500 Mg Cap) 1,000 mg PO BID [facility]; Protocol Stop: 02/02/25 08:59 Last Admin: 01/26/25 09:36 Dose: 1,000 mg Documented By: DLR Cetirizine HCl (Cetirizine Hcl 10 Mg Tablet) 5 mg PO DAILY [facility] Stop: 02/25/25 08:59 Last Admin: 01/26/25 09:33 Dose: 5 mg Documented By: DLR Ezetimibe (Ezetimibe 10 Mg Tab) 10 mg PO DAILY [facility] Stop: 02/25/25 08:59 Last Admin: 01/26/25 09:33 Dose: 10 mg Documented By: DLR Sodium Chloride (Nss) 1,000 mls @ 50 mls/hr IV .Q20H [facility] Stop: 01/29/25 00:06 Last Admin: 01/26/25 00:40 Dose: 50 mls/hr Documented By: MARCOS Insulin Aspart (Insulin Aspart Per Unit Charge) 0 units SC ACHS [facility] Stop: 02/25/25 11:59 Last Admin: 01/26/25 12:21 Dose: 7 units Documented By: BERHANE Co-signed By: YING Isosorbide Mononitrate (Isosorbide [place] Extended Rel 30 Mg Tabcr) 90 mg PO DAILY [facility] Stop: 02/25/25 08:59 Last Admin: 01/26/25 09:36 Dose: 90 mg Documented By: DLR Lactobacillus Acidophilus (Advanced Probiotic 625 Mg Capsule) 1,250 mg PO DAILY [facility] Stop: 02/25/25 08:59 Last Admin: 01/26/25 09:34 Dose: 1,250 mg Documented By: DLR Metoprolol Tartrate (Metoprolol Tartrate 100 Mg Tab) 100 mg PO BID [facility] Stop: 02/25/25 08:59 Last Admin: 01/26/25 09:35 Dose: 100 mg Documented By: BERHANE Multivitamins (Multivitamin Tab) 1 tab PO DAILY [facility] Stop: 02/25/25 08:59 Last Admin: 01/26/25 11:11 Dose: 1 tab Documented By: ZOFIAR Nystatin (Nystatin Powder 15gm Btl) 1 appln EXT DAILY [facility] Stop: 02/25/25 08:59 Last Admin: 01/26/25 09:37 Dose: 1 appln Documented By: BERHANE Discontinued Medications Cephalexin HCl (Cephalexin 500 Mg Cap) 1,000 mg PO NOW STA; Protocol Stop: 01/26/25 00:52 Last Admin: 01/26/25 01:08 Dose: 1,000 mg Documented By: MARCOS Sodium Chloride (Nss) 500 mls @ 999 mls/hr IV .Q31M ONE Stop: 01/25/25 18:42 Last Infusion: 01/25/25 19:30 Dose: Infused Documented By: Admin: 01/25/25 18:34 Dose: 999 mls/hr Documented By: ISHAN Insulin Aspart (Insulin Aspart Per Unit Charge) 0 units SC Q6 [facility] Stop: 02/25/25 00:06 Last Admin: 01/26/25 12:11 Dose: Not Given Documented By: Admin: 01/26/25 05:50 Dose: Not Given Documented By: Admin: 01/26/25 00:40 Dose: 2 units Documented By: MARCOS Co-signed By: JANE Insulin Glargine (Lantus Per Unit Charge) 20 units SQ NOW STA Stop: 01/26/25 00:52 Last Admin: 01/26/25 01:08 Dose: 20 units Documented By: MARCOS Co-signed By: MANDY Discharge Plan Visit Data Chief Complaint: Rectal Bleed Stated Complaint: RECTAL BLEEDING ED Provider: Lj Key ED Midlevel Provider: Miley Jaffe Discharge Problem: Rectal bleeding, Anemia, Njgeu-[id number]-shifdat kidney injury, Elevated troponin, E. coli infection Patient Disposition: Admitted As Inpatient Condition: Fair Discharge Instructions Interventions: ED Discharge Assessment Last Done: 01/25/25 23:43
[2025-01-25] MEDS: SODIUM CHLORIDE 0.9% 500 ML IV ONE (18:34)
[2025-01-25 18:42] LABS: Hematocrit (blood only) 28.3 % (37.0-47.0); Hemoglobin 9.4 g/dl (12.0-16.0); Immature Granulocytes # (auto) 0.10 K/uL (0.01-0.20); Immature Granulocytes % (auto) 0.8 %; Mean Corpuscular Hemoglobin 30.4 pg (25.0-34.0); Mean Corpuscular Volume 91.6 fL (80.0-100.0); Platelet Count 214 K/uL (130-400); RDW Standard Deviation 58.0 fL (36.4-46.3); Red Blood Count 3.09 M/uL (4.20-5.40); White Blood Count 13.10 K/ul (4.8-10.8)
[2025-01-25 19:02] LABS: Alanine Aminotransferase 12 U/L (7-52); Albumin Globulin Ratio 1.0 (0.9-2); Alkaline Phosphatase 296 U/L (34-104); Anion Gap 9 (3-11); Bilirubin,Total 0.6 mg/dl (0.2-1.0); Blood Urea Nitrogen 84 mg/dl (6-23); Calcium 9.2 mg/dl (8.6-10.3); Carbon Dioxide 26 mmol/L (21-32); Chloride 106 mmol/L (98-107); Globulin 3.0 gm/dl (2.5-4.0); Glucose 172 mg/dl (70-99(Fasting)); Lipase 47 U/L (11-82); Magnesium 2.0 mg/dl (1.7-2.4); Potassium 4.4 mmol/L (3.5-5.1); Sodium 141 mmol/L (136-145); Total Protein 6.1 gm/dl (6.0-8.3)
[2025-01-25 19:22] LABS: INR 1.1 (0.9-1.1); Partial Thromboplastin Time 27 Seconds (21-31); Prothrombin Time 11.7 Seconds (9.0-12.0)
--- NOTE | 2025-01-25 22:05 | CT Scan Report ---
EXAM: CT abd pelvis wo con CLINICAL HISTORY: Rectal bleeding TECHNIQUE: Non-contrast CT of the abdomen and pelvis was performed, with the following protocol: axial images, and reconstructed coronal and sagittal images. No intravenous contrast was administered. One of the following dose reduction techniques was utilized for this exam: Automated exposure control, adjustment of the mA and/or kV according to patient size, and use of iterative reconstruction. DLP: 1324.46 mGy.cm COMPARISON: Comparison is made with previous x-ray abdomen on 05/27/2019 FINDINGS: Abdomen: Liver: Normal in size, shape, and density. No focal lesions, cysts, or masses were identified. Gallbladder and Biliary System: The gallbladder is surgically removed. CBD is normal. Pancreas: Pancreatic head, body, and tail are visualized and appear normal in size and density. No pancreatic masses or calcifications were noted. Spleen: Normal in size, shape, and density. No splenic lesions or masses were identified. Kidneys and Adrenal Glands: Both kidneys are normal in size, shape, and position. Cortical thickness is at the lower limit. No renal calculi or hydronephrosis. Multiple bilateral renal cortical cysts, some of them are hyperdense, largest on the right kidney measuring 2.5 cm. Routine ultrasound or MRI is needed for further assessment. Prominent renal sinus fat bilaterally, senile change. Adrenal glands are unremarkable. Appendix: The appendix is not visualized. Pelvis: Urinary Bladder: Normal in contour and wall thickness. No intraluminal lesions. Uterus and ovaries: Not well visualized but no gross abnormalities noted. Vagina: Normal in contour and wall thickness. Peritoneal and Retroperitoneal Structures: No free fluid or abnormal fluid collections were identified within the abdomen or pelvis. No lymphadenopathy was noted. Bowel: The visualized bowel loops are normal in caliber and appearance. No evidence of bowel obstruction or wall thickening. Uncomplicated diverticular disease of the colon. No signs of acute diverticulitis. Bones and Soft Tissues: Pelvic bones and soft tissues are unremarkable. No fractures or abnormal masses were identified. Diffuse spondylotic changes. Multiple areas of subcutaneous densities are seen in the anterior abdominal wall, suggest seroma. Midline subcutaneous edema of the lower back. IMPRESSION: 1. No acute abnormality detected on non-contrast CT basis. 2. Not all the causes of rectal bleeding could be excluded on a non-contrast CT study. 3. Uncomplicated diverticular disease of the colon. No signs of acute diverticulitis. 4. Multiple areas of subcutaneous densities are seen in the anterior abdominal wall, suggest seroma. 5. Midline subcutaneous edema of the lower back. 6. Multiple bilateral renal cortical cysts, some of them are hyperdense, largest on the right kidney measuring 2.5 cm. Routine ultrasound or MRI is needed for further assessment. Electronically signed by Andry Stone 01-25-2025 10:04 PM
--- NOTE | 2025-01-25 22:17 | History & Physical Report ---
Date of Service January 25, 2025 Assessment & Plan (1) Rectal bleeding: Plan: 84-year-old female with past medical history significant for type 2 diabetes, CKD stage IV, hyperlipidemia, gouty arthritis, hyperphosphatemia, diabetic peripheral angiopathy, sleep apnea, chronic diastolic CHF, venous insufficiency, CAD, hypertension, bilateral carotid artery stenosis, s/p carotid artery stent placement, status post carotid endarterectomy, peripheral vascular disease, morbid obesity, cirrhosis of liver, diverticulosis of colon, anemia of chronic renal failure, history of DVT, who lives at home with her and granddaughter comes because of rectal bleed. Patient was recently in the hospital for bilateral lower extremity cellulitis and was discharged on 01/22/2025 on Keflex. During last admission she also had ART and her losartan and torsemide were held. Torsemide restarted but nephrology wanted to hold losartan until seen by nephro as outpatient. And one of the blood cultures grew staph lugdunensis and ID recommended Keflex 1000 mg twice daily until 02/02/2025. During the last admission patient also had an episode of rectal bleed ,GI wanted to scope but patient declined saying that she wanted to be scoped only if she bleeds again. Patient did okay and was discharged. Patient states today she had 3 episodes of bloody bowel movements. And she felt very weak after that. She could not walk. Denies any abdominal pain. No dizziness. No nausea. No chest pain. No shortness of breath. No cough. No headache. No runny nose. No sore throat. Currently resting comfortably and hemodynamically stable. Rectal bleeding Acute anemia on anemia of chronic disease CAT scan showing diverticulosis Hemoglobin 9.4. Hemoglobin was 8.4 on 01/22/2025 prior to discharge Last admission patient received Procrit and IV Venofer by nephro Will keep her n.p.o., gentle fluids Normal Saline 50 mL/h Blood consent obtained H&H every 6 hours Telemetry GI consulted in a.m. for further recommendations Recent bilateral cellulitis On Keflex 1000 mg twice daily until 02/02/2025 ART on CKD stage IV Baseline creatinine around 2 Presents with creatinine of 2.4 Creatinine 2.4 at the time of recent discharge Losartan on hold since last admission. Nephro wants to hold it until seen as outpatient Will hold torsemide also for now Close monitor for volume overload Diabetes Lantus 20 units nightly as patient currently n.p.o. Sliding scale Close monitor History of gout On allopurinol Hypertension On Amlodipine, Imdur, metoprolol tartrate Holding torsemide Losartan on hold since last admission Will monitor Hyperlipidemia On statin and Zetia Obstructive sleep apnea CPAP nightly Chronic diastolic CHF Holding diuretics Getting gentle fluids Monitor for volume overload Bilateral lower extremity edema Holding torsemide monitor for volume overload History of CAD status post stents On aspirin, Plavix statin and beta-bakari Holding aspirin Plavix for now for GI bleed History of carotid artery disease Status post right carotid endarterectomy Status post right carotid stenting for restenosis On aspirin Plavix and statin Holding aspirin Plavix for rectal bleed History of DVT provoked in 2019 was on Coumadin for 3 months History of peripheral artery vascular disease Venous insufficiency On aspirin, Plavix and statin Holding aspirin Plavix for rectal bleed. Renal cyst CAT scan showing multiple bilateral renal cortical cysts some of them are hyperdense, largest in the right kidney measuring 2.5 cm. Routine ultrasound or MRI scan is recommended DVT prophylaxis SCDs for now Disposition Telemetry Full code. History of Present Illness Chief Complaint: Rectal bleed Primary Care Provider: Anamaria Michel MD 84-year-old female with past medical history significant for type 2 diabetes, CKD stage IV, hyperlipidemia, gouty arthritis, hyperphosphatemia, diabetic alexandra pheral angiopathy, sleep apnea, chronic diastolic CHF, venous insufficiency, CAD, hypertension, bilateral carotid artery stenosis, s/p carotid artery stent placement, status post carotid endarterectomy, peripheral vascular disease, morbid obesity, cirrhosis of liver, diverticulosis of colon, anemia of chronic renal failure, history of DVT, who lives at home with her and granddaughter comes because of rectal bleed. Patient was recently in the hospital for bilateral lower extremity cellulitis and was discharged on 01/22/2025 on Keflex. During last admission she also had ART and her losartan and torsemide were held. Torsemide restarted but nephrology wanted to hold losartan until seen by nephro as outpatient. And one of the blood cultures grew staph lugdunensis and ID recommended Keflex 1000 mg twice daily until 02/02/2025. During the last admission patient also had an episode of rectal bleed ,GI wanted to scope but patient declined saying that she wanted to be scoped only if she bleeds again. Patient did okay and was discharged. Patient states today she had 3 episodes of bloody bowel movements. And she felt very weak after that. She could not walk. Denies any abdominal pain. No dizziness. No nausea. No chest pain. No shortness of breath. No cough. No headache. No runny nose. No sore throat. Currently resting comfortably and hemodynamically stable. Past medical history. As mentioned above. Past surgical history. Left total knee arthroplasty. Colonoscopy. Combined right and left heart catheterization. Appendectomy. Cholecystectomy. Sacroili ac joint injection. Carotid artery endarterectomy. Right carotid stent placement. Total abdominal hysterectomy with removal of tubes. Vaginal hysterectomy. Social history. . No smoking. No alcohol use. No drug use. Family history. Maternal aunt had breast cancer. Son of massive [place] at age of 30. Allergies Allergy/AdvReac Type Severity Reaction Status Date / Time niacin Allergy Intermediate ITCHY, RED Verified 01/25/25 18:45 RASH ibuprofen Allergy Mild RUNNY NOSE Verified 01/25/25 18:45 baclofen AdvReac Severe confusion Verified 01/25/25 18:45 hydrocodone AdvReac Severe confusion Verified 01/25/25 18:45 Home Medications Medication Instructions Recorded Confirmed Type allopurinol 100 mg tablet 200 mg PO DAILY 05/27/19 01/25/25 History atorvastatin 80 mg tablet 80 mg PO DAILY 05/27/19 01/25/25 History cetirizine 10 mg tablet (Zyrtec) 5 mg PO DAILY 05/27/19 01/25/25 History insulin aspart U-100 100 unit/mL 1 unit subcut ACHS 05/27/19 01/25/25 History (3 mL) subcutaneous pen (Novolog FlexPen U-100 Insulin aspart) metoprolol tartrate 100 mg tablet 100 mg PO BID 05/27/19 01/25/25 History multivitamin 1 tab PO DAILY 05/27/19 01/25/25 History aspirin 81 mg capsule 81 mg PO DAILY 05/31/21 01/25/25 History Oxygen Home #1 ea 06/02/21 06/21/22 Rx acetaminophen 500 mg capsule 500 mg PO Q6H PRN Pain 05/09/22 01/25/25 History amlodipine 5 mg tablet 2.5 mg PO HS 05/09/22 01/25/25 History clopidogrel 75 mg tablet (Plavix) 75 mg PO BID 05/09/22 01/25/25 History ezetimibe 10 mg tablet (Zetia) 10 mg PO DAILY 05/09/22 01/25/25 History nitroglycerin 0.4 mg sublingual 0.4 mg sublingual Q5M PRN Chest 05/09/22 01/25/25 History tablet Pain nystatin 100,000 unit/gram topical 1 applic topical DAILY 05/09/22 01/25/25 History powder torsemide 20 mg tablet 30 mg PO DAILY 05/09/22 01/25/25 History insulin glargine 100 unit/mL (3 44 unit subcut HS 06/21/22 01/25/25 History mL) subcutaneous pen (Lantus Solostar U-100 Insulin) isosorbide mononitrate 60 mg 90 mg PO DAILY 06/21/22 01/25/25 History tablet,extended release 24 hr gabapentin 100 mg capsule 100 mg PO HS 01/18/25 01/25/25 History Lactobacillus 1 tab PO DAILY #14 wafers 01/22/25 01/25/25 Rx acidophilus-Lactbacill.bifidus 1 billion cell oral wafer cephalexin 500 mg capsule 1,000 mg (2 x 500 mg) PO BID #40 01/22/25 01/25/25 Rx caps Past Med/Surg History Problem List (Updated 01/26/25 @ 07:26 by Jose Nichole MD) Hematochezia Cellulitis of left leg Coagulase negative Staphylococcus bacteremia Rectal bleeding ART (acute kidney injury) Leukocytosis (Acute) Intractable nausea and vomiting (Acute) Renal insufficiency (Acute) Generalized weakness (Acute) Acute febrile illness (Acute) Venous stasis ulcer (Acute) Acquired lymphedema (Acute) Abnormal ankle brachial index (Acute) Exercise intolerance (Acute) Hypoxia DVT prophylaxis Fall (Acute) Weakness (Acute) Elevated LFTs Acute respiratory failure with hypoxia COVID-19 (Acute) Chronic anticoagulation Morbid obesity Left lumbar radiculopathy Trochanteric bursitis of left hip Back pain Discharge planning issues DVT (deep venous thrombosis) DVT prophylaxis Ambulatory dysfunction UTI (urinary tract infection) Metabolic encephalopathy Hypertension CKD (chronic kidney disease), stage IV Gouty arthritis DM type 2 (diabetes mellitus, type 2) (Chronic) CAD (coronary artery disease) 11/2006: CELSO to left circumflex 07/2010: Cardiac cath revealed a 20% left main lesion in both the proximal and distal segments, 50% mid LAD lesion which was not hemodynamically significant by FFR, and an 80% lesion in the second diagonal branch which was significant by FFR. Medical management. Medical History Dyslipidemia History of right common carotid artery stent placement Family History Brother Lung cancer Bone cancer Social History Smoking Status: Never smoker Second Hand Exposure: No; Do You Dip or Chew Tobacco: No; Hx Alcohol Use: No Hx Substance Use: No Preferred Language: Pashto Communication Ability: Effective Visual Impairment: Limited Hearing Ability: Hard of Hearing Seasonal Driver Required: No Beliefs That Will Affect Care: None marital status: Current Living Situation: Family Current Living Situation Comment: home with and granddaughter Feels Safe at Home: Yes Safety Concerns: Feels Safe At This Time Diet: regular caffeine: Yes during the past year weight has: decreased > 10 lbs Assistive Devices: CPAP, Glasses and Walker Review of Systems Review of Systems: All systems reviewed & are unremarkable except as noted in HPI & below Physical Exam Physical Exam: General- Not in distress Head- atraumatic Eyes- PERRL. ENT- oropharynx clear Neck- supple, no JVD. Lungs- clear to auscultation no wheezing or crackles Heart- regular rate and rhythm; no murmur, no gallop. Abdomen- normal bowel sounds, soft, nontender, no distension Extremities- B/L lower extremity edema present Left >> right with mild erythematous changes Neuro- alert, oriented PERRL, no facial palsy; no dysarthria; moves extremities Results & Data Results & Data Vital Signs (Past 12 Hours) Vital Signs Temp Pulse Resp BP Pulse Ox O2 Del Method 01/25/25 19:15 67 19 96 01/25/25 19:00 64 15 166/72 H 97 01/25/25 18:16 67 01/25/25 18:11 94 Room Air 01/25/25 17:41 36.6 C 65 18 126/55 L 97 Diagnostic Findings Laboratory Results WBC 13.10 K/ul (4.8-10.8) H 01/25/25 18:21 RBC 3.09 M/uL (4.20-5.40) L 01/25/25 18:21 Hgb 9.4 g/dl (12.0-16.0) L 01/25/25 18:21 Hct 28.3 % (37.0-47.0) L 01/25/25 18:21 MCV 91.6 fL (80.0-100.0) 01/25/25 18:21 MCH 30.4 pg (25.0-34.0) 01/25/25 18:21 MCHC 33.2 g/dL (32.0-36.0) 01/25/25 18:21 RDW Std Deviation 58.0 fL (36.4-46.3) H 01/25/25 18: RDW Coeff of Yoel 18.4 % (11.5-14.5) H 01/25/25 18:21 Plt Count 214 K/uL (130-400) 01/25/25 18:21 MPV 11.9 fL (9.4-12.4) 01/25/25 18:21 Immature Gran % (Auto) 0.8 % 01/25/25 18:21 Neut % (Auto) 70.2 % 01/25/25 18:21 Lymph % (Auto) 16.2 % 01/25/25 18:21 Jay % (Auto) 9.5 % 01/25/25 18:21 Eos % (Auto) 2.8 % 01/25/25 18:21 Baso % (Auto) 0.5 % 01/25/25 18:21 Neut # (Auto) 9.20 K/uL (1.40-6.50) H 01/25/25 18:21 Lymph # (Auto) 2.12 K/uL (1.20-3.40) 01/25/25 18:21 Jay # (Auto) 1.24 K/uL (0.11-0.59) H 01/25/25 18:21 Eos # (Auto) 0.37 K/uL (0.00-0.50) 01/25/25 18:21 Baso # (Auto) 0.07 K/uL (0.00-0.20) 01/25/25 18:21 Immature Gran # (Auto) 0.10 K/uL (0.01-0.20) 01/25/25 18:21 Absolute Nucleated RBC 0.05 K/uL (0.00-0.12) 01/25/25 18:21 Nucleated RBC % (auto) 0.4 % 01/25/25 18:21 PT 11.7 Seconds (9.0-12.0) 01/25/25 18:21 INR 1.1 (0.9-1.1) 01/25/25 18:21 APTT 27 Seconds (21-31) 01/25/25 18:21 PTT Ratio 1.0 01/25/25 18:21 Sodium 141 mmol/L (136-145) 01/25/25 18:21 Potassium 4.4 mmol/L (3.5-5.1) 01/25/25 18:21 Chloride 106 mmol/L (98-107) 01/25/25 18:21 Carbon Dioxide 26 mmol/L (21-32) 01/25/25 18:21 Anion Gap 9 (3-11) 01/25/25 18:21 BUN 84 mg/dl (6-23) H 01/25/25 18:21 Creatinine 2.46 mg/dl (0.6-1.2) H 01/25/25 18:21 Est Cr Clr Drug Dosing Not Reportable 01/25/25 18:21 eGFR 19.10 01/25/25 18:21 BUN/Creatinine Ratio 34.1 (10-20) H 01/25/25 18:21 Glucose 172 mg/dl (70-99(Fasting)) H 01/25/25 18:21 Lactate 1.8 mmol/L (0.4-2.0) 01/25/25 18:21 Calcium 9.2 mg/dl (8.6-10.3) 01/25/25 18:21 Magnesium 2.0 mg/dl (1.7-2.4) 01/25/25 18:21 Total Bilirubin 0.6 mg/dl (0.2-1.0) 01/25/25 18:21 AST 48 U/L (13-39) H 01/25/25 18:21 ALT 12 U/L (7-52) 01/25/25 18:21 Alkaline Phosphatase 296 U/L (34-104) H 01/25/25 18:21 Troponin I High Sens 19.8 pg/ml (0-14) H 01/25/25 18:21 Total Protein 6.1 gm/dl (6.0-8.3) 01/25/25 18:21 Albumin 3.1 gm/dl (3.4-5.0) L 01/25/25 18:21 Globulin 3.0 gm/dl (2.5-4.0) 01/25/25 18:21 Albumin/Globulin Ratio 1.0 (0.9-2) 01/25/25 18:21 Lipase 47 U/L (11-82) 01/25/25 18:21 Blood Type O Positive 01/25/25 18:21 Antibody Screen NEGATIVE 01/25/25 18:21 Impressions Abdomen/Pelvis CT 01/25/25 19:22 EXAM: CT abd pelvis wo con CLINICAL HISTORY: Rectal bleeding TECHNIQUE: Non-contrast CT of the abdomen and pelvis was performed, with the following protocol: axial images, and reconstructed coronal and sagittal images. No intravenous contrast was administered. One of the following dose reduction techniques was utilized for this exam: Automated exposure control, adjustment of the mA and/or kV according to patient size, and use of iterative reconstruction. DLP: 1324.46 mGy.cm COMPARISON: Comparison is made with previous x-ray abdomen on 05/27/2019 FINDINGS: Abdomen: Liver: Normal in size, shape, and density. No focal lesions, cysts, or masses were identified. Gallbladder and Biliary System: The gallbladder is surgically removed. CBD is normal. Pancreas: Pancreatic head, body, and tail are visualized and appear normal in size and density. No pancreatic masses or calcifications were noted. Spleen: Normal in size, shape, and density. No splenic lesions or masses were identified. Kidneys and Adrenal Glands: Both kidneys are normal in size, shape, and position. Cortical thickness is at the lower limit. No renal calculi or hydronephrosis. Multiple bilateral renal cortical cysts, some of them are hyperdense, largest on the right kidney measuring 2.5 cm. Routine ultrasound or MRI is needed for further assessment. Prominent renal sinus fat bilaterally, senile change. Adrenal glands are unremarkable. Appendix: The appendix is not visualized. Pelvis: Urinary Bladder: Normal in contour and wall thickness. No intraluminal lesions. Uterus and ovaries: Not well visualized but no gross abnormalities noted. Vagina: Normal in contour and wall thickness. Peritoneal and Retroperitoneal Structures: No free fluid or abnormal fluid collections were identified within the abdomen or pelvis. No lymphadenopathy was noted. Bowel: The visualized bowel loops are normal in caliber and appearance. No evidence of bowel obstruction or wall thickening. Uncomplicated diverticular disease of the colon. No signs of acute diverticulitis. Bones and Soft Tissues: Pelvic bones and soft tissues are unremarkable. No fractures or abnormal masses were identified. Diffuse spondylotic changes. Multiple areas of subcutaneous densities are seen in the anterior abdominal wall, suggest seroma. Midline subcutaneous edema of the lower back. IMPRESSION: 1. No acute abnormality detected on non-contrast CT basis. 2. Not all the causes of rectal bleeding could be excluded on a non-contrast CT study. 3. Uncomplicated diverticular disease of the colon. No signs of acute diverticulitis. 4. Multiple areas of subcutaneous densities are seen in the anterior abdominal wall, suggest seroma. 5. Midline subcutaneous edema of the lower back. 6. Multiple bilateral renal cortical cysts, some of them are hyperdense, largest on the right kidney measuring 2.5 cm. Routine ultrasound or MRI is needed for further assessment. Electronically signed by Andry Stone 01-25-2025 10:04 PM ECG Additional Comments: ECG. Sinus rhythm with first-degree AV block at the rate of 67. Q waves in inferior leads. ST abnormalities in lateral leads. QTc 458 Code Status & VTE Plan VTE Prophylaxis Plan VTE Prophylaxis will be ordered: Yes
[2025-01-25 22:54] LABS: Appearance Urine Clear (Clear); Glucose Urine UA Negative (Negative)
[2025-01-25 23:36] LABS: Cdiff Toxin B Gene (2yr or >) Negative Cdiff Gene (Neg)
[2025-01-26] MEDS ORDERED: NITROGLYCERIN SL 0.4 MG/TAB TAB SL PRN (00:07)
[2025-01-26] MEDS ORDERED: GLUCAGON FOR INJ 1 MG VIAL SQ PRN (00:07)
[2025-01-26] MEDS ORDERED: CARBOHYDRATES FOR HYPOGLYCEMIA PO PRN (00:07)
[2025-01-26] MEDS ORDERED: GLUCOSE 10 TAB/TUBE PO PRN (00:07)
[2025-01-26] MEDS ORDERED: GLUCOSE 40% GEL 15 GM TUBE PO PRN (00:07)
[2025-01-26 00:15] LABS: Adenovirus F 40/41 PCR Not Detected (NotDetected); Campylobacter PCR Not Detected (NotDetected); Enteroaggregative E.coli(EAEC) Not Detected (NotDetected); Shiga-like Toxin E.coli (STEC) Not Detected (NotDetected); Vibrio species PCR Not Detected (NotDetected)
[2025-01-26] MEDS: SODIUM CHLORIDE 0.9% 1,000 ML IV SCH (00:40)
[2025-01-26] MEDS: INSULIN ASPART PER UNIT CHARGE SC SCH ×2 (00:40→12:21)
[2025-01-26] MEDS: LANTUS PER UNIT CHARGE SQ STA (01:08)
[2025-01-26 06:34] LABS: Hematocrit (blood only) 23.7 % (37.0-47.0); Hemoglobin 7.5 g/dl (12.0-16.0); Immature Granulocytes # (auto) 0.07 K/uL (0.01-0.20); Immature Granulocytes % (auto) 0.7 %; Mean Corpuscular Hemoglobin 29.5 pg (25.0-34.0); Mean Corpuscular Volume 93.3 fL (80.0-100.0); Platelet Count 163 K/uL (130-400); RDW Standard Deviation 59.3 fL (36.4-46.3); Red Blood Count 2.54 M/uL (4.20-5.40); White Blood Count 9.73 K/ul (4.8-10.8)
[2025-01-26 06:50] LABS: Anion Gap 7.0 (3-11); Blood Urea Nitrogen 87.0 mg/dl (6-23); Calcium 8.6 mg/dl (8.6-10.3); Carbon Dioxide 27.0 mmol/L (21-32); Chloride 111.0 mmol/L (98-107); Creatinine Clr Calc Pharmacy 20.3 ml/min; Glucose 126.0 mg/dl (70-99(Fasting)); Magnesium 2.0 mg/dl (1.7-2.4); Potassium 4.7 mmol/L (3.5-5.1); Sodium 145.0 mmol/L (136-145)
[2025-01-26 06:52] LABS: Ovalocytes 1+; Polychromasia 1+; Target Cells 1+; Tear Drop Cells 1+
--- NOTE | 2025-01-26 07:22 | Gastrointestinal Consultation ---
Date of Consultation January 26, 2025 Assessment & Plan (1) Hematochezia: Recurrent bright red blood per rectum since discharge. Differential diagnosis includes diverticular bleed, vascular ectasias, anorectal etiology less likely neoplastic process. In light of recurrent symptoms we will proceed with co lonoscopy on Monday. History of Present Illness Reason for Consultation: Hematochezia Attending Physician: Noy Martínez MD History of Present Illness Patient just discharged this week after being admitted for cellulitis of her left leg. In that hospitalization she had an episode of bright red blood per rectum which resolved spontaneously. At that time it was felt she did not need any endoscopic evaluation. Once home she has had multiple episodes of bright red blood per rectum. She denies any abdominal pain nausea vomiting hematemesis or melena. She is now amenable to colonoscopy. Past medical history includes: T2DM, HTN, sleep apnea, CHF, CAD, bilateral carotid artery stenosis, anemia of chronic renal failure. Allergies Allergy/AdvReac Type Severity Reaction Status Date / Time niacin Allergy Intermediate ITCHY, RED Verified 01/25/25 18:45 RASH ibuprofen Allergy Mild RUNNY NOSE Verified 01/25/25 18:45 baclofen AdvReac Severe confusion Verified 01/25/25 18:45 hydrocodone AdvReac Severe confusion Verified 01/25/25 18:45 Home Medications Medication Instructions Recorded Confirmed Type allopurinol 100 mg tablet 200 mg PO DAILY 05/27/19 01/25/25 History atorvastatin 80 mg tablet 80 mg PO DAILY 05/27/19 01/25/25 History cetirizine 10 mg tablet (Zyrtec) 5 mg PO DAILY 05/27/19 01/25/25 History insulin aspart U-100 100 unit/mL 1 unit subcut ACHS 05/27/19 01/25/25 History (3 mL) subcutaneous pen (Novolog FlexPen U-100 Insulin aspart) metoprolol tartrate 100 mg tablet 100 mg PO BID 05/27/19 01/25/25 History multivitamin 1 tab PO DAILY 05/27/19 01/25/25 History aspirin 81 mg capsule 81 mg PO DAILY 05/31/21 01/25/25 History Oxygen Home #1 ea 06/02/21 06/21/22 Rx acetaminophen 500 mg capsule 500 mg PO Q6H PRN Pain 05/09/22 01/25/25 History amlodipine 5 mg tablet 2.5 mg PO HS 05/09/22 01/25/25 History clopidogrel 75 mg tablet (Plavix) 75 mg PO BID 05/09/22 01/25/25 History ezetimibe 10 mg tablet (Zetia) 10 mg PO DAILY 05/09/22 01/25/25 History nitroglycerin 0.4 mg sublingual 0.4 mg sublingual Q5M PRN Chest 05/09/22 01/25/25 History tablet Pain nystatin 100,000 unit/gram topical 1 applic topical DAILY 05/09/22 01/25/25 History powder torsemide 20 mg tablet 30 mg PO DAILY 05/09/22 01/25/25 History insulin glargine 100 unit/mL (3 44 unit subcut HS 06/21/22 01/25/25 History mL) subcutaneous pen (Lantus Solostar U-100 Insulin) isosorbide mononitrate 60 mg 90 mg PO DAILY 06/21/22 01/25/25 History tablet,extended release 24 hr gabapentin 100 mg capsule 100 mg PO HS 01/18/25 01/25/25 History Lactobacillus 1 tab PO DAILY #14 wafers 01/22/25 01/25/25 Rx acidophilus-Lactbacill.bifidus 1 billion cell oral wafer cephalexin 500 mg capsule 1,000 mg (2 x 500 mg) PO BID #40 01/22/25 01/25/25 Rx caps Patient History Medical History Dyslipidemia History of right common carotid artery stent placement Family History Brother Lung cancer Bone cancer Social History Smoking Status: Never smoker Second Hand Exposure: No; Do You Dip or Chew Tobacco: No; Hx Alcohol Use: No Hx Substance Use: No Preferred Language: Chadian Communication Ability: Effective Visual Impairment: Limited Hearing Ability: Hard of Hearing Card Placer Required: No Beliefs That Will Affect Care: None marital status: Current Living Situation: Family Current Living Situation Comment: home with and granddaughter Feels Safe at Home: Yes Safety Concerns: Feels Safe At This Time Diet: regular caffeine: Yes during the past year weight has: decreased > 10 lbs Assistive Devices: CPAP, Glasses and Walker Review of Systems Review of Systems: No fever No chills No SOB No CP No Abd pain Physical Exam Physical Exam: Eyes; anicteric HENT No masses Chest clear to A Cor S1, S2 physiologic Abd: softer nontender no masses Ext left calf cellulitis Results & Data Vital Signs (Past 12 Hours) Vital Signs Temp Pulse Pulse Resp BP BP Pulse Ox 01/26/25 03:16 36.7 C 62 18 128/57 L 95 01/26/25 00:07 36.7 C 16 140/72 97 01/26/25 00:07 01/26/25 00:03 69 01/25/25 23:43 69 16 138/56 L 94 01/25/25 22:41 76 18 148/59 H 96 01/25/25 22:08 66 01/25/25 22:00 66 14 157/70 H 97 01/25/25 21:23 62 17 150/61 H 93 01/25/25 20:27 63 16 174/74 H 96 O2 Del Method 01/26/25 03:16 Room Air 01/26/25 00:07 Room Air 01/26/25 00:07 Room Air 01/26/25 00:03 01/25/25 23:43 Room Air 01/25/25 22:41 01/25/25 22:08 01/25/25 22:00 01/25/25 21:23 01/25/25 20:27 Laboratory Results Laboratory Results - last 48 hr 01/25/25 01/25/25 01/26/25 18:21 22:34 00:36 WBC 13.10 H RBC 3.09 L Hgb 9.4 L Hct 28.3 L MCV 91.6 MCH 30.4 MCHC 33.2 RDW Std Deviation 58.0 H RDW Coeff of Yoel 18.4 H Plt Count 214 MPV 11.9 Immature Gran % (Auto) 0.8 Neut % (Auto) 70.2 Lymph % (Auto) 16.2 [place] % (Auto) 9.5 Eos % (Auto) 2.8 Baso % (Auto) 0.5 Neut # (Auto) 9.20 H Lymph # (Auto) 2.12 [place] # (Auto) 1.24 H Eos # (Auto) 0.37 Baso # (Auto) 0.07 Immature Gran # (Auto) 0.10 Absolute Nucleated RBC 0.05 Nucleated RBC % (auto) 0.4 Polychromasia Target Cells Tear Drop Cells Ovalocytes PT 11.7 INR 1.1 APTT 27 PTT Ratio 1.0 Sodium 141 Potassium 4.4 Chloride 106 Carbon Dioxide 26 Anion Gap 9 BUN 84 H Creatinine 2.46 H Est Cr Clr Drug Dosing Not Reportable eGFR 19.10 BUN/Creatinine Ratio 34.1 H Glucose 172 H POC Glucose 179 H Lactate 1.8 Calcium 9.2 Magnesium 2.0 Total Bilirubin 0.6 AST 48 H ALT 12 Alkaline Phosphatase 296 H Troponin I High Sens 19.8 H Total Protein 6.1 Albumin 3.1 L Globulin 3.0 Albumin/Globulin Ratio 1.0 Lipase 47 Urine Color Yellow Urine Appearance Clear Urine pH 5.0 Ur Specific [place] 1.011 Urine Protein Negative Urine Glucose (UA) Negative Urine Ketones Negative Urine Blood Negative Urine Nitrite Negative Urine Bilirubin Negative Urine Urobilinogen Negative Ur Leukocyte Esterase Negative Urine Comment Stl C. cayetanensis PCR Not Detected Stool Rotavirus A PCR Not Detected Stl Adenov F 40/41 PCR Not Detected Stool Astrovirus (PCR) Not Detected Stool Campylobacter PCR Not Detected Stl C. diff Tox B Gene Negative Cdiff Gene Stl C. diff 027-NAP1-[id number] NEGATIVE Stool Cryptosporidium PCR Not Detected Stl E.coli Shiga Tox PCR Not Detected Stl Enterotoxigenic E PCR Not Detected Stool EPEC (PCR) DETECTED A* Stool EAEC (PCR) Not Detected Stl E. histolytica PCR Not Detected Stool Giardia Lamblia PCR Not Detected Stool Salmonella PCR Not Detected Stool Sapovirus (PCR) Not Detected Stl P. shigelloides PCR Not Detected Stl Shigella/EIEC PCR Not Detected St Y.enterocolitica PCR Not Detected Stool Vibrio (PCR) Not Detected Stl Vibrio cholerae PCR Not Detected Stl Norovirus GI/GII PCR Not Detected Blood Type O Positive Antibody Screen NEGATIVE 01/26/25 01/26/25 00:59 05:31 WBC 9.73 RBC 2.54 L Hgb 7.5 L Hct 23.7 L MCV 93.3 MCH 29.5 MCHC 31.6 L RDW Std Deviation 59.3 H RDW Coeff of Yoel 18.6 H Plt Count 163 MPV 12.3 Immature Gran % (Auto) 0.7 Neut % (Auto) 65.1 Lymph % (Auto) 18.7 [place] % (Auto) 11.7 Eos % (Auto) 3.3 Baso % (Auto) 0.5 Neut # (Auto) 6.33 Lymph # (Auto) 1.82 [place] # (Auto) 1.14 H Eos # (Auto) 0.32 Baso # (Auto) 0.05 Immature Gran # (Auto) 0.07 Absolute Nucleated RBC Nucleated RBC % (auto) Polychromasia 1+ Target Cells 1+ Tear Drop Cells 1+ Ovalocytes 1+ PT INR APTT PTT Ratio Sodium 145 Potassium 4.7 Chloride 111 H Carbon Dioxide 27 Anion Gap 7 BUN 87 H Creatinine 2.28 H Est Cr Clr Drug Dosing 20.3 eGFR 20.92 BUN/Creatinine Ratio 38.2 H Glucose 126 H POC Glucose Lactate Calcium 8.6 Magnesium 2.0 Total Bilirubin AST ALT Alkaline Phosphatase Troponin I High Sens 15.7 H D 17.7 H Total Protein Albumin Globulin Albumin/Globulin Ratio Lipase Urine Color Urine Appearance Urine pH Ur Specific [place] Urine Protein Urine Glucose (UA) Urine Ketones Urine Blood Urine Nitrite Urine Bilirubin Urine Urobilinogen Ur Leukocyte Esterase Urine Comment Stl C. cayetanensis PCR Stool Rotavirus A PCR Stl Adenov F 40/41 PCR Stool Astrovirus (PCR) Stool Campylobacter PCR Stl C. diff Tox B Gene Stl C. diff [id number] Stool Cryptosporidium PCR Stl E.coli Shiga Tox PCR Stl Enterotoxigenic E PCR Stool EPEC (PCR) Stool EAEC (PCR) Stl E. histolytica PCR Stool Giardia Lamblia PCR Stool Salmonella PCR Stool Sapovirus (PCR) Stl P. shigelloides PCR Stl Shigella/EIEC PCR St Y.enterocolitica PCR Stool Vibrio (PCR) Stl Vibrio cholerae PCR Stl Norovirus GI/GII PCR Blood Type Antibody Screen Diagnostic Findings Abdomen/Pelvis CT 01/25/25 19:22 EXAM: CT abd pelvis wo con CLINICAL HISTORY: Rectal bleeding TECHNIQUE: Non-contrast CT of the abdomen and pelvis was performed, with the following protocol: axial images, and reconstructed coronal and sagittal images. No intravenous contrast was administered. One of the following dose reduction techniques was utilized for this exam: Automated exposure control, adjustment of the mA and/or kV according to patient size, and use of iterative reconstruction. DLP: 1324.46 mGy.cm COMPARISON: Comparison is made with previous x-ray abdomen on 05/27/2019 FINDINGS: Abdomen: Liver: Normal in size, shape, and density. No focal lesions, cysts, or masses were identified. Gallbladder and Biliary System: The gallbladder is surgically removed. CBD is normal. Pancreas: Pancreatic head, body, and tail are visualized and appear normal in size and density. No pancreatic masses or calcifications were noted. Spleen: Normal in size, shape, and density. No splenic lesions or masses were identified. Kidneys and Adrenal Glands: Both kidneys are normal in size, shape, and position. Cortical thickness is at the lower limit. No renal calculi or hydronephrosis. Multiple bilateral renal cortical cysts, some of them are hyperdense, largest on the right kidney measuring 2.5 cm. Routine ultrasound or MRI is needed for further assessment. Prominent renal sinus fat bilaterally, senile change. Adrenal glands are unremarkable. Appendix: The appendix is not visualized. Pelvis: Urinary Bladder: Normal in contour and wall thickness. No intraluminal lesions. Uterus and ovaries: Not well visualized but no gross abnormalities noted. Vagina: Normal in contour and wall thickness. Peritoneal and Retroperitoneal Structures: No free fluid or abnormal fluid collections were identified within the abdomen or pelvis. No lymphadenopathy was noted. Bowel: The visualized bowel loops are normal in caliber and appearance. No evidence of bowel obstruction or wall thickening. Uncomplicated diverticular disease of the colon. No signs of acute diverticulitis. Bones and Soft Tissues: Pelvic bones and soft tissues are unremarkable. No fractures or abnormal masses were identified. Diffuse spondylotic changes. Multiple areas of subcutaneous densities are seen in the anterior abdominal wall, suggest seroma. Midline subcutaneous edema of the lower back. IMPRESSION: 1. No acute abnormality detected on non-contrast CT basis. 2. Not all the causes of rectal bleeding could be excluded on a non-contrast CT study. 3. Uncomplicated diverticular disease of the colon. No signs of acute diverticulitis. 4. Multiple areas of subcutaneous densities are seen in the anterior abdominal wall, suggest seroma. 5. Midline subcutaneous edema of the lower back. 6. Multiple bilateral renal cortical cysts, some of them are hyperdense, largest on the right kidney measuring 2.5 cm. Routine ultrasound or MRI is needed for further assessment. Electronically signed by Andry Stone 01-25-2025 10:04 PM PG Care Time/CCT Total # of Minutes Spent Total Time Spent with Patient: Total time spent is greater than 50% in coordination of care (as documented) at patient's floor/unit and/or counseling patient: Coding Level of Care Code 07668 INT INP/OBS CARE MIN Diagnoses Hematochezia K92.1
[2025-01-26] MEDS: ATORVASTATIN 40 MG TAB PO SCH (09:32)
[2025-01-26] MEDS: CETIRIZINE HCL 10 MG TABLET PO SCH (09:33)
[2025-01-26] MEDS: EZETIMIBE 10 MG TAB PO SCH (09:33)
[2025-01-26] MEDS: ADVANCED PROBIOTIC 625 MG CAPSULE PO SCH (09:34)
[2025-01-26] MEDS: METOPROLOL TARTRATE 100 MG TAB PO SCH (09:35)
[2025-01-26] MEDS: ISOSORBIDE MONO EXTENDED REL 30 MG TABCR PO SCH (09:36)
[2025-01-26] MEDS: NYSTATIN POWDER 15GM BTL EXT SCH (09:37)
[2025-01-26] MEDS: MULTIVITAMIN TAB PO SCH (11:11)
[2025-01-26] MEDS ORDERED: Nursing to Pharmacy Communication SCH ×2 (11:45→18:15)
--- NOTE | 2025-01-26 11:59 | Hospitalist Progress Note ---
Date of Service January 26, 2025 Assessment & Plan (1) Rectal bleeding: Plan: 84-year-old female with past medical history significant for type 2 diabetes, CKD stage IV, hyperlipidemia, gouty arthritis, hyperphosphatemia, diabetic peripheral angiopathy, sleep apnea, chronic diastolic CHF, venous insufficiency, CAD, hypertension, bilateral carotid artery stenosis, s/p carotid artery stent placement, status post carotid endarterectomy, peripheral vascular disease, morbid obesity, cirrhosis of liver, diverticulosis of colon, anemia of chronic renal failure, history of DVT, who lives at home with her and granddaughter comes because of rectal bleed. Patient was recently in the hospital for bilateral lower extremity cellulitis and was discharged on 01/22/2025 on Keflex. During last admission she also had ART and her losartan and torsemide were held. Torsemide restarted but nephrology wanted to hold losartan until seen by nephro as outpatient. And one of the blood cultures grew staph lugdunensis and ID recommended Keflex 1000 mg twice daily until 02/02/2025. During the last admission patient also had an episode of rectal bleed ,GI wanted to scope but patient declined saying that she wanted to be scoped only if she bleeds again. Patient did okay and was discharged. Patient states today she had 3 episodes of bloody bowel movements. And she felt very weak after that. She could not walk. Denies any abdominal pain. No dizziness. No nausea. No chest pain. No shortness of breath. No cough. No headache. No runny nose. No sore throat. Currently resting comfortably and hemodynamically stable. Rectal bleeding Acute anemia on anemia of chronic disease CAT scan showing diverticulosis Hemoglobin 9.4. Hemoglobin was 8.4 on 01/22/2025 prior to discharge Last admission patient received Procrit and IV Venofer by nephro Will keep her n.p.o., gentle fluids Normal Saline 50 mL/h Blood consent obtained GI consulted in a.m. for further recommendations Denies any symptoms of abdominal pain, nausea or vomiting Hemoglobin dropped to 7.5 Appreciate GI input and recommendation for colonoscopy tomorrow Will monitor hemoglobin Recent bilateral cellulitis On Keflex 1000 mg twice daily until 02/02/2025 ART on CKD stage IV Baseline creatinine around 2 Presents with creatinine of 2.4 Creatinine 2.4 at the time of recent discharge Losartan on hold since last admission. Nephro wants to hold it until seen as outpatient Will hold torsemide also for now Close monitor for volume overload Kidney functions remain stable with creatinine 2.28 Diabetes Lantus 20 units nightly as patient currently n.p.o. Sliding scale Close monitor History of gout On allopurinol Hypertension On Amlodipine, Imdur, metoprolol tartrate Holding torsemide Losartan on hold since last admission Will monitor Hyperlipidemia On statin and Zetia Obstructive sleep apnea CPAP nightly Chronic diastolic CHF Holding diuretics Getting gentle fluids Monitor for volume overload Bilateral lower extremity edema Holding torsemide monitor for volume overload History of CAD status post stents On aspirin, Plavix statin and beta-bakari Holding aspirin Plavix for now for GI bleed History of carotid artery disease Status post right carotid endarterectomy Status post right carotid stenting for restenosis On aspirin Plavix and statin Holding aspirin Plavix for rectal bleed History of DVT provoked in 2019 was on Coumadin for 3 months History of peripheral artery vascular disease Venous insufficiency On aspirin, Plavix and statin Holding aspirin Plavix for rectal bleed. Renal cyst CAT scan showing multiple bilateral renal cortical cysts some of them are hyperdense, largest in the right kidney measuring 2.5 cm. Routine ultrasound or MRI scan is recommended DVT prophylaxis SCDs for now Disposition Telemetry Full code. Admission and Anticipated Discharge Date Admission Date: January 25, 2025 Subjective 01/26/2025 Patient was seen and examined in telemetry unit She was admitted with painless recurrent rectal bleeding Has had 3 episodes before coming to the hospital and felt dizzy with these episodes Denies any significant symptoms this morning Review of Systems Review of Systems: All systems reviewed and are unremarkable except as noted below Physical Exam Physical Exam: Lying in bed without any acute distress Constitutional: well developed, well nourished and + obese; not ill appearing Eyes: PERRL, conjunctivae normal, anicteric sclerae ENMT: external ear and nose normal, oropharynx normal Neck: trachea midline, no thyromegaly Respiratory: no respiratory distress Auscultation: lungs clear to auscultation bilaterally Cardiovascular: Rate/Rhythm: regular rate and regular rhythm; not tachycardic Heart Sounds: normal S1 and normal S2; no murmur Extremities: no edema Gastrointestinal (Abdomen): Inspection/Auscultation: normal bowel sounds; abdomen not distended Percussion/Palpation: abdomen soft; abdomen nontender Musculoskeletal: No acute arthritis involving any of the joint Neurologic: normal touch/pain/proprioception and moves all extremities; no focal motor deficits Psychiatric: A+Ox3, euthymic affect Lymphatic: no cervical or axillary lymphadenopathy Results & Data Results & Data Vital Signs (Past 12 Hours) Vital Signs Temp Pulse Pulse Resp BP Pulse Ox O2 Del Method 01/26/25 08:03 63 01/26/25 07:30 36.7 C 70 20 135/63 96 Room Air 01/26/25 03:16 36.7 C 62 18 128/57 L 95 Room Air 01/26/25 00:07 36.7 C 16 140/72 97 Room Air 01/26/25 00:07 Room Air 01/26/25 00:03 69 Laboratory Results Short CBC 01/25/25 01/26/25 Range/Units 18:21 05:31 WBC 13.10 H 9.73 (4.8-10.8) K/ul Hgb 9.4 L 7.5 L (12.0-16.0) g/dl Hct 28.3 L 23.7 L (37.0-47.0) % Plt Count 214 163 (130-400) K/uL BMP 01/25/25 01/26/25 18:21 05:31 Sodium 141 145 Potassium 4.4 4.7 Chloride 106 111 H Carbon Dioxide 26 27 BUN 84 H 87 H Creatinine 2.46 H 2.28 H Glucose 172 H 126 H Calcium 9.2 8.6 Liver Function 01/25/25 Range/Units 18:21 Total Bilirubin 0.6 (0.2-1.0) mg/dl AST 48 H (13-39) U/L ALT 12 (7-52) U/L Alkaline Phosphatase 296 H (34-104) U/L Albumin 3.1 L (3.4-5.0) gm/dl Urine 01/25/25 Range/Units 22:34 Urine Color Yellow Urine Appearance Clear (Clear) Urine pH 5.0 (4.5-7.5) Ur Specific [place] 1.011 (1.000-1.030) Urine Protein Negative (Negative) Urine Glucose (UA) Negative (Negative) Medications Administered Current Inpatient Medications Allopurinol (Allopurinol 100 Mg Tab) 200 mg PO DAILY [facility]ISSE Stop: 02/25/25 08:59 Last Admin: 01/26/25 09:33 Dose: 200 mg Amlodipine Besylate (Amlodipine Besylate 5 Mg Tab) 2.5 mg PO HS [facility] Stop: 02/25/25 20:59 Atorvastatin Calcium (Atorvastatin 40 Mg Tab) 80 mg PO DAILY [facility] Stop: 02/25/25 08:59 Last Admin: 01/26/25 09:32 Dose: 80 mg Cephalexin HCl (Cephalexin 500 Mg Cap) 1,000 mg PO BID [facility]; Protocol Stop: 02/02/25 08:59 Last Admin: 01/26/25 09:36 Dose: 1,000 mg Cetirizine HCl (Cetirizine Hcl 10 Mg Tablet) 5 mg PO DAILY [facility] Stop: 02/25/25 08:59 Last Admin: 01/26/25 09:33 Dose: 5 mg Dextrose (Dextrose 50% 50 Ml Syringe) 25 - 50 ml IV UD PRN; Protocol PRN Reason: Hypoglycemia Protocol Stop: 02/25/25 00:06 Ezetimibe (Ezetimibe 10 Mg Tab) 10 mg PO DAILY [facility]ISSE Stop: 02/25/25 08:59 Last Admin: 01/26/25 09:33 Dose: 10 mg Gabapentin (Gabapentin 100 Mg Cap) 100 mg PO HS [facility] Stop: 02/25/25 20:59 Glucagon (Glucagon For Inj 1 Mg Vial) 1 mg SQ UD PRN; Protocol PRN Reason: Hypoglycemia Protocol Stop: 02/25/25 00:06 Glucose (Glucose 40% Gel 15 Gm Tube) 15 - 30 gm PO UD PRN; Protocol PRN Reason: Hypoglycemia Protocol Stop: 02/25/25 00:06 Glucose (Glucose 10 Tab/Tube) 4 - 8 tab PO UD PRN; Protocol PRN Reason: Hypoglycemia Protocol Stop: 02/25/25 00:06 Sodium Chloride (Nss) 1,000 mls @ 50 mls/hr IV .Q20H [facility] Stop: 01/29/25 00:06 Last Admin: 01/26/25 00:40 Dose: 50 mls/hr Insulin Aspart (Insulin Aspart Per Unit Charge) 0 units SC Q6 [facility]ISSE Stop: 02/25/25 00:06 Last Admin: 01/26/25 05:50 Dose: Not Given Insulin Glargine (Lantus Per Unit Charge) 25 units SQ HS [facility] Stop: 02/25/25 20:59 Isosorbide Mononitrate (Isosorbide [place] Extended Rel 30 Mg Tabcr) 90 mg PO DAILY [facility] Stop: 02/25/25 08:59 Last Admin: 01/26/25 09:36 Dose: 90 mg Lactobacillus Acidophilus (Advanced Probiotic 625 Mg Capsule) 1,250 mg PO DAILY [facility] Stop: 02/25/25 08:59 Last Admin: 01/26/25 09:34 Dose: 1,250 mg Metoprolol Tartrate (Metoprolol Tartrate 100 Mg Tab) 100 mg PO BID [facility] Stop: 02/25/25 08:59 Last Admin: 01/26/25 09:35 Dose: 100 mg Miscellaneous (Carbohydrates For Hypoglycemia ) 15 - 30 gm PO UD PRN PRN Reason: Hypoglycemia Protocol Stop: 02/25/25 00:06 Miscellaneous Information (Nursing To Pharmacy Communication) 1 each N/A TODAY [facility] Stop: 02/25/25 11:44 Multivitamins (Multivitamin Tab) 1 tab PO DAILY [facility] Stop: 02/25/25 08:59 Last Admin: 01/26/25 11:11 Dose: 1 tab Nitroglycerin (Nitroglycerin Sl 0.4 Mg/Tab Tab) 0.4 mg SL Q5M PRN PRN Reason: Chest Pain Stop: 02/25/25 00:06 Nystatin (Nystatin Powder 15gm Btl) 1 appln EXT DAILY [facility] Stop: 02/25/25 08:59 Last Admin: 01/26/25 09:37 Dose: 1 appln Polyethylene Glycol/Electrolytes (Lavage Solution 4000ml) 16 dose PO 1730 [facility] Stop: 01/27/25 06:00
--- NOTE | 2025-01-26 12:11 | Electrocardiogram Report ---
Test Reason : Blood Pressure : */* mmHG Vent. Rate : 67 BPM Atrial Rate : 67 BPM P-R Int : 274 ms QRS Dur : 102 ms QT Int : 434 ms P-R-T Axes : -5 -12 172 degrees QTcB Int : 458 ms Sinus rhythm with 1st degree A-V block possible Inferior infarct , age undetermined Nonspecific ST abnormality Abnormal ECG When compared with ECG of 18-Jan-2025 18:15, Nonspecific T wave abnormality now evident in Inferior leads Confirmed by Tor Velasco [id number] on 01/26/2025 12:11:25 PM Referred By: REFERRED SELF Confirmed By: Tor Velasco
[2025-01-26] MEDS: LAVAGE SOLUTION 4000ML PO SCH (17:48)
[2025-01-26] MEDS ORDERED: SODIUM CHLORIDE 0.9% 100 ML IV PRN (20:33)
[2025-01-26] MEDS: LANTUS PER UNIT CHARGE SQ SCH (22:15)
[2025-01-26] MEDS: GABAPENTIN 100 MG CAP PO SCH (22:59)
[2025-01-27] MEDS: INSULIN ASPART PER UNIT CHARGE SC SCH (00:14)
[2025-01-27 02:46] LABS: Hematocrit (blood only) 27.8 % (37.0-47.0); Hematocrit (blood only) 28.6 % (37.0-47.0); Hemoglobin 9.2 g/dl (12.0-16.0); Hemoglobin 9.3 g/dl (12.0-16.0); Immature Granulocytes # (auto) 0.08 K/uL (0.01-0.20); Immature Granulocytes % (auto) 0.9 %; Mean Corpuscular Hemoglobin 29.2 pg (25.0-34.0); Mean Corpuscular Volume 90.8 fL (80.0-100.0); Platelet Count 166 K/uL (130-400); RDW Standard Deviation 56.4 fL (36.4-46.3); Red Blood Count 3.15 M/uL (4.20-5.40); White Blood Count 9.21 K/ul (4.8-10.8)
[2025-01-27 03:00] LABS: Anion Gap 8.0 (3-11); Blood Urea Nitrogen 69.0 mg/dl (6-23); Calcium 8.6 mg/dl (8.6-10.3); Carbon Dioxide 25.0 mmol/L (21-32); Chloride 113.0 mmol/L (98-107); Creatinine Clr Calc Pharmacy 24.5 ml/min; Glucose 82.0 mg/dl (70-99(Fasting)); Potassium 3.8 mmol/L (3.5-5.1); Sodium 146.0 mmol/L (136-145)
[2025-01-27] MEDS: SODIUM CHLORIDE 0.45 % 1,000 ML IV ONE (06:09)
[2025-01-27] MEDS: DEXTROSE 50% 50 ML SYRINGE IV PRN (06:15)
[2025-01-27 08:18] LABS: Hematocrit (blood only) 27.8 % (37.0-47.0); Hemoglobin 9.0 g/dl (12.0-16.0)
--- NOTE | 2025-01-27 09:51 | History & Physical Bridge Note ---
Date of Service January 27, 2025 History & Physical Bridge Note I have examined the patient, reviewed the History & Physical and in the interval since the performance of the History & Physical I have noted the following changes of clinical significance: no changes noted. Patient did not finish her prep. stools have been coming out bloody. she needed to have a dignishield placed last evening. no chest pain or sob. - recommended she try to get as much prep in as she can before 11am. - will plan to proceed with a colonoscopy later this afternoon to further evaluate her rectal bleeding. Supervising Physician Co-Signing Physician Notes I personally saw and examined the patient. I have reviewed the chart and agree with the documentation provided by the CLASSIFIED AD CLERK including discussion about the assessment, treatment and plan. Plan for colonoscopy.
--- NOTE | 2025-01-27 10:44 | Anesthesiology Consultation ---
Date of Service January 27, 2025 Assessment & Plan Chart Review Chart Review: Acceptable Risk for Surgery and Patient NOT seen in Pre Admission Testing Consults Requested none ASA ASA4 Proposed Anesthesia Anesthesia Type: MAC History Surgery Operation Date: 01/27/25 16:30 Proposed Procedures p Colonoscopy Devonte Whitney MD Height/Weight Height: 5 ft Weight: 101.1 kg Allergies Allergy/AdvReac Type Severity Reaction Status Date / Time niacin Allergy Intermediate ITCHY, RED Verified 01/25/25 18:45 RASH ibuprofen Allergy Mild RUNNY NOSE Verified 01/25/25 18:45 baclofen AdvReac Severe confusion Verified 01/25/25 18:45 hydrocodone AdvReac Severe confusion Verified 01/25/25 18:45 Medications Home Medications Medication Instructions Recorded Confirmed Last Taken allopurinol 100 mg tablet 200 mg PO DAILY 05/27/19 01/25/25 01/25/25 atorvastatin 80 mg tablet 80 mg PO DAILY 05/27/19 01/25/25 01/25/25 cetirizine 10 mg tablet (Zyrtec) 5 mg PO DAILY 05/27/19 01/25/25 01/25/25 insulin aspart U-100 100 unit/mL 1 unit subcut ACHS 05/27/19 01/25/25 01/18/25 (3 mL) subcutaneous pen (Novolog FlexPen U-100 Insulin aspart) metoprolol tartrate 100 mg tablet 100 mg PO BID 05/27/19 01/25/25 01/25/25 08:00 multivitamin 1 tab PO DAILY 05/27/19 01/25/25 01/25/25 aspirin 81 mg capsule 81 mg PO DAILY 05/31/21 01/25/25 01/25/25 Oxygen Home #1 ea 06/02/21 06/21/22 Unknown acetaminophen 500 mg capsule 500 mg PO Q6H PRN Pain 05/09/22 01/25/25 01/18/25 amlodipine 5 mg tablet 2.5 mg PO HS 05/09/22 01/25/25 Unknown clopidogrel 75 mg tablet (Plavix) 75 mg PO BID 05/09/22 01/25/25 01/25/25 08:00 ezetimibe 10 mg tablet (Zetia) 10 mg PO DAILY 05/09/22 01/25/25 01/25/25 nitroglycerin 0.4 mg sublingual 0.4 mg sublingual Q5M PRN Chest 05/09/22 01/25/25 Unknown tablet Pain nystatin 100,000 unit/gram topical 1 applic topical DAILY 05/09/22 01/25/25 Unknown powder torsemide 20 mg tablet 30 mg PO DAILY 05/09/22 01/25/25 01/25/25 insulin glargine 100 unit/mL (3 44 unit subcut HS 06/21/22 01/25/25 01/24/25 mL) subcutaneous pen (Lantus Solostar U-100 Insulin) isosorbide mononitrate 60 mg 90 mg PO DAILY 06/21/22 01/25/25 01/25/25 tablet,extended release 24 hr gabapentin 100 mg capsule 100 mg PO HS 01/18/25 01/25/25 01/24/25 Lactobacillus 1 tab PO DAILY #14 wafers 01/22/25 01/25/25 01/25/25 acidophilus-Lactbacill.bifidus 1 billion cell oral wafer cephalexin 500 mg capsule 1,000 mg (2 x 500 mg) PO BID #40 01/22/25 01/25/25 01/25/25 08:00 caps Active Medications Generic Name Dose Route Start Last Admin Trade Name Freq PRN Reason Stop Dose Admin Allopurinol 200 mg 01/26/25 09:00 01/26/25 09:33 Allopurinol 100 Mg Tab PO 02/25/25 08:59 200 mg DAILY DENISSE Administration Amlodipine Besylate 2.5 mg 01/26/25 21:00 01/26/25 22:58 Amlodipine Besylate 5 Mg Tab PO 02/25/25 20:59 2.5 mg HS DENISSE Administration Atorvastatin Calcium 80 mg 01/26/25 09:00 01/26/25 09:32 Atorvastatin 40 Mg Tab PO 02/25/25 08:59 80 mg DAILY DENISSE Administration Cephalexin HCl 1,000 mg 01/26/25 09:00 01/26/25 22:58 Cephalexin 500 Mg Cap PO 02/02/25 08:59 1,000 mg BID DENISSE Administration Protocol Cetirizine HCl 5 mg 01/26/25 09:00 01/26/25 09:33 Cetirizine Hcl 10 Mg Tablet PO 02/25/25 08:59 5 mg DAILY DENISSE Administration Dextrose 25 - 50 ml 01/26/25 00:07 01/27/25 06:15 Dextrose 50% 50 Ml Syringe IV 02/25/25 00:06 25 ml UD PRN Administration Hypoglycemia Protocol Protocol Ezetimibe 10 mg 01/26/25 09:00 01/26/25 09:33 Ezetimibe 10 Mg Tab PO 02/25/25 08:59 10 mg DAILY DENISSE Administration Gabapentin 100 mg 01/26/25 21:00 01/26/25 22:59 Gabapentin 100 Mg Cap PO 02/25/25 20:59 100 mg HS DENISSE Administration Sodium Chloride 1,000 mls @ 50 mls/hr 01/27/25 05:39 01/27/25 06:09 1/2 Nss IV 01/28/25 01:38 50 mls/hr .Q20H ONE Administration Insulin Aspart 0 units 01/27/25 00:00 01/27/25 06:21 Insulin Aspart Per Unit Charge SC 02/25/25 11:59 Not Given Q6 DENISSE Isosorbide Mononitrate 90 mg 01/26/25 09:00 01/26/25 09:36 Isosorbide [place] Extended Rel 30 Mg Tabcr PO 02/25/25 08:59 90 mg DAILY DENISSE Administration Lactobacillus Acidophilus 1,250 mg 01/26/25 09:00 01/26/25 09:34 Advanced Probiotic 625 Mg Capsule PO 02/25/25 08:59 1,250 mg DAILY DENISSE Administration Metoprolol Tartrate 100 mg 01/26/25 09:00 01/26/25 22:59 Metoprolol Tartrate 100 Mg Tab PO 02/25/25 08:59 100 mg BID DENISSE Administration Multivitamins 1 tab 01/26/25 09:00 01/26/25 11:11 Multivitamin Tab PO 02/25/25 08:59 1 tab DAILY DENISSE Administration Nystatin 1 appln 01/26/25 09:00 01/26/25 09:37 Nystatin Powder 15gm Btl EXT 02/25/25 08:59 1 appln DAILY DENISSE Administration Past Medical History Medical History Dyslipidemia History of right common carotid artery stent placement ASCVD Ao/Carotids HTN Morbid Obesity NIDDM Gout CHF PVD DALE Liver cirrhosis Anemia CAD s/p PTCA/Stents Hx/o DVT Exercise / Class Metabolic Activity III < 4 Walking/Shop/Light housework Past Family History Family History Brother Lung cancer Bone cancer Past Anesthesia History No Hx of Anesthesia Complications and No Family Hx of Anesthesia Complications History of PONV No Hx of PONV and No Hx of Motion Sickness Social History Smoking Status: Never smoker Do You Dip or Chew Tobacco: No Hx Alcohol Use: No Hx Substance Use: No substance use type: does not use Last Used Substance: Unknown Physical Exam Vital Signs Last Vital Signs Temp 36.4 C L 01/27/25 08:00 Pulse 66 01/27/25 08:00 Resp 18 01/27/25 08:00 BP 164/79 H 01/27/25 08:00 Pulse Ox 96 01/27/25 08:00 O2 Del Method Room Air 01/27/25 08:00 Testing Laboratory Results 01/27/25 07:59 01/27/25 02:23 PT 11.7 Seconds (9.0-12.0) 01/25/25 18:21 INR 1.1 (0.9-1.1) 01/25/25 18:21 APTT 27 Seconds (21-31) 01/25/25 18:21 Urine Color Yellow 01/25/25 22:34 Urine Appearance Clear (Clear) 01/25/25 22:34 Urine pH 5.0 (4.5-7.5) 01/25/25 22:34 Ur Specific [place] 1.011 (1.000-1.030) 01/25/25 22:34 Urine Protein Negative (Negative) 01/25/25 22:34 Urine Glucose (UA) Negative (Negative) 01/25/25 22:34 Urine Ketones Negative (Negative) 01/25/25 22:34 Urine Nitrite Negative (Negative) 01/25/25 22:34 Ur Leukocyte Esterase Negative (Negative) 01/25/25 22:34 Blood Type O Positive 01/25/25 18:21 Antibody Screen NEGATIVE 01/25/25 18:21 01/27/25 01/27/25 01/27/25 07:27 06:34 06:11 POC Glucose 93 167 H 61 L* 01/27/25 01/26/25 06:10 23:46 POC Glucose 59 L* 107 H Electrocardiogram Date: 01/25/25 Findings: + NSR @ (@ 67;? infer. infarct,age ?) Chest X-Ray Date: 01/18/25 Findings: + atherosclerosis of thoracic aorta Echocardiogram Date: 01/19/25 EF: 50% LV Function: normal RWMA: + none Other Findings: + LVH and + diastolic dysfunction Valvular Disease: + (mild ) mild TR
--- NOTE | 2025-01-27 11:12 | Hospitalist Progress Note ---
Date of Service January 27, 2025 Assessment & Plan (1) Rectal bleeding: Plan: 84-year-old female with past medical history significant for type 2 diabetes, CKD stage IV, hyperlipidemia, gouty arthritis, hyperphosphatemia, diabetic peripheral angiopathy, sleep apnea, chronic diastolic CHF, venous insufficiency, CAD, hypertension, bilateral carotid artery stenosis, s/p carotid artery stent placement, status post carotid endarterectomy, peripheral vascular disease, morbid obesity, cirrhosis of liver, diverticulosis of colon, anemia of chronic renal failure, history of DVT, who lives at home with her and granddaughter comes because of rectal bleed. Patient was recently in the hospital for bilateral lower extremity cellulitis and was discharged on 01/22/2025 on Keflex. During last admission she also had ART and her losartan and torsemide were held. Torsemide restarted but nephrology wanted to hold losartan until seen by nephro as outpatient. And one of the blood cultures grew staph lugdunensis and ID recommended Keflex 1000 mg twice daily until 02/02/2025. During the last admission patient also had an episode of rectal bleed ,GI wanted to scope but patient declined saying that she wanted to be scoped only if she bleeds again. Patient did okay and was discharged. Patient states today she had 3 episodes of bloody bowel movements. And she felt very weak after that. She could not walk. Denies any abdominal pain. No dizziness. No nausea. No chest pain. No shortness of breath. No cough. No headache. No runny nose. No sore throat. Currently resting comfortably and hemodynamically stable. Rectal bleeding Acute anemia on anemia of chronic disease CAT scan showing diverticulosis Hemoglobin 9.4. Hemoglobin was 8.4 on 01/22/2025 prior to discharge Last admission patient received Procrit and IV Venofer by nephro Will keep her n.p.o., gentle fluids Normal Saline 50 mL/h Blood consent obtained GI consulted in a.m. for further recommendations Denies any symptoms of abdominal pain, nausea or vomiting Hemoglobin dropped to 7.5 Appreciate GI input and recommendation for colonoscopy tomorrow Received 1 unit of PRBC yesterday and the hemoglobin is more than 9 today Rectal tube is draining stool with altered blood Will have colonoscopy this afternoon Recent bilateral cellulitis On Keflex 1000 mg twice daily until 02/02/2025 Continue Keflex for bilateral leg cellulitis ART on CKD stage IV Baseline creatinine around 2 Presents with creatinine of 2.4 Creatinine 2.4 at the time of recent discharge Losartan on hold since last admission. Nephro wants to hold it until seen as outpatient Will hold torsemide also for now Close monitor for volume overload Kidney functions remain stable with creatinine 2.28 Creatinine is stable and slightly better at 1.89 Diabetes Lantus 20 units nightly as patient currently n.p.o. Sliding scale Close monitor History of gout On allopurinol Hypertension On Amlodipine, Imdur, metoprolol tartrate Holding torsemide Losartan on hold since last admission Will monitor Hyperlipidemia On statin and Zetia Obstructive sleep apnea CPAP nightly Chronic diastolic CHF Holding diuretics Getting gentle fluids Monitor for volume overload Bilateral lower extremity edema Holding torsemide monitor for volume overload History of CAD status post stents On aspirin, Plavix statin and beta-bakari Holding aspirin Plavix for now for GI bleed History of carotid artery disease Status post right carotid endarterectomy Status post right carotid stenting for restenosis On aspirin Plavix and statin Holding aspirin Plavix for rectal bleed History of DVT provoked in 2019 was on Coumadin for 3 months History of peripheral artery vascular disease Venous insufficiency On aspirin, Plavix and statin Holding aspirin Plavix for rectal bleed. Renal cyst CAT scan showing multiple bilateral renal cortical cysts some of them are hyperdense, largest in the right kidney measuring 2.5 cm. Routine ultrasound or MRI scan is recommended DVT prophylaxis SCDs for now Disposition Telemetry Full code. Admission and Anticipated Discharge Date Admission Date: January 25, 2025 Subjective 01/26/2025 Patient was seen and examined in telemetry unit She was admitted with painless recurrent rectal bleeding Has had 3 episodes before coming to the hospital and felt dizzy with these episodes Denies any significant symptoms this morning 01/27/2025 The patient was seen and examined in telemetry unit She has had 1 unit of blood transfusion yesterday Rectal tube is draining altered blood mixed with stool but no cruzito blood noted She denies any significant symptoms and does not have any abdominal discomfort or pain and no nausea and vomiting Review of Systems Review of Systems: All systems reviewed and are unremarkable except as noted below Physical Exam Physical Exam: Lying in bed without any acute distress Constitutional: well developed, well nourished and + obese; not ill appearing Eyes: PERRL, conjunctivae normal, anicteric sclerae ENMT: external ear and nose normal, oropharynx normal Neck: trachea midline, no thyromegaly Respiratory: no respiratory distress Auscultation: lungs clear to auscultation bilaterally Cardiovascular: Rate/Rhythm: regular rate and regular rhythm; not tachycardic Heart Sounds: normal S1 and normal S2; no murmur Extremities: no edema Gastrointestinal (Abdomen): Inspection/Auscultation: normal bowel sounds; abdomen not distended Percussion/Palpation: abdomen soft; abdomen nontender Musculoskeletal: No acute arthritis involving any of the joint Neurologic: normal touch/pain/proprioception and moves all extremities; no focal motor deficits Psychiatric: A+Ox3, euthymic affect Lymphatic: no cervical or axillary lymphadenopathy Results & Data Results & Data Vital Signs (Past 12 Hours) Vital Signs Temp Pulse Pulse Resp BP BP Pulse Ox 01/27/25 11:07 58 L 01/27/25 08:00 36.4 C L 66 18 164/79 H 96 01/27/25 03:40 36.3 C L 69 16 158/63 H 95 01/26/25 23:41 36.3 C L 68 18 154/43 H 93 O2 Del Method 01/27/25 11:07 01/27/25 08:00 Room Air 01/27/25 03:40 Room Air 01/26/25 23:41 Laboratory Results Short CBC 01/27/25 01/27/25 01/27/25 Range/Units 02:23 02:23 02:23 WBC 9.21 (4.8-10.8) K/ul Hgb 9.2 L 9.3 L (12.0-16.0) g/dl Hct 28.6 L 27.8 L (37.0-47.0) % Plt Count 166 (130-400) K/uL 01/27/25 Range/Units 07:59 WBC (4.8-10.8) K/ul Hgb 9.0 L (12.0-16.0) g/dl Hct 27.8 L (37.0-47.0) % Plt Count (130-400) K/uL BMP 01/27/25 02:23 Sodium 146 H Potassium 3.8 Chloride 113 H Carbon Dioxide 25 BUN 69 H Creatinine 1.89 H D Glucose 82 Calcium 8.6 Medications Administered Current Inpatient Medications Allopurinol (Allopurinol 100 Mg Tab) 200 mg PO DAILY DENISSE Stop: 02/25/25 08:59 Last Admin: 01/26/25 09:33 Dose: 200 mg Amlodipine Besylate (Amlodipine Besylate 5 Mg Tab) 2.5 mg PO HS [facility] Stop: 02/25/25 20:59 Last Admin: 01/26/25 22:58 Dose: 2.5 mg Atorvastatin Calcium (Atorvastatin 40 Mg Tab) 80 mg PO DAILY DENISSE Stop: 02/25/25 08:59 Last Admin: 01/26/25 09:32 Dose: 80 mg Cephalexin HCl (Cephalexin 500 Mg Cap) 1,000 mg PO BID [facility]; Protocol Stop: 02/02/25 08:59 Last Admin: 01/26/25 22:58 Dose: 1,000 mg Cetirizine HCl (Cetirizine Hcl 10 Mg Tablet) 5 mg PO DAILY [facility] Stop: 02/25/25 08:59 Last Admin: 01/26/25 09:33 Dose: 5 mg Dextrose (Dextrose 50% 50 Ml Syringe) 25 - 50 ml IV UD PRN; Protocol PRN Reason: Hypoglycemia Protocol Stop: 02/25/25 00:06 Last Admin: 01/27/25 06:15 Dose: 25 ml Ezetimibe (Ezetimibe 10 Mg Tab) 10 mg PO DAILY [facility] Stop: 02/25/25 08:59 Last Admin: 01/26/25 09:33 Dose: 10 mg Gabapentin (Gabapentin 100 Mg Cap) 100 mg PO HS [facility] Stop: 02/25/25 20:59 Last Admin: 01/26/25 22:59 Dose: 100 mg Glucagon (Glucagon For Inj 1 Mg Vial) 1 mg SQ UD PRN; Protocol PRN Reason: Hypoglycemia Protocol Stop: 02/25/25 00:06 Glucose (Glucose 40% Gel 15 Gm Tube) 15 - 30 gm PO UD PRN; Protocol PRN Reason: Hypoglycemia Protocol Stop: 02/25/25 00:06 Glucose (Glucose 10 Tab/Tube) 4 - 8 tab PO UD PRN; Protocol PRN Reason: Hypoglycemia Protocol Stop: 02/25/25 00:06 Sodium Chloride (1/2 Nss) 1,000 mls @ 50 mls/hr IV .Q20H ONE Stop: 01/28/25 01:38 Last Admin: 01/27/25 06:09 Dose: 50 mls/hr Insulin Aspart (Insulin Aspart Per Unit Charge) 0 units SC Q6 [facility] Stop: 02/25/25 11:59 Last Admin: 01/27/25 06:21 Dose: Not Given Insulin Glargine (Lantus Per Unit Charge) 15 units SQ HS [facility] Stop: 02/26/25 20:59 Isosorbide Mononitrate (Isosorbide [place] Extended Rel 30 Mg Tabcr) 90 mg PO DAILY DENISSE Stop: 02/25/25 08:59 Last Admin: 01/26/25 09:36 Dose: 90 mg Lactobacillus Acidophilus (Advanced Probiotic 625 Mg Capsule) 1,250 mg PO DAILY DENISSE Stop: 02/25/25 08:59 Last Admin: 01/26/25 09:34 Dose: 1,250 mg Metoprolol Tartrate (Metoprolol Tartrate 100 Mg Tab) 100 mg PO BID DENISSE Stop: 02/25/25 08:59 Last Admin: 01/26/25 22:59 Dose: 100 mg Miscellaneous (Carbohydrates For Hypoglycemia ) 15 - 30 gm PO UD PRN PRN Reason: Hypoglycemia Protocol Stop: 02/25/25 00:06 Multivitamins (Multivitamin Tab) 1 tab PO DAILY DENISSE Stop: 02/25/25 08:59 Last Admin: 01/26/25 11:11 Dose: 1 tab Nitroglycerin (Nitroglycerin Sl 0.4 Mg/Tab Tab) 0.4 mg SL Q5M PRN PRN Reason: Chest Pain Stop: 02/25/25 00:06 Nystatin (Nystatin Powder 15gm Btl) 1 appln EXT DAILY DENISSE Stop: 02/25/25 08:59 Last Admin: 01/26/25 09:37 Dose: 1 appln
--- NOTE | 2025-01-27 15:20 | GI REPORT ---
[facility] Patient: CINTHIA LAZO : 1940 Sex at : Female Age: 84 Years Procedure: Colonoscopy Date: 01/27/2025 Attending Physician: Ephraim Whitney MD Referring MD: Referred Self Indications: - Rectal bleeding Medications: - Monitored Anesthesia Care Complications: - No immediate complications. Estimated Blood Loss: - Estimated blood loss: None. Procedure: - Prior to the procedure, a History and Physical was performed, and patient medications and allergies were reviewed. The patient's tolerance of previous anesthesia was also reviewed. The risks and benefits of the procedure and the sedation options and risks were discussed with the patient. All questions were answered, and informed consent was obtained. Prior Anticoagulants: The patient has taken no anticoagulant or antiplatelet agents. ASA Grade Assessment: III - A patient with severe systemic disease. After reviewing the risks and benefits, the patient was deemed in satisfactory condition to undergo the procedure. - The pediatric colonoscope was introduced through the anus and advanced to the cecum, identified by appendiceal orifice and ileocecal valve. - The colonoscopy was performed without difficulty. - The patient tolerated the procedure well. - The quality of the bowel preparation was good. - The ileocecal valve, appendiceal orifice, and rectum were photographed. Findings: - The exam was otherwise without abnormality on direct and retroflexion views. - A continuous area of nonbleeding ulcerated mucosa with stigmata of recent bleeding was present in the cecum. Biopsies were taken with a cold forceps for histology. No obvious mass noted but heaped up ulcer noted in cecal base. Biopsies done. This could be ischemic colitis. - Multiple medium-mouthed diverticula were found in the entire colon. There was no evidence of diverticular bleeding. - Internal hemorrhoids were found during retroflexion. The hemorrhoids were small. - Two sessile polyps were found in the ascending colon. The polyps were small (4-6 mm) in size. These polyps were removed with a cold biopsy forceps. Resection and retrieval were complete. Impression: - The examination was otherwise normal on direct and retroflexion views. - Mucosal ulceration in the cecum. Biopsied. - No obvious mass noted but heaped up ulcer noted in cecal base. Biopsies done. This could be ischemic colitis. - Moderate diverticulosis in the entire examined colon. There was no evidence of diverticular bleeding. - Internal hemorrhoids. - Two small (4-6 mm) polyps in the ascending colon, removed with a cold biopsy forceps. Resected and retrieved. Recommendation: - Discharge patient to home (ambulatory). - Resume previous diet. - Continue present medications. - Repeat colonoscopy date to be determined after pending pathology results are reviewed for surveillance based on pathology results. - Return to referring physician as previously scheduled. - Patient has a contact number available for emergencies. The signs and symptoms of potential delayed complications were discussed with the patient. Return to normal activities tomorrow. Written discharge instructions were provided to the patient. - Resume Plavix (clopidogrel) at prior dose in 2 days. - No obvious mass noted in the right colon. Cecal ulceration noted. If possible, I would suggest a CT with IV contrast and oral contrast to examine the cecal area better. We also need to look at the ileocolic and SMA circulation to make sure that there is no ostial stenosis. Follow-up biopsies start a diet Procedure Code(s): - 27821, Colonoscopy, flexible; with biopsy, single or multiple Diagnosis Code(s): - K62.5, Hemorrhage of anus and rectum - K63.3, Ulcer of intestine - D12.2, Benign neoplasm of ascending colon - K64.8, Other hemorrhoids - K57.30, Diverticulosis of large intestine without perforation or abscess without bleeding CPT(R) - 2023 copyright [employer]. All Rights Reserved. The CPT codes, CCI edits and ICD codes generated are intended as suggestions and were generated based on input data. These codes are preliminary and upon coder operator review may be revised to meet current compliance and payer requirements. The provider is responsible for the final determination of appropriate codes, and modifiers. Ephraim Whitney MD This document has been electronically signed. Note Initiated:01/27/2025 Note Completed:01/27/2025 3:20 PM [email or web address]\[id number]
--- NOTE | 2025-01-27 16:18 | Communication Note ---
Date of Service: January 27, 2025 84-year-old with acute on chronic kidney injury her creatinine has come down to 1.86 who presented with rectal bleeding. The colonoscopy showed a tortuous colon with diverticulosis in the entire colon. There was no active bleeding noted. 2 small ascending colon polyps were removed. There appears to be a very significant ulceration in the cecal base with stigmata of recent bleeding. This is likely the source of the bleeding. The ulcer was heaped up but did not appear to be a mass. Biopsies were done to rule out ischemic colitis. Ideally the patient needs a CT scan with IV hydration with oral and p.o. contrast to evaluate the SMA territory to see if there is ischemic colitis present. If all of this is negative she will need a repeat colonoscopy in about a month to rule out an underlying mass. Again this appeared to be a cecal ulcer and likely the source of bleeding
[2025-01-27 16:26] LABS: Hematocrit (blood only) 28.8 % (37.0-47.0); Hemoglobin 9.4 g/dl (12.0-16.0)
--- NOTE | 2025-01-27 17:13 | Anesthesiology Progress Note ---
Date of Service January 27, 2025 Anesthesia Post Procedure Vital Signs Vital Signs: Temp Pulse Pulse Resp BP BP Pulse Ox 01/27/25 15:25 59 L 18 136/42 L 96 01/27/25 15:15 60 16 129/49 L 94 01/27/25 15:00 62 16 132/46 L 98 01/27/25 14:43 58 L 01/27/25 13:55 35.7 C L 63 16 187/70 H 97 01/27/25 11:38 36.5 C 70 20 171/61 H 97 01/27/25 11:07 58 L 01/27/25 08:00 36.4 C L 66 18 164/79 H 96 01/27/25 03:40 36.3 C L 69 16 158/63 H 95 01/26/25 23:41 36.3 C L 68 18 154/43 H 93 01/26/25 22:41 36.3 C L 67 18 162/72 H 96 01/26/25 22:11 69 18 169/48 H 97 01/26/25 21:56 73 18 168/61 H 94 01/26/25 21:48 84 01/26/25 21:33 36.5 C 65 18 141/49 H 93 01/26/25 19:57 36.5 C 65 16 163/59 H 95 O2 Del Method 01/27/25 15:25 Room Air 01/27/25 15:15 Room Air 01/27/25 15:00 Room Air 01/27/25 14:43 01/27/25 13:55 Room Air 01/27/25 11:38 Room Air 01/27/25 11:07 01/27/25 08:00 Room Air 01/27/25 03:40 Room Air 01/26/25 23:41 01/26/25 22:41 01/26/25 22:11 01/26/25 21:56 01/26/25 21:48 01/26/25 21:33 01/26/25 19:57 Room Air Transfer of Care Handoff Completed per policy Notes Mental Status: alert / awake / arousable Patient Amnestic to Procedure: Yes Nausea / Vomiting: adequately controlled Pain: adequately controlled Airway Patency, RR, SpO2: stable & adequate BP & HR: stable & adequate Hydration State: stable & adequate Anesthetic Complications: no major complications apparent
[2025-01-27] MEDS: LANTUS PER UNIT CHARGE SQ SCH (20:35)
[2025-01-28 06:24] LABS: Hematocrit (blood only) 26.6 % (37.0-47.0); Hemoglobin 8.4 g/dl (12.0-16.0); Immature Granulocytes # (auto) 0.05 K/uL (0.01-0.20); Immature Granulocytes % (auto) 0.6 %; Mean Corpuscular Hemoglobin 29.1 pg (25.0-34.0); Mean Corpuscular Volume 92.0 fL (80.0-100.0); Platelet Count 161 K/uL (130-400); RDW Standard Deviation 61.2 fL (36.4-46.3); Red Blood Count 2.89 M/uL (4.20-5.40); White Blood Count 7.71 K/ul (4.8-10.8)
[2025-01-28 06:44] LABS: Anion Gap 8.0 (3-11); Blood Urea Nitrogen 49.0 mg/dl (6-23); Calcium 8.4 mg/dl (8.6-10.3); Carbon Dioxide 25.0 mmol/L (21-32); Chloride 116.0 mmol/L (98-107); Creatinine Clr Calc Pharmacy 31.0 ml/min; Glucose 110.0 mg/dl (70-99(Fasting)); Potassium 3.7 mmol/L (3.5-5.1); Sodium 149.0 mmol/L (136-145)
[2025-01-28] MEDS: PROPOFOL IV EMULSION 10 MG/ML 20 ML VIAL IV ONE ×4 (07:48→07:49)
[2025-01-28] MEDS: LIDOCAINE 2% 2 ML VIAL/AMP(20MG/ML) INFIL ONE ×2 (07:49)
[2025-01-28] MEDS: ePHEDrine sulfate 50 MG/5 ML SYR ONE (07:49)
[2025-01-28] MEDS: INSULIN ASPART PER UNIT CHARGE SC SCH (07:56)
--- NOTE | 2025-01-28 10:49 | Gastroenterology Progress Note ---
Date of Service January 28, 2025 Assessment & Plan (1) Rectal bleeding: Plan: Patient has not had further bleeding. - await pathology from colonoscopy. - recommend following hgb/hct. transfuse as needed. - Ideally the patient needs a CT scan with IV and oral contrast to evaluate the SMA territory to see if there is ischemic colitis present, would defer to nephrology if this is okay given her CKD. - If all of this is negative she will need a repeat colonoscopy in about a month to rule out an underlying mass. Admission and Anticipated Discharge Date Admission Date: January 25, 2025 Supervising Physician Co-Signing Physician Notes I personally saw and examined the patient. I have reviewed the chart and agree with the documentation provided by the SCRUBBER MACHINE TENDER including discussion about the assessment, treatment and plan. Briefly, 84-year-old with rectal bleeding hematochezia and anemia. Colonoscopy showed diverticulosis but a large cecal ulcer. Biopsies are done and pending. No active bleeding noted and she is feeling better. It may be very difficult to get a CT given her stage IV kidney disease. We may have to rely on repeating the colonoscopy to confirm healing and rule out any mass in a month. Subjective Patient notes that she has been feeling well. Tolerating clears. she has not moved her bowels per patient. no further bleeding. the rest of the GI ros are unremarkable. 01/28/25 hgb 8.4 (previously 9.4). Colonoscopy 01/27/25 - mucosal ulceration in cecum. no obvious mass noted but heaped up ulcer noted in cecal base. This could be ischemic colitis. moderate diverticulosis. internal hemorrhoids. two small polyps in the ascending colon. pathology pending. Review of Systems Review of Systems: All systems reviewed & are unremarkable except as noted in HPI & below Physical Exam Constitutional: WD/WN, vitals as above Respiratory: normal respiratory effort, lungs clear to auscultation Cardiovascular: Rate/Rhythm: regular rate and regular rhythm Gastrointestinal (Abdomen): normal bowel sounds, soft, nontender, no hepatosplenomegaly Psychiatric: Orientation: alert and oriented x 3 Affect: euthymic affect Results & Data Results & Data Vital Signs (Past 12 Hours) Vital Signs Temp Pulse Pulse Resp BP Pulse Ox O2 Del Method 01/28/25 10:44 98.1 F 66 18 158/77 H 92 Room Air 01/28/25 08:09 97.9 F 68 18 150/75 H 97 Room Air 01/28/25 02:53 97.7 F 65 20 137/65 95 Room Air 01/27/25 23:10 97.5 F L 62 18 154/60 H 94 Room Air Coding Level of Care Code 21078 SUB INP/OBS CARE 2/35MIN Diagnoses Rectal bleeding K62.5
--- NOTE | 2025-01-28 15:12 | Hospitalist Progress Note ---
Date of Service January 28, 2025 Assessment & Plan (1) Rectal bleeding: Plan: 84-year-old female with past medical history significant for type 2 diabetes, CKD stage IV, hyperlipidemia, gouty arthritis, hyperphosphatemia, diabetic peripheral angiopathy, sleep apnea, chronic diastolic CHF, venous insufficiency, CAD, hypertension, bilateral carotid artery stenosis, s/p carotid artery stent placement, status post carotid endarterectomy, peripheral vascular disease, morbid obesity, cirrhosis of liver, diverticulosis of colon, anemia of chronic renal failure, history of DVT, who lives at home with her and granddaughter comes because of rectal bleed. Patient was recently in the hospital for bilateral lower extremity cellulitis and was discharged on 01/22/2025 on Keflex. During last admission she also had ART and her losartan and torsemide were held. Torsemide restarted but nephrology wanted to hold losartan until seen by nephro as outpatient. And one of the blood cultures grew staph lugdunensis and ID recommended Keflex 1000 mg twice daily until 02/02/2025. During the last admission patient also had an episode of rectal bleed ,GI wanted to scope but patient declined saying that she wanted to be scoped only if she bleeds again. Patient did okay and was discharged. Patient states today she had 3 episodes of bloody bowel movements. And she felt very weak after that. She could not walk. Denies any abdominal pain. No dizziness. No nausea. No chest pain. No shortness of breath. No cough. No headache. No runny nose. No sore throat. Currently resting comfortably and hemodynamically stable. Rectal bleeding Acute anemia on anemia of chronic disease CAT scan showing diverticulosis Hemoglobin 9.4. Hemoglobin was 8.4 on 01/22/2025 prior to discharge Last admission patient received Procrit and IV Venofer by nephro Will keep her n.p.o., gentle fluids Normal Saline 50 mL/h Blood consent obtained GI consulted in a.m. for further recommendations Denies any symptoms of abdominal pain, nausea or vomiting Hemoglobin dropped to 7.5 Appreciate GI input and recommendation for colonoscopy tomorrow Received 1 unit of PRBC yesterday and the hemoglobin is more than 9 today Rectal tube is draining stool with altered blood Will have colonoscopy this afternoon Status post colonoscopy which showed significant ulceration in the cecal base with stigmata of recent bleeding and mucosal lesions in the rectum which were biopsied Recommendation was to get a CAT scan with IV and oral contrast to evaluate SMA territory ischemia Repeat colonoscopy in about a month Hemoglobin is down to 8.4 and will monitor Recent bilateral cellulitis On Keflex 1000 mg twice daily until 02/02/2025 Continue Keflex for bilateral leg cellulitis Bilateral leg cellulitis are better ART on CKD stage IV Baseline creatinine around 2 Presents with creatinine of 2.4 Creatinine 2.4 at the time of recent discharge Losartan on hold since last admission. Nephro wants to hold it until seen as outpatient Will hold torsemide also for now Close monitor for volume overload Kidney functions remain stable with creatinine 2.28 Creatinine is stable and slightly better at 1.89 Kidney function is better with creatinine 1.5 Diabetes Lantus 20 units nightly as patient currently n.p.o. Sliding scale Close monitor History of gout On allopurinol Hypertension On Amlodipine, Imdur, metoprolol tartrate Holding torsemide Losartan on hold since last admission Will monitor Hyperlipidemia On statin and Zetia Obstructive sleep apnea CPAP nightly Chronic diastolic CHF Holding diuretics Getting gentle fluids Monitor for volume overload Bilateral lower extremity edema Holding torsemide monitor for volume overload History of CAD status post stents On aspirin, Plavix statin and beta-bakari Holding aspirin Plavix for now for GI bleed History of carotid artery disease Status post right carotid endarterectomy Status post right carotid stenting for restenosis On aspirin Plavix and statin Holding aspirin Plavix for rectal bleed History of DVT provoked in 2019 was on Coumadin for 3 months History of peripheral artery vascular disease Venous insufficiency On aspirin, Plavix and statin Holding aspirin Plavix for rectal bleed. Renal cyst CAT scan showing multiple bilateral renal cortical cysts some of them are hyperdense, largest in the right kidney measuring 2.5 cm. Routine ultrasound or MRI scan is recommended DVT prophylaxis SCDs for now Disposition Telemetry Full code. Admission and Anticipated Discharge Date Admission Date: January 25, 2025 Subjective 01/26/2025 Patient was seen and examined in telemetry unit She was admitted with painless recurrent rectal bleeding Has had 3 episodes before coming to the hospital and felt dizzy with these episodes Denies any significant symptoms this morning 01/27/2025 The patient was seen and examined in telemetry unit She has had 1 unit of blood transfusion yesterday Rectal tube is draining altered blood mixed with stool but no cruzito blood noted She denies any significant symptoms and does not have any abdominal discomfort or pain and no nausea and vomiting 01/28/2025 The patient was seen and examined in telemetry and She is status post colonoscopy with mucosal ulceration in the rectum without any evidence of ongoing bleeding and there is biopsies and significant ulceration in the cecal base with stigmata of recent bleeding. Patient remains stable without any abdominal pain, nausea or vomiting Will monitor her tonight and if remains stable likely to be discharged in the morning Review of Systems Review of Systems: All systems reviewed and are unremarkable except as noted below Physical Exam Physical Exam: Lying in bed without any acute distress Constitutional: well developed, well nourished and + obese; not ill appearing Eyes: PERRL, conjunctivae normal, anicteric sclerae ENMT: external ear and nose normal, oropharynx normal Neck: trachea midline, no thyromegaly Respiratory: no respiratory distress Auscultation: lungs clear to auscultation bilaterally Cardiovascular: Rate/Rhythm: regular rate and regular rhythm; not tachycardic Heart Sounds: normal S1 and normal S2; no murmur Extremities: no edema Gastrointestinal (Abdomen): Inspection/Auscultation: normal bowel sounds; abdomen not distended Percussion/Palpation: abdomen soft; abdomen nontender Musculoskeletal: No acute arthritis involving any of the joint Neurologic: normal touch/pain/proprioception and moves all extremities; no focal motor deficits Psychiatric: A+Ox3, euthymic affect Lymphatic: no cervical or axillary lymphadenopathy Results & Data Results & Data Vital Signs (Past 12 Hours) Vital Signs Temp Pulse Resp BP Pulse Ox O2 Del Method 01/28/25 10:44 36.7 C 66 18 158/77 H 92 Room Air 01/28/25 08:09 36.6 C 68 18 150/75 H 97 Room Air Laboratory Results Short CBC 01/27/25 01/28/25 Range/Units 15:47 05:57 WBC 7.71 (4.8-10.8) K/ul Hgb 9.4 L 8.4 L (12.0-16.0) g/dl Hct 28.8 L 26.6 L (37.0-47.0) % Plt Count 161 (130-400) K/uL BMP 01/28/25 05:57 Sodium 149 H Potassium 3.7 Chloride 116 H Carbon Dioxide 25 BUN 49 H D Creatinine 1.52 H D Glucose 110 H Calcium 8.4 L Medications Administered Current Inpatient Medications Allopurinol (Allopurinol 100 Mg Tab) 200 mg PO DAILY [facility] Stop: 02/25/25 08:59 Last Admin: 01/28/25 07:59 Dose: 200 mg Amlodipine Besylate (Amlodipine Besylate 5 Mg Tab) 2.5 mg PO HS [facility] Stop: 02/25/25 20:59 Last Admin: 01/27/25 20:43 Dose: 2.5 mg Atorvastatin Calcium (Atorvastatin 40 Mg Tab) 80 mg PO DAILY [facility] Stop: 02/25/25 08:59 Last Admin: 01/28/25 07:59 Dose: 80 mg Cephalexin HCl (Cephalexin 500 Mg Cap) 1,000 mg PO BID [facility]; Protocol Stop: 02/02/25 08:59 Last Admin: 01/28/25 07:59 Dose: 1,000 mg Cetirizine HCl (Cetirizine Hcl 10 Mg Tablet) 5 mg PO DAILY [facility] Stop: 02/25/25 08:59 Last Admin: 01/28/25 08:00 Dose: 5 mg Dextrose (Dextrose 50% 50 Ml Syringe) 25 - 50 ml IV UD PRN; Protocol PRN Reason: Hypoglycemia Protocol Stop: 02/25/25 00:06 Last Admin: 01/27/25 06:15 Dose: 25 ml Ezetimibe (Ezetimibe 10 Mg Tab) 10 mg PO DAILY [facility] Stop: 02/25/25 08:59 Last Admin: 01/28/25 08:02 Dose: 10 mg Gabapentin (Gabapentin 100 Mg Cap) 100 mg PO HS [facility] Stop: 02/25/25 20:59 Last Admin: 01/27/25 20:43 Dose: 100 mg Glucagon (Glucagon For Inj 1 Mg Vial) 1 mg SQ UD PRN; Protocol PRN Reason: Hypoglycemia Protocol Stop: 02/25/25 00:06 Glucose (Glucose 40% Gel 15 Gm Tube) 15 - 30 gm PO UD PRN; Protocol PRN Reason: Hypoglycemia Protocol Stop: 02/25/25 00:06 Glucose (Glucose 10 Tab/Tube) 4 - 8 tab PO UD PRN; Protocol PRN Reason: Hypoglycemia Protocol Stop: 02/25/25 00:06 Insulin Aspart (Insulin Aspart Per Unit Charge) 0 units SC ACHS [facility] Stop: 02/27/25 07:29 Last Admin: 01/28/25 12:05 Dose: 4 units Insulin Glargine (Lantus Per Unit Charge) 15 units SQ HS [facility] Stop: 02/26/25 20:59 Last Admin: 01/27/25 20:35 Dose: Not Given Isosorbide Mononitrate (Isosorbide Lucas Extended Rel 30 Mg Tabcr) 90 mg PO DAILY [facility] Stop: 02/25/25 08:59 Last Admin: 01/28/25 08:02 Dose: 90 mg Lactobacillus Acidophilus (Advanced Probiotic 625 Mg Capsule) 1,250 mg PO DAILY [facility] Stop: 02/25/25 08:59 Last Admin: 01/28/25 08:02 Dose: 1,250 mg Metoprolol Tartrate (Metoprolol Tartrate 100 Mg Tab) 100 mg PO BID [facility] Stop: 02/25/25 08:59 Last Admin: 01/28/25 08:03 Dose: 100 mg Miscellaneous (Carbohydrates For Hypoglycemia ) 15 - 30 gm PO UD PRN PRN Reason: Hypoglycemia Protocol Stop: 02/25/25 00:06 Multivitamins (Multivitamin Tab) 1 tab PO DAILY [facility] Stop: 02/25/25 08:59 Last Admin: 01/28/25 08:03 Dose: 1 tab Nitroglycerin (Nitroglycerin Sl 0.4 Mg/Tab Tab) 0.4 mg SL Q5M PRN PRN Reason: Chest Pain Stop: 02/25/25 00:06 Nystatin (Nystatin Powder 15gm Btl) 1 appln EXT DAILY [facility] Stop: 02/25/25 08:59 Last Admin: 01/28/25 08:03 Dose: 1 appln
[2025-01-29 05:08] LABS: Hematocrit (blood only) 23.9 % (37.0-47.0); Hemoglobin 7.9 g/dl (12.0-16.0); Immature Granulocytes # (auto) 0.03 K/uL (0.01-0.20); Immature Granulocytes % (auto) 0.4 %; Mean Corpuscular Hemoglobin 30.5 pg (25.0-34.0); Mean Corpuscular Volume 92.3 fL (80.0-100.0); Platelet Count 135 K/uL (130-400); RDW Standard Deviation 61.6 fL (36.4-46.3); Red Blood Count 2.59 M/uL (4.20-5.40); White Blood Count 7.20 K/ul (4.8-10.8)
[2025-01-29 05:36] LABS: Anion Gap 6.0 (3-11); Blood Urea Nitrogen 43.0 mg/dl (6-23); Calcium 8.2 mg/dl (8.6-10.3); Carbon Dioxide 24.0 mmol/L (21-32); Chloride 115.0 mmol/L (98-107); Creatinine Clr Calc Pharmacy 29.8 ml/min; Glucose 114.0 mg/dl (70-99(Fasting)); Potassium 3.7 mmol/L (3.5-5.1); Sodium 145.0 mmol/L (136-145)
[2025-01-29 05:43] LABS: Acanthocytes 1+; Ovalocytes 1+; Polychromasia 1+
--- NOTE | 2025-01-29 09:19 | Gastroenterology Progress Note ---
Date of Service January 29, 2025 Assessment & Plan (1) Hematochezia: Plan: Patient is clinically feeling better. no further bleeding. - Will ask pathology for further clarification on pathology. specifically to comment on if there is any crypt distortion. - further recommendations to follow. Admission and Anticipated Discharge Date Admission Date: January 25, 2025 Supervising Physician Co-Signing Physician Notes I personally saw and examined the patient. I have reviewed the chart and agree with the documentation provided by the CONDUIT REAMER OPERATOR including discussion about the assessment, treatment and plan. Briefly, spoke with pathology and patient noted to have acute colitis with neutrophilic infiltration. This could be infection or ischemia. No obvious crypt architectural distortion in the normal tissue adjacent to the ulcer. No role for 5-ASA at this time. Patient is asymptomatic at this point. Continue to advance her diet and stable from GI standpoint. We will sign off. We would like to see her outpatient in about 6 weeks at which point we can consider rescoped to make sure this is healing based on her symptoms. Subjective Patient has had no further rectal bleeding. no pain. Pathology came back showing Active chronic colitis with ulceration, granulation tissue, and necrotic debris. Negative for granulomas and dysplasia. she is feeling well from a GI standpoint. 01/29/25 hgb 7.9, hct 23.9, wbc 7.2, plts 135. Review of Systems Review of Systems: All systems reviewed & are unremarkable except as noted in HPI & below Physical Exam Constitutional: WD/WN, vitals as above Respiratory: normal respiratory effort, lungs clear to auscultation Cardiovascular: Rate/Rhythm: regular rate and regular rhythm Gastrointestinal (Abdomen): normal bowel sounds, soft, nontender, no he patosplenomegaly Psychiatric: Orientation: alert and oriented x 3 Affect: euthymic affect Results & Data Results & Data Vital Signs (Past 12 Hours) Vital Signs Temp Pulse Pulse Resp BP BP Pulse Ox 01/29/25 07:25 97.7 F 63 18 129/54 L 93 01/29/25 03:36 97.9 F 63 18 166/50 H 95 01/28/25 23:52 97.7 F 62 18 139/78 90 O2 Del Method O2 Flow Rate 01/29/25 07:25 Room Air 01/29/25 03:36 Nasal Cannula 2.0 01/28/25 23:52 Room Air Coding Level of Care Code 41985 SUB INP/OBS CARE MIN Diagnoses Hematochezia K92.1
[2025-01-29 10:10] LABS: Hematocrit (blood only) 27.2 % (37.0-47.0); Hemoglobin 8.5 g/dl (12.0-16.0)
--- NOTE | 2025-01-29 15:06 | Hospitalist Progress Note ---
Date of Service January 29, 2025 Assessment & Plan (1) Rectal bleeding: Plan: per Dr. Martínez's notes with addendum: 84-year-old female with past medical history significant for type 2 diabetes, CKD stage IV, hyperlipidemia, gouty arthritis, hyperphosphatemia, diabetic peripheral angiopathy, sleep apnea, chronic diastolic CHF, venous insufficiency, CAD, hypertension, bilateral carotid artery stenosis, s/p carotid artery stent placement, status post carotid endarterectomy, peripheral vascular disease, morbid obesity, cirrhosis of liver, diverticulosis of colon, anemia of chronic renal failure, history of DVT, who lives at home with her and granddaug hter comes because of rectal bleed. Patient was recently in the hospital for bilateral lower extremity cellulitis and was discharged on 01/22/2025 on Keflex. During last admission she also had ART and her losartan and torsemide were held. Torsemide restarted but nephrology wanted to hold losartan until seen by nephro as outpatient. And one of the blood cultures grew staph lugdunensis and ID r ecommended Keflex 1000 mg twice daily until 02/02/2025. During the last admission patient also had an episode of rectal bleed ,GI wanted to scope but patient declined saying that she wanted to be scoped only if she bleeds again. Patient did okay and was discharged. Patient states today she had 3 episodes of bloody bowel movements. And she felt very weak after that. She could not walk. Denies any abdominal pain. No dizziness. No nausea. No chest pain. No shortness of breath. No cough. No headache. No runny nose. No sore throat. Currently resting comfortably and hemodynamically stable. Rectal bleeding: Caecal Ulcer, Diverticulosis on Colonoscopy Acute anemia on anemia of chronic disease CAT scan showing diverticulosis Hemoglobin 9.4. Hemoglobin was 8.4 on 01/22/2025 prior to discharge Last admission patient received Procrit and IV Venofer by nephro Will keep her n.p.o., gentle fluids Normal Saline 50 mL/h Blood consent obtained GI consulted in a.m. for further recommendations Denies any symptoms of abdominal pain, nausea or vomiting Hemoglobin dropped to 7.5 Appreciate GI input and recommendation for colonoscopy tomorrow Received 1 unit of PRBC yesterday and the hemoglobin is more than 9 today Rectal tube is draining stool with altered blood Will have colonoscopy this afternoon Status post colonoscopy which showed significant ulceration in the cecal base with stigmata of recent bleeding and mucosal lesions in the rectum which were biopsied Recommendation was to get a CAT scan with IV and oral contrast to evaluate SMA territory ischemia Repeat colonoscopy in about a month Hemoglobin is down to 8.4 and will monitor -- Hg stable at 8.5 ok to resume ASA and Plavix per GI, start with ASA for now -- advance diet PT/OT eval Recent bilateral cellulitis On Keflex 1000 mg twice daily until 02/02/2025 Continue Keflex for bilateral leg cellulitis Bilateral leg cellulitis are better ART on CKD stage IV Baseline creatinine around 2 Presents with creatinine of 2.4 Creatinine 2.4 at the time of recent discharge Losartan on hold since last admission. Nephro wants to hold it until seen as outpatient Will hold torsemide also for now Close monitor for volume overload Kidney functions remain stable with creatinine 2.28 Creatinine is stable and slightly better at 1.89 Kidney function is better with creatinine 1.5 -- crea stablea t 1.5 Diabetes Lantus 20 units nightly as patient currently n.p.o. Sliding scale Close monitor History of gout On allopurinol Hypertension On Amlodipine, Imdur, metoprolol tartrate Holding torsemide Losartan on hold since last admission Will monitor Hyperlipidemia On statin and Zetia Obstructive sleep apnea CPAP nightly Chronic diastolic CHF Holding diuretics Getting gentle fluids Monitor for volume overload Bilateral lower extremity edema -- resume Torsemid History of CAD status post stents On aspirin, Plavix statin and beta-bakari -- resume ASA for today History of carotid artery disease Status post right carotid endarterectomy Status post right carotid stenting for restenosis On aspirin Plavix and statin - resume ASA for today Plavix tomorrow History of DVT provoked in 2019 was on Coumadin for 3 months History of peripheral artery vascular disease Venous insufficiency On aspirin, Plavix and statin -- resume Aspirin Renal cyst CAT scan showing multiple bilateral renal cortical cysts some of them are hyperdense, largest in the right kidney measuring 2.5 cm. Routine ultrasound or MRI scan is recommended DVT prophylaxis SCDs for now Disposition Telemetry Full code. Admission and Anticipated Discharge Date Admission Date: January 25, 2025 Subjective ff up for gi bleed, etc seen resting in bed, sleeping easily awakened states she feels fine overall no abdominal pain, nausea denies melena/hematochezia no fever/chills somewhat weak no other symptoms Review of Systems Review of Systems: all noted and negative except for above Physical Exam Physical Exam: General- oriented x 3, not in distress, speaks in sentences with no effort or accessory muscle use Eyes- anicteric Neck- no JVD Lungs- clear breath sounds bilaterally, no rales/wheezes Heart- normal rate, regular rhythm; no murmurs Abdomen- normal bowel sounds, nondistended, soft, nontender Extremities- (+) gr 1 lower ext edema, mild erythema L lower leg Neuro- alert, oriented x 3; no gross focal neurologic deficits Skin- warm & dry Results & Data Results & Data Vital Signs (Past 12 Hours) Vital Signs Temp Pulse Pulse Resp BP BP Pulse Ox 01/29/25 14:45 59 L 01/29/25 11:42 60 01/29/25 11:12 37.0 C 59 L 16 143/74 H 01/29/25 07:25 36.5 C 63 18 129/54 L 93 01/29/25 03:36 36.6 C 63 18 166/50 H 95 O2 Del Method O2 Flow Rate 01/29/25 14:45 01/29/25 11:42 01/29/25 11:12 Room Air 01/29/25 07:25 Room Air 01/29/25 03:36 Nasal Cannula 2.0 all noted and reviewed including below
[2025-01-29] MEDS: ASPIRIN 81 MG ECTAB PO SCH (15:07)
[2025-01-29] MEDS: TORSEMIDE 10 MG TAB PO SCH (15:44)
[2025-01-30 11:17] VITALS: RESP 18; TEMP 98.2; O2SAT 95
--- NOTE | 2025-01-30 12:49 | Discharge Summary ---
Discharge Summary Date of Service January 30, 2025 Principal Dx & Hospital Course #1 = Principal Diagnosis (1) Rectal bleeding: per Dr. Martínez's notes with addendum: 84-year-old female with past medical history significant for type 2 diabetes, CKD stage IV, hyperlipidemia, gouty arthritis, hyperphosphatemia, diabetic peripheral angiopathy, sleep apnea, chronic diastolic CHF, venous insufficiency, CAD, hypertension, bilateral carotid artery stenosis, s/p carotid artery stent placement, status post carotid endarterectomy, peripheral vascular disease, morbid obesity, cirrhosis of liver, diverticulosis of colon, anemia of chronic renal failure, history of DVT, who lives at home with her and granddaughter comes because of rectal bleed. Patient was recently in the hospital for bilateral lower extremity cellulitis and was discharged on on Keflex. During last admission she also had ART and her losartan and torsemide were held. Torsemide restarted but nephrology wanted to hold losartan until seen by nephro as outpatient. And one of the blood cultures grew staph lugdunensis and ID recommended Keflex 1000 mg twice daily until 02/02/2025. During the last admission patient also had an episode of rectal bleed ,GI wanted to scope but patient declined saying that she wanted to be scoped only if she bleeds again. Patient did okay and was discharged. Patient states today she had 3 episodes of bloody bowel movements. And she felt very weak after that. She could not walk. Denies any abdominal pain. No dizziness. No nausea. No chest pain. No shortness of breath. No cough. No headache. No runny nose. No sore throat. Currently resting comfortably and hemodynamically stable. Rectal bleeding: Caecal Ulcer, Diverticulosis on Colonoscopy Acute anemia on anemia of chronic disease CAT scan showing diverticulosis Hemoglobin 9.4. Hemoglobin was 8.4 on 01/22/2025 prior to discharge Last admission patient received Procrit and IV Venofer by nephro Will keep her n.p.o., gentle fluids Normal Saline 50 mL/h Blood consent obtained GI consulted in a.m. for further recommendations Denies any symptoms of abdominal pain, nausea or vomiting Hemoglobin dropped to 7.5 Appreciate GI input and recommendation for colonoscopy tomorrow Received 1 unit of PRBC yesterday and the hemoglobin is more than 9 today Rectal tube is draining stool with altered blood Will have colonoscopy this afternoon Status post colonoscopy which showed significant ulceration in the cecal base with stigmata of recent bleeding and mucosal lesions in the rectum which were biopsied Recommendation was to get a CAT scan with IV and oral contrast to evaluate SMA territory ischemia Repeat colonoscopy in about a month Hemoglobin is down to 8.4 and will monitor -- Hg stable at 8.5 ok to resume ASA and Plavix per GI, start with ASA for now -- advance diet PT/OT eval -- Repeat colonoscopy in 6 weeks Recent bilateral cellulitis On Keflex 1000 mg twice daily until 02/02/2025 Continue Keflex for bilateral leg cellulitis Bilateral leg cellulitis are better ART on CKD stage IV Baseline creatinine around 2 Presents with creatinine of 2.4 Creatinine 2.4 at the time of recent discharge Losartan on hold since last admission. Nephro wants to hold it until seen as outpatient Will hold torsemide also for now Close monitor for volume overload Kidney functions remain stable with creatinine 2.28 Creatinine is stable and slightly better at 1.89 Kidney function is better with creatinine 1.5 -- crea stablea t 1.5 Diabetes Lantus 20 units nightly as patient currently n.p.o. Sliding scale Close monitor History of gout On allopurinol Hypertension On Amlodipine, Imdur, metoprolol tartrate Holding torsemide Losartan on hold since last admission Will monitor Hyperlipidemia On statin and Zetia Obstructive sleep apnea CPAP nightly Chronic diastolic CHF Holding diuretics Getting gentle fluids Monitor for volume overload Bilateral lower extremity edema -- resume Torsemid History of CAD status post stents On aspirin, Plavix statin and beta-bakari -- resume ASA for today History of carotid artery disease Status post right carotid endarterectomy Status post right carotid stenting for restenosis On aspirin Plavix and statin - resume ASA for today Plavix tomorrow History of DVT provoked in 2019 was on Coumadin for 3 months History of peripheral artery vascular disease Venous insufficiency On aspirin, Plavix and statin -- resume Aspirin Renal cyst CAT scan showing multiple bilateral renal cortical cysts some of them are hyperdense, largest in the right kidney measuring 2.5 cm. Routine ultrasound or MRI scan is recommended DVT prophylaxis SCDs for now Disposition Telemetry Full code. Admission HPI Per Admitting Provider 84-year-old female with past medical history significant for type 2 diabetes, CKD stage IV, hyperlipidemia, gouty arthritis, hyperphosphatemia, diabetic peripheral angiopathy, sleep apnea, chronic diastolic CHF, venous insufficiency, CAD, hypertension, bilateral carotid artery stenosis, s/p carotid artery stent placement, status post carotid endarterectomy, peripheral vascular disease, morbid obesity, cirrhosis of liver, diverticulosis of colon, anemia of chronic renal failure, history of DVT, who lives at home with her and granddaughter comes because of rectal bleed. Patient was recently in the hospital for bilateral lower extremity cellulitis and was discharged on 01/22/2025 on Keflex. During last admission she also had ART and her losartan and torsemide were held. Torsemide restarted but nephrology wanted to hold los jennifer until seen by nephro as outpatient. And one of the blood cultures grew staph lugdunensis and ID recommended Keflex 1000 mg twice daily until 02/02/2025. During the last admission patient also had an episode of rectal bleed ,GI wanted to scope but patient declined saying that she wanted to be scoped only if she bleeds again. Patient did okay and was discharged. Patient states today she had 3 episodes of bloody bowel movements. And she felt very weak after that. She could not walk. Denies any abdominal pain. No dizziness. No nausea. No chest pain. No shortness of breath. No cough. No headache. No runny nose. No sore throat. Currently resting comfortably and hemodynamically stable. Past medical history. As mentioned above. Past surgical history. Left total knee arthroplasty. Colonoscopy. Combined right and left heart catheterization. Appendectomy. Cholecystectomy. Sacroiliac joint injection. Carotid artery endarterectomy. Right carotid stent placement. Total abdominal hysterectomy with removal of tubes. Vaginal hysterectomy. Social history. . No smoking. No alcohol use. No drug use. Family history. Maternal aunt had breast cancer. Son of massive GA at age of 30. Updated Medication List Medication Instructions Recorded Confirmed Type allopurinol 100 mg tablet 200 mg PO DAILY 05/27/19 01/25/25 History atorvastatin 80 mg tablet 80 mg PO DAILY 05/27/19 01/25/25 History cetirizine 10 mg tablet (Zyrtec) 5 mg PO DAILY 05/27/19 01/25/25 History insulin aspart U-100 100 unit/mL 1 unit subcut ACHS 05/27/19 01/25/25 History (3 mL) subcutaneous pen (Novolog FlexPen U-100 Insulin aspart) metoprolol tartrate 100 mg tablet 100 mg PO BID 05/27/19 01/25/25 History multivitamin 1 tab PO DAILY 05/27/19 01/25/25 History aspirin 81 mg capsule 81 mg PO DAILY 05/31/21 01/25/25 History Oxygen Home #1 ea 06/02/21 06/21/22 Rx acetaminophen 500 mg capsule 500 mg PO Q6H PRN Pain 05/09/22 01/25/25 History amlodipine 5 mg tablet 2.5 mg PO HS 05/09/22 01/25/25 History clopidogrel 75 mg tablet (Plavix) 75 mg PO BID 05/09/22 01/25/25 History ezetimibe 10 mg tablet (Zetia) 10 mg PO DAILY 05/09/22 01/25/25 History nitroglycerin 0.4 mg sublingual 0.4 mg sublingual Q5M PRN Chest 05/09/22 01/25/25 History tablet Pain nystatin 100,000 unit/gram topical 1 applic topical DAILY 05/09/22 01/25/25 History powder torsemide 20 mg tablet 30 mg PO DAILY 05/09/22 01/25/25 History insulin glargine 100 unit/mL (3 44 unit subcut HS 06/21/22 01/25/25 History mL) subcutaneous pen (Lantus Solostar U-100 Insulin) isosorbide mononitrate 60 mg 90 mg PO DAILY 06/21/22 01/25/25 History tablet,extended release 24 hr gabapentin 100 mg capsule 100 mg PO HS 01/18/25 01/25/25 History Lactobacillus 1 tab PO DAILY #14 wafers 01/22/25 01/25/25 Rx acidophilus-Lactbacill.bifidus 1 billion cell oral wafer cephalexin 500 mg capsule 1,000 mg (2 x 500 mg) PO BID #7 01/30/25 01/25/25 Rx caps Hospital Stay Data Consultations 01/25/25 21:22 ED Decision to Admit Stat 01/26/25 08:00 Consult Gastroenterology Routine Procedures Performed Operation Date: 01/27/25 16:30 Actual Procedures p Colonoscopy Biopsy Cytology - Ephraim Whitney MD s Colonoscopy Polypectomy - Ephraim Whitney MD Diagnostic Imagining Performed 01/25/25 19:22 CT abd pelvis wo con Stat Pending Results Patient Have Any Pending Studies at Discharge: Yes Discharge Instructions Given to Patient (Per Discharging Provider) PLEASE REFER TO YOUR NEW MEDICATION LIST AND FOLLOW INSTRUCTIONS CAREFULLY. YOUR NEW MEDICATIONS INCLUDE: Cephalexin- antibiotic for leg infection and bloodstream infection, last day February 02, 2025 Probiotics daily to prevent diarrhea caused by antibiotics. PLEASE CALL YOUR PRIMARY CARE PHYSICIAN OR RETURN TO THE ER IF WITH WORSENING OF SYMPTOMS, INCLUDING black or bloody stools, abdominal pain, nausea/vomiting, weakness, etc FOLLOW UP WITH PRIMARY CARE PHYSICIAN OUTLINED ABOVE. you need to have a REPEAT COLONOSCOPY IN 6 WEEKS. your primary care physician can assist you with arranging this.
[2025-01-30 13:07] VITALS: BP 162/54; PULSE 65
== END 2025-01-30 14:25 | disposition home health service (06) | DRG 378 ==
LOC: ED 17:39 → SUATTDRO 22:06 → 2E 22:06